=== PATIENT | female | born 1935 | race Caucasian/White ===

== ENCOUNTER 2018-01-04 11:38 | Inpatient (IN) ==
[2018-01-04] MEDS ORDERED: CEFEPIME 1 GM in NS 100 ML IV ONE (11:40)
--- NOTE | 2018-01-04 11:41 | Emergency Department Report ---
Asthma HPI - General Stated Complaint: c/o flu Time Seen by Provider: 01/04/18 11:39 - Related Data Home Medications Medication Instructions Recorded Confirmed Atorvastatin [Lipitor] 40 mg PO HS 01/04/18 01/04/18 Levothyroxine Sodium [Tirosint] 50 mcg PO DAILY 01/04/18 01/04/18 Losartan Potassium [Cozaar] 100 mg PO DAILY 01/04/18 01/04/18 Trazodone [Desyrel] 100 mg PO HS 01/04/18 01/04/18 Previous Rx's Medication Instructions Recorded Lopressor (metoprolol tartrate) 50 25 mg PO BID #90 tab 05/27/17 mg tablet metoclopramide 10 mg tablet 10 mg PO TID #90 tab 08/09/17 Xanax (alprazolam) 0.25 mg tablet 0.25 mg PO TID PRN #90 tab 08/15/17 Prilosec (Omeprazole) 20 mg 20 mg PO DAILY #90 cap 12/05/17 capsule,delayed release Levaquin (levofloxacin) 500 mg 500 mg PO DAILY #10 tab 01/03/18 tablet Allergies Allergy/AdvReac Type Severity Reaction Status Date / Time No Known Allergies Allergy Verified 01/04/18 12:20 [facility] Medical History Peripheral neuropathy (Chronic Medical) Hypothyroidism (acquired) (Chronic Medical) Hyperlipidemia (Chronic Medical) HTN (hypertension) (Chronic Medical) ASCVD (arteriosclerotic cardiovascular disease) (Chronic Medical) Surgical History: Tonsils. Appendectomy. Bowel Resection following a perforated diverticulum/abscess. Right Knee replacement. Right Hip Replacement. Complete Hysterectomy - Social History Smoking status: Former smoker Dyspnea - Lab Data Result diagrams: 01/04/18 12:08 01/04/18 12:08 Lab Results 01/04/18 01/04/18 Range/Units 12:08 12:08 WBC 7.5 (4.5-11.0) T/MM3 RBC 4.61 (4.00-5.20) M/MM3 Hgb 13.1 (12-16) GM/DL Hct 39.4 (36-46) % MCV 85.5 (80-100) UM3 MCH 28.4 (26-34) UUG MCHC 33.2 (31-37) GM/DL RDW Std Deviation 42.2 (36.9-50.2) FL Plt Count 22 L* (130-400) T/MM3 MPV Not performed Immature Gran % (Auto) Not performed Neut % (Auto) Not performed Lymph % (Auto) Not performed [place] % (Auto) Not performed Eos % (Auto) Not performed Baso % (Auto) Not performed Neut # (Auto) Not performed Lymph # (Auto) Not performed [place] # (Auto) Not performed Eos # (Auto) Not performed Baso # (Auto) Not performed Abs Immat Gran (auto) Not performed Turbidity < 20 (0-20) Sodium 148 H (134-144) MEQ/L Potassium 4.0 (3.6-5) MEQ/L Chloride 108 H (98-107) MEQ/L Carbon Dioxide 20 L (22-30) MEQ/L Anion Gap 20 H (5-15) MEQ/L BUN 20.0 H (7-17) MG/DL Creatinine 0.8 (0.7-1.2) MG/DL GFR Calculation 69 BUN/Creatinine Ratio 25 (6-26) RATIO Glucose 154 H (65-110) MG/DL Calculated Osmolality 290 H (261-280) MOSM/KG Calcium 8.2 L (8.4-10.2) MG/DL Total Bilirubin 1.30 (0.20-1.30) MG/DL Icterus Index < 2 (0-7) AST 51 H (14-36) U/L ALT 16 (9-52) U/L Alkaline Phosphatase 67 (38-126) U/L Total Protein 7.2 (6.3-8.2) G/DL Albumin 4.1 (3.5-5.0) G/DL Globulin 3.1 (2.4-3.6) G/DL Albumin/Globulin Ratio 1.3 (1.1-2.2) RATIO Lipase 92 (23-300) U/L Specimen Hemolysis 139 H (0-25) Disposition Prescriptions: No Action Trazodone [Desyrel] 100 mg PO HS Atorvastatin [Lipitor] 40 mg PO HS Losartan Potassium [Cozaar] 100 mg PO DAILY Levothyroxine Sodium [Tirosint] 50 mcg PO DAILY Xanax (alprazolam) 0.25 mg tablet 0.25 mg PO TID PRN #90 tab PRN Reason: anxiety Prilosec (Omeprazole) 20 mg capsule,delayed release 20 mg PO DAILY #90 cap Lopressor (metoprolol tartrate) 50 mg tablet 25 mg PO BID #90 tab metoclopramide 10 mg tablet 10 mg PO TID #90 tab Levaquin (levofloxacin) 500 mg tablet 500 mg PO DAILY #10 tab Referrals: Ovidio Ziegler MD [Primary Care Provider] -
[2018-01-04] MEDS ORDERED: ONDANSETRON 4 MG/2 ML INJECTION IVP ONE (11:51)
[2018-01-04] MEDS ORDERED: AMIODARONE 150mg/3ml INJECTION IV ONE (12:01)
[2018-01-04] MEDS: SALINE FLUSH 10ml SYRINGE IVF PRN (12:04)
[2018-01-04] MEDS ORDERED: AMIODARONE 150 MG in NS 100 ML IV ONE (12:15)
[2018-01-04] MEDS ORDERED: AMIODARONE 900 MG in NS 500ml 500 ML IV SCH (12:15)
[2018-01-04] MEDS ORDERED: AMIODARONE 450 MG in NS 250ml 250 ML IV SCH (12:15)
[2018-01-04] MEDS ORDERED: NS 1,000 ML IV ONE (12:15)
--- NOTE | 2018-01-04 12:53 | XRay Report ---
Indication: cough shortness of air tachycardia SVT PROCEDURE: XR chest 1V: Encounter: Initial Comparison: None Findings: Respiratory motion artifact. No gross consolidative pneumonia, pleural effusion or pneumothorax. Heart size and mediastinal contours are within normal limits. Prior CABG. Pulmonary vascularity is not well evaluated due to the motion. Overlying monitoring leads. Impression: No pneumonia. .
--- OUTSIDE RECORDS SUMMARY | 2018-01-04 13:12 | External Medical Summary ---
:1935 Author Organization [facility] Address [address] [place] [address] Care Team Providers Name Role Phone Robby Joseph Unavailable Unavailable PROBLEMS Type Condition ICD9-CM Code [id number] Onset Condition SNOMED Code Code Dates Status Problem Dyspnea 786.09 Active 445329497 Problem Hypothyroid E03.9 Active 02552085 Problem Diastolic I51.9 Active 8710072 dysfunction Problem Angina pectoris I20.9 Active 601811861 Problem CAD (coronary I25.10 Active 06807196 artery disease) Problem Hypertension I10 Active 59207956 Problem Dyslipidemia E78.5 Active 111033612 Problem 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
--- OUTSIDE RECORDS SUMMARY | 2018-01-04 13:13 | External Medical Summary | Continuity of Care Document ---
:1935 Author Organization [facility] Allergies Active Description Code Type Severity Reaction Onset Reported/ Identified Relationship Clinical to Patient Status Yes ALLYSON ALLYSON Drug Unknown UNKNOWN 08/01/2014 Inhibitors Inhib Aller itors gy Yes ciprofloxaci cipro Drug Unknown UNKNOWN 08/01/2014 n floxa Aller lluvia gy Yes Ertapenem Ertap Drug Unknown UNKNOWN 08/01/2014 enem Aller gy Yes metronidazol metro Drug Unknown UNKNOWN 08/01/2014 e nidaz Aller ole gy Yes ALLYSON ALLYSON Drug Severe MOUTH 01/14/2016 Inhibitors Inhib Aller SWELLS itors gy Yes Ertapenem ertap Drug Mild RASH 01/14/2016 enem Aller gy Yes metronidazol metro Drug Mild RASH 01/14/2016 e nidaz Aller ole gy Yes ciprofloxaci cipro Drug Unknown RASH 01/14/2016 n floxa Aller lluvia gy Medications There is no data. Problems Date Dx Attending Type Code Diagnosis Diagnosed By Coded 08/04/2014 Robby Joseph MD 244.9 HYPOTHYROIDISM NOS 08/04/2014 Robby Joseph MD 272.4 HYPERLIPIDEMIA NEC/NOS 08/04/2014 Robby Joseph MD 285.1 AC POSTHEMORRHAG ANEMIA 08/04/2014 Robby Joseph MD 401.9 HYPERTENSION NOS 08/04/2014 Robby Joseph MD 411.1 INTERMED CORONARY SYND 08/04/2014 Robby Joseph MD 414.01 CORONARY ATHEROSCLEROSIS OF [place] CORONARY VESSEL 08/04/2014 Robby Joseph MD 511.9 PLEURAL EFFUSION NOS 08/04/2014 Robby Joseph MD 997.39 OTHER RESPIRATORY COMPLICATIONS 08/04/2014 Robby Joseph MD E878.2 ABN REACT-ANASTOM/GRAFT 08/04/2014 Robby Joseph MD V15.82 HISTORY OF TOBACCO USE 08/04/2014 Robby Joseph MD V43.64 HIP JOINT REPLACEMENT STATUS 08/04/2014 Jake CHA, Robby Martinez F V45.82 PERCUTANEOUS TRANSLUM CORON ANGIOPLASTY STATUS Procedures Code Description Performed By Performed On LT HEART Robby Joseph MD 08/02/2014 88.53 ANGIOCARDIOGRAM CORONRobby Conner MD 08/02/2014 88.56 ARTERIOGR-2 CATH THORACENTESIS William CHA, Taylor 08/04/2014 34.91 (AORTO)CORONARY Jonathon CHA, Zachery 08/04/2014 36.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 Jake CHA, Robby Martinez 08/04/2014 36.15 ART BYPASS EXTRACORP Jake CHA, Robby Martinez 08/04/2014 39.61 CIRCULAT AUXIL TO OPEN HEART SURG PACKED CELL Jake CHA, Robby Martinez 08/04/2014 99.04 TRANSFUSION THERAPEUTIC Jake CHA, Robby Martinez 08/04/2014 99.71 PLASMAPHERESIS LEFT HEART Robby Joseph MD 04/15/2015 37.22 CARDIAC CATH LT HEART Robby Joseph MD 04/15/2015 88.53 ANGIOCARDIOGRAM CORONAR Robby Joseph MD 04/15/2015 88.56 ARTERIOGR-2 CATH <section xmlns="urn:hl7-org:v3" xmlns:xsi="http://www.w3.org/ 2001/XMLSchema-instance"> <templateId root=" [id number]" /> <templateId root=" [id number]" /> <code codeSystemName=" LOINC" codeSystem="[id number]" code="64294-0&quot ; displayName="Results" /> <title>Results</title> &lt ;text> <table> <thead> <tr> <th& gt;Test</th> <th>Result</th> <th>Range </th> </tr> </thead> <tbody> &lt ;tr> <th colspan="10">CBC - 08/02/14 07:30</th&gt ; </tr> <tr> <td>MEAN CELL HGB</td> <td>28.3 pg</td> <td>27.0-33.0</td> </tr> <tr> <td>MEAN CELL HGB CONCENTRATION</td> <td>32.2 g/dL</td> <td >32.0-37.0</td> </tr> <tr> <td&gt ;MEAN CELL VOLUME</td> <td>87.9 fl</td> < td>80.0-100.0</td> </tr> <tr> <td >RED BLOOD CELL</td> <td>4.73 m/cumm</td> <td>4.00-6.00</td> </tr> <tr> & lt;td>RED CELL DISTRIBUTION WIDTH</td> <td>14.5 &#37 ;</td> <td>11.0-15.6</td></tr> <tr&gt ; <td>WHITE BLOOD CELL</td> <td>5.7 k/cumm& lt;/td> <td>5.0-10.0</td> </tr> < tr> <td>HEMOGLOBIN</td> <td>13.4 gm/dL</td> <td>12.0-16.0</td> </tr> <tr> <td>HEMATOCRIT</td> <td>41.6 %</td > <td>37.0-47.0</td> </tr><tr> <td>PLATELET COUNT</td> <td>208 k/cumm</td&gt ; <td>150-400</td> </tr> <tr> <th colspan="10">METABOLIC PANEL, BASIC - 08/02/14 07:30</ th> </tr> <tr> <td>POTASSIUM</td&gt ; <td>4.3 mmol/L</td> <td>3.5-5.3</td&gt ; </tr> <tr> <td>EST GFR (MDRD)</td& gt; <td>57 mL/min</td> <td>> 59</td& gt; </tr> <tr> <td>ANION GAP</td> <td>6 mmol/L</td> <td>5-15</td> </tr > <tr> <td>GLUCOSE</td> <td> 87 mg/dL</td> <td>70-99</td> </tr> &lt ;tr> <td>CALCIUM</td> <td>8.7 mg/dL</ td><td>8.5-10.1</td> </tr> <tr> <td>BLOOD UREA NITROGEN</td> <td>19 mg/dL</td& gt; <td>7-20</td> </tr> <tr> <td>CREATININE</td> <td>1.0 mg/dL</td> <td>0.6-1.0</td> </tr> <tr> <td>SODIUM</td> <td>143 mmol/L</td> <td>135-148</td> </tr> <tr> <td& gt;CHLORIDE</td> <td>108 mmol/L</td> <td& gt;98-110</td> </tr> <tr> <td> CARBON DIOXIDE</td> <td>29 mmol/L</td> < td>21-32</td> </tr> <tr> <th colspan="10">LIPID PANEL - 08/02/14 07:30</th> </tr > <tr> <td>CHOLESTEROL/HDL RATIO</td> <td>3.1 </td> <td> < 5.0</td> </tr> <tr> <td>LDL CHOLESTEROL</td> <td>83 mg/dL</td> <td>< 100</td&gt ; </tr> <tr> <td>VLDL CHOLESTEROL</ td> <td>23 mg/dL</td> <td>< 30< /td> </tr> <tr> <td>TRIGLYCERIDES&lt ;/td> <td>117 mg/dL</td> <td>< 150</ td> </tr> <tr> <td>CHOLESTEROL</td&gt ; <td>157 mg/dL</td> <td>< 200</td> </tr> <tr> <td>HDL CHOLESTEROL</td& gt; <td>51 mg/dL</td> <td>> 39</td > </tr> <tr> <th colspan="10"& gt;CHEM/HEM PROFILE-BEDSIDE - 08/04/14 16:35</th> </tr> <tr> <td>POTASSIUM</td> <td>3.5 mmol/L</td> <td>3.5-5.3</td> </tr> <tr> <td>METHOD</td> <td>Bedside & lt;/td> <td /> </tr> <tr> < td>ANION GAP</td> <td>18 mmol/L</td> <td> 10-20</td> </tr> <tr> <td>METHOD& lt;/td> <td>Bedside </td> <td /> & lt;/tr> <tr> <td>GLUCOSE</td> < td>115 mg/dL</td> <td>70-99</td> </tr&gt ; <tr> <td>BLOOD UREA NITROGEN</td> & lt;td>26 mg/dL</td> <td>7-20</td> </tr& gt; <tr> <td>CREATININE</td> <td& gt;1.1 mg/dL</td> <td>0.6-1.0</td> </tr&gt ; <tr> <td>HEMOGLOBIN</td> <td> 14.3 gm/dL</td> <td>12.0-16.0</td> </tr&gt ; <tr> <td>HEMATOCRIT</td> <td> 42.0 %</td> <td>37.0-47.0</td> </tr > <tr> <td>SODIUM</td> <td> 144 mmol/L</td> <td>135-148</td> </tr> <tr> <td>CHLORIDE</td> <td>105 mmol/L</td> <td>98-110</td> </tr> <tr> <td>CARBON DIOXIDE</td> <td>26 mmol/L</td> <td>21-32</td> </tr> <tr> <td>CALCIUM IONIZED</td> <td>4.7 mg/dL</td> <td>4.5-5.3</td> </tr> <tr> <th colspan="10">TROPONIN I BEDSIDE - 16:42</th> </tr> <tr> <td> METHOD</td> <td>Bedside </td> <td /> </tr> <tr> <td>TROPONIN I</td> <td>< 0.04 ng/mL</td><td>< 0.11</td& gt; </tr> <tr> <th colspan="10"& gt;PROTHROMBIN TIME WITH INR - 08/04/14 16:51</th> </tr> <tr> <td>INTERNATIONAL NORMAL RATIO</td> <td>1.0 </td> <td>0.9-1.1</td> </tr> <tr> <td>PROTHROMBIN TIME</td> <td& gt;10.5 sec</td> <td>9.3-12.2</td> </tr&gt ; <tr> <th colspan="10">D-DIMER QUANT - 16:51</th> </tr> <tr> <td> D-DIMER QUANT</td> <td>203 ng/mL</td> <td>0-229 </td> </tr> <tr> <th colspan=" 10">B-TYPE NATRIURETIC PEPTIDE - 08/04/14 16:51</th> </tr > <tr> <td>B-TYPE NATRIURETIC PEPTIDE</td> <td>133 pg/mL</td> <td>< 100</td> </tr> <tr> <th colspan="10">PTT HEPARIN PROTOCOLS - 08/05/14 00:07</th> </tr> <tr& gt; <td>PARTIAL THROMBOPLASTIN TIME</td> <td>& amp;gt; 400 sec</td> <td>24-36</td> </tr&gt ; <tr> <th colspan="10">CBC - 08/05/14 08:15& lt;/th> </tr> <tr> <td>MEAN CELL HGB </td> <td>28.5 pg</td> <td>27.0-33.0& lt;/td> </tr> <tr> <td>MEAN CELL HGB CONCENTRATION</td> <td>32.6 g/dL</td> & lt;td>32.0-37.0</td> </tr> <tr> < td>MEAN CELL VOLUME</td> <td>87.6 fl</td> <td>80.0-100.0</td> </tr> <tr> & lt;td>RED BLOOD CELL</td> <td>4.45 m/cumm</td> <td>4.00-6.00</td> </tr> <tr> <td>RED CELL DISTRIBUTION WIDTH</td> <td>14.1 & amp;#37;</td> <td>11.0-15.6</td> </tr> <tr> <td>WHITE BLOOD CELL</td> <td >6.7 k/cumm</td> <td>5.0-10.0</td> </tr& gt; <tr> <td>HEMOGLOBIN</td> <td& gt;12.7 gm/dL</td> <td>12.0-16.0</td> </tr& gt; <tr> <td>HEMATOCRIT</td> <td& gt;39.0 %</td> <td>37.0-47.0</td> < /tr> <tr> <td>PLATELET COUNT</td> <td>175 k/cumm</td> <td>150-400</td> &lt ;/tr> <tr> <th colspan="10">RENAL FUNCTION PANEL - 08/05/14 08:15</th> </tr> <tr> <td>POTASSIUM</td> <td>3.7 mmol/L</td&gt ; <td>3.5-5.3</td> </tr> <tr> <td>EST GFR (MDRD)</td> <td>> 60 mL/min </td> <td>> 59</td> </tr> <tr> <td>ANION GAP</td><td>7 mmol/L</td> <td>5-15</td> </tr> <tr> <td>EST CrCl (CG)</td> <td>40 mL/min</td> <td>> 59</td> </tr> <tr> <td>GLUCOSE</td> <td>93 mg/dL</td> <td>70-99</td> </tr><tr> <td> CALCIUM</td> <td>8.1 mg/dL</td> <td> 8.5-10.1</td> </tr> <tr> <td> BLOOD UREA NITROGEN</td> <td>17 mg/dL</td> & lt;td>7-20</td> </tr> <tr> <td&gt ;CREATININE</td> <td>0.9 mg/dL</td> <td& gt;0.6-1.0</td> </tr> <tr> <td> SODIUM</td> <td>142 mmol/L</td> <td> 135-148</td> </tr> <tr> <td> CHLORIDE</td> <td>107 mmol/L</td> <td> 98-110</td> </tr> <tr> <td> CARBON DIOXIDE</td> <td>28 mmol/L</td> < td>21-32</td> </tr> <tr> <td> ALBUMIN</td> <td>3.9 gm/dL</td> <td> 3.4-5.0</td> </tr> <tr> <td> PHOSPHORUS</td> <td>2.9 mg/dL</td> <td&gt ;2.5-4.9</td> </tr> <tr> <th colspan ="10">MAGNESIUM - 08/05/14 08:15</th> </tr> <tr> <td>MAGNESIUM</td> <td>1.6 mg/ dL</td> <td>1.8-2.4</td> </tr> <tr& gt; <th colspan="10">TROPONIN I - 08/05/14 08:15</th ></tr> <tr> <td>TROPONIN I</td> <td>< 0.02 ng/mL</td> <td>< 0.07& lt;/td> </tr> <tr> <th colspan="10& quot;>PTT HEPARIN PROTOCOLS - 08/05/14 08:15</th> </tr> <tr> <td>PARTIAL THROMBOPLASTIN TIME</td> <td>211 sec</td> <td>24-36</td> &lt ;/tr> <tr> <th colspan="10">LIPID PANEL - 08:15</th> </tr> <tr> <td> CHOLESTEROL/HDL RATIO</td> <td>2.7 </td> < td> < 5.0</td> </tr> <tr> &lt ;td>LDL CHOLESTEROL</td> <td>73 mg/dL</td> <td>< 100</td> </tr> <tr> <td>VLDL CHOLESTEROL</td> <td>19 mg/dL</td&gt ; <td>< 30</td> </tr> <tr&gt ; <td>TRIGLYCERIDES</td> <td>95 mg/dL</td > <td>< 150</td> </tr> <tr > <td>CHOLESTEROL</td> <td>146 mg/dL</ td> <td>< 200</td> </tr> < tr> <td>HDL CHOLESTEROL</td> <td>54 mg/dL </td> <td>> 39</td> </tr> <tr> <th colspan="10">HEMOGLOBIN A1C - 08/05/14 08:15</th> </tr><tr> <td>HEMOGLOBIN A1C& lt;/td> <td>6.1 %</td> <td>&lt ; 5.7</td> </tr> <tr> <th colspan=& quot;10">MRSA SURVEILLANCE SCREEN - 08/05/14 16:09</th> &lt ;/tr> <tr> <td>Microbiology</td> & lt;td> </td> <td /> </tr> <tr&gt ; <th colspan="10">PROTHROMBIN TIMEWITH INR - 08/05/14 16:20</th> </tr> <tr> <td> INTERNATIONAL NORMAL RATIO</td> <td>1.0 </td> <td>0.9-1.1</td> </tr> <tr> & lt;td>PROTHROMBIN TIME</td> <td>10.6 sec</td> <td>9.3-12.2</td> </tr> <tr> <th colspan="10">FIBRINOGEN - 08/05/14 16:20</th> & lt;/tr> <tr> <td>FIBRINOGEN</td> < td>356 mg/dL</td> <td>200-400</td> </tr> <tr> <th colspan="10">PTT HEPARIN PROTOCOLS - 08/05/14 16:20</th> </tr> <tr> <td>PARTIAL THROMBOPLASTIN TIME</td> <td>48 sec< /td> <td>24-36</td> </tr> <tr> <th colspan="10">URINALYSIS, ROUTINE - 08/05/14 16:20</th& gt; </tr> <tr> <td>UA LEUKOCYTE ESTERASE DIPSTICK</td> <td>NEGATIVE </td> & lt;td>NEGATIVE</td> </tr> <tr> < td>UA NITRITE DIPSTICK</td> <td>NEGATIVE </td> <td>NEGATIVE</td></tr> <tr> < td>UA PROTEIN DIPSTICK</td> <td>NEGATIVE </td> <td>NEGATIVE</td> </tr> <tr> < td>UA GLUCOSE DIPSTICK</td> <td>NEGATIVE </td> <td>NEGATIVE</td> </tr> <tr> <td>UA KETONE DIPSTICK</td> <td>NEGATIVE </td& gt; <td>NEGATIVE</td> </tr> <tr> <td>UA UROBILINOGEN DIPSTICK</td> <td> NORMAL </td> <td>NORMAL</td> </tr> <tr> <td>UA BILIRUBIN DIPSTICK</td> < td>NEGATIVE </td> <td>NEGATIVE</td> </tr > <tr> <td>UA BLOOD DIPSTICK</td> <td>NEGATIVE </td> <td>NEGATIVE</td> &lt ;/tr> <tr> <td>UA SPECIFIC GRAVITY</td> <td>1.002 </td> <td>1.015-1.025</td> </tr> <tr> <td>UR PH</td> &lt ;td>5.0 </td> <td>5.0-7.0</td> </tr> <tr> <th colspan="10">ARTERIAL BLOOD GAS - 08/05/14 16:31</th> </tr> <tr> <td >ABG BASE EXCESS</td> <td>1.8 meq/L</td> <td >-3.0-3.0</td> </tr> <tr> <td> ABG BICARBONATE</td> <td>27.1 meq/L</td> <td& gt;23.0-28.0</td> </tr> <tr> <td> ABG PCO2</td> <td>45 mm Hg</td> <td>34 -45</td> </tr> <tr> <td>ABG PH&lt ;/td> <td>7.40 </td> <td>7.35-7.45</td> </tr> <tr> <td>ABG PO2</td> <td>74 mm Hg</td> <td>75-100</td> & lt;/tr> <tr> <td>ABG O2 SATURATION</td> <td>95 %</td> <td>93-100</td> </tr> <tr> <th colspan="10"> PTT HEPARIN PROTOCOLS - 08/06/14 00:14</th> </tr><tr> <td>PARTIAL THROMBOPLASTIN TIME</td> <td> 220 sec</td> <td>24-36</td> </tr> <tr> <th colspan="10">PTT HEPARIN PROTOCOLS - 08/06/14 08:13</th> </tr> <tr> <td& gt;PARTIAL THROMBOPLASTIN TIME</td> <td>100 sec</td> <td>24-36</td> </tr> <tr> <th colspan="10">METABOLIC PANEL, BASIC - 08/06/14 08:13< /th> </tr> <tr> <td>POTASSIUM</td > <td>3.7 mmol/L</td> <td>3.5-5.3</td& gt; </tr> <tr> <td>EST GFR (MDRD)</ td> <td>57 mL/min</td> <td>> 59&lt ;/td> </tr> <tr> <td>ANION GAP</ td> <td>7 mmol/L</td> <td>5-15</td> </tr> <tr> <td>EST CrCl (CG)</td> <td>37 mL/min</td> <td>> 59</td&gt ;</tr> <tr> <td>GLUCOSE</td> & lt;td>95 mg/dL</td> <td>70-99</td> </tr& gt; <tr> <td>CALCIUM</td> <td> 8.8 mg/dL</td> <td>8.5-10.1</td> </tr> & lt;tr> <td>BLOOD UREA NITROGEN</td> <td> 10 mg/dL</td> <td>7-20</td> </tr> <tr> <td>CREATININE</td> <td>1.0 mg/ dL</td> <td>0.6-1.0</td> </tr> & lt;tr> <td>SODIUM</td> <td>144 mmol/L< /td> <td>135-148</td> </tr> <tr& gt; <td>CHLORIDE</td> <td>109 mmol/L</td> <td>98-110</td> </tr> <tr> <td>CARBON DIOXIDE</td> <td>28 mmol/L</td> <td>21-32</td> </tr> <tr> < th colspan="10">SURGERY PROFILE BEDSIDE - 09/30/14 12:33</th&gt ; </tr> <tr> <td>POTASSIUM</td> <td>3.4 mmol/L</td> <td>3.5-5.3</td> </tr> <tr> <td>ABG BASE EXCESS</td> <td>4.0 meq/L</td> <td>-3.0-3.0</td> </tr> <tr> <td>ABG BICARBONATE</td& gt; <td>28.1 meq/L</td> <td>23.0-28.0</td> </tr> <tr> <td>METHOD</td> < td>Bedside </td> <td /> </tr> <tr > <td>ABG PCO2</td> <td>43 mm Hg</td& gt; <td>34-45</td> </tr> <tr> <td>ABG PH</td> <td>7.43 </td> <td& gt;7.35-7.45</td> </tr> <tr> <td> ABG PO2</td> <td>386 mm Hg</td> <td>75 -100</td> </tr> <tr> <td>ABG O2 SATURATION</td> <td>100 %</td> < td>93-100</td> </tr> <tr> <td> METHOD</td> <td>Bedside </td> <td /> </tr> <tr> <td>METHOD</td> <td> Bedside </td> <td /> </tr> <tr> <td>GLUCOSE</td> <td>97 mg/dL</td> <td>70-99</td> </tr> <tr> <td>HEMOGLOBIN</td> <td>11.2 gm/dL</td> <td>12.0-16.0</td> </tr> <tr> <td >HEMATOCRIT</td> <td>33.0 %</td> <td>37.0-47.0</td> </tr> <tr> <td> SODIUM</td> <td>142 mmol/L</td> <td> 135-148</td> </tr> <tr> <td> CARBON DIOXIDE</td> <td>29 mmol/L</td> < td>21-32</td> </tr> <tr> <td> CALCIUM IONIZED</td> <td>4.7 mg/dL</td> < td>4.5-5.3</td> </tr> <tr> <th colspan="10">SURGERY PROFILE BEDSIDE - 08/06/14 13:46</th> </tr> <tr> <td>POTASSIUM</td> <td>3.6 mmol/L</td> <td>3.5-5.3</td> </tr> <tr> <td>ABG BASE EXCESS</td> <td>2.0 meq/L</td> <td>-3.0-3.0</td> </tr> <tr> <td>ABG BICARBONATE</td& gt; <td>26.8 meq/L</td><td>23.0-28.0</td> </tr> <tr> <td>METHOD</td> & lt;td>Bedside </td> <td /> </tr> &lt ;tr> <td>ABG PCO2</td> <td>43 mm Hg</ td> <td>34-45</td> </tr> <tr> <td>ABG PH</td> <td>7.40 </td> <td>7.35-7.45</td> </tr> <tr> & lt;td>ABG PO2</td> <td>551 mm Hg</td> &lt ;td>75-100</td> </tr> <tr> <td&gt ;ABG O2 SATURATION</td> <td>100 %</td> & lt;td>93-100</td> </tr> <tr> <td> METHOD</td> <td>Bedside </td> <td /> </tr> <tr> <td>METHOD</td> <td>Bedside </td> <td /> </tr> <tr> <td>GLUCOSE</td> <td>107 mg/dL </td> <td>70-99</td> </tr> <tr> <td>HEMOGLOBIN</td> <td>10.5 gm/dL</td&gt ; <td>12.0-16.0</td> </tr> <tr> <td>HEMATOCRIT</td> <td>31.0 %</ td> <td>37.0-47.0</td> </tr> <tr& gt; <td>SODIUM</td> <td>141 mmol/L</td&gt ; <td>135-148</td> </tr> <tr> <td>CARBON DIOXIDE</td> <td>28 mmol/L</td& gt; <td>21-32</td> </tr> <tr> <td>CALCIUM IONIZED</td> <td>4.4 mg/dL</td& gt; <td>4.5-5.3</td> </tr> <tr> <th colspan="10">SURGERY PROFILE BEDSIDE - 08/06/14 14:11 </th> </tr> <tr> <td>POTASSIUM&lt ;/td> <td>4.0 mmol/L</td> <td>3.5-5.3< /td> </tr> <tr> <td>ABG BASE EXCESS& lt;/td> <td>2.0 meq/L</td> <td>-3.0-3.0& lt;/td> </tr> <tr> <td>ABG BICARBONATE</td> <td>24.8 meq/L</td> <td& gt;23.0-28.0</td> </tr> <tr> <td> METHOD</td> <td>Bedside </td> <td /> </tr> <tr> <td>ABG PCO2</td> & lt;td>31 mm Hg</td> <td>34-45</td> </tr& gt; <tr> <td>ABG PH</td> <td> 7.51 </td> <td>7.35-7.45</td> </tr> <tr> <td>ABG PO2</td> <td>555 mm Hg</td > <td>75-100</td> </tr> <tr> <td>ABG O2 SATURATION</td> <td>100 % </td> <td>93-100</td> </tr> <tr&gt ; <td>METHOD</td> <td>Bedside </td> <td /> </tr> <tr> <td> METHOD</td> <td>Bedside </td> <td /> </tr> <tr> <td>GLUCOSE</td> <td>131 mg/dL</td> <td>70-99</td> & lt;/tr> <tr> <td>HEMOGLOBIN</td> & lt;td>6.8 gm/dL</td> <td>12.0-16.0</td> &lt ;/tr> <tr> <td>HEMATOCRIT</td> &lt ;td>20.0 %</td> <td>37.0-47.0</td> </tr> <tr> <td>SODIUM</td> < td>142 mmol/L</td> <td>135-148</td> </tr > <tr> <td>CARBON DIOXIDE</td> &lt ;td>26 mmol/L</td> <td>21-32</td> </tr& gt; <tr> <td>CALCIUM IONIZED</td> <td&gt ;3.0 mg/dL</td> <td>4.5-5.3</td> </tr> <tr> <th colspan="10">SURGERY PROFILE BEDSIDE - 08/06/14 14:36</th> </tr> <tr> <td>POTASSIUM</td> <td>3.3 mmol/L</td> <td>3.5-5.3</td> </tr> <tr> <td>ABG BASE EXCESS</td> <td>3.0 meq/L</td> <td>-3.0-3.0</td> </tr> <tr> <td>ABG BICARBONATE</td> <td>25.9 meq/L</td> <td>23.0-28.0</td> </tr> <tr> <td>METHOD</td> <td>Bedside </td> <td /> </tr> <tr> <td>ABG PCO2< /td> <td>33 mm Hg</td> <td>34-45</td& gt; </tr> <tr> <td>ABG PH</td> <td>7.50 </td> <td>7.35-7.45</td> </tr><tr> <td>ABG PO2</td> <td> 387 mm Hg</td> <td>75-100</td> </tr> <tr> <td>ABG O2 SATURATION</td> <td& gt;100 %</td> <td>93-100</td> </tr& gt; <tr> <td>METHOD</td> <td> Bedside </td> <td /> </tr> <tr> <td>METHOD</td> <td>Bedside </td> <td /> </tr> <tr> <td>GLUCOSE</td> <td>122 mg/dL</td> <td>70-99</td> </tr> <tr> <td>HEMOGLOBIN</td> <td>6.8 gm/dL</td> <td>12.0-16.0</td> </tr> <tr> <td>HEMATOCRIT</td> <td>20.0 %</td> <td>37.0-47.0</td> </tr> <tr> <td>SODIUM</td> <td>143 mmol/L</td> <td>135-148</td> &lt ;/tr> <tr> <td>CARBON DIOXIDE</td> <td >27 mmol/L</td> <td>21-32</td> </tr> <tr> <td>CALCIUM IONIZED</td> <td> 3.5 mg/dL</td> <td>4.5-5.3</td> </tr> <tr> <th colspan="10">SURGERY PROFILE BEDSIDE - 08/06/14 15:10</th> </tr> <tr> <td>POTASSIUM</td> <td>3.5 mmol/L</td> <td>3.5-5.3</td> </tr> <tr> <td> ABG BASE EXCESS</td> <td>3.0 meq/L</td> <td& gt;-3.0-3.0</td> </tr> <tr> <td> ABG BICARBONATE</td> <td>26.4 meq/L</td> &lt ;td>23.0-28.0</td> </tr> <tr> <td&gt ;METHOD</td> <td>Bedside </td> <td /> </tr> <tr> <td>ABG PCO2</td> <td>37 mm Hg</td> <td>34-45</td> </tr> <tr> <td>ABG PH</td> < td>7.46 </td> <td>7.35-7.45</td> </tr&gt ; <tr> <td>ABG PO2</td> <td> 372 mm Hg</td> <td>75-100</td> </tr> <tr> <td>ABG O2 SATURATION</td> <td&gt ;100 %</td> <td>93-100</td> </tr&gt ; <tr> <td>METHOD</td> <td> Bedside </td> <td /> </tr> <tr> <td>METHOD</td> <td>Bedside </td> <td /> </tr> <tr> <td>GLUCOSE& lt;/td> <td>161 mg/dL</td> <td>70-99</ td> </tr> <tr> <td>HEMOGLOBIN</td&gt ; <td>6.8 gm/dL</td> <td>12.0-16.0</td&gt ; </tr> <tr> <td>HEMATOCRIT</td> <td>20.0 %</td> <td>37.0-47.0</td> </tr> <tr> <td>SODIUM</td> <td>142 mmol/L</td> <td>135-148</td> </tr& gt; <tr> <td>CARBON DIOXIDE</td> < td>28 mmol/L</td> <td>21-32</td> </tr&gt ; <tr> <td>CALCIUM IONIZED</td> < td>3.7 mg/dL</td> <td>4.5-5.3</td> </tr& gt; <tr> <th colspan="10">HGB HCT - 15:33</th> </tr> <tr> <td> MEAN CELL VOLUME</td> <td>91.0 fl</td> < td>80.0-100.0</td> </tr> <tr> <td >HEMOGLOBIN</td> <td>6.0 gm/dL</td> < td>12.0-16.0</td> </tr> <tr> <td&gt ;HEMATOCRIT</td> <td>19.2 %</td> &lt ;td>37.0-47.0</td> </tr> <tr> < th colspan="10">PLATELET COUNT - 08/06/14 15:33</th> & lt;/tr> <tr> <td>PLATELET COUNT</td> <td>65 k/cumm</td> <td>150-400</td> & lt;/tr> <tr> <th colspan="10"> PROTHROMBIN TIME WITH INR - 08/06/14 15:33</th> </tr> <tr> <td>INTERNATIONAL NORMAL RATIO</td> &lt ;td>2.1 </td> <td>0.9-1.1</td> </tr> <tr> <td>PROTHROMBIN TIME</td> < td>23.3 sec</td> <td>9.3-12.2</td> </tr& gt; <tr> <th colspan="10">FIBRINOGEN - 15:33</th> </tr> <tr> <td>FIBRINOGEN </td> <td>138 mg/dL</td> <td>200-400& lt;/td> </tr> <tr> <th colspan="10 ">SURGERY PROFILE BEDSIDE - 08/06/14 15:36</th> </tr&gt ; <tr> <td>POTASSIUM</td> <td>2.9 mmol/L</td> <td>3.5-5.3</td> </tr> &lt ;tr> <td>ABG BASE EXCESS</td> <td>0.0 meq /L</td> <td>-3.0-3.0</td> </tr> <tr& gt; <td>ABG BICARBONATE</td> <td>26.3meq/L& lt;/td> <td>23.0-28.0</td> </tr> &lt ;tr> <td>METHOD</td> <td>Bedside </td> <td /> </tr> <tr> <td>ABG PCO2</td> <td>49 mm Hg</td> <td>34-45& lt;/td> </tr> <tr> <td>ABG PH</td > <td>7.33 </td> <td>7.35-7.45</td&gt ; </tr> <tr> <td>ABG PO2</td> <td>359 mm Hg</td> <td>75-100</td> </tr> <tr> <td>ABG O2 SATURATION</td&gt ; <td>100 %</td> <td>93-100</td& gt; </tr> <tr> <td>METHOD</td> <td>Bedside </td> <td /> </tr> <tr> <td>METHOD</td> <td> Bedside </td> <td /> </tr> <tr> <td>GLUCOSE</td> <td>111 mg/dL</td> <td>70-99</td> </tr> <tr> <td>HEMOGLOBIN</td> <td>6.5 gm/dL</td> & lt;td>12.0-16.0</td> </tr> <tr> <td> HEMATOCRIT</td> <td>19.0 %</td> <td& gt;37.0-47.0</td> </tr> <tr> <td> SODIUM</td> <td>145 mmol/L</td> <td> 135-148</td> </tr> <tr> <td> CARBON DIOXIDE</td> <td>28 mmol/L</td> < td>21-32</td> </tr> <tr> <td> CALCIUM IONIZED</td> <td>2.1 mg/dL</td> < td>4.5-5.3</td> </tr> <tr> <th colspan="10">PLATELET COUNT -08/06/14 16:00</th> </ tr> <tr> <td>PLATELET COUNT</td> & lt;td>67 k/cumm</td> <td>150-400</td> </ tr> <tr> <th colspan="10">SURGERY PROFILE BEDSIDE - 08/06/14 16:09</th> </tr> <tr&gt ; <td>POTASSIUM</td> <td>3.5 mmol/L</td& gt; <td>3.5-5.3</td> </tr> <tr> <td>ABG BASE EXCESS</td> <td>3.0 meq/L</ td> <td>-3.0-3.0</td> </tr> <tr& gt; <td>ABG BICARBONATE</td> <td>26.6 meq/L& lt;/td> <td>23.0-28.0</td> </tr> &lt ;tr> <td>METHOD</td> <td>Bedside </td& gt; <td /> </tr> <tr> <td& gt;ABG PCO2</td> <td>38 mm Hg</td> <td> 34-45</td> </tr><tr> <td>ABG PH</td& gt; <td>7.46 </td> <td>7.35-7.45</td> </tr> <tr> <td>ABG PO2</td> <td>416 mm Hg</td> <td>75-100</td> &lt ;/tr> <tr> <td>ABG O2 SATURATION</td> <td>100 %</td> <td>93-100</td> </tr> <tr> <td>METHOD</td> <td>Bedside </td> <td /> </tr> <tr> <td>METHOD</td> <td>Bedside </ td> <td /> </tr> <tr> < td>GLUCOSE</td> <td>89 mg/dL</td> <td& gt;70-99</td> </tr> <tr> <td> HEMOGLOBIN</td> <td>7.8 gm/dL</td> <td&gt ;12.0-16.0</td> </tr> <tr> <td> HEMATOCRIT</td> <td>23.0 %</td> < td>37.0-47.0</td> </tr> <tr> <td& gt;SODIUM</td> <td>144 mmol/L</td> <td&gt ;135-148</td> </tr> <tr> <td> CARBON DIOXIDE</td> <td>28 mmol/L</td> < td>21-32</td> </tr> <tr> <td> CALCIUM IONIZED</td> <td>3.9 mg/dL</td> < td>4.5-5.3</td> </tr> <tr> <th colspan="10">GLUCOSE (POC) - 08/06/14 17:14</th> </ tr> <tr> <td>GLUCOSE (POC)</td> <td& gt;61 mg/dL</td> <td>70-99</td> </tr> <tr> <th colspan="10">ARTERIALBLOOD GAS - 08/06/14 17:15</th> </tr> <tr> <td& gt;ABG BASE EXCESS</td> <td>2.4 meq/L</td> & lt;td>-3.0-3.0</td> </tr> <tr> <td& gt;ABG FIO2</td> <td>80 %</td> < td /> </tr> <tr> <td>ABG BICARBONATE </td> <td>24.3 meq/L</td> <td>23.0- 28.0</td> </tr> <tr> <td>ABG PCO2& lt;/td> <td>27 mmHg</td> <td>34-45</td > </tr> <tr> <td>ABG PEEP</td&gt ; <td>5 CM</td> <td /> </tr> <tr> <td>ABG PH</td> <td>7.57 &lt ;/td> <td>7.35-7.45</td> </tr> < tr> <td>ABG PO2</td> <td>275 mm Hg</td > <td>75-100</td> </tr> <tr> <td>ABG PRESSURE SUPPORT</td> <td>10 CM</td > <td /> </tr> <tr> <td& gt;ABG VENT RATE</td> <td>12 </td> <td /& gt; </tr> <tr> <td>ABG O2 SATURATION</td > <td>99 %</td> <td>93-100</td > </tr> <tr> <td>ABG TEMPERATURE< /td> <td>35.6 C</td> <td /> </ tr> <tr> <td>ABG TIDAL VOLUME</td> <td>450 CC</td> <td/> </tr> &lt ;tr> <th colspan="10">CBC - 08/06/14 17:16</th&gt ; </tr> <tr> <td>MEAN CELL HGB</td& gt; <td>28.8 pg</td> <td>27.0-33.0</td> </tr> <tr> <td>MEAN CELL HGB CONCENTRATION</td> <td>32.6 g/dL</td> <td >32.0-37.0</td> </tr> <tr> <td&gt ;MEAN CELL VOLUME</td> <td>88.4 fl</td> < td>80.0-100.0</td> </tr> <tr> <td >RED BLOOD CELL</td> <td>3.37 m/cumm</td> <td>4.00-6.00</td> </tr> <tr> & lt;td>RED CELL DISTRIBUTION WIDTH</td> <td>14.0 &#37 ;</td> <td>11.0-15.6</td> </tr> & lt;tr> <td>WHITE BLOOD CELL</td> <td>6.1 k/cumm</td> <td>5.0-10.0</td> </tr> <tr> <td>HEMOGLOBIN</td> <td>9.7 gm/dL</td> <td>12.0-16.0</td> </tr> <tr> <td>HEMATOCRIT</td> <td>29.8 %</td> <td>37.0-47.0</td> </tr> <tr> <td>PLATELET COUNT</td> <td& gt;119 k/cumm</td> <td>150-400</td> </tr&gt ; <tr> <th colspan="10">CALCIUM IONIZED - 08/06/14 17:16</th> </tr> <tr> <td& gt;CALCIUM IONIZED</td> <td>3.6 mg/dL</td> <td> 4.5-5.3</td> </tr> <tr> <th colspan= "10">METABOLIC PANEL, BASIC - 08/06/14 17:16</th> </tr > <tr> <td>POTASSIUM</td> <td& gt;2.8 mmol/L</td> <td>3.5-5.3</td> </tr&gt ; <tr> <td>EST GFR (MDRD)</td> <td >> 60 mL/min</td> <td>> 59</td> </tr> <tr> <td>ANION GAP</td> <td>9 mmol/L</td> <td>5-15</td> </ tr> <tr> <td>EST CrCl (CG)</td> & lt;td>45 mL/min</td> <td>> 59</td> </tr& gt; <tr> <td>GLUCOSE</td> <td> 64 mg/dL</td> <td>70-99</td> </tr> <tr> <td>CALCIUM</td> <td>6.9 mg/dL </td> <td>8.5-10.1</td> </tr> <tr& gt; <td>BLOOD UREA NITROGEN</td> <td>9 mg/dL </td> <td>7-20</td> </tr> <tr> <td>CREATININE</td> <td>0.8 mg/dL</td> <td>0.6-1.0</td> </tr> <tr> <td>SODIUM</td> <td>146 mmol/L</td> <td>135-148</td> </tr> <tr> & lt;td>CHLORIDE</td> <td>111 mmol/L</td> & lt;td>98-110</td> </tr> <tr> <td& gt;CARBON DIOXIDE</td> <td>26 mmol/L</td> & lt;td>21-32</td> </tr> <tr> <th colspan="10">MAGNESIUM - 08/06/14 17:16</th> </tr& gt; <tr> <td>MAGNESIUM</td> <td&gt ;2.5 mg/dL</td> <td>1.8-2.4</td> </tr> <tr> <th colspan="10">GLUCOSE (POC) - 17:48</th> </tr> <tr> <td> GLUCOSE (POC)</td> <td>59mg/dL</td> <td& gt;70-99</td> </tr> <tr> <th colspan ="10">ARTERIAL BLOOD GAS - 08/06/14 18:42</th> </tr > <tr> <td>ABG BASE EXCESS</td> <td& gt;2.1 meq/L</td> <td>-3.0-3.0</td> </tr> <tr> <td>ABG BICARBONATE</td> <td >24.9 meq/L</td> <td>23.0-28.0</td> </tr& gt; <tr> <td>ABG PCO2</td> <td> 33 mmHg</td> <td>34-45</td> </tr> <tr> <td>ABG PH</td> <td>7.50 </ td> <td>7.35-7.45</td> </tr> <tr&gt ; <td>ABG PO2</td> <td>157 mm Hg</td> <td>75-100</td> </tr> <tr> <td>ABG O2 SATURATION</td> <td>98 %</ td> <td>93-100</td> </tr> <tr&gt ; <th colspan="10">GLUCOSE (POC) - 08/06/14 18:43</ th> </tr> <tr> <td>GLUCOSE (POC)< /td> <td>116 mg/dL</td> <td>70-99</td& gt; </tr> <tr> <th colspan="10"& gt;HGB HCT - 08/06/14 19:29</th> </tr> <tr> <td>MEAN CELL VOLUME</td> <td>87.6 fl</td& gt; <td>80.0-100.0</td> </tr> <tr&gt ; <td>HEMOGLOBIN</td> <td>10.0 gm/dL</td& gt; <td>12.0-16.0</td> </tr> <tr&gt ; <td>HEMATOCRIT</td> <td>30.3 %</ td> <td>37.0-47.0</td> </tr> <tr& gt; <th colspan="10">PLATELET COUNT - 08/06/14 19:29&lt ;/th> </tr> <tr> <td>PLATELET COUNT& lt;/td> <td>168 k/cumm</td> <td>150-400& lt;/td> </tr> <tr> <th colspan="10& quot;>PROTHROMBIN TIME WITH INR - 08/06/14 19:29</th> </tr> <tr> <td>INTERNATIONAL NORMAL RATIO</td> <td>1.3 </td> <td>0.9-1.1</td> </tr > <tr> <td>PROTHROMBIN TIME</td> < td>13.9 sec</td> <td>9.3-12.2</td> </tr& gt; <tr> <th colspan="10">FIBRINOGEN - 19:29</th> </tr> <tr> <td> FIBRINOGEN</td> <td>171 mg/dL</td> <td&gt ;200-400</td> </tr> <tr> <th colspan ="10">GLUCOSE (POC) - 08/06/14 19:32</th> </tr> <tr> <td>GLUCOSE (POC)</td> <td>108 mg/ dL</td> <td>70-99</td> </tr> < tr> <th colspan="10">GLUCOSE (POC) - 08/06/14 21:07& lt;/th> </tr> <tr> <td>GLUCOSE (POC) </td> <td>128 mg/dL</td> <td>70-99< /td> </tr> <tr> <th colspan="10& quot;>GLUCOSE (POC) - 08/06/14 22:27</th> </tr> &lt ;tr> <td>GLUCOSE (POC)</td> <td>134 mg/dL& lt;/td> <td>70-99</td> </tr> <tr& gt; <th colspan="10">GLUCOSE (POC) - 08/06/14 23:04< /th> </tr> <tr> <td>GLUCOSE (POC)&lt ;/td> <td>144 mg/dL</td> <td>70-99</td ></tr> <tr> <th colspan="10"> POTASSIUM - 08/06/14 23:17</th> </tr> <tr> <td>POTASSIUM</td> <td>3.7 mmol/L</td> <td>3.5-5.3</td> </tr> <tr> <th colspan="10">GLUCOSE (POC) - 08/07/14 00:03</th> </tr> <tr> <td>GLUCOSE (POC)</td> <td>146 mg/dL</td> <td>70-99</td> </tr> <tr> <th colspan="10"> ARTERIAL BLOOD GAS - 08/07/14 00:15</th> </tr> <tr& gt; <td>ABG BASE EXCESS</td> <td>-0.7 meq/L& lt;/td> <td>-3.0-3.0</td> </tr> < tr> <td>ABG FIO2</td> <td>30 %< /td> <td /> </tr> <tr> < td>ABG BICARBONATE</td> <td>25.1 meq/L</td> <td>23.0-28.0</td> </tr> <tr> <td>ABG PCO2</td> <td>51 mm Hg</td> <td>34-45</td> </tr> <tr> <td> ABG PEEP</td> <td>5 CM</td> <td /> </tr> <tr> <td>ABG PH</td> <td>7.32 </td> <td>7.35-7.45</td> < /tr> <tr> <td>ABG PO2</td> <td>87 mm Hg</td> <td>75-100</td> </tr> <tr> <td>ABG PRESSURE SUPPORT</td> <td>8 CM&lt ;/td> <td /> </tr> <tr> &lt ;td>ABG VENT RATE</td> <td>18 </td> < td /> </tr> <tr> <td>ABG O2 SATURATION</td> <td>93 %</td> <td >93-100</td> </tr> <tr> <td> ABG TEMPERATURE</td> <td>39.0 C</td> <td /> </tr> <tr> <th colspan="10&quot ;>GLUCOSE (POC) - 08/07/14 01:10</th> </tr> <tr& gt; <td>GLUCOSE (POC)</td> <td>130 mg/dL< /td> <td>70-99</td> </tr> <tr&gt ; <th colspan="10">GLUCOSE (POC) - 08/07/14 01:52</ th> </tr> <tr> <td>GLUCOSE (POC)< /td> <td>140 mg/dL</td> <td>70-99</td& gt; </tr> <tr> <th colspan="10"& gt;GLUCOSE (POC) - 08/07/14 03:02</th> </tr> <tr&gt ; <td>GLUCOSE (POC)</td> <td>136 mg/dL</td&gt ; <td>70-99</td> </tr> <tr> <th colspan="10">CBC - 08/07/14 03:05</th> &lt ;/tr> <tr> <td>MEAN CELL HGB</td> <td>28.7 pg</td> <td>27.0-33.0</td> < /tr> <tr> <td>MEAN CELL HGB CONCENTRATION</td& gt; <td>32.0g/dL</td> <td>32.0-37.0</td& gt; </tr> <tr> <td>MEAN CELL VOLUME</td> <td>89.5 fl</td> <td>80.0-100.0</td> </tr> <tr> <td>RED BLOOD CELL</td&gt ; <td>3.14 m/cumm</td> <td>4.00-6.00</td&gt ; </tr> <tr> <td>RED CELL DISTRIBUTION WIDTH</td> <td>14.3 %</td> <td&gt ;11.0-15.6</td> </tr> <tr> <td>WHITE BLOOD CELL</td> <td>9.2 k/cumm</td> <td& gt;5.0-10.0</td> </tr> <tr> <td> HEMOGLOBIN</td> <td>9.0 gm/dL</td> <td> 12.0-16.0</td> </tr> <tr> <td> HEMATOCRIT</td> <td>28.1 %</td> <td& gt;37.0-47.0</td> </tr> <tr> <td> PLATELET COUNT</td> <td>225 k/cumm</td> < td>150-400</td> </tr> <tr> <th colspan="10">CALCIUM IONIZED - 08/07/14 03:05</th> &lt ;/tr> <tr> <td>CALCIUM IONIZED</td> <td>4.9 mg/dL</td> <td>4.5-5.3</td> & lt;/tr> <tr> <th colspan="10">ARTERIAL BLOOD GAS - 08/07/14 03:05</th> </tr> <tr> <td>ABG BASE EXCESS</td> <td>-2.1 meq/L</td& gt; <td>-3.0-3.0</td> </tr> <tr> <td>ABG DEVICE</td> <td>NC </td> <td /> </tr> <tr> <td>ABG BICARBONATE</td> <td>24.3 meq/L</td> <td& gt;23.0-28.0</td> </tr> <tr> <td>ABG L /M</td> <td>1.0 </td> <td /> & lt;/tr> <tr> <td>ABG PCO2</td> &lt ;td>53 mm Hg</td> <td>34-45</td> </tr&gt ; <tr> <td>ABG PH</td> <td> 7.29 </td> <td>7.35-7.45</td> </tr> <tr> <td>ABG PO2</td> <td>99 mm Hg </td> <td>75-100</td> </tr> < tr> <td>ABG [id number]</td> <td>95 &amp ;#37;</td> <td>93-100</td> </tr> <tr> <td>ABG SITE</td> <td>LT RADIAL & lt;/td> <td /> </tr> <tr> & lt;td>ABG TEMPERATURE</td> <td>38.8 C</td> <td /> </tr> <tr> <th colspan=" 10">METABOLIC PANEL, BASIC - 08/07/14 03:05</th> </tr&gt ; <tr> <td>POTASSIUM</td> <td> 4.4 mmol/L</td> <td>3.5-5.3</td> </tr> <tr> <td>EST GFR (MDRD)</td> <td> 51 mL/min</td> <td>> 59</td> </tr&gt ; <tr> <td>ANION GAP</td> <td> 9 mmol/L</td> <td>5-15</td> </tr><tr& gt; <td>EST CrCl (CG)</td> <td>33 mL/min< /td> <td>> 59</td> </tr> <tr> <td>GLUCOSE</td> <td>140 mg/dL</td> <td>70-99</td> </tr> <tr> <td>CALCIUM</td> <td>8.6 mg/dL</td> & lt;td>8.5-10.1</td> </tr> <tr> < td>BLOOD UREA NITROGEN</td> <td>10 mg/dL</td> <td>7-20</td> </tr> <tr> <td >CREATININE</td> <td>1.1 mg/dL</td> < td>0.6-1.0</td> </tr> <tr> <td&gt ;SODIUM</td> <td>144 mmol/L</td> <td> 135-148</td> </tr> <tr> <td> CHLORIDE</td> <td>109 mmol/L</td> <td> 98-110</td> </tr> <tr> <td>CARBON DIOXIDE& lt;/td> <td>26 mmol/L</td> <td>21-32</ td> </tr> <tr> <th colspan="10& quot;>MAGNESIUM- 08/07/14 03:05</th> </tr> <tr& gt; <td>MAGNESIUM</td> <td>1.6 mg/dL</td& gt; <td>1.8-2.4</td> </tr> <tr> <th colspan="10">GLUCOSE (POC) - 08/07/14 04:03</th& gt; </tr> <tr> <td>GLUCOSE (POC)</td > <td>130 mg/dL</td> <td>70-99</td&gt ; </tr> <tr> <th colspan="10"> GLUCOSE (POC) - 08/07/14 05:10</th> </tr> <tr> <td>GLUCOSE (POC)</td> <td>153 mg/dL</td> <td>70-99</td> </tr> <tr> < th colspan="10">GLUCOSE (POC) - 08/07/14 06:05</th> & lt;/tr> <tr> <td>GLUCOSE (POC)</td> <td>153 mg/dL</td> <td>70-99</td> &lt ;/tr> <tr> <th colspan="10">GLUCOSE ( POC) - 08/07/14 06:59</th> </tr> <tr> & lt;td>GLUCOSE (POC)</td> <td>158 mg/dL</td> <td>70-99</td> </tr> <tr> &lt ;th colspan="10">GLUCOSE (POC) - 08/07/14 08:04</th> & lt;/tr> <tr> <td>GLUCOSE (POC)</td> <td>145 mg/dL</td> <td>70-99</td> &lt ;/tr> <tr> <th colspan="10">GLUCOSE (POC) - 09:04</th> </tr> <tr> <td> GLUCOSE (POC)</td> <td>135 mg/dL</td> <td> 70-99</td> </tr> <tr> <th colspan=& quot;10">GLUCOSE (POC) - 08/07/14 10:03</th> </tr> <tr> <td>GLUCOSE (POC)</td> <td> 114 mg/dL</td> <td>70-99</td> </tr> <tr> <th colspan="10">GLUCOSE (POC)- 11:05</th> </tr> <tr> <td> GLUCOSE (POC)</td> <td>108 mg/dL</td> <td >70-99</td> </tr> <tr> <th colspan="10">GLUCOSE (POC) - 08/07/14 12:16</th> </ tr> <tr> <td>GLUCOSE (POC)</td> & lt;td>115 mg/dL</td> <td>70-99</td> </tr > <tr> <th colspan="10">GLUCOSE (POC) - 08/07 13:11</th> </tr> <tr> <td> GLUCOSE (POC)</td> <td>119 mg/dL</td> <td&gt ;70-99</td> </tr> <tr> <th colspan=& quot;10">GLUCOSE (POC) - 08/07/14 14:19</th> </tr> <tr> <td>GLUCOSE (POC)</td> <td> 123 mg/dL</td> <td>70-99</td> </tr> <tr> <th colspan="10">GLUCOSE (POC) - 15:34</th> </tr> <tr> <td> GLUCOSE (POC)</td> <td>114 mg/dL</td> <td >70-99</td> </tr> <tr> <th colspan="10">GLUCOSE (POC) - 08/07/14 16:41</th> </ tr> <tr> <td>GLUCOSE (POC)</td> & lt;td>103 mg/dL</td> <td>70-99</td> </tr > <tr> <th colspan="10">GLUCOSE (POC) - 11/20 18:07</th> </tr> <tr> <td> GLUCOSE (POC)</td> <td>93 mg/dL</td> <td> 70-99</td> </tr> <tr> <th colspan=& quot;10">GLUCOSE (POC) - 08/07/14 22:32</th> </tr> <tr> <td>GLUCOSE (POC)</td> <td> 124 mg/dL</td> <td>70-99</td> </tr> <tr> <th colspan="10">GLUCOSE (POC) - 03:28</th> </tr> <tr> <td> GLUCOSE (POC)</td> <td>114 mg/dL</td> <td >70-99</td> </tr> <tr> <th colspan="10">CBC - 08/08/14 03:28</th> </tr> &lt ;tr> <td>MEAN CELL HGB</td> <td>28.8 pg& lt;/td> <td>27.0-33.0</td> </tr> &lt ;tr> <td>MEAN CELL HGB CONCENTRATION</td> < td>31.7 g/dL</td> <td>32.0-37.0</td> </ tr> <tr> <td>MEAN CELL VOLUME</td> <td>90.9 fl</td> <td>80.0-100.0</td> & lt;/tr> <tr> <td>RED BLOOD CELL</td> <td>2.64 m/cumm</td> <td>4.00-6.00</td> </tr> <tr> <td>RED CELL DISTRIBUTION WIDTH</td> <td>14.8 %</td> <td&gt ;11.0-15.6</td> </tr> <tr> <td> WHITE BLOOD CELL</td> <td>7.1 k/cumm</td> & lt;td>5.0-10.0</td> </tr> <tr> < td>HEMOGLOBIN</td> <td>7.6 gm/dL</td> &lt ;td>12.0-16.0</td> </tr> <tr> <td >HEMATOCRIT</td> <td>24.0 %</td> <td>37.0-47.0</td> </tr> <tr> &lt ;td>PLATELET COUNT</td> <td>139 k/cumm</td> <td>150-400</td> </tr> <tr> & lt;th colspan="10">METABOLIC PANEL, BASIC - 08/08/14 03:28</th& gt; </tr> <tr> <td>POTASSIUM</td> <td>4.0 mmol/L</td> <td>3.5-5.3</td> </tr> <tr> <td>EST GFR (MDRD)</td> <td>51 mL/min</td> <td>> 59</td&gt ; </tr> <tr> <td>ANION GAP</td> <td>12 mmol/L</td> <td>5-15</td> </tr> <tr> <td>EST CrCl (CG)</td> <td>33 mL/min</td> <td>> 59</td> </tr> <tr> <td>GLUCOSE</td> <td>119 mg/dL</td> <td>70-99</td> </ tr> <tr> <td>CALCIUM</td> <td& gt;7.9 mg/dL</td> <td>8.5-10.1</td> </tr&gt ; <tr> <td>BLOOD UREA NITROGEN</td> & lt;td>15 mg/dL</td> <td>7-20</td> </tr& gt; <tr> <td>CREATININE</td> <td& gt;1.1 mg/dL</td> <td>0.6-1.0</td> </tr&gt ; <tr> <td>SODIUM</td> <td>143 mmol/L</td> <td>135-148</td> </tr> <tr> <td>CHLORIDE</td> <td>107 mmol /L</td> <td>98-110</td> </tr> &lt ;tr> <td>CARBON DIOXIDE</td> <td>24 mmol/ L</td> <td>21-32</td> </tr> <tr > <th colspan="10">MAGNESIUM - 08/08/14 03:28</th > </tr> <tr> <td>MAGNESIUM</td&gt ; <td>1.9 mg/dL</td> <td>1.8-2.4</td> & lt;/tr> <tr> <th colspan="10">GLUCOSE ( POC) - 08/08/14 11:06</th> </tr> <tr> & lt;td>GLUCOSE (POC)</td> <td>151 mg/dL</td> <td>70-99</td> </tr> <tr> &lt ;th colspan="10">GLUCOSE (POC) - 08/08/14 15:09</th> & lt;/tr> <tr> <td>GLUCOSE (POC)</td> <td>164 mg/dL</td> <td>70-99</td> &lt ;/tr> <tr> <th colspan="10">GLUCOSE ( POC) - 08/08/14 22:04</th> </tr> <tr> & lt;td>GLUCOSE (POC)</td> <td>113 mg/dL</td> <td>70-99</td> </tr> <tr> <th colspan="10">CBC - 08/09/14 03:52</th> </tr> <tr> <td>MEAN CELL HGB</td> <td> 28.9 pg</td> <td>27.0-33.0</td> </tr> <tr> <td>MEAN CELL HGB CONCENTRATION</td> <td>33.0 g/dL</td> <td>32.0-37.0</td> < /tr> <tr> <td>MEAN CELL VOLUME</td> <td>87.7 fl</td> <td>80.0-100.0</td> < /tr> <tr> <td>RED BLOOD CELL</td> <td>3.49 m/cumm</td> <td>4.00-6.00</td> </tr> <tr> <td>RED CELL DISTRIBUTION WIDTH</td& gt; <td>15.0 %</td> <td>11.0-15.6</ td> </tr> <tr> <td>WHITE BLOOD CELL& lt;/td> <td>11.0 k/cumm</td> <td>5.0-10.0 </td> </tr> <tr> <td>HEMOGLOBIN& lt;/td> <td>10.1 gm/dL</td> <td>12.0-16.0 </td> </tr> <tr> <td>HEMATOCRIT</td& gt; <td>30.6 %</td> <td>37.0-47.0&lt ;/td> </tr> <tr> <td>PLATELET COUNT& lt;/td> <td>163 k/cumm</td> <td>150-400& lt;/td> </tr> <tr> <th colspan="10& quot;>METABOLIC PANEL, BASIC - 08/09/14 03:52</th> </tr> <tr> <td>POTASSIUM</td> <td> 3.7 mmol/L</td> <td>3.5-5.3</td> </tr> <tr> <td>EST GFR (MDRD)</td> <td> > 60 mL/min</td> <td>> 59</td> </tr&gt ; <tr> <td>ANION GAP</td> <td> 7 mmol/L</td> <td>5-15</td> </tr> <tr> <td>EST CrCl (CG)</td> <td>45 mL/min</td> <td>> 59</td> </tr> <tr> <td>GLUCOSE</td> <td>116 mg/dL</td> <td>70-99</td> </tr> <tr& gt; <td>CALCIUM</td> <td>8.0 mg/dL</td&gt ; <td>8.5-10.1</td> </tr> <tr> <td>BLOOD UREA NITROGEN</td> <td>14 mg/dL< /td> <td>7-20</td> </tr> <tr> <td>CREATININE</td> <td>0.8 mg/dL</td&gt ; <td>0.6-1.0</td> </tr> <tr> <td>SODIUM</td> <td>141 mmol/L</td> <td>135-148</td> </tr> <tr> &lt ;td>CHLORIDE</td> <td>107 mmol/L</td> &lt ;td>98-110</td> </tr> <tr> <td&gt ;CARBON DIOXIDE</td> <td>27 mmol/L</td> < td>21-32</td> </tr> <tr> <th colspan="10">MAGNESIUM - 10 03:52</th> </tr& gt; <tr> <td>MAGNESIUM</td> <td&gt ;1.9 mg/dL</td> <td>1.8-2.4</td> </tr> <tr> <th colspan="10">GLUCOSE (POC) - 01/18 12:24</th> </tr> <tr> <td> GLUCOSE (POC)</td> <td>109 mg/dL</td> <td >70-99</td> </tr> <tr> <th colspan="10">GLUCOSE (POC) - 08/09/14 20:35</th> </ tr> <tr> <td>GLUCOSE (POC)</td> & lt;td>103 mg/dL</td> <td>70-99</td> </tr > <tr> <th colspan="10">METABOLIC PANEL , BASIC - 08/10/14 05:08</th> </tr> <tr> <td>POTASSIUM</td> <td>4.1 mmol/L</td> <td>3.5-5.3</td> </tr> <tr> <td>EST GFR (MDRD)</td> <td>> 60 mL/min</td > <td>> 59</td> </tr> <tr> <td>ANION GAP</td> <td>12 mmol/L</td> <td>5-15</td> </tr> <tr> <td>EST CrCl (CG)</td> <td>40 mL/min</td> <td>> 59</td> </tr> <tr> <td>GLUCOSE</td> <td>125 mg/dL</td> <td>70-99</td> </tr> <tr> <td&gt ;CALCIUM</td> <td>8.3 mg/dL</td> <td> 8.5-10.1</td> </tr> <tr> <td> BLOOD UREA NITROGEN</td> <td>21 mg/dL</td> <td& gt;7-20</td> </tr> <tr> <td> CREATININE</td> <td>0.9 mg/dL</td> <td&gt ;0.6-1.0</td> </tr> <tr> <td> SODIUM</td> <td>140 mmol/L</td> <td>135-148 </td> </tr><tr> <td>CHLORIDE</td> <td>104 mmol/L</td> <td>98-110</td> </tr> <tr> <td>CARBON DIOXIDE</td&gt ; <td>24 mmol/L</td> <td>21-32</td> </tr> <tr> <th colspan="10"> CBC - 08/10/14 05:08</th></tr> <tr> <td> COMMENT</td> <td>REVIEWED </td> <td /&gt ; </tr> <tr> <td>MEAN CELL HGB</td& gt; <td>29.1 pg</td> <td>27.0-33.0</td&gt ; </tr> <tr> <td>MEAN CELL HGB CONCENTRATION</td> <td>34.4 g/dL</td> <td >32.0-37.0</td> </tr> <tr> <td> MEAN CELL VOLUME</td> <td>84.7 fl</td> < td>80.0-100.0</td> </tr> <tr> <td >RED BLOOD CELL</td> <td>3.78 m/cumm</td> <td>4.00-6.00</td> </tr> <tr> & lt;td>RED CELL DISTRIBUTION WIDTH</td> <td>15.1 &#37 ;</td> <td>11.0-15.6</td> </tr> & lt;tr> <td>WHITE BLOOD CELL</td> <td>10.6 k/ cumm</td> <td>5.0-10.0</td> </tr> <tr> <td>HEMOGLOBIN</td> <td>11.0 gm /dL</td> <td>12.0-16.0</td> </tr> <tr> <td>HEMATOCRIT</td> <td>32.0 & amp;#37;</td> <td>37.0-47.0</td> </tr> <tr> <td>PLATELET COUNT</td> <td& gt;207 k/cumm</td> <td>150-400</td> </tr&gt ; <tr> <th colspan="10">GLUCOSE (POC) - 05:51</th> </tr> <tr> <td> GLUCOSE (POC)</td> <td>105 mg/dL</td> <td >70-99</td> </tr> <tr> <th colspan=& quot;10">GLUCOSE (POC) - 08/10/14 10:22</th> </tr> <tr> <td>GLUCOSE (POC)</td> <td> 123 mg/dL</td> <td>70-99</td> </tr> <tr> <th colspan="10">GLUCOSE (POC) - 15:04</th> </tr> <tr> <td> GLUCOSE (POC)</td> <td>133 mg/dL</td> <td>70- 99</td> </tr> <tr> <th colspan=&quot ;10">GLUCOSE (POC) - 08/10/14 21:22</th> </tr> <tr> <td>GLUCOSE (POC)</td> <td>114 mg/dL</td> <td>70-99</td> </tr> & lt;tr> <th colspan="10">METABOLIC PANEL, BASIC - 03/20 05:49</th> </tr> <tr> <td> POTASSIUM</td> <td>3.6 mmol/L</td> <td&gt ;3.5-5.3</td> </tr> <tr> <td>EST GFR (MDRD)</td> <td>> 60 mL/min</td> <td>> 59</td> </tr> <tr> <td& gt;ANION GAP</td> <td>12 mmol/L</td> <td& gt;5-15</td> </tr> <tr> <td>EST CrCl (CG)</td> <td>40 mL/min</td> <td> > 59</td> </tr> <tr> <td> GLUCOSE</td> <td>95 mg/dL</td> <td>70- 99</td> </tr> <tr> <td>CALCIUM&lt ;/td> <td>8.2 mg/dL</td> <td>8.5-10.1</td> </tr> <tr> <td>BLOOD UREA NITROGEN< /td> <td>23 mg/dL</td> <td>7-20</td> </tr> <tr> <td>CREATININE</td> <td>0.9 mg/dL</td> <td>0.6-1.0</td> </tr> <tr> <td>SODIUM</td> & lt;td>141 mmol/L</td> <td>135-148</td> </ tr> <tr> <td>CHLORIDE</td> <td& gt;101 mmol/L</td> <td>98-110</td> </tr&gt ; <tr> <td>CARBON DIOXIDE</td> <td >28 mmol/L</td> <td>21-32</td> </tr> <tr> <th colspan="10">MAGNESIUM - 05:49</th> </tr> <tr> <td> MAGNESIUM</td> <td>1.9 mg/dL</td> <td> 1.8-2.4</td> </tr> <tr> <th colspan= "10">CBC - 10/05/14 05:49</th> </tr> < tr> <td>COMMENT</td> <td>REVIEWED </td& gt; <td /> </tr> <tr> <td> MEAN CELL HGB</td> <td>29.2 pg</td> <td& gt;27.0-33.0</td> </tr> <tr> <td> MEAN CELL HGB CONCENTRATION</td> <td>33.3 g/dL</td> <td>32.0-37.0</td> </tr> <tr> <td>MEAN CELL VOLUME</td> <td>87.7 fl</td& gt; <td>80.0-100.0</td> </tr> <tr&gt ; <td>RED BLOOD CELL</td> <td>3.83 m/cumm&lt ;/td> <td>4.00-6.00</td> </tr> < tr> <td>RED CELL DISTRIBUTION WIDTH</td> <td >15.3 %</td> <td>11.0-15.6</td></tr&gt ; <tr> <td>WHITE BLOOD CELL</td> < td>9.0 k/cumm</td> <td>5.0-10.0</td> </ tr> <tr> <td>HEMOGLOBIN</td> <td> 11.2 gm/dL</td> <td>12.0-16.0</td> </tr&gt ; <tr> <td>HEMATOCRIT</td> <td> 33.6 %</td> <td>37.0-47.0</td> </tr ><tr> <td>PLATELET COUNT</td> <td> 228 k/cumm</td> <td>150-400</td> </tr> <tr> <th colspan="10">GLUCOSE (POC) - 08/11/14 05:59</th> </tr> <tr> <td> GLUCOSE (POC)</td> <td>95 mg/dL</td> <td& gt;70-99</td> </tr> <tr> <th colspan ="10">CBC - 08/12/14 11:20</th> </tr> &lt ;tr> <td>MEAN CELL HGB</td> <td>28.6 pg</ td> <td>27.0-33.0</td> </tr> <tr> <td>MEAN CELL HGB CONCENTRATION</td> <td>32.4 g/dL</td> <td>32.0-37.0</td> </tr> <tr> <td>MEAN CELL VOLUME</td> <td> 88.1 fl</td> <td>80.0-100.0</td> </tr> <tr> <td>RED BLOOD CELL</td><td>4.13 m/ cumm</td> <td>4.00-6.00</td> </tr> <tr> <td>RED CELL DISTRIBUTION WIDTH</td> <td>15.2 %</td> <td>11.0-15.6</td> </tr> <tr> <td>WHITE BLOOD CELL</td& gt; <td>9.5 k/cumm</td> <td>5.0-10.0</td& gt; </tr> <tr> <td>HEMOGLOBIN</td&gt ; <td>11.8 gm/dL</td> <td>12.0-16.0</td& gt; </tr> <tr> <td>HEMATOCRIT</td&gt ; <td>36.4 %</td> <td>37.0-47.0</td> </tr> <tr> <td>PLATELET COUNT</td&gt ; <td>269 k/cumm</td> <td>150-400</td&gt ; </tr> <tr> <th colspan="10"&gt ;METABOLIC PANEL, BASIC - 08/12/14 11:20</th> </tr> & lt;tr> <td>POTASSIUM</td> <td>3.7 mmol/L</ td> <td>3.5-5.3</td> </tr><tr> <td>EST GFR (MDRD)</td> <td>57 mL/min</td> <td>> 59</td> </tr> <tr> <td>ANION GAP</td> <td>9 mmol/L</td> <td>5-15</td> </tr> <tr> < td>EST CrCl (CG)</td> <td>37 mL/min</td> <td>> 59</td> </tr> <tr> & lt;td>GLUCOSE</td> <td>109 mg/dL</td> &lt ;td>70-99</td> </tr> <tr> <td> CALCIUM</td> <td>9.0 mg/dL</td> <td> 8.5-10.1</td> </tr> <tr> <td> BLOOD UREA NITROGEN</td> <td>21 mg/dL</td> & lt;td>7-20</td> </tr> <tr> <td&gt ;CREATININE</td> <td>1.0 mg/dL</td> <td& gt;0.6-1.0</td> </tr> <tr> <td> SODIUM</td> <td>138 mmol/L</td> <td> 135-148</td> </tr> <tr> <td> CHLORIDE</td> <td>100 mmol/L</td> <td> 98-110</td> </tr> <tr> <td> CARBON DIOXIDE</td> <td>29 mmol/L</td> < td>21-32</td> </tr> <tr> <th colspan="10">CBC - 08/13/14 04:56</th> </tr> <tr> <td>MEAN CELL HGB</td> <td> 28.9 pg</td> <td>27.0-33.0</td> </tr> <tr> <td>MEAN CELL HGB CONCENTRATION</td> <td>32.5 g/dL</td> <td>32.0-37.0</td> </tr> <tr> <td>MEAN CELL VOLUME</td&gt ; <td>88.7 fl</td> <td>80.0-100.0</td&gt ; </tr> <tr> <td>RED BLOOD CELL</td& gt; <td>3.81 m/cumm</td> <td>4.00-6.00</ td> </tr> <tr> <td>RED CELL DISTRIBUTION WIDTH</td> <td>15.7 %</td> <td>11.0-15.6</td> </tr> <tr> <td>WHITE BLOOD CELL</td> <td>7.8 k/cumm</td&gt ; <td>5.0-10.0</td> </tr> <tr> <td>HEMOGLOBIN</td> <td>11.0 gm/dL</td&gt ; <td>12.0-16.0</td> </tr> <tr> <td>HEMATOCRIT</td> <td>33.8 %</ td> <td>37.0-47.0</td> </tr> <tr& gt; <td>PLATELET COUNT</td> <td>277 k/cumm& lt;/td> <td>150-400</td> </tr> < tr> <th colspan="10">METABOLIC PANEL, BASIC - 04:56</th> </tr> <tr> <td> POTASSIUM</td> <td>3.8 mmol/L</td> <td&gt ;3.5-5.3</td> </tr> <tr> <td>EST GFR (MDRD)</td> <td>57 mL/min</td> <td&gt ;> 59</td> </tr> <tr> <td> ANION GAP</td> <td>9 mmol/L</td> <td>5 -15</td> </tr> <tr> <td>EST CrCl (CG)</td> <td>37 mL/min</td> <td>& gt; 59</td> </tr> <tr> <td>GLUCOSE </td> <td>91 mg/dL</td> <td>70-99</ td> </tr> <tr> <td>CALCIUM</td&gt ; <td>8.8 mg/dL</td> <td>8.5-10.1</td&gt ; </tr> <tr> <td>BLOOD UREA NITROGEN&lt ;/td> <td>19 mg/dL</td> <td>7-20</td& gt; </tr> <tr> <td>CREATININE</td&gt ; <td>1.0 mg/dL</td> <td>0.6-1.0</td> </tr> <tr> <td>SODIUM</td> <td>139 mmol/L</td> <td>135-148</td> </tr> <tr> <td>CHLORIDE</td> <td>99 mmol/L</td> <td>98-110</td> </tr> <tr> <td>CARBON DIOXIDE</td> <td>31 mmol/L</td> <td>21-32</td> </tr> <tr> <th colspan="10">B-TYPE NATRIURETIC PEPTIDE - 04/07/15 15:25</th> </tr> <tr> <td >B-TYPE NATRIURETIC PEPTIDE</td> <td>56 pg/mL</td&gt ; <td>< 100</td> </tr> <tr&gt ; <th colspan="10">CBC W/DIFF - 04/07/15 15:25</th& gt; </tr> <tr> <td>BASOPHIL #</td> <td>0.1 k/cumm</td> <td>0.0-0.2</td> </tr> <tr> <td>BASOPHIL %</ td> <td>1 %</td> <td>0-1</td& gt; </tr> <tr> <td>EOSINOPHIL #</td> <td>0.5 k/cumm</td> <td>0.1-0.5</td> </tr> <tr> <td>EOSINOPHIL %</td& gt; <td>7 %</td> <td>2-4</td> </tr> <tr> <td>GRANULOCYTE #</td> <td>4.8k/cumm</td> <td>2.0-9.0</td> </tr> <tr> <td>GRANULOCYTE %</td> <td>65 %</td> <td>50-75</td> </tr> <tr> <td>LYMPHOCYTE #</td> <td>1.5 k/cumm</td> <td>1.0-4.0</td> </tr> <tr> <td>LYMPHOCYTE %</td > <td>21 %</td> <td>20-30</td& gt; </tr> <tr> <td>MEAN CELL HGB</td > <td>29.1 pg</td> <td>27.0-33.0</td& gt; </tr> <tr> <td>MEAN CELL HGB CONCENTRATION</td> <td>33.2 g/dL</td> <td> 32.0-37.0</td> </tr> <tr> <td>MEAN CELL VOLUME</td> <td>87.9 fl</td> <td>80.0-100.0 </td> </tr> <tr> <td>MONOCYTE #& lt;/td> <td>0.5 k/cumm</td> <td>0.1-1.0& lt;/td> </tr> <tr> <td>MONOCYTE &amp ;#37;</td> <td>7 %</td> <td>4- 6</td> </tr> <tr> <td>RED BLOOD CELL</td> <td>4.46 m/cumm</td> <td> 4.00-6.00</td> </tr> <tr> <td> RED CELL DISTRIBUTION WIDTH</td> <td>14.9 %</td& gt; <td>11.0-15.6</td></tr> <tr> <td>WHITE BLOOD CELL</td> <td>7.4 k/cumm</td&gt ; <td>5.0-10.0</td> </tr> <tr> & lt;td>HEMOGLOBIN</td> <td>13.0 gm/dL</td> <td>12.0-16.0</td> </tr> <tr> & lt;td>HEMATOCRIT</td> <td>39.2 %</td> <td>37.0-47.0</td> </tr><tr> < td>PLATELET COUNT</td> <td>178 k/cumm</td> &lt ;td>150-400</td> </tr> <tr> <th colspan="10">HEPATIC FUNCTION PANEL - 04/07/15 15:25</th> </tr> <tr> <td>BILI UNCONJUGATED</td&gt ; <td>0.7 mg/dL</td> <td>0.0-0.7</td> </tr> <tr> <td>AST/SGOT</td> <td>67 Units/L</td> <td>10-37</td> </tr> <tr> <td>ALT/SGPT</td> <td&gt ;85 Units/L</td><td>< 66</td> </tr> <tr> <td>TOTAL PROTEIN</td> <td>6.8 gm/dL</td> <td>6.4-8.2</td> </tr> <tr> <td>ALBUMIN</td> <td>3.9 gm/dL& lt;/td> <td>3.4-5.0</td> </tr> < tr> <td>BILI TOTAL</td> <td>0.8 mg/dL< /td> <td>0.0-1.0</td> </tr> <tr> <td>ALKALINE PHOSPHATASE TOTAL</td> <td>181 IU/L</td> <td>45-117</td> </tr> & lt;tr> <td>BILI CONJUGATED</td> <td>0.1 mg/dL</td> <td>0.0-0.3</td> </tr> <tr> <th colspan="10">CHEM/HEM PROFILE-BEDSIDE - 04/07/15 15:30</th> </tr> <tr><td> POTASSIUM</td> <td>4.1 mmol/L</td> <td&gt ;3.5-5.3</td> </tr> <tr> <td> METHOD</td> <td>Bedside </td> <td /> </tr> <tr> <td>ANION GAP</td> <td>10 mmol/L</td> <td>10-20</td> </ tr> <tr> <td>METHOD</td> <td&gt ;Bedside </td> <td /> </tr> <tr> <td>GLUCOSE</td> <td>104 mg/dL</td> <td>70-99</td> </tr> <tr> &lt ;td>BLOOD UREA NITROGEN</td> <td>25 mg/dL</td> <td>7-20</td> </tr> <tr> & lt;td>CREATININE</td> <td>1.0 mg/dL</td> <td>0.6-1.0</td> </tr> <tr> < td>HEMOGLOBIN</td> <td>12.6 gm/dL</td> & lt;td>12.0-16.0</td> </tr> <tr> < td>HEMATOCRIT</td> <td>37.0 %</td> <td>37.0-47.0</td> </tr> <tr> <td>SODIUM</td> <td>142 mmol/L</td> & lt;td>135-148</td> </tr> <tr> <td&gt ;CHLORIDE</td> <td>105 mmol/L</td> <td&gt ;98-110</td> </tr> <tr> <td> CARBON DIOXIDE</td> <td>32 mmol/L</td> <td> 21-32</td> </tr> <tr> <td> CALCIUM IONIZED</td> <td>4.6 mg/dL</td> <td>4.5 -5.3</td> </tr> <tr> <th colspan=& quot;10">TROPONIN I BEDSIDE - 04/07/15 15:32</th> </tr& gt; <tr><td>METHOD</td> <td>Bedside < /td> <td /> </tr> <tr> < td>TROPONIN I</td> <td>< 0.04 ng/mL</td> <td>< 0.11</td> </tr> <tr> <th colspan="10">CBC - 04/15/15 07:00</th> < /tr> <tr> <td>MEAN CELL HGB</td> & lt;td>28.7 pg</td> <td>27.0-33.0</td> </ tr> <tr> <td>MEAN CELL HGB CONCENTRATION</td& gt; <td>33.2 g/dL</td> <td>32.0-37.0</td& gt; </tr> <tr> <td>MEAN CELL VOLUME</ td> <td>86.7 fl</td> <td>80.0-100.0</ td> </tr> <tr> <td>RED BLOOD CELL</td > <td>4.42 m/cumm</td> <td>4.00-6.00</ td> </tr> <tr> <td>RED CELL DISTRIBUTIONWIDTH</td> <td>14.9 %</td> <td>11.0-15.6</td> </tr> <tr> <td>WHITE BLOOD CELL</td> <td>5.8 k/cumm</td&gt ; <td>5.0-10.0</td> </tr> <tr> <td>HEMOGLOBIN</td> <td>12.7 gm/dL</td> <td>12.0-16.0</td> </tr> <tr> <td>HEMATOCRIT</td> <td>38.3 %</td&gt ; <td>37.0-47.0</td> </tr> <tr> <td>PLATELET COUNT</td> <td>176 k/cumm</ td> <td>150-400</td> </tr> <tr&gt ; <th colspan="10">METABOLIC PANEL, [facility] - 07:00</th> </tr> <tr> <td> POTASSIUM</td> <td>4.0 mmol/L</td> <td&gt ;3.5-5.3</td> </tr> <tr> <td>EST GFR (MDRD)</td> <td>51 mL/min</td> <td&gt ;> 59</td> </tr> <tr> <td> ANION GAP</td> <td>10 mmol/L</td> <td> 5-15</td> </tr> <tr> <td>ESTCrCl (CG)</td> <td>33 mL/min</td> <td>& gt; 59</td> </tr> <tr> <td> GLUCOSE</td> <td>104 mg/dL</td> <td>70 -99</td> </tr> <tr> <td>CALCIUM& lt;/td> <td>8.8 mg/dL</td> <td>8.5-10.1& lt;/td> </tr> <tr> <td>BLOOD UREA NITROGEN</td> <td>23 mg/dL</td> <td>7- 20</td> </tr> <tr> <td>CREATININE& lt;/td> <td>1.1 mg/dL</td> <td>0.6-1.0&lt ;/td> </tr> <tr> <td>SODIUM</td& gt;<td>143 mmol/L</td> <td>135-148</td> </tr> <tr> <td>CHLORIDE</td> & lt;td>106 mmol/L</td> <td>98-110</td> </ tr> <tr> <td>AST/SGOT</td> <td> 61 Units/L</td> <td>10-37</td> </tr> <tr> <td>ALT/SGPT</td> <td>92 Units/L</td> <td>< 66</td> </tr> <tr> <td>CARBON DIOXIDE</td> <td& gt;27 mmol/L</td> <td>21-32</td> </tr> <tr> <td>TOTAL PROTEIN</td> <td&gt ;6.8 gm/dL</td> <td>6.4-8.2</td> </tr> <tr> <td>ALBUMIN</td> <td>3.8 gm/dL</td> <td>3.4-5.0</td> </tr> < tr> <td>BILI TOTAL</td> <td>1.1 mg/dL< /td> <td>0.0-1.0</td> </tr> <tr& gt; <td>ALKALINE PHOSPHATASE TOTAL</td> <td> 201 IU/L</td> <td>45-117</td> </tr> <tr> <th colspan="10">LIPID PANEL - 04/15/15 07:00</th> </tr> <tr> <td> CHOLESTEROL/HDL RATIO</td> <td>2.2 </td> &lt ;td> < 5.0</td> </tr> <tr> & lt;td>LDL CHOLESTEROL</td> <td>57 mg/dL</td> <td>< 100</td> </tr> <tr> <td>VLDL CHOLESTEROL</td> <td>17 mg/dL</td& gt; <td>< 30</td> </tr> <tr& gt; <td>TRIGLYCERIDES</td> <td>87 mg/dL</ td> <td>< 150</td> </tr> < tr> <td>CHOLESTEROL</td> <td>134 mg/dL&lt ;/td> <td>< 200</td> </tr> & lt;tr> <td>HDL CHOLESTEROL</td> <td>60 mg /dL</td> <td>>39</td> </tr> <tr> <th colspan="10">MAGNESIUM - 04/15/15 07: 00</th> </tr> <tr> <td>MAGNESIUM& lt;/td> <td>2.5 mg/dL</td> <td>1.8-2.4&lt ;/td> </tr> <tr> <th colspan="10& quot;>T4 (THYROXINE) - 04/15/15 07:00</th> </tr> & lt;tr> <td>T4 (THYROXINE)</td> <td>9.4 mcg/dL</td> <td>4.7-13.3</td> </tr> <tr> <th colspan="10">THYROID STIM HORMONE ( TSH) - 04/15/15 07:00</th> </tr> <tr> < td>THYROID STIM HORMONE (TSH)</td> <td>2.57 uIU/mL</ td> <td>0.34-4.82</td> </tr> <tr& gt; <th colspan="10">B-TYPE NATRIURETIC PEPTIDE - 04/15 07:00</th> </tr> <tr> <td>B- TYPE NATRIURETIC PEPTIDE</td> <td>103 pg/mL</td> <td>< 100</td> </tr> <tr> & lt;th colspan="10">SED RATE - 04/15/15 07:00</th> </tr&gt ; <tr> <td>SED RATE</td> <td> 12 mm/hr</td> <td>0-15</td> </tr> <tr> <th colspan="10">CHEM/HEM PROFILE-BEDSIDE - 01/14/16 12:08</th> </tr> <tr> <td >POTASSIUM</td> <td>4.0 mmol/L</td> < td>3.5-5.3</td> </tr> <tr> <td&gt ;METHOD</td> <td>Bedside </td> <td /> </tr> <tr> <td>ANION GAP</td> <td>18 mmol/L</td> <td>10-20</td> & lt;/tr> <tr> <td>METHOD</td> < td>Bedside </td> <td /> </tr> <tr > <td>GLUCOSE</td> <td>117 mg/dL</td& gt; <td>70-99</td> </tr> <tr> <td>BLOOD UREA NITROGEN</td> <td>20 mg/dL</td&gt ; <td>7-20</td> </tr> <tr> <td >CREATININE</td> <td>0.9 mg/dL</td> < td>0.6-1.0</td> </tr> <tr> <td&gt ;HEMOGLOBIN</td> <td>12.9 gm/dL</td> <td& gt;12.0-16.0</td> </tr> <tr> <td> HEMATOCRIT</td> <td>38.0 %</td> < td>37.0-47.0</td> </tr> <tr> <td& gt;SODIUM</td> <td>138 mmol/L</td> <td&gt ;135-148</td> </tr> <tr> <td> CHLORIDE</td> <td>103 mmol/L</td> <td>98- 110</td> </tr> <tr> <td>CARBON DIOXIDE</td> <td>22 mmol/L</td> <td>21 -32</td> </tr> <tr> <td>CALCIUM IONIZED</td> <td>4.5 mg/dL</td> <td> 4.5-5.3</td> </tr> <tr> <th colspan= "10">CBC W/DIFF - 01/14/16 12:10</th> </tr> <tr> <td>BASOPHIL #</td> <td>0.1 k /cumm</td> <td>0.0-0.2</td> </tr> <tr> <td>BASOPHIL %</td> <td&gt ;2 %</td> <td>0-1</td> </tr> <tr> <td>EOSINOPHIL #</td> <td> 0.2 k/cumm</td> <td>0.1-0.5</td> </tr> <tr> <td>EOSINOPHIL %</td> & lt;td>4 %</td> <td>2-4</td> </tr > <tr> <td>GRANULOCYTE #</td> < td>3.8 k/cumm</td> <td>2.0-9.0</td> </tr > <tr> <td>GRANULOCYTE %</td> & lt;td>66 %</td> <td>50-75</td> < /tr> <tr> <td>LYMPHOCYTE #</td> & lt;td>1.1 k/cumm</td> <td>1.0-4.0</td> < /tr> <tr> <td>LYMPHOCYTE %</td> <td>18 %</td> <td>20-30</td> </tr> <tr> <td>MEAN CELL HGB</td> <td>29.4 pg</td> <td>27.0-33.0</td> </tr> <tr> <td>MEAN CELL HGB CONCENTRATION</td> <td>33.1 g/dL</td> <td& gt;32.0-37.0</td> </tr> <tr> <td> MEAN CELL VOLUME</td> <td>88.8 fl</td> <td >80.0-100.0</td> </tr> <tr> <td& gt;MONOCYTE #</td> <td>0.6 k/cumm</td> < td>0.1-1.0</td> </tr> <tr> <td> MONOCYTE %</td> <td>10 %</td> <td>4-6</td> </tr> <tr> <td> RED BLOOD CELL</td> <td>4.29 m/cumm</td> &lt ;td>4.00-6.00</td> </tr> <tr> <td >RED CELL DISTRIBUTION WIDTH</td> <td>13.2 %< /td> <td>11.0-15.6</td> </tr> <tr&gt ; <td>WHITE BLOOD CELL</td> <td>5.8 k/cumm& lt;/td> <td>5.0-10.0</td> </tr> < tr> <td>HEMOGLOBIN</td> <td>12.6 gm/dL</td > <td>12.0-16.0</td> </tr> <tr&gt ; <td>HEMATOCRIT</td> <td>38.1 %</td&gt ; <td>37.0-47.0</td> </tr> <tr> <td>PLATELET COUNT</td> <td>179 k/cumm</td& gt; <td>150-400</td> </tr> <tr> <th colspan="10">TROPONIN I BEDSIDE - 01/14/16 12:10&lt ;/th> </tr> <tr> <td>METHOD</td&gt ; <td>Bedside </td> <td /> </tr> <tr> <td>TROPONIN I</td> <td>& amp;lt; 0.04 ng/mL</td> <td>< 0.11</td> </tr> </tbody> </table> </text> <entry&gt ; <organizer moodCode="EVN" classCode="BATTERY"> <templateId root="[id number].1" /> & lt;id nullFlavor="NA" /> <code codeSystem="local&quot ; code="CBC" displayName="CBC" /> <statusCode code="completed" /><component> <observation moodCode="EVN" classCode="OBS"> <templateId root=& quot;2.16.840.1.550760.10.20.22.4.2" /> <id nullFlavor=&quot ;NA" /> <code codeSystem="local" code="MCH& quot; displayName="MEAN CELL HGB" /> <statusCode code=& quot;completed" /> <effectiveTime value="896752999736& quot; /> <value unit="pg" xsi:type="PQ" value ="28.3" /> <referenceRange> < observationRange> <text>27.0-33.0</text> </observationRange> </referenceRange> </observation> </component> <component> <observation moodCode=& quot;EVN" classCode="OBS"> <templateId root=" [id number].2" /> <id nullFlavor="NA& quot; /> <code codeSystem="local" code="[facility]&quot ; displayName="MEAN CELL HGB CONCENTRATION" /> < statusCode code="completed" /> <effectiveTime value=& quot;558337662698" /> <value unit="g/dL" xsi:type= "PQ" value="32.2" /> <referenceRange> <observationRange> <text>32.0-37.0</text&gt ; </observationRange> </referenceRange> </ observation> </component> <component> < observation moodCode="EVN" classCode="OBS"> < templateIdroot="[id number].2" /> <id nullFlavor="NA" /> <code codeSystem="local" code="MCV" displayName="MEAN CELL VOLUME" /> &lt ;statusCode code="completed" /> <effectiveTime value=& quot;791644171136" /> <value unit="fl" xsi:type=& quot;PQ" value="87.9" /> <referenceRange> <observationRange> <text>80.0-100.0</text> </observationRange> </referenceRange> </ observation> </component> <component> < observation moodCode="EVN" classCode="OBS"> < templateId root="2.16.840.1.147895.10.20.22.4.2" /> < id nullFlavor="NA" /> <code codeSystem="local&quot ; code="RBC" displayName="RED BLOOD CELL" /> < statusCode code="completed" /> <effectiveTime value=& quot;112029327974" /> <value unit="m/cumm" xsi: type="PQ" value="4.73" /> <referenceRange&gt ; <observationRange> <text>4.00-6.00</ text> </observationRange> </referenceRange> </observation> </component> <component> & lt;observation moodCode="EVN" classCode="OBS"> & lt;templateId root="2.16.840.1.098239.10.20.22.4.2" /> &lt ;id nullFlavor="NA" /> <code codeSystem="local& quot; code="RDW" displayName="RED CELL DISTRIBUTION WIDTH" / > <statusCode code="completed" /> < effectiveTime value="304928519683" /> <value unit=&quot ;%" xsi:type="PQ" value="14.5" /> & lt;referenceRange> <observationRange> <text& gt;11.0-15.6</text> </observationRange> </ referenceRange> </observation> </component> < component> <observation moodCode="EVN" classCode=" OBS"> <templateId root="2.16.840.1.755152.10.20.22.4.2& quot; /> <id nullFlavor="NA" /> <code codeSystem="local" code="WBC" displayName="WHITE BLOOD CELL" /><statusCode code="completed" /> < effectiveTime value="824148757954" /> <value unit=&quot ;k/cumm" xsi:type="PQ" value="5.7" /> < referenceRange> <observationRange> <text> 5.0-10.0</text> </observationRange> </ referenceRange> </observation> </component> < component> <observation moodCode="EVN" classCode=" OBS"> <templateId root="2.16.840.1.469392.10.20.22.4.2& quot; /> <id nullFlavor="NA" /> <code codeSystem="local" code="HGBT" displayName="HEMOGLOBIN& quot; /> <statusCode code="completed" /> & lt;effectiveTime value="282955511041" /> <value unit="gm/ dL" xsi:type="PQ" value="13.4" /> < referenceRange> <observationRange> <text> 12.0-16.0</text> </observationRange> </ referenceRange> </observation> </component> < component> <observation moodCode="EVN" classCode=" OBS"> <templateId root="2.16.840.1.523942.10.20.22.4.2& quot; /> <id nullFlavor="NA" /> <code codeSystem="local" code="HCTT" displayName="HEMATOCRIT& quot; /> <statusCode code="completed" /> & lt;effectiveTime value="098031551966" /> <value unit=& quot;%" xsi:type="PQ" value="41.6" /> <referenceRange> <observationRange> < text>37.0-47.0</text></observationRange> </ referenceRange> </observation> </component> < component> <observation moodCode="EVN" classCode=" OBS"> <templateId root="2.16.840.1.494313.10..22.4.2& quot; /> <id nullFlavor="NA" /> <code codeSystem="local" code="PLT" displayName="PLATELET COUNT" /> <statusCode code="completed" /> <effectiveTime value="652721393524" /> <value unit="k/cumm" xsi:type="PQ" value="208" /> <referenceRange> <observationRange> <text&gt ;150-400</text> </observationRange> </ referenceRange> </observation> </component> </ organizer> </entry> <entry> <organizer moodCode="EVN " classCode="BATTERY"> <templateId root=" 2.16.840.1.629970.10.20.22.4.1" /><id nullFlavor="NA" /&gt ; <code codeSystem="local" code="METAB" displayName= "METABOLIC PANEL, BASIC" /> <statusCode code=" completed" /> <component> <observation moodCode=& quot;EVN" classCode="OBS"> <templateId root=" 2.16.840.1.822379.10..22.4.2" /> <id nullFlavor="NA& quot; /> <code codeSystem="local" code="K" displayName="POTASSIUM" /> <statusCode code=" completed" /> <effectiveTime value="259608843039" /> <value unit="mmol/L" xsi:type="PQ" value=" 4.3" /> <referenceRange> <observationRange& gt; <text>3.5-5.3</text> </ observationRange> </referenceRange> </observation&gt ; </component> <component> <observation moodCode ="EVN" classCode="OBS"> <templateId root=& quot;2.16.840.1.452316.10.20.22.4.2" /> <id nullFlavor=&quot ;NA" /> <code codeSystem="local" code="eGFR& quot; displayName="EST GFR (MDRD)" /> <statusCode code= "completed" /> <effectiveTime value="610935431856& quot; /> <value unit="mL/min" xsi:type="PQ" value="57" /> <interpretationCode codeSystem=" local" code="*" /> <referenceRange> <observationRange> <text>> 59</text> </ observationRange> </referenceRange> </observation&gt ; </component> <component> <observation moodCode ="EVN" classCode="OBS"> <templateId root=& quot;2.16.840.1.394051.10.20.22.4.2" /> <id nullFlavor=&quot ;NA" /> <code codeSystem="local" code="GAP& quot; displayName="ANION GAP" /><statusCode code="completed " /> <effectiveTime value="925523676968" /> <value unit="mmol/L" xsi:type="PQ" value="6& quot; /> <referenceRange> <observationRange> <text>5-15</text> </observationRange&gt ; </referenceRange> </observation> </ component> <component> <observation moodCode="EVN& quot; classCode="OBS"> <templateId root=" 2.16.840.1.370324.10..22.4.2" /> <id nullFlavor="NA& quot; /> <code codeSystem="local" code="GLU" displayName="GLUCOSE" /> <statusCode code=" completed" /> <effectiveTime value="450890340027" /> <value unit="mg/dL" xsi:type="PQ" value=& quot;87" /> <referenceRange> < observationRange> <text>70-99</text> < /observationRange> </referenceRange> </observation& gt; </component> <component> <observation moodCode="EVN" classCode="OBS"> <templateId root="2.16.840.1.696124.10..22.4.2" /> <idnullFlavor= "NA" /> <code codeSystem="local" code=" CA" displayName="CALCIUM" /> <statusCode code=& quot;completed" /> <effectiveTime value="457970116252" /&gt ; <value unit="mg/dL" xsi:type="PQ" value=" 8.7" /> <referenceRange> <observationRange& gt; <text>8.5-10.1</text> </ observationRange> </referenceRange> </observation> </component> <component> <observation moodCode= "EVN" classCode="OBS"> <templateId root=&quot ;2.16.840.1.236952.10.20.22.4.2" /> <id nullFlavor="NA& quot; /> <code codeSystem="local" code="BUN" displayName="BLOOD UREA NITROGEN" /> <statusCode code=& quot;completed" /> <effectiveTime value="982361539207& quot; /> <value unit="mg/dL" xsi:type="PQ" value="19" /> <referenceRange> < observationRange> <text>7-20</text> </ observationRange> </referenceRange> </observation&gt ; </component> <component> <observation moodCode ="EVN" classCode="OBS"> <templateId root=& quot;2.16.840.1.017397.10.20.22.4.2" /> <id nullFlavor=&quot ;NA" /> <code codeSystem="local" code="CREAT" displayName="CREATININE" /> <statusCode code=" completed" /> <effectiveTime value="570789762430" /> <value unit="mg/dL" xsi:type="PQ" value=& quot;1.0" /> <referenceRange> < observationRange> <text>0.6-1.0</text> & lt;/observationRange> </referenceRange> </observation&gt ; </component> <component> <observation moodCode ="EVN" classCode="OBS"> <templateId root=& quot;2.16.840.1.796005.10.20.22.4.2" /> <id nullFlavor=&quot ;NA" /> <code codeSystem="local" code="NA& quot; displayName="SODIUM" /> <statusCodecode=" completed" /> <effectiveTime value="509949591210" /> <value unit="mmol/L" xsi:type="PQ" value=" 143" /> <referenceRange> <observationRange& gt; <text>135-148</text> </ observationRange> </referenceRange> </observation&gt ; </component> <component> <observation moodCode= "EVN" classCode="OBS"> <templateId root=&quot ;2.16.840.1.464438.10.20.22.4.2" /> <id nullFlavor="NA& quot; /> <code codeSystem="local" code="CL" displayName="CHLORIDE" /> <statusCode code=" completed" /> <effectiveTime value="177763062424" /> <value unit="mmol/L" xsi:type="PQ" value=& quot;108" /> <referenceRange> < observationRange> <text>98-110</text> &lt ;/observationRange> </referenceRange> </observation& gt; </component> <component> <observation moodCode="EVN" classCode="OBS"> <templateId root="2.16.840.1.681942.10.20.22.4.2" /> <id nullFlavor ="NA" /> <code codeSystem="local" code=" CO2" displayName="CARBON DIOXIDE" /> <statusCode code="completed" /> <effectiveTime value="494118735723& quot; /> <value unit="mmol/L" xsi:type="PQ" value="29" /> <referenceRange> < observationRange> <text>21-32</text> < /observationRange> </referenceRange> </observation> </component> </organizer> </entry> <entry> <organizer moodCode="EVN" classCode="BATTERY"> & lt;templateId root="2.16.840.1.746212.10.20.22.4.1" /> <id nullFlavor="NA" /> <code codeSystem="local" code= "HDLPRO" displayName="LIPID PANEL" /> < statusCode code="completed" /> <component> < observation moodCode="EVN" classCode="OBS"> < templateId root="2.16.840.1.604504.10.20.22.4.2" /> < id nullFlavor="NA" /> <code codeSystem="local&quot ; code="CHOL/HDL" displayName="CHOLESTEROL/HDL RATIO" /> <statusCode code="completed" /><effectiveTime value ="708134236615" /> <value unit="" xsi:type=& quot;PQ" value="3.1" /> <referenceRange> <observationRange> <text> < 5.0</text& gt; </observationRange> </referenceRange> & lt;/observation> </component> <component> < observation moodCode="EVN" classCode="OBS"> < templateId root="2.16.840.1.986433.10.20.22.4.2" /> < id nullFlavor="NA" /> <code codeSystem="local&quot ; code="LDLX" displayName="LDL CHOLESTEROL" /> & lt;statusCode code="completed" /> <effectiveTime value= "502324610144" /> <value unit="mg/dL" xsi: type="PQ" value="83" /> <referenceRange> <observationRange> <text>< 100</ text> </observationRange> </referenceRange> </observation> </component> <component> < observation moodCode="EVN" classCode="OBS"> < templateId root="2.16.840.1.884403.10..22.4.2" /> < id nullFlavor="NA" /> <code codeSystem="local" code="VLDL" displayName="VLDL CHOLESTEROL" /> & lt;statusCode code="completed" /> <effectiveTime value= "335477098004" /> <value unit="mg/dL" xsi: type="PQ" value="23" /> <referenceRange> <observationRange> <text>< 30</text> </observationRange> </referenceRange> </ observation> </component> <component> < observation moodCode="EVN" classCode="OBS"> < templateId root="2.16.840.1.073531.10.20.22.4.2" /> < id nullFlavor="NA" /> <code codeSystem="local&quot ; code="TRIG" displayName="TRIGLYCERIDES" /> < statusCode code="completed" /> <effectiveTime value=& quot;762866496892" /> <value unit="mg/dL" xsi:type ="PQ" value="117" /> <referenceRange> <observationRange> <text>< 150</text& gt; </observationRange> </referenceRange> &lt ;/observation> </component> <component> < observation moodCode="EVN" classCode="OBS"> < templateId root="2.16.840.1.009918.10.20.22.4.2" /> < id nullFlavor="NA" /> <code codeSystem="local&quot ; code="CHOL" displayName="CHOLESTEROL" /> < statusCode code="completed" /> <effectiveTime value=& quot;713411760433" /> <value unit="mg/dL" xsi:type ="PQ" value="157" /> <referenceRange> <observationRange> <text>< 200</text> </observationRange> </referenceRange> &lt ;/observation> </component> <component> < observation moodCode="EVN" classCode="OBS"> < templateId root="2.16.840.1.728187.10.20.22.4.2" /> < id nullFlavor="NA" /> <code codeSystem="local&quot ; code="HDL" displayName="HDL CHOLESTEROL" /> & lt;statusCode code="completed" /> <effectiveTime value= "989978784681" /> <value unit="mg/dL" xsi:type=" PQ" value="51" /> <referenceRange> & lt;observationRange> <text>> 39</text> </observationRange> </referenceRange> </ observation> </component> </organizer> </entry> < entry> <organizer moodCode="EVN" classCode="BATTERY&quot ;> <templateId root="2.16.840.1.503325.10.20.22.4.1" /> <id nullFlavor="NA" /> <code codeSystem=" local" code="iCHEM8" displayName="CHEM/HEM PROFILE-BEDSIDE& quot; /> <statusCode code="completed" /> < component> <observation moodCode="EVN" classCode=" OBS"> <templateId root="2.16.840.1.432817.10.20.22.4.2& quot; /> <id nullFlavor="NA" /> <code codeSystem="local" code="K" displayName="POTASSIUM&quot ; /> <statusCode code="completed" /> < effectiveTime value="081482527171" /> <value unit=&quot ;mmol/L" xsi:type="PQ" value="3.5" /> < referenceRange> <observationRange> <text> 3.5-5.3</text> </observationRange> </ referenceRange> </observation> </component> < component> <observation moodCode="EVN" classCode=" OBS"> <templateId root="2.16.840.1.389005.10.20.22.4.2& quot; /> <id nullFlavor="NA" /> <code codeSystem="local" code="CMETHOD" displayName="METHOD& quot; /> <statusCode code="completed"/> &lt ;effectiveTime value="354571727462" /> <value unit=& quot;" xsi:type="PQ" value="Bedside" /> &lt ;referenceRange> <observationRange> <text /> </observationRange> </referenceRange> </ observation> </component> <component> < observation moodCode="EVN" classCode="OBS"> < templateId root="2.16.840.1.329759.10..22.4.2" /> < id nullFlavor="NA" /> <code codeSystem="local&quot ; code="GAP" displayName="ANION GAP" /> < statusCode code="completed" /> <effectiveTime value=& quot;616743873645" /> <value unit="mmol/L" xsi: type="PQ" value="18" /> <referenceRange> <observationRange> <text>10-20</text> & lt;/observationRange> </referenceRange> </ observation> </component> <component> < observation moodCode="EVN" classCode="OBS"> < templateId root="2.16.840.1.582787.10.20.22.4.2" /> < id nullFlavor="NA" /> <code codeSystem="local&quot ; code="HMETHOD" displayName="METHOD" /> < statusCode code="completed" /> <effectiveTime value=& quot;[id number]"/> <value unit="" xsi:type=&quot ;PQ" value="Bedside" /> <referenceRange> <observationRange> <text /> </observationRange > </referenceRange> </observation> </ component> <component> <observation moodCode="EVN& quot; classCode="OBS"> <templateId root=" [id number]" /><id nullFlavor="NA" /&gt ; <code codeSystem="local" code="GLU" displayName="GLUCOSE" /> <statusCode code=" completed" /> <effectiveTime value="[id number]" / > <value unit="mg/dL" xsi:type="PQ" value=& quot;115" /> <interpretationCode codeSystem="local&quot ; code="*" /> <referenceRange> < observationRange> <text>70-99</text> < /observationRange> </referenceRange> </observation& gt; </component> <component> <observation moodCode=& quot;EVN" classCode="OBS"> <templateId root=" [id number].2" /> <id nullFlavor="NA& quot; /> <code codeSystem="local" code="BUN" displayName="BLOOD UREA NITROGEN" /> <statusCode code=& quot;completed" /> <effectiveTime value="[id number]& quot; /> <value unit="mg/dL" xsi:type="PQ" value="26" /> <interpretationCode codeSystem=" local" code="*" /> <referenceRange> <observationRange> <text>7-20</text> & lt;/observationRange> </referenceRange> </ observation> </component> <component> < observation moodCode="EVN" classCode="OBS"> < templateId root="[id number].2" /> < id nullFlavor="NA" /> <code codeSystem="local&quot ; code="CREAT" displayName="CREATININE" /> < statusCode code="completed" /> <effectiveTime value=& quot;[id number]" /> <value unit="mg/dL" xsi:type=& quot;PQ" value="1.1" /> <interpretationCode codeSystem="local" code="*" /> < referenceRange> <observationRange> <text> 0.6-1.0</text> </observationRange> </ referenceRange> </observation> </component> < component> <observation moodCode="EVN" classCode=" OBS"> <templateId root="[id number].2& quot; /> <id nullFlavor="NA" /> <code codeSystem="local" code="HGBT" displayName="HEMOGLOBIN& quot; /> <statusCode code="completed" /> < effectiveTime value="[id number]" /> <value unit=&quot ;gm/dL" xsi:type="PQ" value="14.3" /> < referenceRange> <observationRange> <text> 12.0-16.0</text> </observationRange> </ referenceRange> </observation> </component> < component> <observation moodCode="EVN" classCode=" OBS"> <templateId root="2.16.840.1.558156.10..22.4.2" /& gt; <id nullFlavor="NA" /> <code codeSystem ="local" code="HCTT" displayName="HEMATOCRIT" /&gt ; <statusCode code="completed" /> < effectiveTime value="[id number]" /> <value unit=&quot ;%" xsi:type="PQ" value="42.0" /> & lt;referenceRange> <observationRange> <text& gt;37.0-47.0</text> </observationRange> </ referenceRange> </observation> </component> < component> <observation moodCode="EVN" classCode=" OBS"> <templateId root="2.16.840.1.342580.10..22.4.2& quot; /> <id nullFlavor="NA" /> <code codeSystem="local" code="NA" displayName="SODIUM" /> <statusCode code="completed" /> < effectiveTime value="807948150668" /> <value unit=&quot ;mmol/L" xsi:type="PQ" value="144" /> < referenceRange> <observationRange> <text>135-148</ text> </observationRange> </referenceRange> </observation> </component> <component> <observationmoodCode="EVN" classCode="OBS"> <templateId root="2.16.840.1.568626.10.20.22.4.2" /> <id nullFlavor="NA" /> <code codeSystem=" local" code="CL" displayName="CHLORIDE" /> <statusCode code="completed" /> <effectiveTime value ="591175335936" /> <value unit="mmol/L" xsi: type="PQ" value="105" /> <referenceRange> <observationRange> <text>98-110</text> </observationRange> </referenceRange> &lt ;/observation> </component> <component> < observation moodCode="EVN" classCode="OBS"> < templateId root="2.16.840.1.779589.10.20.22.4.2" /> < id nullFlavor="NA" /> <code codeSystem="local&quot ; code="CO2" displayName="CARBON DIOXIDE" /> &lt ;statusCode code="completed" /> <effectiveTime value=& quot;720366467948" /> <value unit="mmol/L" xsi: type="PQ" value="26" /> <referenceRange> <observationRange> <text>21-32</text> </observationRange> </referenceRange> </ observation> </component> <component> < observation moodCode="EVN" classCode="OBS"> < templateId root="2.16.840.1.951539.10.20.22.4.2" /> < id nullFlavor="NA" /> <code codeSystem="local&quot ; code="CAION" displayName="CALCIUM IONIZED" /> <statusCode code="completed" /> <effectiveTime value ="970553473466" /> <value unit="mg/dL" xsi: type="PQ" value="4.7" /> <referenceRange> <observationRange> <text>4.5-5.3</text> </observationRange> </referenceRange> < /observation> </component> </organizer> </entry> &lt ;entry> <organizer moodCode="EVN" classCode="BATTERY& quot;> <templateId root="2.16.840.1.678490.10.20.22.4.1" /& gt; <id nullFlavor="NA" /> <code codeSystem=" local" code="iTROPI" displayName="TROPONIN I BEDSIDE" / > <statusCode code="completed" /> <component&gt ; <observation moodCode="EVN" classCode="OBS"> <templateId root="2.16.840.1.702941.10.20.22.4.2" /> <id nullFlavor="NA" /> <code codeSystem=& quot;local" code="CMETHOD" displayName="METHOD" /> <statusCode code="completed" /> < effectiveTime value="361028097971" /> <value unit=&quot ;" xsi:type="PQ" value="Bedside" /> < referenceRange> <observationRange> <text /& gt; </observationRange> </referenceRange> </observation> </component> <component>< observation moodCode="EVN" classCode="OBS"> < templateId root="2.16.840.1.347946.10.20.22.4.2" /> < id nullFlavor="NA" /> <code codeSystem="local" code ="TROPI" displayName="TROPONIN I" /> < statusCode code="completed" /> <effectiveTime value=& quot;914270056567" /> <value unit="ng/mL" xsi:type ="PQ" value="< 0.04" /> < referenceRange> <observationRange> <text>& lt; 0.11</text> </observationRange> </ referenceRange> </observation> </component> </ organizer> </entry> <entry> <organizer moodCode="EVN " classCode="BATTERY"><templateId root=" 2.16.840.1.549231.10.20.22.4.1" /> <id nullFlavor="NA&quot ; /> <code codeSystem="local" code="PT" displayName="PROTHROMBIN TIME WITH INR" /> <statusCode code ="completed" /> <component> <observation moodCode="EVN" classCode="OBS"> <templateId root="2.16.840.1.379760.10..22.4.2" /> <id nullFlavor ="NA" /> <code codeSystem="local" code=" INRX" displayName="INTERNATIONAL NORMAL RATIO" /> &lt ;statusCode code="completed" /> <effectiveTime value=& quot;079589308594" /> <value unit="" xsi:type=& quot;PQ" value="1.0" /> <referenceRange> <observationRange> <text>0.9-1.1</text> </observationRange> </referenceRange> </ observation> </component> <component> < observation moodCode="EVN" classCode="OBS"> < templateId root="2.16.840.1.105115.10..22.4.2" /> < id nullFlavor="NA" /> <code codeSystem="local" code="PTPAT" displayName="PROTHROMBIN TIME" /> & lt;statusCode code="completed" /> <effectiveTime value= "076650672132" /> <value unit="sec" xsi:type= "PQ" value="10.5" /> <referenceRange> <observationRange> <text>9.3-12.2</text> </observationRange> </referenceRange> </ observation> </component> </organizer> </entry> & lt;entry> <organizer moodCode="EVN" classCode="BATTERY& quot;> <templateId root="2.16.840.1.283751.10.20.22.4.1" /& gt; <id nullFlavor="NA" /> <code codeSystem=" local" code="DIMER" displayName="D-DIMER QUANT" /> <statusCode code="completed" /> <component> <observation moodCode="EVN" classCode="OBS"> <templateId root="2.16.840.1.719760.10.20.22.4.2" /> <id nullFlavor="NA" /><code codeSystem="local" code="DIMER" displayName="D-DIMER QUANT" /> < statusCode code="completed" /> <effectiveTime value=& quot;688845431066" /> <value unit="ng/mL" xsi:type ="PQ" value="203" /> <referenceRange> <observationRange> <text>0-229</text> </observationRange> </referenceRange> </ observation> </component> </organizer> </entry> & lt;entry> <organizer moodCode="EVN" classCode="BATTERY& quot;> <templateId root="2.16.840.1.336329.10.20.22.4.1" /& gt; <id nullFlavor="NA" /> <code codeSystem=" local" code="BNP" displayName="B-TYPE NATRIURETIC PEPTIDE& quot; /> <statusCode code="completed" /> < component> <observation moodCode="EVN" classCode=" OBS"> <templateId root="2.16.840.1.253304.10.20.22.4.2& quot; /> <id nullFlavor="NA" /> <code codeSystem="local" code="BNP" displayName="B-TYPE NATRIURETIC PEPTIDE" /> <statusCode code="completed& quot; /> <effectiveTime value="014990202305" /> <value unit="pg/mL" xsi:type="PQ" value="133& quot; /> <interpretationCode codeSystem="local" code=& quot;*" /> <referenceRange> < observationRange> <text>< 100</text> </observationRange> </referenceRange> </ observation> </component> </organizer> </entry> & lt;entry> <organizer moodCode="EVN" classCode="BATTERY& quot;> <templateId root="2.16.840.1.175015.10.20.22.4.1" /& gt; <id nullFlavor="NA" /><code codeSystem="local& quot; code="PTTH" displayName="PTT HEPARIN PROTOCOLS" /> <statusCode code="completed" /> <component> <observation moodCode="EVN" classCode="OBS"> <templateId root="2.16.840.1.416092.10.20.22.4.2" /> <id nullFlavor="NA" /> <code codeSystem=" local" code="PTT" displayName="PARTIAL THROMBOPLASTIN TIME& quot; /> <statusCode code="completed" /> & lt;effectiveTime value="172005295109" /> <value unit=& quot;sec" xsi:type="PQ" value="> 400" /> <interpretationCode codeSystem="local" code="" /& gt; <referenceRange> <observationRange> <text>24-36</text> </observationRange> </referenceRange> </observation> </component> </organizer> </entry> <entry> <organizer moodCode=& quot;EVN" classCode="BATTERY"> <templateId root=" 2.16.840.1.496607.10.20.22.4.1" /> <id nullFlavor="NA&quot ; /><code codeSystem="local" code="CBC" displayName=& quot;CBC" /> <statusCode code="completed" /> & lt;component> <observation moodCode="EVN" classCode=&quot ;OBS"> <templateId root="2.16.840.1.033474.10.20.22.4.2 " /> <id nullFlavor="NA" /> <code codeSystem="local" code="MCH" displayName="MEAN CELL HGB" /> <statusCode code="completed" /> <effectiveTime value="022241908953" /> <value unit ="pg" xsi:type="PQ" value="28.5" />< referenceRange> <observationRange> <text> 27.0-33.0</text> </observationRange> </ referenceRange> </observation> </component> < component> <observation moodCode="EVN" classCode=" OBS"> <templateId root="2.16.840.1.082421.10.20.22.4.2& quot; /> <id nullFlavor="NA" /> <code codeSystem="local" code="MCHC" displayName="MEAN CELL HGB CONCENTRATION" /> <statusCode code="completed&quot ; /> <effectiveTime value="836514301336" /> &lt ;value unit="g/dL" xsi:type="PQ" value="32.6" /&gt ; <referenceRange> <observationRange> <text>32.0-37.0</text> </observationRange> </referenceRange> </observation> </component&gt ; <component> <observation moodCode="EVN" classCode="OBS"> <templateId root=" 2.16.840.1.408148.10.20.22.4.2" /> <id nullFlavor="NA& quot; /> <code codeSystem="local" code="MCV" displayName="MEAN CELL VOLUME" /> <statusCode code=& quot;completed" /> <effectiveTime value="514314227598& quot; /> <value unit="fl" xsi:type="PQ" value ="87.6" /> <referenceRange> < observationRange> <text>80.0-100.0</text> </ observationRange> </referenceRange> </observation&gt ; </component> <component> <observation moodCode ="EVN" classCode="OBS"> <templateId root=& quot;2.16.840.1.263979.10.20.22.4.2" /> <id nullFlavor=&quot ;NA" /> <code codeSystem="local" code="RBC& quot; displayName="RED BLOOD CELL" /> <statusCode code= "completed" /> <effectiveTime value="859119725787& quot; /> <value unit="m/cumm" xsi:type="PQ" value="4.45" /> <referenceRange> < observationRange> <text>4.00-6.00</text> </observationRange> </referenceRange> </ observation> </component> <component> < observation moodCode="EVN" classCode="OBS"> < templateId root="2.16.840.1.505914.10.20.22.4.2" /> < id nullFlavor="NA" /> <code codeSystem="local&quot ; code="RDW" displayName="RED CELL DISTRIBUTION WIDTH" /&gt ; <statusCode code="completed" /> < effectiveTime value="362690743875" /> <value unit=&quot ;%" xsi:type="PQ" value="14.1" /> & lt;referenceRange> <observationRange> <text> 11.0-15.6</text> </observationRange> </ referenceRange> </observation> </component> < component> <observation moodCode="EVN" classCode=" OBS"> <templateId root="2.16.840.1.629770.10..22.4.2& quot; /> <id nullFlavor="NA" /> <code codeSystem="local" code="WBC" displayName="WHITE BLOOD CELL" /> <statusCode code="completed" /> & lt;effectiveTime value="089293328658" /> <value unit=& quot;k/cumm" xsi:type="PQ" value="6.7" /> & lt;referenceRange> <observationRange> <text& gt;5.0-10.0</text> </observationRange> </ referenceRange> </observation> </component> < component> <observation moodCode="EVN" classCode=" OBS"> <templateId root="2.16.840.1.673960.10.20.22.4.2& quot; /> <id nullFlavor="NA" /> <code codeSystem="local" code="HGBT" displayName="HEMOGLOBIN& quot; /> <statusCode code="completed" /> & lt;effectiveTime value="831727397232" /> <value unit=& quot;gm/dL" xsi:type="PQ" value="12.7" /> & lt;referenceRange> <observationRange> <text& gt;12.0-16.0</text> </observationRange> </ referenceRange> </observation> </component> < component> <observation moodCode="EVN" classCode="OBS&quot ;> <templateId root="2.16.840.1.293441.10.20.22.4.2" /& gt; <id nullFlavor="NA" /> <code codeSystem=& quot;local" code="HCTT" displayName="HEMATOCRIT"/> <statusCode code="completed" /> < effectiveTime value="270183737431" /> <value unit=&quot ;%" xsi:type="PQ" value="39.0" /> & lt;referenceRange> <observationRange> <text>37.0- 47.0</text> </observationRange> </ referenceRange> </observation> </component> < component> <observation moodCode="EVN" classCode=" OBS"> <templateId root="2.16.840.1.718801.10.20.22.4.2& quot; /> <id nullFlavor="NA" /> <code codeSystem="local" code="PLT" displayName="PLATELET COUNT" /> <statusCode code="completed" /> & lt;effectiveTime value="019837447393" /> <value unit=& quot;k/cumm" xsi:type="PQ" value="175" /> & lt;referenceRange> <observationRange> <text& gt;150-400</text> </observationRange> </ referenceRange> </observation> </component> </ organizer> </entry> <entry> <organizer moodCode="EVN " classCode="BATTERY"> <templateId root=" 2.16.840.1.027292.10.20.22.4.1" /> <id nullFlavor="NA&quot ; /> <code codeSystem="local" code="RENAL" displayName="RENAL FUNCTION PANEL" /> <statusCode code=& quot;completed" /> <component> <observation moodCode="EVN" classCode="OBS"> <templateId root="2.16.840.1.024063.10.20.22.4.2" /> <id nullFlavor ="NA" /> <code codeSystem="local" code=" K" displayName="POTASSIUM" /> <statusCode code=& quot;completed" /> <effectiveTime value="370877272114& quot;/> <value unit="mmol/L" xsi:type="PQ" value="3.7" /> <referenceRange> < observationRange> <text>3.5-5.3</text> & lt;/observationRange> </referenceRange> </ observation> </component> <component> < observation moodCode="EVN" classCode="OBS"> < templateId root="2.16.840.1.865905.10.20.22.4.2" /> < id nullFlavor="NA" /> <code codeSystem="local&quot ; code="eGFR" displayName="EST GFR (MDRD)" /> & lt;statusCode code="completed" /> <effectiveTime value= "718683392282" /><value unit="mL/min" xsi:type=" PQ" value="> 60" /> <referenceRange> <observationRange> <text>> 59</text> </observationRange> </referenceRange> </ observation> </component> <component> < observation moodCode="EVN" classCode="OBS"> < templateId root="2.16.840.1.861811.10.20.22.4.2" /> < id nullFlavor="NA" /> <code codeSystem="local&quot ; code="GAP" displayName="ANION GAP" /> < statusCode code="completed" /> <effectiveTime value=& quot;886820405666" /> <value unit="mmol/L" xsi: type="PQ" value="7" /> <referenceRange> <observationRange> <text>5-15</text> </observationRange> </referenceRange> < /observation> </component> <component> < observation moodCode="EVN" classCode="OBS"> < templateId root="2.16.840.1.590090.10.20.22.4.2" /> < id nullFlavor="NA" /> <code codeSystem="local&quot ; code="eCrCl" displayName="EST CrCl (CG)" /> & lt;statusCode code="completed" /> <effectiveTime value=& quot;312333066690" /> <value unit="mL/min" xsi: type="PQ" value="40" /> <interpretationCode codeSystem="local" code="*" /> < referenceRange> <observationRange> <text> > 59</text> </observationRange> </ referenceRange> </observation> </component> < component> <observation moodCode="EVN" classCode=" OBS"> <templateId root="2.16.840.1.259399.10.20.22.4.2& quot; /> <id nullFlavor="NA" /> <code codeSystem="local" code="GLU" displayName="GLUCOSE&quot ; /> <statusCode code="completed" /> < effectiveTime value="778308410455" /> <value unit=&quot ;mg/dL" xsi:type="PQ" value="93" /> < referenceRange> <observationRange><text>70-99</text > </observationRange> </referenceRange> </observation> </component> <component> &lt ;observation moodCode="EVN" classCode="OBS"> &lt ;templateId root="2.16.840.1.454877.10.20.22.4.2" /> < id nullFlavor="NA" /> <code codeSystem="local&quot ; code="CA" displayName="CALCIUM" /> < statusCode code="completed" /> <effectiveTime value=& quot;225539123955" /> <value unit="mg/dL" xsi:type= "PQ" value="8.1" /> <interpretationCode codeSystem=& quot;local" code="*" /> <referenceRange> <observationRange> <text>8.5-10.1</text> </observationRange> </referenceRange> </ observation> </component> <component> < observation moodCode="EVN" classCode="OBS"> < templateId root="2.16.840.1.579113.10..22.4.2" /> < id nullFlavor="NA" /> <code codeSystem="local&quot ; code="BUN" displayName="BLOOD UREA NITROGEN" /> <statusCode code="completed" /> <effectiveTime value="507531340466" /> <value unit="mg/dL" xsi:type="PQ" value="17" /> <referenceRange& gt; <observationRange> <text>7-20</text> </observationRange> </referenceRange> & lt;/observation> </component> <component> < observation moodCode="EVN" classCode="OBS"> < templateId root="2.16.840.1.825391.10..22.4.2" /> < id nullFlavor="NA" /> <code codeSystem="local&quot ; code="CREAT" displayName="CREATININE" /> < statusCode code="completed" /> <effectiveTime value=& quot;602260955012" /> <value unit="mg/dL" xsi:type ="PQ" value="0.9" /> <referenceRange> <observationRange> <text>0.6-1.0</text> </observationRange> </referenceRange> </ observation> </component> <component> < observation moodCode="EVN" classCode="OBS"> < templateId root="2.16.840.1.650490.10.20.22.4.2" /> < id nullFlavor="NA" /> <code codeSystem="local&quot ; code="NA" displayName="SODIUM"/> < statusCode code="completed" /> <effectiveTime value=& quot;333942039072" /> <value unit="mmol/L" xsi: type="PQ" value="142" /> <referenceRange> <observationRange><text>135-148</text> </observationRange> </referenceRange> </ observation> </component> <component> < observation moodCode="EVN" classCode="OBS"> < templateId root="2.16.840.1.319991.10.20.22.4.2" /> < id nullFlavor="NA" /> <code codeSystem="local&quot ; code="CL" displayName="CHLORIDE" /> < statusCode code="completed" /> <effectiveTime value=& quot;463182591977" /> <value unit="mmol/L" xsi: type="PQ" value="107" /> <referenceRange> <observationRange> <text>98-110</text> </observationRange> </referenceRange> < /observation> </component> <component> < observation moodCode="EVN"classCode="OBS"> < templateId root="2.16.840.1.995469.10.20.22.4.2" /> < id nullFlavor="NA" /> <code codeSystem="local&quot ; code="CO2" displayName="CARBON DIOXIDE" /> &lt ;statusCode code="completed" /> <effectiveTime value=& quot;531864992594" /> <value unit="mmol/L" xsi: type="PQ" value="28" /> <referenceRange> <observationRange> <text>21-32</text> </observationRange> </referenceRange> </ observation> </component> <component> < observation moodCode="EVN" classCode="OBS"> < templateId root="2.16.840.1.816371.10.20.22.4.2" /> < id nullFlavor="NA" /> <code codeSystem="local&quot ; code="ALB" displayName="ALBUMIN" /> < statusCode code="completed" /> <effectiveTime value=" 198693169439" /> <value unit="gm/dL" xsi:type=& quot;PQ" value="3.9" /> <referenceRange> <observationRange> <text>3.4-5.0</text> </observationRange> </referenceRange> </ observation> </component> <component> < observation moodCode="EVN" classCode="OBS"> < templateId root="2.16.840.1.700321.10.20.22.4.2" /> < id nullFlavor="NA" /> <code codeSystem="local&quot ; code="PHOS" displayName="PHOSPHORUS" /> < statusCode code="completed" /> <effectiveTime value=& quot;587264426863" /> <value unit="mg/dL" xsi:type ="PQ" value="2.9" /> <referenceRange> <observationRange> <text>2.5-4.9</text> </observationRange> </referenceRange> &lt ;/observation> </component> </organizer> </entry> <entry> <organizer moodCode="EVN" classCode=" BATTERY"><templateId root="2.16.840.1.239221.10.20.22.4.1" /> <id nullFlavor="NA" /> <code codeSystem=&quot ;local" code="MAG" displayName="MAGNESIUM" /> & lt;statusCode code="completed" /> <component> &lt ;observation moodCode="EVN" classCode="OBS"> &lt ;templateId root="2.16.840.1.704772.10.20.22.4.2" /> < id nullFlavor="NA" /> <code codeSystem="local" code=& quot;MAG" displayName="MAGNESIUM" /> <statusCode code="completed" /> <effectiveTime value=" 353108074202" /> <value unit="mg/dL" xsi:type=& quot;PQ" value="1.6" /> <interpretationCode codeSystem="local" code="*" /> <referenceRange&gt ; <observationRange> <text>1.8-2.4</text& gt; </observationRange> </referenceRange> </observation> </component> </organizer> </entry > <entry> <organizermoodCode="EVN" classCode=" BATTERY"> <templateId root="2.16.840.1.548256.10.20.22.4.1& quot; /> <id nullFlavor="NA" /> <code codeSystem ="local" code="TROPI" displayName="TROPONIN I" /& gt; <statusCode code="completed" /> <component> <observation moodCode="EVN" classCode="OBS"> <templateId root="2.16.840.1.625099.10.20.22.4.2" /> <id nullFlavor="NA" /> <code codeSystem=& quot;local" code="TROPI" displayName="TROPONIN I" /&gt ; <statusCode code="completed" /> < effectiveTime value="419423098157" /> <value unit=&quot ;ng/mL" xsi:type="PQ" value="< 0.02" />< referenceRange> <observationRange> <text> < 0.07</text> </observationRange> </ referenceRange> </observation> </component> </ organizer> </entry> <entry> <organizermoodCode="EVN& quot; classCode="BATTERY"> <templateId root=" 2.16.840.1.950528.10.20.22.4.1" /> <id nullFlavor="NA&quot ; /> <code codeSystem="local" code="PTTH" displayName="PTT HEPARIN PROTOCOLS" /> <statusCode code=& quot;completed" /> <component> <observation moodCode="EVN" classCode="OBS"> <templateId root="2.16.840.1.021257.10.20.22.4.2" /> <id nullFlavor ="NA" /> <code codeSystem="local" code=" PTT" displayName="PARTIAL THROMBOPLASTIN TIME" /> < statusCode code="completed" /> <effectiveTime value=& quot;548469787086" /> <value unit="sec" xsi:type=& quot;PQ" value="211" /> <interpretationCode codeSystem="local" code="" /> < referenceRange> <observationRange> <text> 24-36</text> </observationRange> </ referenceRange> </observation> </component> </ organizer> </entry> <entry> <organizer moodCode="EVN " classCode="BATTERY"> <templateId root=" 2.16.840.1.728418.10.20.22.4.1" /> <id nullFlavor="NA&quot ; /> <code codeSystem="local" code="HDLPRO" displayName="LIPID PANEL" /> <statusCode code=" completed" /> <component> <observation moodCode=& quot;EVN" classCode="OBS"> <templateId root=" 2.16.840.1.023469.10.20.22.4.2" /> <id nullFlavor="NA& quot; /> <code codeSystem="local" code="CHOL/HDL& quot; displayName="CHOLESTEROL/HDL RATIO" /> < statusCode code="completed" /> <effectiveTime value=& quot;740383841605" /> <value unit="" xsi:type="PQ& quot; value="2.7" /> <referenceRange> &lt ;observationRange> <text> < 5.0</text> </observationRange> </referenceRange> </ observation> </component> <component> < observation moodCode="EVN" classCode="OBS"> < templateId root="2.16.840.1.776236.10.20.22.4.2" /> <id nullFlavor="NA" /> <code codeSystem="local" code="LDLX" displayName="LDL CHOLESTEROL" /> &lt ;statusCode code="completed" /> <effectiveTime value=& quot;249307636210" /> <valueunit="mg/dL" xsi:type= "PQ" value="73" /> <referenceRange> <observationRange> <text>< 100</text&gt ; </observationRange> </referenceRange> </ observation> </component> <component> < observation moodCode="EVN" classCode="OBS"> < templateId root="2.16.840.1.571052.10.20.22.4.2" /> < id nullFlavor="NA" /> <code codeSystem="local&quot ; code="VLDL" displayName="VLDL CHOLESTEROL" /> <statusCode code="completed" /> <effectiveTime value ="547197897529" /> <value unit="mg/dL" xsi: type="PQ" value="19" /> <referenceRange> <observationRange> <text>< 30</text> </observationRange> </referenceRange> & lt;/observation> </component> <component> < observation moodCode="EVN" classCode="OBS"> < templateId root="2.16.840.1.975138.10.20.22.4.2" /> < id nullFlavor="NA" /> <code codeSystem="local&quot ; code="TRIG" displayName="TRIGLYCERIDES" /> &lt ;statusCode code="completed" /> <effectiveTime value=" 458646607528" /> <value unit="mg/dL" xsi:type=& quot;PQ" value="95" /> <referenceRange> <observationRange> <text>< 150</text&gt ; </observationRange> </referenceRange> & lt;/observation> </component> <component> < observation moodCode="EVN" classCode="OBS"> < templateId root="2.16.840.1.276343.10.20.22.4.2" /> < id nullFlavor="NA" /> <code codeSystem="local&quot ; code="CHOL" displayName="CHOLESTEROL" /> < statusCode code="completed" /> <effectiveTime value=& quot;632470470075" /> <value unit="mg/dL" xsi:type ="PQ" value="146" /> <referenceRange> <observationRange> <text>< 200</text& gt; </observationRange> </referenceRange> </observation> </component> <component> < observation moodCode="EVN" classCode="OBS"> < templateId root="2.16.840.1.954973.10.20.22.4.2" /> < id nullFlavor="NA" /> <code codeSystem="local" code="HDL" displayName="HDL CHOLESTEROL" /> < statusCode code="completed" /> <effectiveTime value=& quot;524992678290" /> <value unit="mg/dL" xsi:type ="PQ" value="54" /> <referenceRange> <observationRange> <text>> 39</text> </observationRange> </referenceRange> </ observation> </component> </organizer> </entry>&lt ;entry> <organizer moodCode="EVN" classCode="BATTERY& quot;> <templateId root="2.16.840.1.032632.10.20.22.4.1" /& gt; <id nullFlavor="NA"/> <code codeSystem=" local" code="HBA1C" displayName="[id number]" /> <statusCode code="completed" /> <component> <observation moodCode="EVN" classCode="OBS"> <templateId root="2.16.840.1.803463.10.20.22.4.2" /> <id nullFlavor="NA" /> <code codeSystem="local&quot ; code="HBA1C" displayName="HEMOGLOBIN A1C" /> & lt;statusCode code="completed" /> <effectiveTime value= "906320611014" /> <value unit="%" xsi :type="PQ" value="6.1" /> < interpretationCode codeSystem="local" code="*" /> <referenceRange> <observationRange> < text>< 5.7</text> </observationRange> </referenceRange> </observation> </component> </ organizer> </entry> <entry> <organizer moodCode="EVN& quot; classCode="BATTERY"> <templateId root=" 2.16.840.1.286888.10.20.22.4.1" /> <id nullFlavor="NA&quot ; /> <code codeSystem="local" code="MRSAS" displayName="MRSA SURVEILLANCE SCREEN" /> <statusCode code= "completed" /> <component> <observation moodCode="EVN" classCode="OBS"> <templateId root="2.16.840.1.950616.10.20.22.4.2" /> <id nullFlavor ="NA" /> <code codeSystem="local" code=" MB" displayName="Microbiology" /> <statusCode code=& quot;completed" /> <effectiveTime value="549011392668& quot; /> <value xsi:type="ST" value="<pre>& lt;b>MRSA SURVEILLANCE SCREEN</b> See BelowMRSA SURVEILLANCE SCREEN(F) Alejandra Date/Time: 08/05/2014 16:09 Carmen Date/Time: 08/07/2014 07:14SOURCE: ANTERIOR NARESSPEC DESC: NNOMETHICILLIN [facility]IST[facility] [place] [id number] [place] [address] </pre>" /> <referenceRange> < observationRange> <text /> </observationRange> </referenceRange> </observation> </component& gt; </organizer> </entry> <entry> <organizer moodCode="EVN" classCode="BATTERY"> <templateId root="[id number]" /> <id nullFlavor=& quot;NA" /> <codecodeSystem="local" code="PT&quot ; displayName="PROTHROMBIN TIME WITH INR" /> <statusCode code="completed" /> <component> <observation moodCode="EVN" classCode="OBS"> <templateId root="[id number]" /> <id nullFlavor ="NA" /> <code codeSystem="local" code=" INRX" displayName="INTERNATIONAL NORMAL RATIO"/> < statusCode code="completed" /> <effectiveTime value=& quot;[id number]" /> <value unit="" xsi:type=& quot;PQ" value="1.0" /> <referenceRange> <observationRange> <text>0.9-1.1</text> </observationRange> </referenceRange> </ observation> </component> <component> < observation moodCode="EVN" classCode="OBS"> < templateId root="2.16.840.1.407655.10.20.22.4.2" /> < id nullFlavor="NA" /> <code codeSystem="local&quot ; code="PTPAT" displayName="PROTHROMBIN TIME" /> <statusCode code="completed" /> <effectiveTime value="847261967603" /> <value unit="sec" xsi :type="PQ" value="10.6" /> <referenceRange&gt ; <observationRange> <text>9.3-12.2</text > </observationRange> </referenceRange> </observation> </component> </organizer> </ entry> <entry> <organizer moodCode="EVN" classCode=& quot;BATTERY"> <templateId root=" 2.16.840.1.537736.10.20.22.4.1" /> <id nullFlavor="NA&quot ; /> <code codeSystem="local" code="FIB" displayName="FIBRINOGEN" /> <statusCode code=" completed" /> <component> <observation moodCode=& quot;EVN" classCode="OBS"> <templateId root=" 2.16.840.1.345568.10.20.22.4.2" /> <id nullFlavor="NA& quot; /> <code codeSystem="local" code="FIB" displayName="FIBRINOGEN" /> <statusCode code=" completed" /> <effectiveTime value="502830835323" /> <value unit="mg/dL" xsi:type="PQ" value=& quot;356" /> <referenceRange> < observationRange> <text>200-400</text> </ observationRange> </referenceRange> </observation&gt ; </component> </organizer> </entry> <entry> <organizer moodCode="EVN" classCode="BATTERY"> <templateId root="2.16.840.1.772562.10.20.22.4.1" /> < id nullFlavor="NA" /> <code codeSystem="local" code="PTTH" displayName="PTT HEPARIN PROTOCOLS" /> & lt;statusCode code="completed" /> <component> &lt ;observation moodCode="EVN" classCode="OBS"> &lt ;templateId root="2.16.840.1.293053.10.20.22.4.2" /> < id nullFlavor="NA" /> <code codeSystem="local&quot ; code="PTT" displayName="PARTIAL THROMBOPLASTIN TIME" /&gt ; <statusCode code="completed" /> < effectiveTime value="229173723436" /> <value unit="sec " xsi:type="PQ" value="48" /> < interpretationCode codeSystem="local" code="*" /> <referenceRange> <observationRange> < text>24-36</text> </observationRange> </ referenceRange> </observation> </component> </ organizer> </entry> <entry> <organizer moodCode="EVN " classCode="BATTERY"> <templateId root=" 2.16.840.1.934117.10.20.22.4.1" /> <id nullFlavor="NA&quot ; /> <code codeSystem="local" code="UA" displayName="URINALYSIS, ROUTINE" /> <statusCode code=&quot ;completed" /> <component> <observation moodCode=& quot;EVN" classCode="OBS"> <templateId root=" 2.16.840.1.791503.10..22.4.2" /> <id nullFlavor="NA& quot; /> <code codeSystem="local" code="LEUESU& quot; displayName="UA LEUKOCYTE ESTERASE DIPSTICK" /> < statusCode code="completed" /> <effectiveTime value=& quot;477795264153" /> <value unit="" xsi:type=& quot;PQ" value="NEGATIVE" /> <referenceRange> <observationRange> <text>NEGATIVE</text& gt; </observationRange> </referenceRange> </ observation> </component> <component> < observation moodCode="EVN" classCode="OBS"> < templateId root="2.16.840.1.311040.10.20.22.4.2" /> <id nullFlavor="NA" /> <code codeSystem="local" code="NITRIU" displayName="UA NITRITE DIPSTICK" /> <statusCode code="completed" /> <effectiveTime value="719259819670" /> <value unit="" xsi: type="PQ" value="NEGATIVE" /> <referenceRange > <observationRange> <text>NEGATIVE</ text> </observationRange> </referenceRange> </observation> </component> <component> <observation moodCode="EVN" classCode="OBS"> <templateId root="2.16.840.1.587330.10.20.22.4.2" /> <id nullFlavor="NA" /> <code codeSystem=" local" code="PROTEIU" displayName="UA PROTEIN DIPSTICK&quot ; /> <statusCode code="completed" /> < effectiveTime value="468299360168" /> <value unit=&quot ;" xsi:type="PQ" value="NEGATIVE" /> < referenceRange> <observationRange> <text> NEGATIVE</text> </observationRange> </ referenceRange> </observation> </component> < component> <observation moodCode="EVN" classCode=" OBS"> <templateId root="2.16.840.1.717891.10.20.22.4.2& quot; /> <id nullFlavor="NA" /> <code codeSystem="local" code="DGLUU" displayName="UA GLUCOSE DIPSTICK" /> <statusCode code="completed" /> <effectiveTime value="519139694079" /> & lt;value unit="" xsi:type="PQ" value="NEGATIVE" /& gt; <referenceRange><observationRange> < text>NEGATIVE</text> </observationRange> < /referenceRange> </observation> </component> &lt ;component> <observation moodCode="EVN" classCode=" OBS"> <templateId root="2.16.840.1.091720.10.20.22.4.2" /& gt; <id nullFlavor="NA" /> <code codeSystem ="local" code="KETONU" displayName="UA KETONE DIPSTICK& quot; /> <statusCode code="completed" /> < effectiveTime value="545689876600" /> <value unit=&quot ;" xsi:type="PQ" value="NEGATIVE" /> < referenceRange> <observationRange> <text> NEGATIVE</text> </observationRange> </ referenceRange> </observation> </component> < component> <observation moodCode="EVN" classCode=" OBS"> <templateId root="2.16.840.1.843726.10..22.4.2& quot; /> <id nullFlavor="NA" /> <code codeSystem="local" code="UROBILU" displayName=" UAUROBILINOGEN DIPSTICK" /> <statusCode code="completed " /> <effectiveTime value="011263460546" /> <value unit="" xsi:type="PQ" value="NORMAL& quot; /> <referenceRange> <observationRange> <text>NORMAL</text> </observationRange& gt; </referenceRange> </observation> </component&gt ; <component> <observation moodCode="EVN" classCode="OBS"> <templateId root=" 2.16.840.1.909787.10.20.22.4.2" /> <id nullFlavor="NA& quot; /> <code codeSystem="local" code="BILU&quot ; displayName="UA BILIRUBIN DIPSTICK" /> <statusCode code="completed" /> <effectiveTime value=" 659772271086" /> <value unit="" xsi:type="PQ& quot; value="NEGATIVE" /> <referenceRange> <observationRange> <text>NEGATIVE</text> </observationRange> </referenceRange> </ observation> </component> <component> < observation moodCode="EVN" classCode="OBS"> < templateId root="2.16.840.1.472379.10.20.22.4.2" /> < id nullFlavor="NA" /> <code codeSystem="local" code= "ALPA" displayName="UA BLOOD DIPSTICK" /> < statusCode code="completed" /> <effectiveTime value=& quot;285551431687" /> <value unit="" xsi:type=& quot;PQ" value="NEGATIVE" /> <referenceRange> <observationRange> <text>NEGATIVE</text> </observationRange> </referenceRange> </ observation> </component> <component> < observation moodCode="EVN" classCode="OBS"> < templateId root="2.16.840.1.539017.10.20.22.4.2" /> < id nullFlavor="NA" /> <code codeSystem="local&quot ; code="SPGRU" displayName="UA SPECIFIC GRAVITY" /> <statusCode code="completed" /> <effectiveTime value="710478308913" /> <value unit="" xsi: type="PQ" value="1.002" /> < interpretationCode codeSystem="local" code="*" /> < referenceRange> <observationRange> <text> 1.015-1.025</text> </observationRange> </ referenceRange> </observation> </component> < component> <observation moodCode="EVN" classCode=" OBS"> <templateId root="2.16.840.1.807420.10.20.22.4.2& quot; /> <id nullFlavor="NA" /> <code codeSystem="local" code="REGULO" displayName="UR PH" /> <statusCode code="completed" /> < effectiveTime value="175620572314" /> <value unit=&quot ;" xsi:type="PQ" value="5.0" /> < referenceRange> <observationRange> <text> 5.0-7.0</text> </observationRange> </ referenceRange> </observation> </component> </ organizer> </entry> <entry> <organizer moodCode="EVN " classCode="BATTERY"> <templateId root=" 2.16.840.1.060130.10.20.22.4.1" /> <id nullFlavor="NA&quot ; /> <code codeSystem="local" code="ABG" displayName="ARTERIAL BLOOD GAS" /> <statusCode code=" completed" /> <component> <observation moodCode=& quot;EVN" classCode="OBS"> <templateId root=" 2.16.840.1.707273.10.20.22.4.2" /> <id nullFlavor="NA& quot; /> <code codeSystem="local" code="IRASEMA" displayName="ABG BASE EXCESS" /> <statusCode code=&quot ;completed" /> <effectiveTime value="667592170992&quot ; /> <value unit="meq/L" xsi:type="PQ" value= "1.8" /> <referenceRange> <observationRange&gt ; <text>-3.0-3.0</text> </ observationRange> </referenceRange> </observation&gt ; </component> <component> <observation moodCode=& quot;EVN" classCode="OBS"> <templateId root=" 2.16.840.1.293229.10.20.22.4.2" /> <id nullFlavor="NA& quot; /> <code codeSystem="local" code="HCO3A&quot ; displayName="ABG BICARBONATE" /> <statusCode code=& quot;completed" /> <effectiveTime value="459205129345" /&gt ; <value unit="meq/L" xsi:type="PQ" value=" 27.1" /> <referenceRange> <observationRange > <text>23.0-28.0</text> </ observationRange> </referenceRange> </observation&gt ; </component> <component> <observation moodCode ="EVN" classCode="OBS"> <templateId root=& quot;2.16.840.1.384837.10.20.22.4.2" /> <id nullFlavor=&quot ;NA" /> <code codeSystem="local" code="PCO2A& quot; displayName="ABG PCO2" /> <statusCode code=" completed" /> <effectiveTime value="459358033349" /> <value unit="mmHg" xsi:type="PQ" value=& quot;45" /> <referenceRange> < observationRange> <text>34-45</text> </ observationRange> </referenceRange> </observation&gt ; </component> <component> <observation moodCode ="EVN" classCode="OBS"> <templateId root=& quot;2.16.840.1.412059.10.20.22.4.2" /> <id nullFlavor=&quot ;NA" /> <code codeSystem="local" code="PHAX& quot; displayName="ABG PH" /> <statusCode code=" completed" /> <effectiveTime value="750637114752" /> <value unit="" xsi:type="PQ" value=" 7.40" /> <referenceRange> <observationRange& gt; <text>7.35-7.45</text> </ observationRange> </referenceRange> </observation&gt ; </component> <component> <observation moodCode ="EVN" classCode="OBS"> <templateId root=& quot;2.16.840.1.653443.10.20.22.4.2" /> <id nullFlavor=&quot ;NA" /> <code codeSystem="local" code="PO2A& quot; displayName="ABG PO2" /> <statusCode code=" completed" /> <effectiveTime value="485907544289" /> <value unit="mmHg" xsi:type="PQ" value=& quot;74" /> <interpretationCode codeSystem="local&quot ; code="*" /> <referenceRange> < observationRange> <text>75-100</text> &lt ;/observationRange> </referenceRange> </observation& gt; </component> <component> <observation moodCode="EVN" classCode="OBS"> <templateId root=& quot;2.16.840.1.575490.10..22.4.2" /> <id nullFlavor=&quot ;NA" /> <code codeSystem="local" code="SATA& quot; displayName="ABG O2 SATURATION" /> <statusCode code="completed" /><effectiveTime value="155616052304&quot ; /> <value unit="%"xsi:type="PQ" value="95" /> <referenceRange> < observationRange> <text>93-100</text> &lt ;/observationRange> </referenceRange> </observation&gt ; </component> </organizer> </entry> <entry> <organizer moodCode="EVN" classCode="BATTERY"> <templateId root="2.16.840.1.853920.10..22.4.1" /> < id nullFlavor="NA" /> <code codeSystem="local" code="PTTH" displayName="PTT HEPARIN PROTOCOLS" /> & lt;statusCode code="completed" /> <component> < observation moodCode="EVN" classCode="OBS"> < templateId root="2.16.840.1.589378.10..22.4.2" /> < id nullFlavor="NA" /> <code codeSystem="local&quot ; code="PTT" displayName="PARTIAL THROMBOPLASTIN TIME" /&gt ; <statusCode code="completed" /> < effectiveTime value="775494557341" /> <value unit=&quot ;sec" xsi:type="PQ" value="220" /> < interpretationCode codeSystem="local" code="" /> <referenceRange> <observationRange> < text>24-36</text> </observationRange> </ referenceRange> </observation> </component> </ organizer> </entry> <entry> <organizer moodCode="EVN " classCode="BATTERY"> <templateId root=" 2.16.840.1.238166.10.20.22.4.1" /> <id nullFlavor="NA&quot ; /> <code codeSystem="local" code="PTTH" displayName="PTT HEPARIN PROTOCOLS" /> <statusCode code=& quot;completed" /> <component> <observation moodCode="EVN" classCode="OBS"> <templateId root="2.16.840.1.158393.10.20.22.4.2" /> <id nullFlavor ="NA" /> <code codeSystem="local" code=" PTT" displayName="PARTIAL THROMBOPLASTIN TIME" /> &lt ;statusCode code="completed" /> <effectiveTime value=" 880796942609" /> <value unit="sec" xsi:type=" PQ" value="100" /> <interpretationCode codeSystem= "local" code="*" /> <referenceRange> <observationRange> <text>24-36</text> </observationRange> </referenceRange> </ observation> </component> </organizer> </entry> & lt;entry> <organizer moodCode="EVN" classCode="BATTERY& quot;> <templateId root="2.16.840.1.672862.10.20.22.4.1" /& gt; <id nullFlavor="NA" /> <code codeSystem=" local" code="METAB" displayName="METABOLIC PANEL, BASIC&quot ; /> <statusCode code="completed" /> <component& gt; <observation moodCode="EVN" classCode="OBS"&gt ; <templateId root="2.16.840.1.000322.10..22.4.2" /> <id nullFlavor="NA" /> <code codeSystem=& quot;local" code="K" displayName="POTASSIUM" /> <statusCode code="completed" /> < effectiveTime value="782989374607" /> <value unit=&quot ;mmol/L" xsi:type="PQ" value="3.7" /> < referenceRange> <observationRange> <text>3.5-5.3< /text> </observationRange> </referenceRange> </observation> </component> <component> <observation moodCode="EVN" classCode="OBS"> <templateId root="2.16.840.1.732068.10..22.4.2" /> <id nullFlavor="NA" /> <code codeSystem=" local" code="eGFR" displayName="EST GFR (MDRD)" /> <statusCode code="completed" /> <effectiveTime value="393502041552" /> <value unit="mL/min" xsi:type="PQ" value="57" /> < interpretationCode codeSystem="local" code="*" /> < referenceRange> <observationRange> <text> > 59</text> </observationRange> </ referenceRange> </observation> </component> < component> <observation moodCode="EVN"classCode="OBS "> <templateId root="2.16.840.1.726168.10.20.22.4.2& quot; /> <id nullFlavor="NA" /> <code codeSystem="local" code="GAP" displayName="ANION GAP& quot; /> <statusCode code="completed" /> & lt;effectiveTime value="372692715626" /> <valueunit=& quot;mmol/L" xsi:type="PQ" value="7" /> &lt ;referenceRange> <observationRange> <text&gt ;5-15</text> </observationRange> </ referenceRange> </observation> </component> < component> <observation moodCode="EVN" classCode=" OBS"> <templateId root="2.16.840.1.902752.10.20.22.4.2& quot; /> <id nullFlavor="NA" /> <code codeSystem="local" code="eCrCl" displayName="EST CrCl ( CG)" /> <statusCode code="completed" /> & lt;effectiveTime value="159464387053" /> <value unit=& quot;mL/min" xsi:type="PQ" value="37" /> & lt;interpretationCode codeSystem="local" code="*" /> <referenceRange> <observationRange> & lt;text>> 59</text> </observationRange> </ referenceRange> </observation> </component> < component> <observation moodCode="EVN" classCode="OBS "> <templateId root="2.16.840.1.835233.10.20.22.4.2& quot; /> <id nullFlavor="NA" /> <code codeSystem="local" code="GLU" displayName="GLUCOSE&quot ; /> <statusCode code="completed" /> < effectiveTime value="517773538819" /> <value unit=&quot ;mg/dL" xsi:type="PQ" value="95" /> < referenceRange> <observationRange> <text> 70-99</text> </observationRange> </ referenceRange> </observation> </component> < component> <observation moodCode="EVN" classCode=" OBS"> <templateId root="2.16.840.1.910340.10.20.22.4.2& quot; /> <id nullFlavor="NA" /> <code codeSystem="local" code="CA" displayName="CALCIUM&quot ; /> <statusCode code="completed" /> < effectiveTime value="197206237862" /> <value unit=" mg/dL" xsi:type="PQ" value="8.8" /> < referenceRange> <observationRange> <text> 8.5-10.1</text> </observationRange> </ referenceRange> </observation> </component> < component> <observation moodCode="EVN" classCode=" OBS"> <templateId root="2.16.840.1.535104.10.20.22.4.2& quot; /> <id nullFlavor="NA" /> <code codeSystem="local" code="BUN" displayName="BLOOD UREA NITROGEN" /> <statusCode code="completed" /> <effectiveTime value="757768304808" /> < value unit="mg/dL" xsi:type="PQ" value="10" /> <referenceRange> <observationRange> <text>7-20</text> </observationRange> </ referenceRange> </observation> </component> < component> <observation moodCode="EVN" classCode=" OBS"> <templateId root="2.16.840.1.012765.10.20.22.4.2& quot; /> <id nullFlavor="NA" /> <code codeSystem="local" code="CREAT" displayName="CREATININE " /> <statusCode code="completed" /> & lt;effectiveTime value="326105067024" /> <value unit=& quot;mg/dL" xsi:type="PQ" value="1.0" /> & lt;referenceRange> <observationRange> <text>0.6-1.0& lt;/text> </observationRange> </referenceRange& gt; </observation> </component> <component> <observation moodCode="EVN" classCode="OBS"> & lt;templateId root="2.16.840.1.475982.10.20.22.4.2" /> &lt ;id nullFlavor="NA" /> <code codeSystem="local& quot; code="NA" displayName="SODIUM" /> < statusCode code="completed" /> <effectiveTime value=& quot;159819674184" /> <value unit="mmol/L" xsi: type="PQ" value="144" /> <referenceRange> <observationRange> <text>135-148</text& gt; </observationRange> </referenceRange> </observation> </component> <component> &lt ;observation moodCode="EVN" classCode="OBS"> &lt ;templateId root="2.16.840.1.180008.10.20.22.4.2" /> < id nullFlavor="NA" /> <code codeSystem="local" code=& quot;CL" displayName="CHLORIDE" /> <statusCode code=& quot;completed" /> <effectiveTime value="003632943264& quot; /> <value unit="mmol/L" xsi:type="PQ" value="109" /> <referenceRange> < observationRange> <text>98-110</text> &lt ;/observationRange> </referenceRange> </observation& gt; </component> <component> <observation moodCode="EVN" classCode="OBS"> <templateId root="2.16.840.1.779651.10.20.22.4.2" /> <id nullFlavor ="NA" /> <code codeSystem="local" code=" CO2" displayName="CARBON DIOXIDE" /> <statusCode code="completed" /> <effectiveTime value=" 899926811926" /> <value unit="mmol/L" xsi:type=& quot;PQ" value="28" /> <referenceRange> < observationRange> <text>21-32</text> < /observationRange> </referenceRange> </observation& gt; </component> </organizer> </entry> <entry&gt ; <organizer moodCode="EVN" classCode="BATTERY"> <templateId root="2.16.840.1.810299.10.20.22.4.1" /> & lt;id nullFlavor="NA" /> <code codeSystem="local&quot ; code="iCG8" displayName="SURGERY PROFILE BEDSIDE" /> <statusCode code="completed" /> <component> <observation moodCode="EVN" classCode="OBS"> <templateId root="2.16.840.1.154749.10.20.22.4.2" /> <id nullFlavor="NA" /> <code codeSystem=" local" code="K" displayName="POTASSIUM" /> <statusCode code="completed" /> <effectiveTime value ="882172045729" /> <value unit="mmol/L" xsi: type="PQ" value="3.4" /> <interpretationCode codeSystem="local" code="*" /> < referenceRange> <observationRange> <text> 3.5-5.3</text> </observationRange> </ referenceRange> </observation> </component> < component> <observation moodCode="EVN" classCode=" OBS"> <templateId root="2.16.840.1.651637.10.20.22.4.2& quot; /> <id nullFlavor="NA" /> <code codeSystem="local" code="IRASEMA" displayName="ABG BASE EXCESS" /> <statusCode code="completed" /> <effectiveTime value="045245144145" /> <value unit=& quot;meq/L" xsi:type="PQ" value="4.0" /> & lt;interpretationCode codeSystem="local" code="*" /> <referenceRange> <observationRange> & lt;text>-3.0-3.0</text> </observationRange> & lt;/referenceRange> </observation> </component> <component> <observation moodCode="EVN" classCode="OBS& quot;> <templateId root="2.16.840.1.087568.10.20.22.4.2&quot ; /> <id nullFlavor="NA" /> <code codeSystem ="local" code="HCO3A" displayName="ABG BICARBONATE&quot ; /> <statusCode code="completed" /> < effectiveTime value="293663336971" /> <value unit=&quot ;meq/L" xsi:type="PQ" value="28.1" /> < interpretationCode codeSystem="local" code="*" /> <referenceRange> <observationRange> < text>23.0-28.0</text> </observationRange> &lt ;/referenceRange> </observation> </component> < component> <observation moodCode="EVN" classCode=" OBS"> <templateId root="2.16.840.1.883218.10.20.22.4.2& quot; /> <id nullFlavor="NA" /> <code codeSystem="local" code="METHOD" displayName="METHOD& quot; /> <statusCode code="completed" /> & lt;effectiveTime value="796197262565" /> <value unit=&quot ;" xsi:type="PQ" value="Bedside" /> < referenceRange> <observationRange> <text /& gt; </observationRange> </referenceRange> </observation> </component> <component> &lt ;observation moodCode="EVN" classCode="OBS"> &lt ;templateId root="2.16.840.1.590246.10..22.4.2" /> < id nullFlavor="NA" /> <code codeSystem="local&quot ; code="PCO2A"displayName="ABG PCO2" /> < statusCode code="completed" /> <effectiveTime value=" 332735004482" /> <value unit="mmHg" xsi:type=&quot ;PQ" value="43" /> <referenceRange> <observationRange> <text>34-45</text> </observationRange> </referenceRange> </observation& gt; </component> <component> <observation moodCode="EVN" classCode="OBS"> <templateId root="2.16.840.1.815100.10.20.22.4.2" /> <id nullFlavor ="NA"/> <code codeSystem="local" code=" PHAX" displayName="ABG PH" /> <statusCode code=& quot;completed" /> <effectiveTime value="267001571179& quot; /> <value unit="" xsi:type="PQ" value=& quot;7.43" /> <referenceRange> < observationRange><text>7.35-7.45</text> </ observationRange> </referenceRange> </observation&gt ; </component> <component> <observation moodCode ="EVN" classCode="OBS"> <templateId root=& quot;2.16.840.1.056594.10.20.22.4.2" /> <id nullFlavor=&quot ;NA" /> <code codeSystem="local" code="PO2A& quot; displayName="ABG PO2" /> <statusCode code=" completed" /> <effectiveTime value="754715552292"/ > <value unit="mmHg" xsi:type="PQ" value=& quot;386" /> <interpretationCode codeSystem="local" code="*" /> <referenceRange> < observationRange> <text>75-100</text> </ observationRange> </referenceRange> </observation&gt ; </component> <component> <observation moodCode ="EVN" classCode="OBS"> <templateId root=& quot;2.16.840.1.672018.10.20.22.4.2" /> <id nullFlavor="NA&quot ; /> <code codeSystem="local" code="SATA" displayName="ABG O2 SATURATION" /> <statusCode code=& quot;completed" /> <effectiveTime value="266572959426& quot; /> <value unit="%" xsi:type="PQ&quot ; value="100" /> <referenceRange> < observationRange> <text>93-100</text> &lt ;/observationRange> </referenceRange> </observation& gt; </component> <component> <observation moodCode="EVN" classCode="OBS"> <templateId root="2.16.840.1.319312.10.20.22.4.2" /> <id nullFlavor ="NA" /> <code codeSystem="local" code=" CMETHOD" displayName="METHOD" /> <statusCode code= "completed" /> <effectiveTime value="402669017901" /> <value unit="" xsi:type="PQ" value=" Bedside" /> <referenceRange> < observationRange> <text /> </ observationRange> </referenceRange> </observation&gt ; </component> <component> <observation moodCode ="EVN" classCode="OBS"> <templateId root=& quot;2.16.840.1.444827.10.20.22.4.2" /> <id nullFlavor=&quot ;NA" /><code codeSystem="local" code="HMETHOD" displayName="METHOD" /> <statusCode code="completed& quot; /> <effectiveTime value="467486531694" /> <value unit="" xsi:type="PQ" value="Bedside& quot; /> <referenceRange> <observationRange> <text/> </observationRange> </ referenceRange> </observation> </component> < component> <observation moodCode="EVN" classCode=" OBS"> <templateId root="2.16.840.1.313722.10.20.22.4.2& quot; /> <id nullFlavor="NA" /> <code codeSystem="local" code="GLU" displayName="GLUCOSE&quot ; /> <statusCode code="completed" /> < effectiveTime value="303596629006" /> <value unit=&quot ;mg/dL" xsi:type="PQ" value="97" /> < referenceRange> <observationRange> <text> 70-99</text> </observationRange> </ referenceRange> </observation> </component> < component> <observation moodCode="EVN" classCode=" OBS"> <templateId root="2.16.840.1.896727.10.20.22.4.2& quot; /> <id nullFlavor="NA" /> <code codeSystem="local" code="HGBT" displayName="HEMOGLOBIN& quot; /> <statusCode code="completed" /> & lt;effectiveTime value="385681684659" /> <value unit=& quot;gm/dL" xsi:type="PQ" value="11.2" /> & lt;interpretationCode codeSystem="local" code="*" /> <referenceRange> <observationRange> &lt ;text>12.0-16.0</text> </observationRange> & lt;/referenceRange> </observation> </component> <component> <observation moodCode="EVN" classCode=& quot;OBS"> <templateId root=" 2.16.840.1.343199.10.20.22.4.2" /> <id nullFlavor="NA& quot; /> <code codeSystem="local" code="HCTT" displayName="HEMATOCRIT" /> <statusCode code=" completed" /> <effectiveTime value="[id number]" /> <value unit="%" xsi:type="PQ" value="33.0" /> <interpretationCode codeSystem=" local" code="*" /> <referenceRange> <observationRange> <text>37.0-47.0</text> </observationRange> </referenceRange> </ observation> </component> <component> < observation moodCode="EVN" classCode="OBS"> < templateId root="[id number]" /> < id nullFlavor="NA" /> <code codeSystem="local&quot ; code="NA" displayName="SODIUM" /> < statusCode code="completed" /> <effectiveTime value=& quot;923007061332" /> <value unit="mmol/L" xsi: type="PQ" value="142" /> <referenceRange> <observationRange> <text>135-148</text& gt; </observationRange> </referenceRange> </ observation> </component> <component> < observation moodCode="EVN" classCode="OBS"> < templateId root="2.16.840.1.387579.10.20.22.4.2" /> <id nullFlavor="NA" /> <code codeSystem="local" code="CO2" displayName="CARBON DIOXIDE" /> < statusCode code="completed" /> <effectiveTime value=& quot;064570951515" /> <value unit="mmol/L" xsi: type="PQ" value="29" /> <referenceRange> <observationRange> <text>21-32</text> </observationRange> </referenceRange> </ observation> </component> <component> < observation moodCode="EVN" classCode="OBS"> < templateId root="2.16.840.1.332574.10.20.22.4.2" /> < id nullFlavor="NA" /> <code codeSystem="local&quot ; code="CAION" displayName="CALCIUM IONIZED" /> <statusCode code="completed" /> <effectiveTime value=" 931272808074" /> <value unit="mg/dL" xsi:type=& quot;PQ" value="4.7" /> <referenceRange> <observationRange> <text>4.5-5.3</text> </observationRange> </referenceRange> </ observation> </component> </organizer> </entry> & lt;entry> <organizer moodCode="EVN" classCode="BATTERY& quot;> <templateId root="2.16.840.1.901114.10.20.22.4.1" /& gt; <id nullFlavor="NA" /> <code codeSystem=" local" code="iCG8" displayName="SURGERY PROFILE BEDSIDE&quot ; /> <statusCode code="completed" /> <component&gt ; <observation moodCode="EVN" classCode="OBS"> <templateId root="2.16.840.1.570541.10..22.4.2" /> <id nullFlavor="NA" /> <code codeSystem=" local" code="K" displayName="POTASSIUM" /> <statusCode code="completed" /> <effectiveTime value ="841673274154" /> <value unit="mmol/L" xsi: type="PQ" value="3.6" /> <referenceRange> <observationRange> <text>3.5-5.3</text& gt; </observationRange></referenceRange> </ observation> </component> <component> < observation moodCode="EVN" classCode="OBS"> < templateId root="2.16.840.1.752743.10.20.22.4.2" /> < id nullFlavor="NA" /> <code codeSystem="local&quot ; code="IRASEMA" displayName="ABG BASE EXCESS" /> & lt;statusCode code="completed" /> <effectiveTime value= "913714188861" /> <value unit="meq/L" xsi: type="PQ" value="2.0" /> <referenceRange> <observationRange> <text>-3.0-3.0</text> </observationRange> </referenceRange> </ observation> </component> <component> < observation moodCode="EVN" classCode="OBS"> < templateId root="2.16.840.1.698804.10.20.22.4.2" /> < id nullFlavor="NA" /> <code codeSystem="local&quot ; code="HCO3A" displayName="ABG BICARBONATE" /> & lt;statusCode code="completed" /> <effectiveTime value= "508135631182" /> <value unit="meq/L" xsi: type="PQ" value="26.8" /> <referenceRange&gt ; <observationRange> <text>23.0-28.0</ text> </observationRange> </referenceRange> </observation> </component> <component> & lt;observation moodCode="EVN" classCode="OBS"> & lt;templateId root="2.16.840.1.396637.10.20.22.4.2" /> &lt ;id nullFlavor="NA" /> <code codeSystem="local& quot; code="METHOD" displayName="METHOD" /> < statusCode code="completed" /> <effectiveTime value=& quot;749740103107" /> <value unit="" xsi:type=& quot;PQ" value="Bedside" /> <referenceRange> <observationRange> <text /> </ observationRange> </referenceRange> </observation&gt ; </component> <component> <observation moodCode ="EVN" classCode="OBS"> <templateId root=& quot;2.16.840.1.080800.10.20.22.4.2" /> <id nullFlavor=&quot ;NA" /> <code codeSystem="local" code="PCO2A& quot; displayName="ABG PCO2" /> <statusCode code=" completed" /> <effectiveTime value="857376156888" /& gt; <value unit="mmHg" xsi:type="PQ" value=&quot ;43" /> <referenceRange> <observationRange& gt; <text>34-45</text> </observationRange > </referenceRange> </observation> </ component> <component> <observation moodCode="EVN& quot; classCode="OBS"> <templateId root=" 2.16.840.1.608761.10.20.22.4.2" /> <id nullFlavor="NA& quot; /> <code codeSystem="local" code="PHAX&quot ; displayName="ABG PH" /> <statusCode code=" completed" /> <effectiveTime value="199663331452" /> <value unit="" xsi:type="PQ" value=" 7.40" /> <referenceRange> <observationRange > <text>7.35-7.45</text> </observationRange> </referenceRange> </observation> </component > <component> <observation moodCode="EVN" classCode="OBS"> <templateId root=" 2.16.840.1.387214.10.20.22.4.2" /> <id nullFlavor="NA& quot; /> <code codeSystem="local" code="PO2A&quot ; displayName="ABG PO2" /> <statusCode code=" completed" /> <effectiveTime value="498557768179" /> <value unit="mmHg" xsi:type="PQ" value=& quot;551" /> <interpretationCode codeSystem="local&quot ; code="*" /> <referenceRange> < observationRange> <text>75-100</text> </ observationRange> </referenceRange> </observation&gt ;</component> <component> <observation moodCode=&quot ;EVN" classCode="OBS"> <templateId root=" 2.16.840.1.677434.10.20.22.4.2" /> <id nullFlavor="NA" /> <code codeSystem="local" code="SATA" displayName="ABG O2 SATURATION" /> <statusCode code=& quot;completed" /> <effectiveTime value="406720615617& quot; /> <value unit="%" xsi:type="PQ&quot ; value="100" /> <referenceRange> < observationRange> <text>93-100</text> &lt ;/observationRange> </referenceRange> </observation& gt; </component> <component> <observation moodCode="EVN" classCode="OBS"> <templateId root="2.16.840.1.509411.10.20.22.4.2" /> <id nullFlavor ="NA" /> <code codeSystem="local" code=" CMETHOD" displayName="METHOD" /> <statusCode code= "completed" /> <effectiveTime value="654276960324& quot; /> <value unit="" xsi:type="PQ" value=& quot;Bedside" /> <referenceRange> < observationRange> <text /> </ observationRange> </referenceRange> </observation&gt ; </component> <component> <observation moodCode ="EVN" classCode="OBS"> <templateId root=& quot;2.16.840.1.717517.10.20.22.4.2" /> <id nullFlavor=&quot ;NA" /> <code codeSystem="local" code="HMETHOD&quot ; displayName="METHOD" /> <statusCode code=" completed" /> <effectiveTime value="860101214055" /> <value unit="" xsi:type="PQ" value=" Bedside" /> <referenceRange> < observationRange> <text /> </ observationRange> </referenceRange> </observation&gt ; </component> <component> <observation moodCode ="EVN"classCode="OBS"> <templateId root=&quot ;2.16.840.1.894529.10.20.22.4.2" /> <id nullFlavor="NA& quot; /> <code codeSystem="local" code="GLU" displayName="GLUCOSE" /> <statusCode code=" completed" /> <effectiveTime value="116492343931" /> <value unit="mg/dL" xsi:type="PQ" value=& quot;107" /> <interpretationCode codeSystem="local&quot ; code="*" /> <referenceRange><observationRange& gt; <text>70-99</text> </observationRange > </referenceRange> </observation> </ component> <component> <observation moodCode="EVN& quot; classCode="OBS"> <templateId root=" 2.16.840.1.483493.10..22.4.2" /> <id nullFlavor="NA& quot; /> <code codeSystem="local" code="HGBT&quot ; displayName="HEMOGLOBIN" /> <statusCode code=" completed" /> <effectiveTime value="746124208546" /> <value unit="gm/dL" xsi:type="PQ" value=& quot;10.5" /> <interpretationCode codeSystem="local& quot; code="*" /> <referenceRange> < observationRange> <text>12.0-16.0</text> </ observationRange> </referenceRange> </observation&gt ; </component> <component> <observation moodCode ="EVN" classCode="OBS"> <templateId root=& quot;2.16.840.1.193443.10.20.22.4.2" /> <id nullFlavor=&quot ;NA" /> <codecodeSystem="local" code="HCTT& quot; displayName="HEMATOCRIT" /><statusCode code=" completed" /> <effectiveTime value="802981911869" /> <value unit="%" xsi:type="PQ" value="31.0" /> <interpretationCode codeSystem=" local" code="*" /> <referenceRange> < observationRange> <text>37.0-47.0</text> </observationRange> </referenceRange> </ observation> </component> <component> < observation moodCode="EVN"classCode="OBS"> < templateId root="2.16.840.1.168257.10.20.22.4.2" /> < id nullFlavor="NA" /> <code codeSystem="local&quot ; code="NA" displayName="SODIUM" /> < statusCode code="completed" /> <effectiveTime value=& quot;448088565480" /> <value unit="mmol/L" xsi: type="PQ" value="141" /> <referenceRange> <observationRange> <text>135-148</text& gt; </observationRange> </referenceRange> </observation> </component> <component> &lt ;observation moodCode="EVN" classCode="OBS"> &lt ;templateId root="2.16.840.1.462910.10.20.22.4.2" /> < id nullFlavor="NA" /> <code codeSystem="local&quot ; code="CO2" displayName="CARBON DIOXIDE" /> &lt ;statusCode code="completed" /> <effectiveTime value=&quot ;695283874974" /> <value unit="mmol/L" xsi:type=& quot;PQ" value="28" /> <referenceRange> <observationRange> <text>21-32</text> </observationRange> </referenceRange> </ observation> </component> <component> < observation moodCode="EVN" classCode="OBS"> < templateId root="2.16.840.1.414873.10.20.22.4.2" /> < id nullFlavor="NA" /> <code codeSystem="local&quot ; code="CAION" displayName="CALCIUM IONIZED" /> <statusCode code="completed" /> <effectiveTime value ="382407926981" /> <value unit="mg/dL" xsi: type="PQ" value="4.4" /> <interpretationCode codeSystem="local" code="*" /> < referenceRange> <observationRange> <text>4.5-5.3&lt ;/text> </observationRange> </referenceRange&gt ; </observation> </component> </organizer> &lt ;/entry> <entry> <organizer moodCode="EVN" classCode=& quot;BATTERY"> <templateId root=" 2.16.840.1.106246.10.20.22.4.1" /> <id nullFlavor="NA&quot ; /> <code codeSystem="local" code="iCG8" displayName="SURGERY PROFILEBEDSIDE" /> <statusCode code=& quot;completed" /> <component> <observation moodCode=& quot;EVN" classCode="OBS"> <templateId root=" 2.16.840.1.022914.10.20.22.4.2" /> <id nullFlavor="NA& quot; /> <code codeSystem="local" code="K" displayName="POTASSIUM" /> <statusCode code=" completed" /> <effectiveTime value="630357826454" /> <value unit="mmol/L" xsi:type="PQ" value=& quot;4.0" /> <referenceRange> < observationRange> <text>3.5-5.3</text> & lt;/observationRange> </referenceRange> </observation& gt; </component> <component> <observation moodCode="EVN" classCode="OBS"> <templateId root="2.16.840.1.867205.10.20.22.4.2" /> <id nullFlavor ="NA" /> <code codeSystem="local" code=" IRASEMA" displayName="ABG BASE EXCESS" /> <statusCode code="completed" /> <effectiveTime value=" 715818542587" /> <value unit="meq/L" xsi:type=& quot;PQ" value="2.0" /> <referenceRange> <observationRange> <text>-3.0-3.0</text> </observationRange> </referenceRange> </ observation> </component> <component> < observation moodCode="EVN" classCode="OBS"> < templateId root="2.16.840.1.974714.10.20.22.4.2" /> < id nullFlavor="NA" /> <code codeSystem="local&quot ; code="HCO3A" displayName="ABG BICARBONATE" /> <statusCode code="completed" /> <effectiveTime value ="856235536525" /> <value unit="meq/L" xsi:type=& quot;PQ" value="24.8" /> <referenceRange> <observationRange> <text>23.0-28.0</text> </observationRange> </referenceRange> & lt;/observation> </component> <component> < observation moodCode="EVN" classCode="OBS"> < templateId root="2.16.840.1.501950.10.20.22.4.2" /> < id nullFlavor="NA" /> <code codeSystem="local&quot ; code="METHOD" displayName="METHOD" /> < statusCode code="completed" /> <effectiveTime value=& quot;142446782874" /> <value unit="" xsi:type=& quot;PQ" value="Bedside" /> <referenceRange> <observationRange> <text /> </ observationRange> </referenceRange> </observation> </component> <component> <observation moodCode= "EVN" classCode="OBS"> <templateId root=&quot ;2.16.840.1.310684.10.20.22.4.2" /> <id nullFlavor="NA& quot; /> <code codeSystem="local" code="PCO2A&quot ; displayName="ABG PCO2" /> <statusCode code=" completed" /> <effectiveTime value="627077728517" /> <value unit="mmHg" xsi:type="PQ"value=& quot;31" /> <interpretationCode codeSystem="local&quot ; code="*" /> <referenceRange> < observationRange> <text>34-45</text> < /observationRange> </referenceRange> </observation& gt; </component> <component> <observation moodCode="EVN" classCode="OBS"> <templateId root="2.16.840.1.177905.10.20.22.4.2" /> <id nullFlavor ="NA" /> <code codeSystem="local" code=" PHAX" displayName="ABG PH" /> <statusCode code=& quot;completed" /> <effectiveTime value="267542418533& quot; /> <value unit="" xsi:type="PQ" value=" 7.51" /> <interpretationCode codeSystem="local" code="*" /> <referenceRange> < observationRange> <text>7.35-7.45</text> </observationRange> </referenceRange> </ observation> </component> <component> < observation moodCode="EVN" classCode="OBS"> < templateId root="2.16.840.1.533045.10.20.22.4.2" /> < id nullFlavor="NA" /> <code codeSystem="local&quot ; code="PO2A" displayName="ABG PO2" /> < statusCode code="completed" /> <effectiveTime value=& quot;697600433662" /> <value unit="mmHg" xsi:type= "PQ" value="555" /> <interpretationCode codeSystem="local" code="*" /> < referenceRange> <observationRange> <text>75- 100</text> </observationRange> </ referenceRange> </observation> </component> < component> <observation moodCode="EVN" classCode=" OBS"> <templateId root="2.16.840.1.962475.10.20.22.4.2& quot; /> <id nullFlavor="NA" /> <code codeSystem="local" code="SATA" displayName="ABG O2 SATURATION" /> <statusCode code="completed" /> <effectiveTime value="740319146332" /> < value unit="%" xsi:type="PQ" value="100" / > <referenceRange> <observationRange> < text>93-100</text> </observationRange> </ referenceRange> </observation> </component> < component> <observation moodCode="EVN" classCode=" OBS"> <templateId root="2.16.840.1.738090.10..22.4.2& quot; /> <id nullFlavor="NA" /> <code codeSystem="local" code="CMETHOD" displayName="METHOD& quot; /> <statusCode code="completed" /> & lt;effectiveTime value="709725674729"/> <value unit=& quot;" xsi:type="PQ" value="Bedside" /> < referenceRange> <observationRange> <text /& gt; </observationRange> </referenceRange> </ observation> </component> <component> < observation moodCode="EVN" classCode="OBS"> < templateId root="2.16.840.1.397273.10..22.4.2" /><id nullFlavor="NA" /> <code codeSystem="local" code="HMETHOD" displayName="METHOD" /> < statusCode code="completed" /> <effectiveTime value=& quot;441578031375" /> <value unit="" xsi:type=& quot;PQ" value="Bedside" /> <referenceRange> & lt;observationRange> <text /> </ observationRange> </referenceRange> </observation&gt ; </component> <component> <observation moodCode=& quot;EVN" classCode="OBS"> <templateId root=" 2.16.840.1.645887.10.20.22.4.2" /> <id nullFlavor="NA& quot; /> <code codeSystem="local" code="GLU" displayName="GLUCOSE" /> <statusCode code=" completed" /> <effectiveTime value="678422482566" /> <value unit="mg/dL" xsi:type="PQ" value=& quot;131" /> <interpretationCode codeSystem="local&quot ; code="*" /> <referenceRange> < observationRange> <text>70-99</text> < /observationRange> </referenceRange> </observation& gt; </component> <component> <observation moodCode="EVN" classCode="OBS"> <templateId root="2.16.840.1.970726.10.20.22.4.2" /> <id nullFlavor ="NA" /> <code codeSystem="local" code=" HGBT" displayName="HEMOGLOBIN" /> <statusCode code ="completed" /> <effectiveTime value="283932084419 " /> <value unit="gm/dL" xsi:type="PQ" value="6.8" /> <interpretationCode codeSystem=" local" code="*" /> <referenceRange> < observationRange> <text>12.0-16.0</text> </observationRange> </referenceRange> </ observation> </component> <component> < observation moodCode="EVN" classCode="OBS"> < templateId root="2.16.840.1.543264.10.20.22.4.2" /> < id nullFlavor="NA" /> <code codeSystem="local&quot ; code="HCTT" displayName="HEMATOCRIT" /> < statusCode code="completed" /><effectiveTime value=" 634766655971" /> <value unit="%"xsi:type=& quot;PQ" value="20.0" /> <interpretationCode codeSystem="local" code="*" /> < referenceRange> <observationRange> <text> 37.0-47.0</text> </observationRange> </ referenceRange> </observation> </component> < component> <observation moodCode="EVN" classCode="OBS& quot;> <templateId root="2.16.840.1.155955.10.20.22.4.2&quot ; /> <id nullFlavor="NA" /> <code codeSystem="local" code="NA" displayName="SODIUM" /> <statusCode code="completed" /> < effectiveTime value="573659461874" /> <value unit=&quot ;mmol/L" xsi:type="PQ" value="142" /> < referenceRange> <observationRange> <text> 135-148</text> </observationRange> </ referenceRange> </observation> </component> < component> <observation moodCode="EVN" classCode=" OBS"> <templateId root="2.16.840.1.679340.10.20.22.4.2& quot; /> <id nullFlavor="NA" /> <code codeSystem="local" code="CO2" displayName="CARBON DIOXIDE" /> <statusCode code="completed" /> <effectiveTime value="441572367285" /> < value unit="mmol/L" xsi:type="PQ" value="26" /&gt ; <referenceRange> <observationRange> <text>21-32</text> </observationRange> &lt ;/referenceRange> </observation> </component> & lt;component> <observation moodCode="EVN"classCode=" OBS"> <templateId root="2.16.840.1.193594.10.20.22.4.2& quot; /> <id nullFlavor="NA" /> <code codeSystem="local" code="CAION" displayName="CALCIUM IONIZED" /> <statusCode code="completed" /> <effectiveTime value="949903206920" /> < value unit="mg/dL" xsi:type="PQ" value="3.0" /&gt ; <interpretationCode codeSystem="local" code="& quot; /> <referenceRange> <observationRange> <text>4.5-5.3</text> </observationRange& gt; </referenceRange> </observation> </ component> </organizer> </entry> <entry> < organizer moodCode="EVN" classCode="BATTERY"> < templateId root="2.16.840.1.764916.10.20.22.4.1" /> <id nullFlavor="NA" /> <code codeSystem="local" code= "iCG8" displayName="SURGERY PROFILE BEDSIDE" /> < statusCode code="completed" /> <component> < observation moodCode="EVN" classCode="OBS"> < templateId root="2.16.840.1.236468.10.20.22.4.2" /> <id nullFlavor="NA" /> <code codeSystem="local" code="K" displayName="POTASSIUM" /> < statusCode code="completed" /> <effectiveTime value=& quot;103349381789" /> <value unit="mmol/L" xsi: type="PQ" value="3.3" /> <interpretationCode codeSystem="local" code="*" /> < referenceRange> <observationRange> <text> 3.5-5.3</text> </observationRange> </referenceRange > </observation> </component> <component> <observation moodCode="EVN" classCode="OBS"> <templateId root="2.16.840.1.272924.10.20.22.4.2" /> <id nullFlavor="NA" /> <code codeSystem=& quot;local" code="IRASEMA" displayName="ABG BASE EXCESS" /& gt; <statusCode code="completed" /> < effectiveTimevalue="343175648710" /> <value unit=" meq/L" xsi:type="PQ" value="3.0" /> < referenceRange> <observationRange> <text>-3.0 -3.0</text> </observationRange> </ referenceRange> </observation> </component> < component> <observation moodCode="EVN" classCode=" OBS"> <templateId root="2.16.840.1.742618.10.20.22.4.2& quot; /> <id nullFlavor="NA" /> <code codeSystem="local" code="HCO3A" displayName="ABG BICARBONATE" /> <statusCode code="completed" /&gt ; <effectiveTime value="044878497263" /> < value unit="meq/L" xsi:type="PQ" value="25.9" /&gt ; <referenceRange> <observationRange> <text>23.0-28.0</text> </observationRange> </referenceRange> </observation> </component&gt ; <component> <observation moodCode="EVN" classCode="OBS"> <templateId root=" 2.16.840.1.371247.10.20.22.4.2" /> <id nullFlavor="NA& quot; /> <code codeSystem="local" code="METHOD& quot; displayName="METHOD" /> <statusCode code=" completed" /> <effectiveTime value="804891482390" /> <value unit="" xsi:type="PQ" value=" Bedside" /> <referenceRange> <observationRange& gt; <text /> </observationRange> </ referenceRange> </observation> </component> < component> <observation moodCode="EVN" classCode=" OBS"> <templateId root="2.16.840.1.676302.10.20.22.4.2& quot; /> <id nullFlavor="NA" /> <code codeSystem="local" code="PCO2A" displayName="ABG PCO2& quot; /> <statusCode code="completed" /> & lt;effectiveTime value="946743579652" /> <value unit=& quot;mmHg" xsi:type="PQ" value="33" /> < interpretationCode codeSystem="local" code="*" /> <referenceRange> <observationRange> < text>34-45</text> </observationRange> </ referenceRange> </observation> </component> < component> <observation moodCode="EVN" classCode="OBS& quot;> <templateId root="2.16.840.1.108804.10.20.22.4.2&quot ; /> <id nullFlavor="NA" /> <code codeSystem="local" code="PHAX" displayName="ABG PH&quot ; /> <statusCode code="completed" /> < effectiveTime value="468351756390" /> <value unit=&quot ;" xsi:type="PQ" value="7.50" /> < interpretationCode codeSystem="local" code="*" /> & lt;referenceRange> <observationRange> <text& gt;7.35-7.45</text> </observationRange> </ referenceRange> </observation> </component> < component> <observation moodCode="EVN" classCode=" OBS"> <templateId root="2.16.840.1.355296.10.20.22.4.2& quot; /> <id nullFlavor="NA" /> <code codeSystem="local" code="PO2A" displayName="ABG PO2& quot; /> <statusCode code="completed" /> & lt;effectiveTime value="617927617181" /> <value unit=& quot;mmHg" xsi:type="PQ" value="387" /> &lt ;interpretationCode codeSystem="local" code="*" /> <referenceRange> <observationRange> <text> 75-100</text> </observationRange> </ referenceRange> </observation> </component> < component> <observation moodCode="EVN" classCode=" OBS"> <templateId root="2.16.840.1.545346.10.20.22.4.2" /& gt; <id nullFlavor="NA" /> <code codeSystem ="local" code="SATA" displayName="ABG O2 SATURATION& quot; /> <statusCode code="completed" /> & lt;effectiveTime value="748102642857" /> <value unit=& quot;%" xsi:type="PQ" value="100" /> <referenceRange> <observationRange> < text>93-100</text> </observationRange> </ referenceRange> </observation> </component> < component> <observation moodCode="EVN" classCode=" OBS"> <templateId root="2.16.840.1.380446.10.20.22.4.2& quot; /> <id nullFlavor="NA" /> <code codeSystem="local" code="CMETHOD" displayName="METHOD& quot; /> <statusCode code="completed" /> & lt;effectiveTime value="505216013239" /> <value unit=& quot;" xsi:type="PQ" value="Bedside" /> &lt ;referenceRange> <observationRange> <text /> </observationRange> </referenceRange> < /observation> </component> <component> < observation moodCode="EVN" classCode="OBS"> < templateId root="2.16.840.1.265997.10.20.22.4.2" /> < id nullFlavor="NA" /> <code codeSystem="local&quot ; code="HMETHOD" displayName="METHOD" /> < statusCodecode="completed" /> <effectiveTime value=& quot;981282400749" /> <value unit="" xsi:type="PQ& quot; value="Bedside" /> <referenceRange> <observationRange> <text /> </ observationRange> </referenceRange> </observation&gt ; </component> <component> <observation moodCode ="EVN" classCode="OBS"> <templateId root=& quot;2.16.840.1.872378.10.20.22.4.2" /> <id nullFlavor=&quot ;NA" /> <code codeSystem="local" code="GLU& quot; displayName="GLUCOSE" /> <statusCode code=" completed" /> <effectiveTime value="450194147394" /> <value unit="mg/dL" xsi:type="PQ" value=& quot;122" /> <interpretationCode codeSystem="local&quot ; code="*" /> <referenceRange> < observationRange> <text>70-99</text> </ observationRange> </referenceRange> </observation&gt ; </component> <component> <observation moodCode ="EVN" classCode="OBS"> <templateId root=& quot;2.16.840.1.595862.10.20.22.4.2" /> <id nullFlavor=&quot ;NA" /> <code codeSystem="local" code="HGBT& quot; displayName="HEMOGLOBIN" /> <statusCode code=" completed" /> <effectiveTime value="873349147113" /> <value unit="gm/dL" xsi:type="PQ" value=& quot;6.8" /> <interpretationCode codeSystem="local&quot ; code="*" /> <referenceRange> < observationRange> <text>12.0-16.0</text> </observationRange> </referenceRange> </ observation> </component> <component> < observation moodCode="EVN" classCode="OBS"> < templateId root="2.16.840.1.810299.10.20.22.4.2" /> < id nullFlavor="NA" /> <code codeSystem="local&quot ; code="HCTT" displayName="HEMATOCRIT" /> < statusCode code="completed" /> <effectiveTime value=& quot;997575144647" /> <value unit="%" xsi: type="PQ" value="20.0" /> < interpretationCode codeSystem="local" code="*" /> <referenceRange> <observationRange> < text>37.0-47.0</text> </observationRange> &lt ;/referenceRange> </observation> </component> & lt;component> <observation moodCode="EVN" classCode=&quot ;OBS"> <templateId root="2.16.840.1.867272.10.20.22.4.2 " /> <id nullFlavor="NA" /> <code codeSystem="local" code="NA" displayName="SODIUM" /> <statusCode code="completed" /> < effectiveTime value="114590515275" /> <value unit=&quot ;mmol/L" xsi:type="PQ" value="143" /> < referenceRange> <observationRange> <text> 135-148</text> </observationRange> </referenceRange& gt; </observation> </component> <component> <observation moodCode="EVN" classCode="OBS"> <templateId root="2.16.840.1.333461.10.20.22.4.2" /> <id nullFlavor="NA" /> <code codeSystem=&quot ;local" code="CO2" displayName="CARBON DIOXIDE" /> <statusCode code="completed" /> < effectiveTime value="746378816900" /> <value unit=&quot ;mmol/L" xsi:type="PQ" value="27" /> < referenceRange> <observationRange> <text>21-32& lt;/text> </observationRange> </referenceRange& gt; </observation> </component> <component> <observation moodCode="EVN" classCode="OBS"> <templateId root="2.16.840.1.217047.10.20.22.4.2" /> <id nullFlavor="NA" /> <code codeSystem=&quot ;local" code="CAION" displayName="CALCIUM IONIZED" /&gt ; <statusCode code="completed" /> < effectiveTime value="415062367519" /> <value unit=&quot ;mg/dL" xsi:type="PQ" value="3.5" /> < interpretationCode codeSystem="local" code="*" /> & lt;referenceRange> <observationRange> <text& gt;4.5-5.3</text> </observationRange> </ referenceRange> </observation> </component> </ organizer> </entry> <entry> <organizermoodCode="EVN& quot; classCode="BATTERY"> <templateId root=" 2.16.840.1.529544.10.20.22.4.1" /> <id nullFlavor="NA&quot ; /> <code codeSystem="local" code="iCG8" displayName="SURGERY PROFILE BEDSIDE" /> <statusCode code=& quot;completed" /> <component> <observation moodCode="EVN" classCode="OBS"> <templateId root="2.16.840.1.352186.10.20.22.4.2" /> <id nullFlavor ="NA" /> <code codeSystem="local" code=" K" displayName="POTASSIUM" /> <statusCode code=& quot;completed" /> <effectiveTime value="648372170256& quot; /> <value unit="mmol/L" xsi:type="PQ" value=& quot;3.5" /> <referenceRange> < observationRange> <text>3.5-5.3</text> & lt;/observationRange> </referenceRange> </ observation> </component> <component> < observation moodCode="EVN" classCode="OBS"> < templateId root="2.16.840.1.972259.10..22.4.2" /> <id nullFlavor="NA" /> <code codeSystem="local" code="IRASEMA" displayName="ABG BASE EXCESS" /> < statusCode code="completed" /> <effectiveTime value=& quot;475864683761" /> <value unit="meq/L" xsi:type ="PQ" value="3.0" /> <referenceRange> <observationRange> <text>-3.0-3.0</text> </observationRange> </referenceRange> & lt;/observation> </component> <component> < observation moodCode="EVN" classCode="OBS"> < templateId root="2.16.840.1.939295.10.20.22.4.2" /> < id nullFlavor="NA" /> <code codeSystem="local&quot ; code="HCO3A" displayName="ABG BICARBONATE" /> <statusCode code="completed" /> <effectiveTime value ="935274495421" /> <value unit="meq/L" xsi: type="PQ" value="26.4" /> <referenceRange&gt ; <observationRange> <text>23.0-28.0</text> </observationRange> </referenceRange> < /observation> </component> <component> < observation moodCode="EVN" classCode="OBS"> < templateId root="2.16.840.1.271009.10.20.22.4.2" /> < id nullFlavor="NA" /> <code codeSystem="local&quot ; code="METHOD" displayName="METHOD" /> < statusCode code="completed" /> <effectiveTime value=& quot;589952910655" /> <value unit="" xsi:type=& quot;PQ" value="Bedside" /> <referenceRange> <observationRange> <text /> </ observationRange> </referenceRange> </observation&gt ; </component> <component> <observation moodCode ="EVN" classCode="OBS"> <templateId root=& quot;2.16.840.1.777140.10..22.4.2" /> <id nullFlavor=&quot ;NA" /> <code codeSystem="local" code="PCO2A& quot; displayName="ABG PCO2" /> <statusCode code=" completed" /> <effectiveTime value="636122824438" /> <value unit="mmHg" xsi:type="PQ" value=& quot;37" /> <referenceRange> < observationRange> <text>34-45</text> < /observationRange> </referenceRange> </observation& gt; </component> <component> <observation moodCode="EVN" classCode="OBS"> <templateId root="2.16.840.1.094103.10..22.4.2" /> <id nullFlavor ="NA" /> <code codeSystem="local" code=" PHAX" displayName="ABG PH" /> <statusCode code=& quot;completed" /> <effectiveTime value="448853358627& quot; /> <valueunit="" xsi:type="PQ" value=& quot;7.46" /> <interpretationCode codeSystem="local& quot; code="*" /> <referenceRange> < observationRange> <text>7.35-7.45</text> </observationRange> </referenceRange> </ observation> </component> <component> < observation moodCode="EVN" classCode="OBS">< templateId root="2.16.840.1.794216.10.20.22.4.2" /> < id nullFlavor="NA" /> <code codeSystem="local&quot ; code="PO2A" displayName="ABG PO2" /> < statusCode code="completed" /> <effectiveTime value=& quot;748981815747" /> <value unit="mmHg" xsi:type= "PQ" value="372" /> <interpretationCode codeSystem="local" code="*" /> < referenceRange> <observationRange> <text> 75-100</text> </observationRange> </ referenceRange> </observation> </component> < component> <observation moodCode="EVN" classCode=" OBS"> <templateId root="2.16.840.1.697242.10..22.4.2& quot; /> <id nullFlavor="NA" /> <code codeSystem="local" code="SATA" displayName="ABG O2 SATURATION" /> <statusCode code="completed" /> <effectiveTime value="176627590645" /> <value unit=& quot;%" xsi:type="PQ" value="100" /> <referenceRange> <observationRange> < text>93-100</text> </observationRange> </ referenceRange> </observation> </component> < component> <observation moodCode="EVN" classCode=" OBS"> <templateId root="2.16.840.1.910216.10.20.22.4.2& quot; /> <id nullFlavor="NA" /> <code codeSystem="local" code="CMETHOD" displayName="METHOD& quot; /> <statusCode code="completed" /> & lt;effectiveTime value="173469459147" /> <value unit="& quot; xsi:type="PQ" value="Bedside" /> < referenceRange> <observationRange> <text /& gt; </observationRange> </referenceRange> </observation> </component> <component> &lt ;observation moodCode="EVN" classCode="OBS"> &lt ;templateId root="2.16.840.1.457550.10.20.22.4.2" /> < id nullFlavor="NA" /> <code codeSystem="local&quot ; code="HMETHOD" displayName="METHOD" /> < statusCode code="completed" /><effectiveTime value=" 250486479219" /> <value unit="" xsi:type="PQ& quot; value="Bedside" /> <referenceRange> <observationRange> <text /> </ observationRange> </referenceRange> </observation&gt ; </component> <component> <observation moodCode ="EVN" classCode="OBS"> <templateId root=& quot;2.16.840.1.321976.10.20.22.4.2" /> <id nullFlavor=&quot ;NA" /> <code codeSystem="local" code="GLU& quot; displayName="GLUCOSE" /> <statusCode code="completed& quot; /> <effectiveTime value="702609023724" /> <value unit="mg/dL" xsi:type="PQ" value="161& quot; /> <interpretationCode codeSystem="local" code=& quot;*" /> <referenceRange> < observationRange> <text>70-99</text> < /observationRange> </referenceRange> </observation& gt; </component> <component> <observation moodCode= "EVN" classCode="OBS"> <templateId root=&quot ;2.16.840.1.190365.10.20.22.4.2" /> <id nullFlavor="NA& quot; /> <code codeSystem="local" code="HGBT&quot ; displayName="HEMOGLOBIN" /> <statusCode code=" completed" /> <effectiveTime value="079329816587" /> <value unit="gm/dL" xsi:type="PQ" value=& quot;6.8" /> <interpretationCodecodeSystem="local&quot ; code="*" /> <referenceRange> < observationRange> <text>12.0-16.0</text> </observationRange> </referenceRange> </ observation> </component> <component> < observation moodCode="EVN" classCode="OBS"> < templateId root="2.16.840.1.155115.10.20.22.4.2" /> < id nullFlavor="NA" /> <code codeSystem="local&quot ; code="HCTT" displayName="HEMATOCRIT" /> < statusCode code="completed" /> <effectiveTime value=& quot;316622688672" /> <value unit="%" xsi: type="PQ" value="20.0" /> < interpretationCode codeSystem="local" code="*" /> <referenceRange> <observationRange> <text> 37.0-47.0</text> </observationRange> </ referenceRange> </observation> </component> < component> <observation moodCode="EVN" classCode=" OBS"> <templateId root="2.16.840.1.504182.10.20.22.4.2& quot; /> <id nullFlavor="NA" /> <code codeSystem="local" code="NA" displayName="SODIUM" /> <statusCode code="completed" /> < effectiveTime value="178280320866" /> <value unit=&quot ;mmol/L" xsi:type="PQ" value="142" /> < referenceRange> <observationRange> <text> 135-148</text> </observationRange> </ referenceRange> </observation> </component> < component> <observation moodCode="EVN" classCode=" OBS"> <templateId root="2.16.840.1.327343.10.20.22.4.2& quot; /> <id nullFlavor="NA" /> <code codeSystem="local" code="CO2" displayName="CARBON DIOXIDE" /> <statusCode code="completed" /> <effectiveTime value="601592381329" /> <value unit=& quot;mmol/L" xsi:type="PQ" value="28" /> & lt;referenceRange> <observationRange> <text& gt;21-32</text> </observationRange> </ referenceRange> </observation> </component> < component> <observation moodCode="EVN" classCode=" OBS"> <templateId root="2.16.840.1.958326.10.20.22.4.2& quot; /> <id nullFlavor="NA" /> <code codeSystem="local" code="CAION" displayName="CALCIUM IONIZED" /> <statusCode code="completed" /> <effectiveTime value="220615223615" /> < value unit="mg/dL" xsi:type="PQ" value="3.7" /&gt ; <interpretationCode codeSystem="local" code="*&quot ; /> <referenceRange> <observationRange> <text>4.5-5.3</text> </observationRange> </referenceRange> </observation> </ component> </organizer> </entry> <entry> < organizer moodCode="EVN" classCode="BATTERY"> < templateId root="2.16.840.1.246642.10.20.22.4.1" /> <id nullFlavor="NA" /> <code codeSystem="local" code= "HH" displayName="HGB HCT" /> <statusCode code= "completed" /> <component> <observation moodCode="EVN" classCode="OBS"> <templateId root="2.16.840.1.931642.10.20.22.4.2" /> <id nullFlavor ="NA" /> <code codeSystem="local" code=" MCV" displayName="MEAN CELL VOLUME" /> < statusCode code="completed" /> <effectiveTime value=& quot;476545753317" /> <value unit="fl" xsi:type=& quot;PQ" value="91.0" /> <referenceRange> <observationRange> <text>80.0-100.0</text&gt ; </observationRange> </referenceRange> & lt;/observation> </component> <component> < observation moodCode="EVN" classCode="OBS"> < templateId root="2.16.840.1.078632.10.20.22.4.2" /> < id nullFlavor="NA" /> <code codeSystem="local" code="HGBT" displayName="HEMOGLOBIN" /> < statusCode code="completed" /> <effectiveTime value=& quot;053210763147" /> <value unit="gm/dL" xsi:type ="PQ" value="6.0" /> <interpretationCode codeSystem="local" code="*"/> <referenceRange > <observationRange> <text>12.0-16.0</ text> </observationRange> </referenceRange> </observation> </component> <component> <observation moodCode="EVN" classCode="OBS"> <templateId root="2.16.840.1.222497.10.20.22.4.2" /> <id nullFlavor="NA" /> <code codeSystem=" local" code="HCTT" displayName="HEMATOCRIT" /> <statusCode code="completed" /> <effectiveTime value="912571606066" /> <value unit="%" xsi :type="PQ" value="19.2" /> <interpretationCode codeSystem="local" code="*" /> < referenceRange> <observationRange> <text> 37.0-47.0</text> </observationRange> </referenceRange > </observation> </component> </organizer> </entry> <entry> <organizer moodCode="EVN" classCode="BATTERY"> <templateId root=" 2.16.840.1.363850.10.20.22.4.1" /> <id nullFlavor="NA&quot ; /> <code codeSystem="local" code="PLT" displayName="PLATELET COUNT" /> <statusCode code=" completed" /> <component> <observation moodCode=& quot;EVN" classCode="OBS"> <templateId root=" 2.16.840.1.049657.10.20.22.4.2" /> <id nullFlavor="NA" /> <code codeSystem="local" code="PLT" displayName="PLATELET COUNT" /> <statusCode code=" completed" /> <effectiveTime value="356607773656" /> <value unit="k/cumm" xsi:type="PQ" value=& quot;65" /> <interpretationCodecodeSystem="local" code="*" /> <referenceRange> < observationRange> <text>150-400</text> & lt;/observationRange> </referenceRange> </ observation> </component> </organizer> </entry> & lt;entry> <organizer moodCode="EVN" classCode="BATTERY& quot;> <templateId root="2.16.840.1.084037.10.20.22.4.1" /& gt; <idnullFlavor="NA" /> <code codeSystem=" local" code="PT" displayName="PROTHROMBIN TIME WITH INR&quot ; /> <statusCode code="completed" /> <component& gt; <observation moodCode="EVN" classCode="OBS"&gt ; <templateId root="2.16.840.1.084932.10.20.22.4.2" /> <id nullFlavor="NA" /> <code codeSystem=& quot;local" code="INRX" displayName="INTERNATIONAL NORMAL RATIO" /> <statusCode code="completed" /> <effectiveTime value="034705185588" /> <value unit="" xsi:type="PQ" value="2.1" /> & lt;interpretationCode codeSystem="local" code="*" /> <referenceRange> <observationRange> & lt;text>0.9-1.1</text> </observationRange> </ referenceRange> </observation> </component> < component> <observation moodCode="EVN" classCode=" OBS"> <templateId root="2.16.840.1.243111.10.20.22.4.2& quot; /> <id nullFlavor="NA" /> <code codeSystem="local" code="PTPAT" displayName=" PROTHROMBIN TIME" /> <statusCode code="completed" /> <effectiveTime value="572340271188" /> & lt;value unit="sec" xsi:type="PQ" value="23.3" /& gt; <interpretationCode codeSystem="local" code="*& quot; /> <referenceRange> <observationRange> <text>9.3-12.2</text> </observationRange > </referenceRange> </observation> </ component> </organizer> </entry> <entry> < organizer moodCode="EVN" classCode="BATTERY"> < templateId root="2.16.840.1.249165.10.20.22.4.1" /> <id nullFlavor="NA" /><code codeSystem="local" code=" FIB" displayName="FIBRINOGEN" /> <statusCode code=" completed" /> <component> <observation moodCode=& quot;EVN" classCode="OBS"> <templateId root=" 2.16.840.1.339676.10.20.22.4.2" /> <id nullFlavor="NA& quot; /> <code codeSystem="local" code="FIB" displayName="FIBRINOGEN" /> <statusCode code=" completed" /> <effectiveTime value="085957847715" /> <value unit="mg/dL" xsi:type="PQ" value=& quot;138" /> <interpretationCode codeSystem="local" code="*" /> <referenceRange> < observationRange> <text>200-400</text> </ observationRange> </referenceRange> </observation&gt ; </component> </organizer> </entry> <entry> <organizer moodCode="EVN" classCode="BATTERY"> <templateId root="2.16.840.1.729145.10.20.22.4.1" /> < id nullFlavor="NA" /> <code codeSystem="local" code="iCG8" displayName="SURGERY PROFILE BEDSIDE" /> <statusCode code="completed" /> <component> <observation moodCode="EVN" classCode="OBS"> <templateId root="2.16.840.1.745038.10.20.22.4.2" /> & lt;id nullFlavor="NA" /> <code codeSystem="local& quot; code="K" displayName="POTASSIUM" /> < statusCode code="completed" /> <effectiveTime value=& quot;320282289475" /> <value unit="mmol/L" xsi: type="PQ" value="2.9" /> <interpretationCode codeSystem="local" code="*" /> < referenceRange> <observationRange> <text>3.5-5.3&lt ;/text> </observationRange> </referenceRange&gt ; </observation> </component> <component> <observation moodCode="EVN" classCode="OBS"> &lt ;templateId root="2.16.840.1.428211.10.20.22.4.2" /> < id nullFlavor="NA" /> <code codeSystem="local&quot ; code="IRASEMA" displayName="ABG BASE EXCESS" /> & lt;statusCode code="completed" /> <effectiveTime value= "015202722434" /> <value unit="meq/L" xsi: type="PQ" value="0.0" /> <referenceRange> <observationRange> <text>-3.0-3.0</text& gt; </observationRange> </referenceRange> </ observation> </component> <component> < observation moodCode="EVN" classCode="OBS"> < templateId root="2.16.840.1.514704.10.20.22.4.2" /> < id nullFlavor="NA" /> <code codeSystem="local&quot ; code="HCO3A" displayName="ABG BICARBONATE" /> <statusCode code="completed" /> <effectiveTime value ="985547844302" /> <value unit="meq/L" xsi: type="PQ" value="26.3" /> <referenceRange&gt ; <observationRange> <text>23.0-28.0</text& gt; </observationRange> </referenceRange> </observation> </component> <component> &lt ;observation moodCode="EVN" classCode="OBS"> &lt ;templateId root="2.16.840.1.263505.10.20.22.4.2" /> < id nullFlavor="NA" /> <code codeSystem="local" code=& quot;METHOD" displayName="METHOD" /> <statusCode code="completed" /> <effectiveTime value=" 644627663845" /> <value unit="" xsi:type="PQ& quot; value="Bedside" /> <referenceRange> <observationRange> <text/> </ observationRange> </referenceRange> </observation&gt ; </component> <component> <observation moodCode ="EVN" classCode="OBS"> <templateId root=& quot;2.16.840.1.551444.10..22.4.2" /> <id nullFlavor=&quot ;NA" /> <code codeSystem="local" code="PCO2A& quot; displayName="ABG PCO2" /> <statusCode code=" completed" /> <effectiveTime value="736263693862" /> <value unit="mmHg" xsi:type="PQ" value=& quot;49" /> <interpretationCode codeSystem="local&quot ; code="*" /> <referenceRange> < observationRange> <text>34-45</text> < /observationRange> </referenceRange> </observation& gt; </component> <component> <observation moodCode="EVN" classCode="OBS"> <templateId root="2.16.840.1.626162.10.20.22.4.2" /> <id nullFlavor ="NA" /> <code codeSystem="local" code=" PHAX" displayName="ABG PH" /> <statusCode code=& quot;completed" /> <effectiveTimevalue="619955435276& quot; /> <value unit="" xsi:type="PQ" value=& quot;7.33" /> <interpretationCode codeSystem="local& quot; code="*" /> <referenceRange> < observationRange> <text>7.35-7.45</text> </observationRange> </referenceRange> </observation&gt ; </component> <component> <observation moodCode ="EVN" classCode="OBS"> <templateId root=& quot;2.16.840.1.863669.10.20.22.4.2" /> <id nullFlavor=&quot ;NA" /> <code codeSystem="local" code="PO2A& quot; displayName="ABG PO2" /> <statusCode code=" completed" /> <effectiveTime value="916662700559" /> <value unit="mmHg" xsi:type="PQ" value=" 359" /> <interpretationCode codeSystem="local" code="*" /> <referenceRange> < observationRange> <text>75-100</text> &lt ;/observationRange> </referenceRange> </observation& gt; </component> <component> <observation moodCode="EVN" classCode="OBS"> <templateId root="2.16.840.1.290090.10..22.4.2" /> <idnullFlavor= "NA" /> <code codeSystem="local" code=" SATA"displayName="ABG O2 SATURATION" /> < statusCode code="completed" /> <effectiveTime value=& quot;901939822347" /> <value unit="%" xsi: type="PQ" value="100" /> <referenceRange> <observationRange> <text>93-100</text> </observationRange> </referenceRange> </ observation> </component> <component> < observation moodCode="EVN" classCode="OBS"> < templateId root="2.16.840.1.223979.10.20.22.4.2" /> < id nullFlavor="NA" /> <code codeSystem="local&quot ; code="CMETHOD" displayName="METHOD" /> < statusCode code="completed" /> <effectiveTime value=& quot;421683109978" /> <value unit="" xsi:type=& quot;PQ" value="Bedside" /> <referenceRange> <observationRange> <text /> </ observationRange> </referenceRange> </observation&gt ; </component> <component> <observation moodCode ="EVN" classCode="OBS"> <templateId root=& quot;2.16.840.1.299452.10.20.22.4.2" /> <id nullFlavor=&quot ;NA" /> <codecodeSystem="local" code="HMETHOD " displayName="METHOD" /> <statusCode code=" completed" /> <effectiveTime value="710873673575" /> <value unit="" xsi:type="PQ" value=" Bedside" /> <referenceRange> < observationRange> <text /> </observationRange&gt ; </referenceRange> </observation> </ component> <component> <observation moodCode="EVN& quot; classCode="OBS"> <templateId root=" 2.16.840.1.314895.10.20.22.4.2" /> <id nullFlavor="NA" / > <code codeSystem="local" code="GLU" displayName="GLUCOSE" /> <statusCode code=" completed" /> <effectiveTime value="798113823322" /> <value unit="mg/dL" xsi:type="PQ" value=& quot;111" /> <interpretationCode codeSystem="local&quot ; code="*" /> <referenceRange> < observationRange> <text>70-99</text> < /observationRange> </referenceRange> </observation> </component> <component> <observation moodCode=" EVN" classCode="OBS"> <templateId root=" 2.16.840.1.037595.10.20.22.4.2" /> <id nullFlavor="NA& quot; /> <code codeSystem="local" code="HGBT&quot ; displayName="HEMOGLOBIN" /> <statusCode code=" completed" /> <effectiveTime value="141403621305" /> <value unit="gm/dL" xsi:type="PQ" value=& quot;6.5" /> <interpretationCode codeSystem="local&quot ; code="*" /> <referenceRange> < observationRange> <text>12.0-16.0</text> </observationRange> </referenceRange></observation> </component> <component> <observation moodCode=& quot;EVN" classCode="OBS"> <templateId root=" 2.16.840.1.941093.10.20.22.4.2" /> <id nullFlavor="NA& quot; /> <code codeSystem="local" code="HCTT&quot ; displayName="HEMATOCRIT" /> <statusCode code=" completed" /> <effectiveTime value="803852576183" /> <value unit="%" xsi:type="PQ" value=& quot;19.0" /> <interpretationCode codeSystem="local" code="*" /> <referenceRange> < observationRange> <text>37.0-47.0</text> </ observationRange> </referenceRange> </observation&gt ; </component> <component> <observation moodCode ="EVN" classCode="OBS"> <templateId root=& quot;2.16.840.1.072977.10.20.22.4.2" /> <id nullFlavor="NA& quot; /> <code codeSystem="local" code="NA" displayName="SODIUM" /> <statusCode code=" completed" /> <effectiveTime value="544586239935" /> <value unit="mmol/L" xsi:type="PQ" value=& quot;145" /> <referenceRange> <observationRange> <text>135-148</text> </observationRange&gt ; </referenceRange> </observation> </ component> <component> <observation moodCode="EVN& quot; classCode="OBS"> <templateId root=" 2.16.840.1.846612.10.20.22.4.2" /> <id nullFlavor="NA& quot; /> <code codeSystem="local" code="CO2" displayName="CARBON DIOXIDE" /> <statusCode code=" completed" /> <effectiveTime value="479275306830" /> <value unit="mmol/L" xsi:type="PQ" value=& quot;28" /> <referenceRange> < observationRange> <text>21-32</text> < /observationRange> </referenceRange> </observation& gt; </component> <component> <observation moodCode=& quot;EVN" classCode="OBS"> <templateId root=" 2.16.840.1.096937.10.20.22.4.2" /> <id nullFlavor="NA& quot; /> <code codeSystem="local" code="CAION" displayName="CALCIUM IONIZED" /> <statusCode code=&quot ;completed" /> <effectiveTime value="797874242433&quot ; /> <value unit="mg/dL" xsi:type="PQ" value= "2.1" /> <interpretationCode codeSystem="local& quot; code="" /> <referenceRange> < observationRange> <text>4.5-5.3</text> & lt;/observationRange> </referenceRange> </observation> </component> </organizer> </entry> <entry> &lt ;organizer moodCode="EVN" classCode="BATTERY"> < templateId root="2.16.840.1.110249.10.20.22.4.1" /> <id nullFlavor="NA" /> <code codeSystem="local" code= "PLT" displayName="PLATELET COUNT" /> <statusCode code="completed" /> <component> <observation moodCode="EVN" classCode="OBS"> <templateId root="2.16.840.1.740653.10.20.22.4.2" /> <id nullFlavor ="NA" /> <code codeSystem="local" code=" PLT" displayName="PLATELET COUNT" /> <statusCode code="completed" /> <effectiveTime value=" 309968726071" /> <value unit="k/cumm" xsi:type=& quot;PQ" value="67" /> <interpretationCode codeSystem="local" code="*" /> < referenceRange> <observationRange> <text> 150-400</text> </observationRange> </ referenceRange> </observation></component> </ organizer> </entry> <entry> <organizer moodCode="EVN " classCode="BATTERY"> <templateId root=" 2.16.840.1.215797.10.20.22.4.1" /> <id nullFlavor="NA&quot ; /> <code codeSystem="local" code="iCG8" displayName="SURGERY PROFILE BEDSIDE" /> <statusCode code=& quot;completed" /> <component> <observation moodCode="EVN" classCode="OBS"> <templateId root="2.16.840.1.642305.10.20.22.4.2" /> <id nullFlavor ="NA" /> <code codeSystem="local" code=" K" displayName="POTASSIUM" /> <statusCode code=& quot;completed" /> <effectiveTime value="634578564267& quot; /> <value unit="mmol/L" xsi:type="PQ" value="3.5" /> <referenceRange> < observationRange> <text>3.5-5.3</text> </ observationRange> </referenceRange> </observation&gt ; </component> <component> <observation moodCode ="EVN" classCode="OBS"> <templateId root=& quot;2.16.840.1.522852.10.20.22.4.2" /> <id nullFlavor=&quot ;NA" /> <code codeSystem="local" code="IRASEMA& quot; displayName="ABG BASE EXCESS" /> <statusCode code ="completed" /> <effectiveTime value="581852742909 " /> <value unit="meq/L" xsi:type="PQ" value="3.0" /> <referenceRange> < observationRange> <text>-3.0-3.0</text> & lt;/observationRange> </referenceRange> </ observation> </component> <component> < observation moodCode="EVN" classCode="OBS"> < templateId root="2.16.840.1.253902.10.20.22.4.2" /> < id nullFlavor="NA" /> <code codeSystem="local&quot ; code="HCO3A" displayName="ABG BICARBONATE" /> <statusCode code="completed" /> <effectiveTime value=" 273447445093" /> <value unit="meq/L" xsi:type=& quot;PQ" value="26.6" /> <referenceRange> <observationRange> <text>23.0-28.0</text> </observationRange> </referenceRange> & lt;/observation> </component> <component> < observation moodCode="EVN" classCode="OBS"> < templateId root="2.16.840.1.939370.10.20.22.4.2" /> < id nullFlavor="NA" /> <code codeSystem="local&quot ; code="METHOD" displayName="METHOD" /> < statusCode code="completed" /> <effectiveTimevalue=& quot;885902993309" /> <value unit="" xsi:type=& quot;PQ" value="Bedside" /> <referenceRange> <observationRange> <text /> </ observationRange> </referenceRange></observation> & lt;/component> <component> <observation moodCode=" EVN" classCode="OBS"> <templateId root=" 2.16.840.1.233044.10.20.22.4.2" /> <id nullFlavor="NA& quot; /> <code codeSystem="local" code="PCO2A&quot ; displayName="ABG PCO2" /> <statusCode code=" completed" /> <effectiveTime value="923038183543" /> <value unit="mmHg" xsi:type="PQ" value=" 38" /> <referenceRange> <observationRange& gt; <text>34-45</text> </observationRange& gt; </referenceRange> </observation> </component& gt; <component> <observation moodCode="EVN" classCode="OBS"> <templateId root=" 2.16.840.1.254636.10.20.22.4.2" /> <id nullFlavor="NA&quot ; /> <code codeSystem="local" code="PHAX" displayName="ABG PH" /> <statusCode code=" completed"/> <effectiveTime value="300093646233" / > <value unit="" xsi:type="PQ" value=" 7.46" /> <interpretationCode codeSystem="local" code="*" /> <referenceRange> < observationRange> <text>7.35-7.45</text> </observationRange> </referenceRange> </observation&gt ; </component> <component> <observation moodCode ="EVN" classCode="OBS"> <templateId root=& quot;2.16.840.1.085549.10.20.22.4.2" /> <id nullFlavor=&quot ;NA" /> <code codeSystem="local" code="PO2A& quot; displayName="ABG PO2" /> <statusCode code=" completed" /> <effectiveTime value="888932501140" /> <value unit="mmHg" xsi:type="PQ" value=& quot;416" /> <interpretationCode codeSystem="local&quot ; code="*" /> <referenceRange> < observationRange> <text>75-100</text> &lt ;/observationRange> </referenceRange> </observation& gt; </component> <component> <observation moodCode="EVN" classCode="OBS"> <templateId root="2.16.840.1.649753.10.20.22.4.2" /> <id nullFlavor ="NA" /> <code codeSystem="local" code=" SATA" displayName="ABG O2 SATURATION" /> < statusCode code="completed" /> <effectiveTime value=& quot;866723996813" /> <value unit="%" xsi: type="PQ" value="100" /> <referenceRange> <observationRange> <text>93-100</text> </observationRange> </referenceRange> < /observation> </component> <component> < observation moodCode="EVN"classCode="OBS"> < templateId root="2.16.840.1.145323.10.20.22.4.2" /> < id nullFlavor="NA" /> <code codeSystem="local&quot ; code="CMETHOD" displayName="METHOD" /> < statusCode code="completed" /> <effectiveTime value=& quot;363652977853" /> <value unit="" xsi:type=& quot;PQ" value="Bedside" /> <referenceRange> <observationRange> <text /> </ observationRange> </referenceRange> </observation&gt ; </component> <component> <observation moodCode ="EVN" classCode="OBS"> <templateId root=& quot;2.16.840.1.965310.10.20.22.4.2" /> <id nullFlavor=&quot ;NA" /> <code codeSystem="local" code=" HMETHOD" displayName="METHOD" /> <statusCode code= "completed" /> <effectiveTime value="002844916682& quot; /> <value unit="" xsi:type="PQ" value=& quot;Bedside" /> <referenceRange> < observationRange> <text /> </ observationRange> </referenceRange> </observation> </component> <component> <observation moodCode= "EVN" classCode="OBS"> <templateId root=&quot ;2.16.840.1.009941.10.20.22.4.2" /> <id nullFlavor="NA& quot; /> <code codeSystem="local" code="GLU" displayName="GLUCOSE" /> <statusCode code=" completed" /> <effectiveTime value="797240531838" /> <value unit="mg/dL" xsi:type="PQ" value=& quot;89" /> <referenceRange> <observationRange> <text>70-99</text> </observationRange&gt ; </referenceRange> </observation> </ component> <component> <observation moodCode="EVN& quot; classCode="OBS"> <templateId root=" 2.16.840.1.685574.10.20.22.4.2" /> <id nullFlavor="NA& quot; /> <code codeSystem="local" code="HGBT&quot ; displayName="HEMOGLOBIN" /> <statusCode code=" completed" /> <effectiveTime value="180215942483" /> <value unit="gm/dL" xsi:type="PQ" value=& quot;7.8" /> <interpretationCode codeSystem="local&quot ; code="*" /> <referenceRange> < observationRange> <text>12.0-16.0</text> </observationRange> </referenceRange> </ observation> </component> <component> < observation moodCode="EVN" classCode="OBS">< templateId root="2.16.840.1.737033.10.20.22.4.2" /> < id nullFlavor="NA" /> <code codeSystem="local&quot ; code="HCTT" displayName="HEMATOCRIT" /> < statusCode code="completed" /> <effectiveTime value=& quot;585673432457" /> <value unit="%" xsi: type="PQ" value="23.0" /> < interpretationCode codeSystem="local" code="*" /> <referenceRange> <observationRange> <text&gt ;37.0-47.0</text> </observationRange> </ referenceRange> </observation> </component> < component> <observation moodCode="EVN" classCode=" OBS"> <templateId root="2.16.840.1.740929.10.20.22.4.2& quot; /> <id nullFlavor="NA" /> <code codeSystem="local" code="NA" displayName="SODIUM" /><statusCode code="completed" /> <effectiveTime value="357562373159" /> <value unit="mmol/L" xsi:type="PQ" value="144" /> <referenceRange& gt; <observationRange> <text>135-148</ text> </observationRange> </referenceRange> </observation> </component> <component> <observation moodCode="EVN" classCode="OBS"> <templateId root="2.16.840.1.915213.10.20.22.4.2" /> <id nullFlavor="NA" /> <code codeSystem=" local" code="CO2" displayName="CARBON DIOXIDE" /> <statusCode code="completed" /> < effectiveTime value="658078782469" /> <value unit="mmol/ L" xsi:type="PQ" value="28" /> < referenceRange> <observationRange> <text> 21-32</text> </observationRange> </ referenceRange> </observation> </component> < component> <observation moodCode="EVN" classCode=" OBS"> <templateId root="2.16.840.1.604544.10.20.22.4.2& quot; /> <id nullFlavor="NA" /> <code codeSystem="local" code="CAION" displayName="CALCIUM IONIZED" /> <statusCode code="completed" /> <effectiveTime value="641292132235" /> < value unit="mg/dL" xsi:type="PQ" value="3.9" /&gt ; <interpretationCode codeSystem="local" code="*&quot ; /> <referenceRange><observationRange> &lt ;text>4.5-5.3</text> </observationRange> < /referenceRange> </observation> </component> </ organizer> </entry> <entry> <organizer moodCode="EVN " classCode="BATTERY"> <templateId root=" 2.16.840.1.508335.10.20.22.4.1" /> <id nullFlavor="NA&quot ; /> <code codeSystem="local" code="GLUMON" displayName="GLUCOSE (POC)" /> <statusCode code=" completed" /> <component> <observation moodCode=" EVN" classCode="OBS"> <templateId root=" 2.16.840.1.561732.10.20.22.4.2" /> <id nullFlavor="NA& quot; /> <code codeSystem="local" code="GLUMON& quot; displayName="GLUCOSE (POC)" /> <statusCode code=& quot;completed" /> <effectiveTime value="549720383323" /& gt; <value unit="mg/dL" xsi:type="PQ" value=& quot;61" /> <interpretationCode codeSystem="local&quot ; code="*" /> <referenceRange> < observationRange> <text>70-99</text> < /observationRange> </referenceRange> </observation& gt; </component> </organizer> </entry> <entry&gt ; <organizer moodCode="EVN" classCode="BATTERY"> <templateId root="2.16.840.1.150521.10.20.22.4.1" /> & lt;id nullFlavor="NA" /> <code codeSystem="local&quot ; code="ABG" displayName="ARTERIALBLOOD GAS" /> < statusCode code="completed" /> <component> < observation moodCode="EVN" classCode="OBS"> < templateId root="2.16.840.1.895504.10.20.22.4.2" /> < id nullFlavor="NA" /> <code codeSystem="local" code="IRASEMA" displayName="ABG BASE EXCESS" /> < statusCode code="completed" /> <effectiveTime value=& quot;100921774505" /> <value unit="meq/L" xsi:type ="PQ" value="2.4" /> <referenceRange> <observationRange> <text>-3.0-3.0</text> </observationRange> </referenceRange> </ observation> </component> <component> < observation moodCode="EVN" classCode="OBS"> < templateId root="2.16.840.1.626639.10.20.22.4.2" /> < id nullFlavor="NA" /> <code codeSystem="local&quot ; code="FIO2A" displayName="ABG FIO2" /> <statusCode code="completed" /> <effectiveTime value=" 555019122563" /> <value unit="%" xsi:type= "PQ" value="80" /> <referenceRange> <observationRange> <text /> </ observationRange> </referenceRange> </observation&gt ; </component> <component> <observation moodCode= "EVN" classCode="OBS"> <templateId root=&quot ;2.16.840.1.474753.10.20.22.4.2" /> <id nullFlavor="NA& quot; /> <code codeSystem="local" code="HCO3A&quot ; displayName="ABG BICARBONATE" /> <statusCode code=& quot;completed" /> <effectiveTime value="198016082846& quot; /> <value unit="meq/L" xsi:type="PQ" value="24.3" /> <referenceRange> < observationRange> <text>23.0-28.0</text> </ observationRange> </referenceRange> </observation&gt ; </component> <component> <observation moodCode ="EVN" classCode="OBS"> <templateId root=& quot;2.16.840.1.888646.10.20.22.4.2" /> <id nullFlavor=&quot ;NA" /> <code codeSystem="local" code="PCO2A& quot; displayName="ABG PCO2" /> <statusCode code=" completed" /> <effectiveTime value="513845341808" /> <value unit="mmHg" xsi:type="PQ" value=& quot;27" /> <interpretationCode codeSystem="local&quot ; code="*" /> <referenceRange> < observationRange> <text>34-45</text> < /observationRange> </referenceRange> </observation& gt; </component> <component> <observation moodCode=& quot;EVN" classCode="OBS"> <templateId root=" 2.16.840.1.025538.10.20.22.4.2" /> <id nullFlavor="NA& quot; /> <code codeSystem="local" code="PEEPA" displayName="ABG PEEP"/> <statusCode code=" completed" /> <effectiveTime value="728577279549" /> <value unit="CM" xsi:type="PQ" value=&quot ;5" /> <referenceRange> <observationRange& gt; <text /> </observationRange> & lt;/referenceRange> </observation> </component> <component> <observation moodCode="EVN"classCode=&quot ;OBS"> <templateId root="2.16.840.1.212836.10.20.22.4.2 " /> <id nullFlavor="NA" /> <code codeSystem="local" code="PHAX" displayName="ABG PH&quot ; /> <statusCode code="completed" /> < effectiveTime value="882539852898" /> <value unit=&quot ;" xsi:type="PQ" value="7.57" /> < interpretationCodecodeSystem="local" code="" /> <referenceRange> <observationRange> < text>7.35-7.45</text> </observationRange> &lt ;/referenceRange> </observation> </component> & lt;component> <observation moodCode="EVN" classCode=&quot ;OBS"> <templateId root="2.16.840.1.285936.10.20.22.4.2 " /> <id nullFlavor="NA" /> <code codeSystem="local" code="PO2A" displayName="ABG PO2& quot; /> <statusCode code="completed" /> & lt;effectiveTime value="190867531734" /> <value unit=& quot;mmHg" xsi:type="PQ" value="275" /> &lt ;interpretationCode codeSystem="local" code="*" /> <referenceRange> <observationRange> < text>75-100</text> </observationRange> </ referenceRange> </observation> </component> < component> <observation moodCode="EVN" classCode=" OBS"> <templateId root="2.16.840.1.275496.10.20.22.4.2& quot; /> <id nullFlavor="NA" /> <code codeSystem="local" code="PSABG" displayName="ABG PRESSURE SUPPORT" /> <statusCode code="completed" /> <effectiveTime value="646933495677" /> < value unit="CM" xsi:type="PQ" value="10" /> <referenceRange> <observationRange> & lt;text /> </observationRange> </referenceRange&gt ; </observation> </component> <component> & lt;observation moodCode="EVN" classCode="OBS"> & lt;templateId root="2.16.840.1.109689.10.20.22.4.2" /> <id nullFlavor="NA" /> <code codeSystem="local" code="RRA" displayName="ABG VENT RATE" /> < statusCode code="completed" /> <effectiveTime value=& quot;445730469753" /> <value unit="" xsi:type=& quot;PQ" value="12" /> <referenceRange> &lt ;observationRange> <text /> </ observationRange> </referenceRange> </observation> </component> <component> <observation moodCode=" EVN" classCode="OBS"> <templateId root=" 2.16.840.1.056326.10.20.22.4.2" /> <id nullFlavor="NA& quot; /> <code codeSystem="local" code="SATA&quot ; displayName="ABG O2 SATURATION" /> <statusCode code=& quot;completed" /> <effectiveTime value="821151373453& quot; /> <value unit="%" xsi:type="PQ&quot ; value="99" /> <referenceRange> < observationRange> <text>93-100</text> &lt ;/observationRange> </referenceRange> </observation& gt; </component> <component> <observation moodCode="EVN" classCode="OBS"> <templateId root="2.16.840.1.751824.10.20.22.4.2" /> <id nullFlavor ="NA" /> <code codeSystem="local" code="TEMPA& quot; displayName="ABG TEMPERATURE" /> <statusCode code ="completed" /> <effectiveTime value="713616244685 " /> <value unit="C" xsi:type="PQ" value ="35.6" /> <referenceRange> < observationRange> <text /> </ observationRange> </referenceRange> </observation&gt ; </component> <component> <observation moodCode ="EVN" classCode="OBS"> <templateId root=& quot;2.16.840.1.143294.10.20.22.4.2" /> <id nullFlavor=&quot ;NA" /> <code codeSystem="local" code="TVA& quot; displayName="ABG TIDAL VOLUME" /> <statusCode code="completed" /> <effectiveTime value=" 548766356364" /><value unit="CC" xsi:type="PQ" value="450" /> <referenceRange> < observationRange> <text /> </ observationRange> </referenceRange> </observation&gt ; </component></organizer> </entry> <entry> & lt;organizer moodCode="EVN" classCode="BATTERY"> &lt ;templateId root="2.16.840.1.634623.10.20.22.4.1" /> <id nullFlavor="NA" /> <code codeSystem="local" code= "CBC" displayName="CBC" /> <statusCode code=&quot ;completed" /> <component> <observation moodCode=& quot;EVN" classCode="OBS"><templateId root=" 2.16.840.1.287369.10..22.4.2" /> <id nullFlavor="NA& quot; /> <code codeSystem="local" code="MCH" displayName="MEAN CELL HGB" /> <statusCode code=" completed" /> <effectiveTime value="470157751384" /> <value unit="pg" xsi:type="PQ" value=&quot ;28.8" /> <referenceRange> < observationRange> <text>27.0-33.0</text> </observationRange> </referenceRange> </ observation> </component> <component> < observation moodCode="EVN" classCode="OBS"> < templateId root="2.16.840.1.910916.10.20.22.4.2" /> < id nullFlavor="NA" /> <code codeSystem="local" code="MCHC" displayName="MEAN CELL HGB CONCENTRATION" /> <statusCode code="completed" /> < effectiveTime value="386911520147" /> <value unit=&quot ;g/dL" xsi:type="PQ" value="32.6" /> < referenceRange> <observationRange> <text> 32.0-37.0</text> </observationRange> </ referenceRange> </observation> </component> < component> <observation moodCode="EVN" classCode="OBS&quot ;> <templateId root="2.16.840.1.547832.10.20.22.4.2" /& gt; <id nullFlavor="NA" /> <code codeSystem=& quot;local" code="MCV" displayName="MEAN CELL VOLUME" / > <statusCode code="completed" /> < effectiveTime value="401930002465" /> <value unit=&quot ;fl" xsi:type="PQ" value="88.4" /> < referenceRange> <observationRange> <text>80.0-100.0& lt;/text> </observationRange> </referenceRange& gt; </observation> </component> <component> <observation moodCode="EVN" classCode="OBS"> <templateId root="2.16.840.1.866701.10.20.22.4.2" /> <id nullFlavor="NA" /> <code codeSystem=&quot ;local" code="RBC" displayName="RED BLOOD CELL" /> <statusCode code="completed" /> <effectiveTime value="402367454115" /> <value unit="m/cumm" xsi:type="PQ" value="3.37" /> < interpretationCode codeSystem="local" code="*" /> < referenceRange> <observationRange> <text> 4.00-6.00</text> </observationRange> </ referenceRange> </observation> </component> < component> <observation moodCode="EVN" classCode=" OBS"> <templateId root="2.16.840.1.643447.10.20.22.4.2& quot; /> <id nullFlavor="NA" /> <code codeSystem="local" code="RDW" displayName="RED CELL DISTRIBUTION WIDTH" /> <statusCode code="completed&quot ; /> <effectiveTime value="279491880728" /> <value unit="%" xsi:type="PQ" value="14.0& quot; /> <referenceRange> <observationRange> <text>11.0-15.6</text> </observationRange& gt; </referenceRange> </observation> </ component> <component> <observation moodCode="EVN& quot; classCode="OBS"> <templateId root=" 2.16.840.1.424142.10.20.22.4.2" /> <id nullFlavor="NA& quot; /> <code codeSystem="local" code="WBC" displayName="WHITE BLOOD CELL" /> <statusCode code=& quot;completed" /> <effectiveTime value="079147967901& quot; /> <value unit="k/cumm" xsi:type="PQ" value=& quot;6.1" /> <referenceRange> < observationRange> <text>5.0-10.0</text> & lt;/observationRange> </referenceRange> </ observation> </component> <component> < observation moodCode="EVN" classCode="OBS"> < templateId root="2.16.840.1.093237.10.20.22.4.2" /> <id nullFlavor="NA" /> <code codeSystem="local" code="HGBT" displayName="HEMOGLOBIN" /> < statusCode code="completed" /> <effectiveTime value=& quot;516311263908" /> <value unit="gm/dL" xsi:type ="PQ" value="9.7" /> <interpretationCode codeSystem="local" code="*" /> < referenceRange> <observationRange> <text> 12.0-16.0</text> </observationRange> </ referenceRange> </observation> </component> < component> <observation moodCode="EVN" classCode=" OBS"> <templateId root="2.16.840.1.519409.10.20.22.4.2& quot; /> <id nullFlavor="NA" /> <code codeSystem="local" code="HCTT" displayName="HEMATOCRIT& quot; /> <statusCode code="completed" /> & lt;effectiveTime value="217474271601" /> <value unit=& quot;%" xsi:type="PQ" value="29.8" /> <interpretationCode codeSystem="local"code="*" /> <referenceRange> <observationRange> < text>37.0-47.0</text> </observationRange> &lt ;/referenceRange> </observation> </component> & lt;component> <observation moodCode="EVN" classCode=&quot ;OBS"> <templateId root="2.16.840.1.133438.10.20.22.4.2 " /> <id nullFlavor="NA" /> <code codeSystem="local" code="PLT" displayName="PLATELET COUNT" /> <statusCode code="completed" /> <effectiveTime value="088846998151" /> <value unit=& quot;k/cumm" xsi:type="PQ" value="119" /> & lt;interpretationCode codeSystem="local" code="*" /> <referenceRange> <observationRange> <text >150-400</text> </observationRange> </ referenceRange> </observation> </component> </ organizer> </entry> <entry> <organizer moodCode="EVN " classCode="BATTERY"> <templateId root=" 2.16.840.1.286087.10.20.22.4.1" /> <id nullFlavor="NA&quot ; /> <code codeSystem="local" code="CAION" displayName="CALCIUM IONIZED" /> <statusCode code=" completed" /> <component> <observation moodCode=& quot;EVN" classCode="OBS"> <templateId root=" 2.16.840.1.423196.10.20.22.4.2" /> <id nullFlavor="NA& quot; /> <code codeSystem="local" code="CAION&quot ; displayName="CALCIUM IONIZED" /> <statusCode code=& quot;completed" /> <effectiveTime value="162343332012& quot; /> <value unit="mg/dL" xsi:type="PQ" value= "3.6" /> <interpretationCode codeSystem="local& quot; code="*" /> <referenceRange> < observationRange> <text>4.5-5.3</text> & lt;/observationRange> </referenceRange> </ observation> </component> </organizer> </entry> & lt;entry> <organizer moodCode="EVN" classCode="BATTERY& quot;> <templateId root="2.16.840.1.254117.10.20.22.4.1" /& gt; <id nullFlavor="NA" /> <code codeSystem=" local" code="METAB" displayName="METABOLIC PANEL, BASIC&quot ; /> <statusCode code="completed" /> <component& gt; <observation moodCode="EVN" classCode="OBS"&gt ; <templateId root="2.16.840.1.937082.10.20.22.4.2" /> <id nullFlavor="NA" /> <code codeSystem=& quot;local" code="K" displayName="POTASSIUM" /> <statusCode code="completed" /> < effectiveTime value="295747850356" /> <value unit=&quot ;mmol/L" xsi:type="PQ" value="2.8" /> < interpretationCode codeSystem="local" code="*" /> <referenceRange> <observationRange> < text>3.5-5.3</text> </observationRange> </ referenceRange> </observation> </component> < component> <observation moodCode="EVN" classCode=" OBS"> <templateId root="2.16.840.1.282595.10.20.22.4.2& quot; /> <id nullFlavor="NA" /> <code codeSystem="local" code="eGFR" displayName="EST GFR ( MDRD)" /> <statusCode code="completed" /> <effectiveTime value="152673517768" /> <value unit="mL/min" xsi:type="PQ" value="> 60" /& gt; <referenceRange> <observationRange> <text>> 59</text> </observationRange> </referenceRange> </observation> </component& gt; <component> <observation moodCode="EVN" classCode="OBS"> <templateId root=" 2.16.840.1.055862.10.20.22.4.2" /> <id nullFlavor="NA& quot; /> <code codeSystem="local" code="GAP" displayName="ANION GAP" /> <statusCode code=" completed" /> <effectiveTime value="710697932891" /> <value unit="mmol/L" xsi:type="PQ" value=& quot;9" /> <referenceRange> < observationRange> <text>5-15</text> </ observationRange> </referenceRange> </observation&gt ; </component> <component> <observation moodCode ="EVN" classCode="OBS"> <templateId root=& quot;2.16.840.1.638530.10.20.22.4.2" /> <id nullFlavor=&quot ;NA" /> <codecodeSystem="local" code="eCrCl& quot; displayName="EST CrCl (CG)" /> <statusCode code=" completed" /> <effectiveTime value="134671595185" /> <value unit="mL/min" xsi:type="PQ" value=& quot;45" /> <interpretationCode codeSystem="local&quot ; code="*" /> <referenceRange> < observationRange> <text>> 59</text> </observationRange> </referenceRange> </ observation> </component> <component> < observation moodCode="EVN" classCode="OBS"> < templateId root="2.16.840.1.969808.10.20.22.4.2" /> < id nullFlavor="NA" /> <code codeSystem="local&quot ; code="GLU" displayName="GLUCOSE" /> < statusCode code="completed" /> <effectiveTime value=& quot;145149631867" /> <value unit="mg/dL" xsi:type ="PQ" value="64" /> <interpretationCode codeSystem="local" code="*" /> < referenceRange><observationRange> <text>70-99</ text> </observationRange> </referenceRange> </observation> </component> <component> <observation moodCode="EVN" classCode="OBS"> <templateId root="2.16.840.1.505282.10.20.22.4.2" /> <id nullFlavor="NA" /> <code codeSystem=" local" code="CA" displayName="CALCIUM" /> & lt;statusCode code="completed" /> <effectiveTime value= "999760275886" /> <value unit="mg/dL" xsi: type="PQ" value="6.9" /> <interpretationCode codeSystem="local" code="*" /> < referenceRange> <observationRange> <text> 8.5-10.1</text> </observationRange> </ referenceRange> </observation> </component> < component> <observation moodCode="EVN" classCode=" OBS"> <templateId root="2.16.840.1.813295.10.20.22.4.2& quot; /> <id nullFlavor="NA" /> <code codeSystem="local" code="BUN" displayName="BLOOD UREA NITROGEN" /> <statusCode code="completed" /> & lt;effectiveTime value="155587554338" /> <value unit=& quot;mg/dL" xsi:type="PQ" value="9" /> < referenceRange> <observationRange> <text> 7-20</text> </observationRange> </ referenceRange> </observation> </component> < component> <observation moodCode="EVN" classCode=" OBS"> <templateId root="2.16.840.1.357142.10.20.22.4.2& quot; /> <id nullFlavor="NA" /> <code codeSystem="local" code="CREAT" displayName="CREATININE " /> <statusCode code="completed" /> & lt;effectiveTime value="786287776202" /> <value unit=& quot;mg/dL" xsi:type="PQ" value="0.8" /> & lt;referenceRange> <observationRange> <text& gt;0.6-1.0</text> </observationRange> </ referenceRange> </observation> </component> < component> <observation moodCode="EVN" classCode=" OBS"> <templateId root="2.16.840.1.600750.10.20.22.4.2& quot; /> <id nullFlavor="NA" /> <code codeSystem= "local" code="NA" displayName="SODIUM" /> <statusCode code="completed" /> <effectiveTime value="466449475269" /> <value unit="mmol/L" xsi:type="PQ" value="146" /> <referenceRange& gt; <observationRange> <text>135-148</ text> </observationRange> </referenceRange> </observation> </component> <component> <observation moodCode="EVN" classCode="OBS"> <templateId root="[id number]" /> <id nullFlavor="NA" /> <code codeSystem=" local" code="CL" displayName="CHLORIDE" /> <statusCode code="completed" /> <effectiveTime value ="[id number]" /> <value unit="mmol/L" xsi: type="PQ" value="111" /> <interpretationCode codeSystem="local" code="*" /> < referenceRange> <observationRange> <text> 98-110</text> </observationRange> </ referenceRange> </observation> </component> < component> <observation moodCode="EVN" classCode=" OBS"> <templateId root="2.16.840.1.847783.10.20.22.4.2& quot; /> <id nullFlavor="NA" /> <code codeSystem="local" code="CO2" displayName="CARBON DIOXIDE" /> <statusCode code="completed" /> <effectiveTime value="231485989625" /> < value unit="mmol/L" xsi:type="PQ" value="26" /&gt ; <referenceRange> <observationRange> <text>21-32</text> </observationRange> </referenceRange> </observation> </component> </organizer> </entry> <entry> <organizer moodCode=& quot;EVN" classCode="BATTERY"> <templateId root=" 2.16.840.1.171004.10.20.22.4.1" /> <id nullFlavor="NA&quot ; /> <code codeSystem="local" code="MAG" displayName="MAGNESIUM" /> <statusCodecode="completed& quot; /> <component> <observation moodCode="EVN& quot; classCode="OBS"> <templateId root=" 2.16.840.1.496969.10.20.22.4.2" /> <id nullFlavor="NA& quot; /> <code codeSystem="local" code="MAG" displayName="MAGNESIUM" /> <statusCode code=" completed" /> <effectiveTime value="940972021961" /> <value unit="mg/dL" xsi:type="PQ" value=& quot;2.5" /> <interpretationCode codeSystem="local&quot ; code="*" /> <referenceRange> < observationRange> <text>1.8-2.4</text> & lt;/observationRange> </referenceRange> </ observation> </component> </organizer> </entry> & lt;entry> <organizer moodCode="EVN" classCode="BATTERY& quot;> <templateId root="2.16.840.1.991714.10.20.22.4.1" /& gt; <id nullFlavor="NA" /> <code codeSystem="local " code="GLUMON" displayName="GLUCOSE (POC)" /> <statusCode code="completed" /> <component> & lt;observation moodCode="EVN" classCode="OBS"> & lt;templateId root="2.16.840.1.003284.10.20.22.4.2" /> &lt ;id nullFlavor="NA" /> <code codeSystem="local& quot; code="GLUMON" displayName="GLUCOSE (POC)" /> <statusCode code="completed" /> <effectiveTime value="845274666686" /> <value unit="mg/dL" xsi:type="PQ" value="59" /> < interpretationCode codeSystem="local" code="*" /> <referenceRange> <observationRange> < text>70-99</text> </observationRange> </ referenceRange> </observation> </component> </ organizer> </entry> <entry> <organizer moodCode="EVN " classCode="BATTERY"> <templateId root=" 2.16.840.1.015361.10.20.22.4.1" /> <id nullFlavor="NA&quot ; /> <code codeSystem="local" code="ABG" displayName="ARTERIAL BLOOD GAS" /> <statusCode code=" completed" /> <component> <observation moodCode=& quot;EVN" classCode="OBS"> <templateId root=" 2.16.840.1.374937.10.20.22.4.2" /> <id nullFlavor="NA& quot; /> <code codeSystem="local" code="IRASEMA" displayName="ABG BASE EXCESS" /> <statusCode code=&quot ;completed" /> <effectiveTimevalue="674067563466" /> <value unit="meq/L" xsi:type="PQ" value=& quot;2.1" /> <referenceRange> < observationRange> <text>-3.0-3.0</text> </ observationRange> </referenceRange> </observation&gt ; </component> <component> <observation moodCode ="EVN" classCode="OBS"> <templateId root=& quot;2.16.840.1.393461.10..22.4.2" /> <id nullFlavor=&quot ;NA" /> <code codeSystem="local" code="HCO3A& quot; displayName="ABG BICARBONATE" /> <statusCode code ="completed" /> <effectiveTime value="300459331892 " /> <value unit="meq/L" xsi:type="PQ" value="24.9" /> <referenceRange> < observationRange> <text>23.0-28.0</text> </observationRange> </referenceRange> </ observation> </component> <component> < observation moodCode="EVN" classCode="OBS"> < templateId root="2.16.840.1.625972.10.20.22.4.2" /> < id nullFlavor="NA" /> <code codeSystem="local&quot ; code="PCO2A" displayName="ABG PCO2" /> < statusCode code="completed" /> <effectiveTime value=& quot;640622577270"/> <value unit="mmHg" xsi:type=& quot;PQ" value="33" /> <interpretationCode codeSystem= "local" code="*" /> <referenceRange> <observationRange> <text>34-45</text> & lt;/observationRange> </referenceRange> </ observation> </component> <component> < observation moodCode="EVN" classCode="OBS"> < templateId root="2.16.840.1.658094.10.20.22.4.2" /><id nullFlavor="NA" /> <code codeSystem="local" code="PHAX" displayName="ABG PH" /> < statusCode code="completed" /> <effectiveTime value=& quot;140848233155" /> <value unit=""xsi:type=&quot ;PQ" value="7.50" /> <interpretationCode codeSystem="local" code="*" /> < referenceRange> <observationRange> <text> 7.35-7.45</text> </observationRange> </ referenceRange> </observation> </component> < component> <observation moodCode="EVN" classCode="OBS& quot;> <templateId root="2.16.840.1.808153.10..22.4.2&quot ; /> <id nullFlavor="NA" /> <code codeSystem="local" code="PO2A" displayName="ABG PO2& quot; /> <statusCode code="completed" /> & lt;effectiveTime value="489762331253" /> <value unit=& quot;mmHg" xsi:type="PQ" value="157" /> &lt ;interpretationCode codeSystem="local" code="*" /> <referenceRange> <observationRange> < text>75-100</text> </observationRange> </ referenceRange> </observation> </component> < component> <observation moodCode="EVN" classCode=" OBS"> <templateId root="2.16.840.1.368879.10..22.4.2& quot; /> <id nullFlavor="NA" /> <code codeSystem="local" code="SATA" displayName="ABG O2 SATURATION" /> <statusCode code="completed" /> <effectiveTime value="456581520914" /> <value unit="%" xsi:type="PQ" value="98" /> <referenceRange> <observationRange> <text>93-100</text> </observationRange> & lt;/referenceRange> </observation> </component> < /organizer> </entry> <entry> <organizer moodCode=" EVN" classCode="BATTERY"> <templateId root=" 2.16.840.1.229657.10.20.22.4.1" /> <id nullFlavor="NA&quot ; /> <code codeSystem="local" code="GLUMON" displayName="GLUCOSE (POC)" /> <statusCode code=" completed" /> <component> <observation moodCode=& quot;EVN"classCode="OBS"> <templateId root=" 2.16.840.1.618333.10.20.22.4.2" /> <id nullFlavor="NA& quot; /> <code codeSystem="local" code="GLUMON& quot; displayName="GLUCOSE (POC)" /> <statusCode code=& quot;completed" /> <effectiveTime value="316209780854& quot; /> <value unit="mg/dL" xsi:type="PQ" value="116" /> <interpretationCode codeSystem=" local" code="*" /> <referenceRange> &lt ;observationRange> <text>70-99</text> &lt ;/observationRange> </referenceRange> </observation& gt; </component> </organizer> </entry> <entry> <organizer moodCode="EVN" classCode="BATTERY"> <templateId root="2.16.840.1.741896.10.20.22.4.1" /> <id nullFlavor="NA" /> <code codeSystem="local" code= "HH" displayName="HGB HCT" /> <statusCode code= "completed" /> <component> <observation moodCode=& quot;EVN" classCode="OBS"> <templateId root=" 2.16.840.1.874868.10.20.22.4.2" /> <id nullFlavor="NA& quot; /> <code codeSystem="local" code="MCV" displayName="MEAN CELL VOLUME" /> <statusCode code=& quot;completed" /> <effectiveTime value="871198307538" /&gt ; <value unit="fl" xsi:type="PQ" value=" 87.6" /> <referenceRange> <observationRange > <text>80.0-100.0</text> </ observationRange> </referenceRange> </observation> </component> <component> <observation moodCode= "EVN" classCode="OBS"> <templateId root=&quot ;2.16.840.1.584612.10.20.22.4.2" /> <id nullFlavor="NA& quot; /> <code codeSystem="local" code="HGBT&quot ; displayName="HEMOGLOBIN" /> <statusCode code=" completed" /> <effectiveTimevalue="001300493621" / > <value unit="gm/dL" xsi:type="PQ" value=& quot;10.0" /> <interpretationCode codeSystem="local& quot; code="*" /> <referenceRange> < observationRange> <text>12.0-16.0</text> </observationRange> </referenceRange> </ observation> </component> <component> < observation moodCode="EVN" classCode="OBS"> < templateId root="2.16.840.1.633229.10..22.4.2" /> < id nullFlavor="NA" /> <code codeSystem="local&quot ; code="HCTT" displayName="HEMATOCRIT" /> < statusCode code="completed" /> <effectiveTime value=& quot;541675933678" /> <value unit="%" xsi: type="PQ" value="30.3" /> < interpretationCode codeSystem="local" code="*" /> <referenceRange> <observationRange> < text>37.0-47.0</text> </observationRange> &lt ;/referenceRange> </observation> </component> </ organizer> </entry> <entry> <organizer moodCode="EVN " classCode="BATTERY"> <templateId root=" 2.16.840.1.316363...22.4.1" /> <id nullFlavor="NA&quot ; /> <code codeSystem="local" code="PLT" displayName="PLATELET COUNT" /> <statusCode code=" completed" /> <component> <observation moodCode=& quot;EVN" classCode="OBS"> <templateId root=" 2.16.840.1.148897....4.2"/> <id nullFlavor="NA& quot; /> <code codeSystem="local"code="PLT" displayName="PLATELET COUNT" /> <statusCode code=" completed" /> <effectiveTime value="731484386518" /> <value unit="k/cumm" xsi:type="PQ" value=& quot;168" /> <referenceRange> < observationRange> <text>150-400</text> </ observationRange> </referenceRange> </observation&gt ; </component> </organizer> </entry> <entry> <organizer moodCode="EVN" classCode="BATTERY"> <templateId root="2.16.840.1.961733.10..22.4.1" /> < id nullFlavor="NA" /> <code codeSystem="local" code="PT" displayName="PROTHROMBIN TIME WITH INR" /> <statusCode code="completed" /> <component> <observation moodCode="EVN" classCode="OBS"> <templateId root="216.840.1.490869.10.20.22.4.2" /> & lt;id nullFlavor="NA" /> <code codeSystem="local& quot; code="INRX" displayName="INTERNATIONAL NORMAL RATIO" / > <statusCode code="completed" /> < effectiveTime value="998374832832" /> <value unit="& quot; xsi:type="PQ" value="1.3" /> < interpretationCode codeSystem="local" code="*" /> <referenceRange> <observationRange> < text>0.9-1.1</text> </observationRange> </ referenceRange> </observation> </component> < component> <observation moodCode="EVN" classCode=" OBS"> <templateId root="2840.1.321115.10.20.22.4.2& quot; /> <id nullFlavor="NA" /> <code codeSystem="local" code="PTPAT" displayName=" PROTHROMBIN TIME" /> <statusCode code="completed" /> <effectiveTime value="758693037916" /> & lt;value unit="sec" xsi:type="PQ" value="13.9" /& gt; <interpretationCode codeSystem="local" code="*& quot; /> <referenceRange> <observationRange> <text>9.3-12.2</text> </observationRange > </referenceRange> </observation> </component&gt ; </organizer> </entry> <entry> <organizer moodCode ="EVN" classCode="BATTERY"> <templateId root=& quot;2.16.840.1.893280.10.20.22.4.1" /> <id nullFlavor="NA& quot; /> <code codeSystem="local" code="FIB" displayName="FIBRINOGEN" /> <statusCode code=" completed" /> <component> <observation moodCode=& quot;EVN" classCode="OBS"> <templateId root=" 2.16.840.1.476199.10.20.22.4.2" /> <id nullFlavor="NA& quot; /> <code codeSystem="local" code="FIB" displayName="FIBRINOGEN" /> <statusCode code=" completed" /> <effectiveTime value="459658495065" /> <value unit="mg/dL" xsi:type="PQ" value=& quot;171" /> <interpretationCode codeSystem="local&quot ; code="*" /> <referenceRange> < observationRange> <text>200-400</text> & lt;/observationRange> </referenceRange> </ observation> </component> </organizer> </entry> & lt;entry> <organizer moodCode="EVN" classCode="BATTERY& quot;> <templateId root="2.16.840.1.712411.10.20.22.4.1" /& gt; <id nullFlavor="NA" /> <codecodeSystem=" local" code="GLUMON" displayName="GLUCOSE (POC)" /> <statusCode code="completed" /> <component> & lt;observation moodCode="EVN" classCode="OBS"> & lt;templateId root="2.16.840.1.951438.10.20.22.4.2" /> &lt ;id nullFlavor="NA" /> <code codeSystem="local& quot; code="GLUMON" displayName="GLUCOSE (POC)" /> <statusCode code="completed" /> <effectiveTime value="965716171537" /> <value unit="mg/dL" xsi:type="PQ" value="108" /> < interpretationCode codeSystem="local" code="*" /> <referenceRange> <observationRange> < text>70-99</text> </observationRange> </ referenceRange> </observation> </component> </ organizer> </entry> <entry> <organizer moodCode="EVN " classCode="BATTERY"> <templateId root=" 2.16.840.1.688083.10.20.22.4.1" /> <id nullFlavor="NA&quot ; /> <code codeSystem="local" code="GLUMON" displayName="GLUCOSE (POC)" /> <statusCode code=" completed" /> <component> <observation moodCode=& quot;EVN" classCode="OBS"> <templateId root=" 2.16.840.1.865070.10.20.22.4.2" /> <id nullFlavor="NA& quot; /> <code codeSystem="local" code="GLUMON& quot; displayName="GLUCOSE (POC)" /> <statusCode code=& quot;completed" /> <effectiveTime value="341286113200& quot; /> <value unit="mg/dL" xsi:type="PQ" value="128" /> <interpretationCode codeSystem=" local" code="*" /> <referenceRange> < observationRange> <text>70-99</text> < /observationRange> </referenceRange> </observation& gt; </component> </organizer> </entry> <entry&gt ; <organizer moodCode="EVN" classCode="BATTERY"> <templateId root="2.16.840.1.159742.10.20.22.4.1" /> & lt;id nullFlavor="NA" /> <code codeSystem="local&quot ; code="GLUMON" displayName="GLUCOSE (POC)" /> < statusCode code="completed" /> <component> < observation moodCode="EVN" classCode="OBS"> < templateId root="2.16.840.1.895750.10.20.22.4.2" /> < id nullFlavor="NA" /> <code codeSystem="local&quot ; code="GLUMON" displayName="GLUCOSE (POC)" /> & lt;statusCode code="completed" /> <effectiveTime value=" 862839623645" /> <value unit="mg/dL" xsi:type=& quot;PQ" value="134" /> <interpretationCode codeSystem="local" code="*" /> < referenceRange> <observationRange> <text> 70-99</text> </observationRange> </ referenceRange> </observation> </component> </ organizer> </entry> <entry> <organizer moodCode="EVN " classCode="BATTERY"><templateId root=" 2.16.840.1.970546.10.20.22.4.1" /> <id nullFlavor="NA&quot ; /> <code codeSystem="local" code="GLUMON" displayName="GLUCOSE (POC)" /> <statusCode code=" completed" /> <component> <observation moodCode=" EVN" classCode="OBS"> <templateId root=" 2.16.840.1.443139.10.20.22.4.2" /> <id nullFlavor="NA& quot; /> <code codeSystem="local" code="GLUMON&quot ; displayName="GLUCOSE (POC)" /> <statusCode code=&quot ;completed" /> <effectiveTime value="417278750449&quot ; /> <value unit="mg/dL" xsi:type="PQ" value= "144" /> <interpretationCode codeSystem="local& quot; code="*" /> <referenceRange> < observationRange> <text>70-99</text> < /observationRange> </referenceRange> </observation& gt; </component> </organizer> </entry> <entry&gt ; <organizer moodCode="EVN" classCode="BATTERY"> <templateId root="2.16.840.1.484143.10.20.22.4.1" /> & lt;id nullFlavor="NA" /> <code codeSystem="local&quot ; code="K" displayName="POTASSIUM" /> < statusCode code="completed" /> <component> < observation moodCode="EVN" classCode="OBS"> < templateId root="2.16.840.1.927664.10.20.22.4.2" /> < id nullFlavor="NA" /> <code codeSystem="local&quot ; code="K" displayName="POTASSIUM" /> < statusCode code="completed" /> <effectiveTime value=& quot;974429811232" /> <value unit="mmol/L" xsi: type="PQ" value="3.7" /> <referenceRange> <observationRange> <text>3.5-5.3</text& gt; </observationRange> </referenceRange> &lt ;/observation> </component> </organizer> </entry> <entry> <organizer moodCode="EVN" classCode=" BATTERY"> <templateId root="2.16.840.1.200161.10.20.22.4.1& quot; /> <id nullFlavor="NA" /> <code codeSystem ="local" code="GLUMON" displayName="GLUCOSE (POC)&quot ; /> <statusCode code="completed" /> <component& gt; <observation moodCode="EVN" classCode="OBS"&gt ; <templateId root="2.16.840.1.056880.10.20.22.4.2" /> <id nullFlavor="NA" /> <code codeSystem=& quot;local" code="GLUMON" displayName="GLUCOSE (POC)" / > <statusCode code="completed" /> < effectiveTime value="818260240030" /> <value unit=&quot ;mg/dL" xsi:type="PQ" value="146" /> < interpretationCode codeSystem="local" code="*" /> <referenceRange> <observationRange> <text> 70-99</text> </observationRange> </ referenceRange> </observation> </component> </ organizer> </entry> <entry> <organizer moodCode="EVN " classCode="BATTERY"> <templateId root=" 2.16.840.1.144191.10.20.22.4.1" /> <id nullFlavor="NA&quot ; /> <code codeSystem="local" code="ABG" displayName="ARTERIAL BLOOD GAS" /> <statusCode code=" completed" /> <component> <observation moodCode=& quot;EVN" classCode="OBS"> <templateId root=" 2.16.840.1.191229.10.20.22.4.2" /> <id nullFlavor="NA& quot; /> <code codeSystem="local" code="IRASEMA" displayName="ABG BASE EXCESS" /> <statusCode code=&quot ;completed" /> <effectiveTime value="655226371663" /&gt ; <value unit="meq/L" xsi:type="PQ" value=" -0.7" /> <referenceRange> <observationRange > <text>-3.0-3.0</text> </ observationRange> </referenceRange> </observation&gt ; </component> <component> <observation moodCode ="EVN" classCode="OBS"> <templateId root=& quot;2.16.840.1.343165.10.20.22.4.2" /> <id nullFlavor=&quot ;NA" /> <code codeSystem="local" code="FIO2A& quot; displayName="ABG FIO2" /> <statusCode code=" completed" /> <effectiveTime value="732721720402" /> <value unit="%" xsi:type="PQ" value="30" /> <referenceRange> < observationRange> <text /> </ observationRange> </referenceRange> </observation&gt ; </component> <component> <observation moodCode ="EVN" classCode="OBS"> <templateId root=& quot;2.16.840.1.150791.10.20.22.4.2" /> <id nullFlavor=&quot ;NA" /> <code codeSystem="local" code="HCO3A& quot; displayName="ABG BICARBONATE" /> <statusCode code=" completed" /> <effectiveTime value="699887635110" /> <value unit="meq/L" xsi:type="PQ" value=& quot;25.1"/> <referenceRange> < observationRange> <text>23.0-28.0</text> </observationRange> </referenceRange> </ observation> </component> <component> < observation moodCode="EVN" classCode="OBS"> < templateId root="2.16.840.1.659149.10.20.22.4.2" /> < id nullFlavor="NA" /> <code codeSystem="local&quot ; code="PCO2A" displayName="ABG PCO2" /> < statusCode code="completed" /> <effectiveTime value=& quot;366731969327" /> <value unit="mmHg" xsi:type=" PQ" value="51" /> <interpretationCode codeSystem=& quot;local" code="*" /> <referenceRange> <observationRange> <text>34-45</text> </observationRange> </referenceRange> </ observation> </component> <component> < observation moodCode="EVN" classCode="OBS"> < templateId root="2.16.840.1.996464.10..22.4.2" /> < id nullFlavor="NA" /> <code codeSystem="local&quot ; code="PEEPA" displayName="ABG PEEP" /> < statusCode code="completed" /><effectiveTime value=" 136268973544" /> <value unit="CM" xsi:type=" PQ" value="5" /> <referenceRange> & lt;observationRange> <text /> </ observationRange> </referenceRange> </observation&gt ; </component> <component> <observation moodCode ="EVN" classCode="OBS"> <templateId root=& quot;2.16.840.1.448852.10.20.22.4.2" /> <id nullFlavor=&quot ;NA" /> <code codeSystem="local" code="PHAX& quot; displayName="ABG PH" /> <statusCode code=" completed" /> <effectiveTime value="126209930232" /> <value unit="" xsi:type="PQ" value=" 7.32" /> <interpretationCode codeSystem="local" code=& quot;*" /> <referenceRange> < observationRange> <text>7.35-7.45</text> < /observationRange> </referenceRange> </observation& gt; </component> <component> <observation moodCode="EVN" classCode="OBS"> <templateId root="2.16.840.1.746624.10.20.22.4.2" /> <id nullFlavor=&quot ;NA" /> <code codeSystem="local" code="PO2A& quot; displayName="ABG PO2" /> <statusCode code=" completed" /> <effectiveTime value="396296687062" /> <value unit="mmHg" xsi:type="PQ" value=& quot;87" /> <referenceRange> <observationRange> <text>75-100</text> </observationRange&gt ; </referenceRange> </observation> </ component> <component> <observation moodCode="EVN& quot; classCode="OBS"> <templateId root=" 2.16.840.1.306615.10.20.22.4.2" /> <id nullFlavor="NA& quot; /> <code codeSystem="local" code="PSABG&quot ; displayName="ABG PRESSURE SUPPORT" /> <statusCode code="completed" /> <effectiveTime value="078513795587& quot; /> <value unit="CM" xsi:type="PQ" value ="8" /> <referenceRange> < observationRange> <text /> </ observationRange> </referenceRange> </observation&gt ; </component> <component> <observation moodCode ="EVN" classCode="OBS"> <templateId root=& quot;2.16.840.1.970051.10.20.22.4.2" /> <id nullFlavor=&quot ;NA" /> <code codeSystem="local" code="RRA& quot; displayName="ABG VENT RATE" /> <statusCode code=" completed" /> <effectiveTime value="308814605214" /> <value unit="" xsi:type="PQ" value=" 18" /> <referenceRange> <observationRange& gt; <text /> </observationRange> </ referenceRange> </observation></component> < component> <observation moodCode="EVN" classCode=" OBS"> <templateId root="2.16.840.1.338469.10..22.4.2& quot; /> <id nullFlavor="NA" /> <code codeSystem="local" code="SATA" displayName="ABG O2 SATURATION" /> <statusCode code="completed" /> <effectiveTime value="973077080557" /> < value unit="%" xsi:type="PQ" value="93" /& gt; <referenceRange> <observationRange> <text>93-100</text> </observationRange> </referenceRange> </observation> </component&gt ; <component> <observation moodCode="EVN" classCode="OBS"> <templateId root=" 2.16.840.1.979908.10.20.22.4.2" /> <id nullFlavor="NA& quot; /> <code codeSystem="local" code="TEMPA&quot ; displayName="ABG TEMPERATURE" /> <statusCode code=& quot;completed" /> <effectiveTime value="105629076695& quot; /> <value unit="C" xsi:type="PQ" value= "39.0" /> <referenceRange><observationRange> <text /> </observationRange> </ referenceRange> </observation> </component> </ organizer> </entry> <entry> <organizer moodCode="EVN " classCode="BATTERY"> <templateId root=" 2.16.840.1.884955.10.20.22.4.1" /> <id nullFlavor="NA&quot ; /> <code codeSystem="local" code="GLUMON" displayName="GLUCOSE (POC)" /> <statusCode code=" completed" /> <component> <observation moodCode=& quot;EVN" classCode="OBS"> <templateId root=" 2.16.840.1.394055.10.20.22.4.2" /> <id nullFlavor="NA& quot; /> <code codeSystem="local" code="GLUMON& quot; displayName="GLUCOSE (POC)" /> <statusCode code=& quot;completed" /> <effectiveTime value="210178349171& quot; /> <value unit="mg/dL" xsi:type="PQ" value="130" /> <interpretationCode codeSystem=" local" code="*" /> <referenceRange> <observationRange> <text>70-99</text> </observationRange> </referenceRange> </observation& gt; </component> </organizer> </entry> <entry&gt ; <organizer moodCode="EVN" classCode="BATTERY"> <templateId root="2.16.840.1.063566.10.20.22.4.1" /> & lt;id nullFlavor="NA" /> <code codeSystem="local&quot ; code="GLUMON" displayName="GLUCOSE (POC)" /> < statusCode code="completed" /> <component> < observation moodCode="EVN" classCode="OBS"> < templateId root="2.16.840.1.256922.10.20.22.4.2" /> < id nullFlavor="NA" /> <code codeSystem="local&quot ; code="GLUMON" displayName="GLUCOSE (POC)" /> < statusCode code="completed" /> <effectiveTime value=& quot;982676650896" /> <value unit="mg/dL" xsi:type ="PQ" value="140" /> <interpretationCode codeSystem="local" code="*" /> <referenceRange> <observationRange> <text>70-99</text> </observationRange> </referenceRange> < /observation> </component> </organizer> </entry> & lt;entry> <organizer moodCode="EVN" classCode="BATTERY& quot;> <templateId root="2.16.840.1.198609.10.20.22.4.1" /& gt; <id nullFlavor="NA" /> <code codeSystem=" local" code="GLUMON" displayName="GLUCOSE (POC)" /> <statusCode code="completed" /> <component> <observation moodCode="EVN" classCode="OBS"> <templateId root="2.16.840.1.799993.10.20.22.4.2" /> <id nullFlavor="NA" /> <code codeSystem=" local" code="GLUMON" displayName="GLUCOSE (POC)" /> <statusCode code="completed" /> < effectiveTime value="873402026141" /> <value unit=&quot ;mg/dL" xsi:type="PQ" value="136" /> < interpretationCode codeSystem="local" code="*" /> <referenceRange> <observationRange> < text>70-99</text> </observationRange> </ referenceRange> </observation> </component> </ organizer> </entry> <entry> <organizer moodCode="EVN " classCode="BATTERY"> <templateId root=" 2.16.840.1.054519.10.20.22.4.1" /> <id nullFlavor="NA" /> <code codeSystem="local" code="CBC" displayName="CBC" /> <statusCode code="completed&quot ; /> <component> <observation moodCode="EVN" classCode="OBS"> <templateId root=" [id number]" /> <id nullFlavor="NA& quot; /> <code codeSystem="local" code="MCH" displayName="MEAN CELL HGB" /> <statusCode code=" completed" /> <effectiveTime value="[id number]" /> <value unit="pg" xsi:type="PQ" value=&quot ;28.7" /> <referenceRange> < observationRange> <text>27.0-33.0</text> </observationRange></referenceRange> </observation> </component> <component> <observation moodCode=" EVN" classCode="OBS"> <templateId root=" [id number]" /> <id nullFlavor="NA& quot; /> <code codeSystem="local" code="[facility]" displayName="MEAN CELL HGBCONCENTRATION" /> < statusCode code="completed" /> <effectiveTime value=& quot;541734537643" /> <value unit="g/dL" xsi:type= "PQ" value="32.0" /> <referenceRange> <observationRange> <text>32.0-37.0</text&gt ; </observationRange> </referenceRange> & lt;/observation> </component> <component> < observation moodCode="EVN" classCode="OBS"> < templateId root="2.16.840.1.810939.10.20.22.4.2" /> < id nullFlavor="NA" /> <code codeSystem="local" code="MCV" displayName="MEAN CELL VOLUME" /> &lt ;statusCode code="completed" /> <effectiveTime value=& quot;591923832918" /> <value unit="fl" xsi:type=& quot;PQ" value="89.5" /> <referenceRange> <observationRange> <text>80.0-100.0</text> </observationRange> </referenceRange> </ observation> </component> <component> < observation moodCode="EVN" classCode="OBS"> < templateId root="2.16.840.1.055735.10.20.22.4.2" /> < id nullFlavor="NA" /> <code codeSystem="local&quot ; code="RBC" displayName="RED BLOOD CELL" /> < statusCode code="completed" /> <effectiveTime value=& quot;170675846034" /> <value unit="m/cumm" xsi: type="PQ" value="3.14" /> < interpretationCode codeSystem="local" code="*" /> & lt;referenceRange> <observationRange> <text& gt;4.00-6.00</text> </observationRange> </ referenceRange> </observation> </component> < component> <observation moodCode="EVN" classCode=" OBS"> <templateId root="2.16.840.1.771407.10.20.22.4.2& quot; /> <id nullFlavor="NA" /> <code codeSystem="local" code="RDW" displayName="RED CELL DISTRIBUTION WIDTH" /> <statusCode code="completed&quot ; /> <effectiveTime value="654894072530" /> <value unit="%" xsi:type="PQ" value="14.3& quot; /> <referenceRange> <observationRange> <text>11.0-15.6</text> </observationRange > </referenceRange> </observation> </ component> <component> <observation moodCode="EVN& quot; classCode="OBS"> <templateId root=" 2.16.840.1.083966.10.20.22.4.2" /> <id nullFlavor="NA& quot; /> <code codeSystem="local" code="WBC" displayName="WHITE BLOOD CELL" /> <statusCode code=& quot;completed" /> <effectiveTime value="557627688628& quot; /> <value unit="k/cumm" xsi:type="PQ" value=& quot;9.2" /> <referenceRange> < observationRange> <text>5.0-10.0</text> & lt;/observationRange> </referenceRange> </ observation> </component> <component> < observation moodCode="EVN" classCode="OBS"> < templateId root="2.16.840.1.525983.10.20.22.4.2" /> <id nullFlavor="NA" /> <code codeSystem="local" code="HGBT" displayName="HEMOGLOBIN" /> < statusCode code="completed" /> <effectiveTime value=& quot;576951854722" /> <value unit="gm/dL" xsi:type ="PQ" value="9.0" /> <interpretationCode codeSystem="local" code="*" /> < referenceRange> <observationRange> <text> 12.0-16.0</text> </observationRange> </ referenceRange> </observation> </component> < component> <observation moodCode="EVN" classCode=" OBS"> <templateId root="2.16.840.1.614990.10.20.22.4.2& quot; /> <id nullFlavor="NA" /> <code codeSystem="local" code="HCTT" displayName="HEMATOCRIT& quot; /> <statusCode code="completed" /> & lt;effectiveTime value="502830937889" /> <value unit=& quot;%" xsi:type="PQ" value="28.1" /> <interpretationCode codeSystem="local" code="*" /&gt ; <referenceRange> <observationRange> < text>37.0-47.0</text> </observationRange> &lt ;/referenceRange> </observation> </component> & lt;component> <observation moodCode="EVN" classCode=&quot ;OBS"> <templateId root="2.16.840.1.332754.10.20.22.4.2 " /> <id nullFlavor="NA" /> <code codeSystem="local" code="PLT" displayName="PLATELET COUNT" /> <statusCode code="completed" /> <effectiveTime value="062208507478" /> <value unit="k/cumm" xsi:type="PQ" value="225" /> <referenceRange> <observationRange> & lt;text>150-400</text> </observationRange> & lt;/referenceRange> </observation> </component> </ organizer> </entry> <entry> <organizer moodCode="EVN& quot; classCode="BATTERY"> <templateId root=" 2.16.840.1.809212.10.20.22.4.1" /> <id nullFlavor="NA&quot ; /> <code codeSystem="local" code="CAION" displayName="CALCIUM IONIZED" /> <statusCode code=" completed" /> <component> <observationmoodCode=& quot;EVN" classCode="OBS"> <templateId root=" 2.16.840.1.059118.10.20.22.4.2" /> <id nullFlavor="NA& quot; /> <code codeSystem="local" code="CAION&quot ; displayName="CALCIUM IONIZED" /> <statusCode code=" completed" /> <effectiveTime value="556665070742" /> <value unit="mg/dL" xsi:type="PQ" value=& quot;4.9" /> <referenceRange> < observationRange> <text>4.5-5.3</text> & lt;/observationRange> </referenceRange> </ observation> </component> </organizer> </entry> & lt;entry> <organizer moodCode="EVN" classCode="BATTERY& quot;> <templateId root="2.16.840.1.246881.10.20.22.4.1" /& gt; <id nullFlavor="NA" /> <code codeSystem=" local" code="ABG" displayName="ARTERIAL BLOOD GAS" /&gt ; <statusCode code="completed" /> <component> <observation moodCode="EVN" classCode="OBS"> <templateId root="2.16.840.1.222794.10.20.22.4.2" /> <id nullFlavor="NA" /> <code codeSystem=" local" code="IRASEMA" displayName="ABG BASE EXCESS" /> <statusCode code="completed" /> < effectiveTime value="566824883279" /> <value unit=&quot ;meq/L" xsi:type="PQ" value="-2.1" /> < referenceRange> <observationRange> <text> -3.0-3.0</text> </observationRange> </ referenceRange> </observation> </component> < component> <observation moodCode="EVN" classCode=" OBS"> <templateId root="2.16.840.1.812751.10.20.22.4.2& quot; /> <id nullFlavor="NA" /> <code codeSystem="local" code="CARLOS" displayName="ABG DEVICE& quot; /> <statusCode code="completed" /> & lt;effectiveTime value="414082378680" /> <value unit=& quot;" xsi:type="PQ" value="NC" /> < referenceRange> <observationRange> <text /& gt; </observationRange> </referenceRange> </observation> </component> <component> &lt ;observation moodCode="EVN" classCode="OBS"> < templateId root="2.16.840.1.642435.10.20.22.4.2" /> < id nullFlavor="NA" /> <code codeSystem="local&quot ; code="HCO3A" displayName="ABG BICARBONATE" /> <statusCode code="completed" /> <effectiveTime value ="337298584392" /> <value unit="meq/L" xsi: type="PQ" value="24.3" /> <referenceRange&gt ; <observationRange> <text>23.0-28.0</ text> </observationRange> </referenceRange> </observation> </component> <component> & lt;observation moodCode="EVN" classCode="OBS"> & lt;templateId root="2.16.840.1.649959.10..22.4.2" /> &lt ;id nullFlavor="NA"/> <code codeSystem="local&quot ; code="L/MA" displayName="ABG L/M" /> < statusCode code="completed" /> <effectiveTime value=& quot;249951246607" /> <value unit="" xsi:type=& quot;PQ" value="1.0" /> <referenceRange> <observationRange><text /> </observationRange&gt ; </referenceRange> </observation> </ component> <component> <observation moodCode="EVN& quot; classCode="OBS"> <templateId root=" 2.16.840.1.845328.10.20.22.4.2" /> <id nullFlavor="NA& quot; /> <code codeSystem="local" code="PCO2A&quot ; displayName="ABG PCO2" /> <statusCode code=" completed" /> <effectiveTime value="985695705853" /> <value unit="mmHg" xsi:type="PQ" value=& quot;53" /> <interpretationCode codeSystem="local&quot ; code="*" /> <referenceRange> < observationRange> <text>34-45</text> < /observationRange> </referenceRange> </observation& gt; </component> <component> <observation moodCode=& quot;EVN" classCode="OBS"> <templateId root=" 2.16.840.1.371729.10.20.22.4.2" /> <id nullFlavor="NA& quot; /> <code codeSystem="local" code="PHAX&quot ; displayName="ABG PH" /> <statusCode code=" completed" /> <effectiveTime value="507106377119" /> <value unit="" xsi:type="PQ" value=" 7.29" /> <interpretationCode codeSystem="local" code="*" /> <referenceRange> < observationRange><text>7.35-7.45</text> </ observationRange> </referenceRange> </observation&gt ; </component> <component> <observation moodCode ="EVN" classCode="OBS"> <templateId root=& quot;2.16.840.1.390964.10.20.22.4.2" /> <id nullFlavor=&quot ;NA" /> <code codeSystem="local" code="PO2A& quot; displayName="ABG PO2" /> <statusCode code=" completed" /> <effectiveTime value="150414584444"/ > <value unit="mmHg" xsi:type="PQ" value=& quot;99" /> <referenceRange> <observationRange& gt; <text>75-100</text> </ observationRange> </referenceRange> </observation&gt ; </component> <component> <observation moodCode ="EVN"classCode="OBS"> <templateId root=&quot ;2.16.840.1.416067.10.20.22.4.2" /> <id nullFlavor="NA& quot; /> <code codeSystem="local" code="SATA&quot ; displayName="ABG O2 SATURATION" /> <statusCode code=& quot;completed" /> <effectiveTime value="109210745400& quot; /> <value unit="%" xsi:type="PQ&quot ; value="95" /> <referenceRange> < observationRange> <text>93-100</text> </ observationRange> </referenceRange> </observation&gt ;</component> <component> <observation moodCode=&quot ;EVN" classCode="OBS"> <templateId root=" 2.16.840.1.517878.10.20.22.4.2" /> <id nullFlavor="NA" /> <code codeSystem="local" code="SITEA" displayName="ABG SITE" /> <statusCode code=" completed" /> <effectiveTime value="667312194868" /> <value unit="" xsi:type="PQ" value=" LT RADIAL" /> <referenceRange> < observationRange> <text /> </ observationRange> </referenceRange> </observation> </component> <component> <observation moodCode=& quot;EVN" classCode="OBS"> <templateId root=" 2.16.840.1.989586.10.20.22.4.2" /> <id nullFlavor="NA& quot;/> <code codeSystem="local" code="TEMPA&quot ; displayName="ABG TEMPERATURE" /> <statusCode code=& quot;completed" /> <effectiveTime value="856825147722& quot; /> <value unit="C" xsi:type="PQ" value= "38.8" /> <referenceRange> < observationRange> <text /> </observationRange& gt; </referenceRange> </observation> </component& gt; </organizer> </entry> <entry> <organizer moodCode ="EVN" classCode="BATTERY"> <templateId root=& quot;2.16.840.1.666032.10.20.22.4.1" /> <id nullFlavor="NA& quot; /> <code codeSystem="local" code="METAB" displayName="METABOLIC PANEL, BASIC" /> <statusCode code=& quot;completed" /> <component> <observation moodCode="EVN" classCode="OBS"> <templateId root="2.16.840.1.547871.10.20.22.4.2" /> <id nullFlavor ="NA" /> <code codeSystem="local" code=" K" displayName="POTASSIUM" /><statusCode code=" completed" /> <effectiveTime value="029997818355" /> <value unit="mmol/L" xsi:type="PQ" value=& quot;4.4" /> <referenceRange> < observationRange> <text>3.5-5.3</text> & lt;/observationRange> </referenceRange> </ observation> </component> <component> < observation moodCode="EVN" classCode="OBS"> < templateId root="2.16.840.1.967627.10.20.22.4.2" /> < id nullFlavor="NA" /> <code codeSystem="local&quot ; code="eGFR" displayName="EST GFR (MDRD)" /> & lt;statusCodecode="completed" /> <effectiveTime value=& quot;614981793372" /> <value unit="mL/min" xsi:type=& quot;PQ" value="51" /> <interpretationCode codeSystem="local" code="*" /> < referenceRange> <observationRange> <text> > 59</text> </observationRange> </referenceRange > </observation> </component> <component> <observation moodCode="EVN" classCode="OBS"> <templateId root="2.16.840.1.372048.10.20.22.4.2" /> <id nullFlavor="NA" /> <code codeSystem=& quot;local" code="GAP" displayName="ANION GAP" /> <statusCode code="completed" /> < effectiveTime value="295654772304" /> <value unit=&quot ;mmol/L" xsi:type="PQ" value="9" /> < referenceRange> <observationRange> <text> 5-15</text> </observationRange> </ referenceRange> </observation> </component> < component> <observation moodCode="EVN" classCode=" OBS"> <templateId root="2.16.840.1.274820.10.20.22.4.2& quot; /> <id nullFlavor="NA" /> <code codeSystem="local" code="eCrCl" displayName="EST CrCl ( CG)" /> <statusCode code="completed" /> <effectiveTime value="715338977916" /> <value unit="mL/min" xsi:type="PQ" value="33" /> <interpretationCode codeSystem="local" code="*" /&gt ; <referenceRange> <observationRange> <text& gt;> 59</text> </observationRange> </ referenceRange> </observation> </component> < component> <observation moodCode="EVN" classCode=" OBS"> <templateId root="2.16.840.1.641474.10.20.22.4.2& quot; /> <id nullFlavor="NA" /> <code codeSystem="local" code="GLU" displayName="GLUCOSE&quot ; /> <statusCode code="completed" /> < effectiveTime value="345008969061" /> <value unit=&quot ;mg/dL" xsi:type="PQ" value="140" /> < interpretationCode codeSystem="local" code="*" /> <referenceRange> <observationRange> < text>70-99</text> </observationRange> </ referenceRange> </observation></component> < component> <observation moodCode="EVN" classCode=" OBS"> <templateId root="2.16.840.1.354294.10.20.22.4.2& quot; /> <id nullFlavor="NA" /> <code codeSystem="local" code="CA" displayName="CALCIUM&quot ; /> <statusCode code="completed" /> < effectiveTime value="006995829565" /> <value unit=&quot ;mg/dL" xsi:type="PQ" value="8.6" /> < referenceRange> <observationRange> <text>8.5-10.1& lt;/text> </observationRange> </referenceRange& gt; </observation> </component><component> <observation moodCode="EVN" classCode="OBS"> < templateId root="2.16.840.1.093579.10.20.22.4.2" /> < id nullFlavor="NA" /> <code codeSystem="local&quot ; code="BUN" displayName="BLOOD UREA NITROGEN" /> <statusCode code="completed" /> <effectiveTime value=& quot;139204598519" /> <value unit="mg/dL" xsi:type ="PQ" value="10" /> <referenceRange> <observationRange> <text>7-20</text> </observationRange> </referenceRange> </ observation> </component> <component> < observation moodCode="EVN" classCode="OBS"> < templateId root="2.16.840.1.951731.10.20.22.4.2" /> < id nullFlavor="NA" /> <code codeSystem="local&quot ; code="CREAT" displayName="CREATININE" /> < statusCode code="completed" /> <effectiveTime value=& quot;836143422237" /> <value unit="mg/dL" xsi:type ="PQ" value="1.1" /> <interpretationCode codeSystem="local" code="*" /> < referenceRange> <observationRange> <text> 0.6-1.0</text> </observationRange> </ referenceRange> </observation> </component> < component> <observation moodCode="EVN" classCode=" OBS"> <templateId root="2.16.840.1.407337.10.20.22.4.2& quot; /> <id nullFlavor="NA" /> <code codeSystem="local" code="NA" displayName="SODIUM" /> <statusCode code="completed" /> < effectiveTime value="181156105061" /> <value unit="mmol/L& quot; xsi:type="PQ" value="144" /> < referenceRange> <observationRange> <text> 135-148</text> </observationRange> </ referenceRange> </observation> </component> < component> <observation moodCode="EVN" classCode=" OBS"> <templateId root="2.16.840.1.959653.10.20.22.4.2& quot; /> <id nullFlavor="NA" /> <code codeSystem="local" code="CL" displayName="CHLORIDE&quot ; /> <statusCode code="completed" /> < effectiveTime value="529523582149" /> <value unit=&quot ;mmol/L" xsi:type="PQ" value="109" /> < referenceRange> <observationRange> <text>98- 110</text> </observationRange> </ referenceRange> </observation> </component> < component> <observation moodCode="EVN" classCode=" OBS"> <templateId root="2.16.840.1.554250.10.20.22.4.2&quot ; /> <id nullFlavor="NA" /> <code codeSystem="local" code="CO2" displayName="CARBON DIOXIDE" /> <statusCode code="completed" /> <effectiveTime value="836971473227" /> < value unit="mmol/L" xsi:type="PQ" value="26" /&gt ; <referenceRange> <observationRange> <text>21-32</text> </observationRange> </ referenceRange> </observation> </component> </ organizer> </entry> <entry> <organizer moodCode="EVN& quot; classCode="BATTERY"> <templateId root=" 2.16.840.1.584112.10.20.22.4.1" /> <id nullFlavor="NA&quot ; /> <code codeSystem="local" code="MAG" displayName="MAGNESIUM" /> <statusCode code="completed " /> <component> <observation moodCode="EVN& quot; classCode="OBS"> <templateId root=" 2.16.840.1.103427.10.20.22.4.2" /> <id nullFlavor="NA& quot; /> <code codeSystem="local" code="MAG" displayName="MAGNESIUM" /> <statusCode code=" completed" /> <effectiveTime value="361457596473" /> <value unit="mg/dL" xsi:type="PQ" value=& quot;1.6" /> <interpretationCode codeSystem="local&quot ; code="*" /> <referenceRange> < observationRange> <text>1.8-2.4</text> & lt;/observationRange> </referenceRange> </ observation> </component> </organizer> </entry> & lt;entry> <organizer moodCode="EVN" classCode="BATTERY& quot;> <templateId root="2.16.840.1.655241.10.20.22.4.1" /& gt; <id nullFlavor="NA" /> <codecodeSystem=" local" code="GLUMON" displayName="GLUCOSE (POC)" /> <statusCode code="completed" /> <component> & lt;observation moodCode="EVN" classCode="OBS"> & lt;templateId root="2.16.840.1.272247.10.20.22.4.2" /> &lt ;id nullFlavor="NA" /> <code codeSystem="local& quot; code="GLUMON" displayName="GLUCOSE (POC)" /> <statusCode code="completed" /> <effectiveTime value="735278451998" /> <value unit="mg/dL" xsi:type="PQ" value="130" /> < interpretationCode codeSystem="local" code="*" /> <referenceRange> <observationRange> < text>70-99</text> </observationRange> </ referenceRange> </observation> </component> </ organizer> </entry> <entry> <organizer moodCode="EVN " classCode="BATTERY"> <templateId root=" 2.16.840.1.003605.10.20.22.4.1" /> <id nullFlavor="NA&quot ; /> <code codeSystem="local" code="GLUMON" displayName="GLUCOSE (POC)" /> <statusCode code=" completed" /> <component> <observation moodCode=& quot;EVN" classCode="OBS"> <templateId root=" 2.16.840.1.892208.10.20.22.4.2" /> <id nullFlavor="NA& quot; /> <code codeSystem="local" code="GLUMON& quot; displayName="GLUCOSE (POC)" /> <statusCode code=& quot;completed" /> <effectiveTime value="208252084966& quot; /> <value unit="mg/dL" xsi:type="PQ" value="153" /> <interpretationCode codeSystem=" local" code="*" /> <referenceRange> < observationRange> <text>70-99</text> < /observationRange> </referenceRange> </observation& gt; </component> </organizer> </entry> <entry&gt ; <organizer moodCode="EVN" classCode="BATTERY"> <templateId root="2.16.840.1.859844.10.20.22.4.1" /> & lt;id nullFlavor="NA" /> <code codeSystem="local&quot ; code="GLUMON" displayName="GLUCOSE (POC)" /> < statusCode code="completed" /> <component> < observation moodCode="EVN" classCode="OBS"> < templateId root="2.16.840.1.425191.10.20.22.4.2" /> < id nullFlavor="NA" /> <code codeSystem="local&quot ; code="GLUMON" displayName="GLUCOSE (POC)" /> & lt;statusCode code="completed" /> <effectiveTime value=" 501076926321" /> <value unit="mg/dL" xsi:type=& quot;PQ" value="153" /> <interpretationCode codeSystem="local" code="*" /> < referenceRange> <observationRange> <text> 70-99</text> </observationRange> </ referenceRange> </observation> </component> </ organizer> </entry> <entry> <organizer moodCode="EVN " classCode="BATTERY"><templateId root=" 2.16.840.1.401646.10.20.22.4.1" /> <id nullFlavor="NA&quot ; /> <code codeSystem="local" code="GLUMON" displayName="GLUCOSE (POC)" /> <statusCode code=" completed" /> <component> <observation moodCode=" EVN" classCode="OBS"> <templateId root=" 2.16.840.1.115715.10.20.22.4.2" /> <id nullFlavor="NA& quot; /> <code codeSystem="local" code="GLUMON&quot ; displayName="GLUCOSE (POC)" /> <statusCode code=&quot ;completed" /> <effectiveTime value="667342193275&quot ; /> <value unit="mg/dL" xsi:type="PQ" value= "158" /> <interpretationCode codeSystem="local& quot; code="*" /> <referenceRange> < observationRange> <text>70-99</text> < /observationRange> </referenceRange> </observation& gt; </component> </organizer> </entry> <entry&gt ; <organizer moodCode="EVN" classCode="BATTERY"> <templateId root="2.16.840.1.539606.10.20.22.4.1" /> & lt;id nullFlavor="NA" /> <code codeSystem="local&quot ; code="GLUMON" displayName="GLUCOSE (POC)" /> < statusCode code="completed" /> <component> < observation moodCode="EVN" classCode="OBS"> < templateId root="2.16.840.1.570444.10.20.22.4.2" /> < id nullFlavor="NA" /> <code codeSystem="local&quot ; code="GLUMON" displayName="GLUCOSE (POC)" /> & lt;statusCode code="completed" /> <effectiveTime value= "238445602815" /> <value unit="mg/dL" xsi: type="PQ" value="145" /> <interpretationCode codeSystem="local" code="*" /> < referenceRange> <observationRange> <text> 70-99</text> </observationRange> </referenceRange > </observation> </component> </organizer> </entry> <entry> <organizer moodCode="EVN" classCode="BATTERY"> <templateId root=" 2.16.840.1.885568.10.20.22.4.1" /> <id nullFlavor="NA&quot ; /> <code codeSystem="local" code="GLUMON" displayName="GLUCOSE (POC)" /> <statusCode code=" completed" /> <component> <observation moodCode=& quot;EVN" classCode="OBS"> <templateId root=" 2.16.840.1.612079.10.20.22.4.2" /> <id nullFlavor="NA& quot; /> <code codeSystem="local" code="GLUMON& quot; displayName="GLUCOSE (POC)" /> <statusCode code=& quot;completed" /> <effectiveTime value="515778203909& quot; /> <value unit="mg/dL" xsi:type="PQ" value="135" /> <interpretationCode codeSystem=" local" code="*" /> <referenceRange> < observationRange> <text>70-99</text> < /observationRange> </referenceRange> </observation& gt; </component> </organizer> </entry> <entry&gt ; <organizer moodCode="EVN" classCode="BATTERY"> <templateId root="2.16.840.1.738932.10.20.22.4.1" /> & lt;id nullFlavor="NA" /> <code codeSystem="local&quot ; code="GLUMON" displayName="GLUCOSE (POC)" /> < statusCode code="completed" /> <component> < observation moodCode="EVN" classCode="OBS"> < templateId root="2.16.840.1.801337.10.20.22.4.2" /> < id nullFlavor="NA" /> <code codeSystem="local&quot ; code="GLUMON" displayName="GLUCOSE (POC)" /> & lt;statusCode code="completed" /> <effectiveTime value=" 628801598090" /> <value unit="mg/dL"xsi:type=&quot ;PQ" value="114" /> <interpretationCode codeSystem ="local" code="*" /> <referenceRange> <observationRange> <text>70-99</text> </observationRange> </referenceRange> </ observation> </component> </organizer> </entry> & lt;entry> <organizer moodCode="EVN" classCode="BATTERY& quot;> <templateId root="2.16.840.1.555590.10.20.22.4.1" /> <id nullFlavor="NA" /> <code codeSystem="local " code="GLUMON" displayName="GLUCOSE (POC)" /> <statusCode code="completed" /> <component> < observation moodCode="EVN" classCode="OBS"> < templateId root="2.16.840.1.211372.10..22.4.2" /> < id nullFlavor="NA" /> <code codeSystem="local&quot ; code="GLUMON" displayName="GLUCOSE (POC)" /> & lt;statusCode code="completed" /> <effectiveTime value= "098666493929" /> <value unit="mg/dL" xsi: type="PQ" value="108" /> <interpretationCode codeSystem="local" code="*" /> < referenceRange> <observationRange> <text> 70-99</text> </observationRange> </ referenceRange> </observation> </component> </ organizer> </entry> <entry> <organizer moodCode="EVN " classCode="BATTERY"> <templateId root=" 2.16.840.1.104694.10.20.22.4.1" /> <id nullFlavor="NA&quot ; /> <code codeSystem="local" code="GLUMON" displayName="GLUCOSE (POC)" /> <statusCode code=" completed" /> <component> <observation moodCode=& quot;EVN" classCode="OBS"> <templateId root=" 216.840.1.854530.10.20.22.4.2" /> <id nullFlavor="NA& quot; /> <code codeSystem="local" code="GLUMON& quot; displayName="GLUCOSE (POC)" /> <statusCode code=& quot;completed" /> <effectiveTime value="230466360171& quot; /> <value unit="mg/dL" xsi:type="PQ" value="115" /> <interpretationCode codeSystem=" local" code="*" /> <referenceRange> <observationRange> <text>70-99</text> &lt ;/observationRange> </referenceRange> </observation& gt;</component> </organizer> </entry> <entry> & lt;organizer moodCode="EVN" classCode="BATTERY"> &lt ;templateId root="2.16.840.1.791217.10.20.22.4.1" /> <id nullFlavor="NA" /> <code codeSystem="local" code= "GLUMON" displayName="GLUCOSE (POC)" /> < statusCode code="completed" /> <component> < observation moodCode="EVN" classCode="OBS"> < templateId root="[id number]" /> < id nullFlavor="NA" /> <code codeSystem="local&quot ; code="GLUMON" displayName="GLUCOSE (POC)" /> & lt;statusCode code="completed" /> <effectiveTime value= "[id number]" /> <value unit="mg/dL" xsi: type="PQ" value="119" /> <interpretationCode codeSystem="local" code="*" /> < referenceRange> <observationRange> <text>70-99& lt;/text> </observationRange> </referenceRange& gt; </observation> </component> </organizer> & lt;/entry> <entry> <organizer moodCode="EVN" classCode ="BATTERY"> <templateId root=" [id number]" /><id nullFlavor="NA" /&gt ; <code codeSystem="local" code="GLUMON" displayName ="GLUCOSE (POC)" /> <statusCode code="completed" /> <component> <observation moodCode="EVN" classCode="OBS"> <templateId root=" 2.16.840.1.576489.10.20.22.4.2" /> <id nullFlavor="NA& quot; /> <code codeSystem="local" code="GLUMON& quot; displayName="GLUCOSE (POC)" /> <statusCode code=& quot;completed" /> <effectiveTime value="988125596505" /> <value unit="mg/dL" xsi:type="PQ" value=& quot;123" /> <interpretationCode codeSystem="local&quot ; code="*" /> <referenceRange> < observationRange> <text>70-99</text> < /observationRange> </referenceRange> </observation& gt; </component> </organizer> </entry> <entry&gt ; <organizer moodCode="EVN" classCode="BATTERY"> & lt;templateId root="2.16.840.1.105515.10.20.22.4.1" /> <id nullFlavor="NA" /> <code codeSystem="local" code= "GLUMON" displayName="GLUCOSE (POC)" /> < statusCode code="completed" /> <component> < observation moodCode="EVN" classCode="OBS"> < templateIdroot="2.16.840.1.961831.10.20.22.4.2" /> <id nullFlavor="NA" /> <code codeSystem="local" code="GLUMON" displayName="GLUCOSE (POC)" /> &lt ;statusCode code="completed" /> <effectiveTime value=& quot;115513248689" /> <value unit="mg/dL" xsi:type ="PQ"value="114" /> <interpretationCode codeSystem="local" code="*" /> < referenceRange> <observationRange> <text> 70-99</text> </observationRange> </ referenceRange></observation> </component> </organizer > </entry> <entry><organizer moodCode="EVN" classCode="BATTERY"> <templateId root=" 2.16.840.1.160150.10.20.22.4.1" /> <id nullFlavor="NA&quot ; /> <code codeSystem="local" code="GLUMON" displayName="GLUCOSE (POC)" /> <statusCode code=" completed" /> <component> <observation moodCode=& quot;EVN" classCode="OBS"> <templateId root=" 2.16.840.1.672907.10.20.22.4.2" /> <id nullFlavor="NA& quot; /> <code codeSystem="local" code="GLUMON& quot; displayName="GLUCOSE (POC)" /> <statusCode code=& quot;completed" /> <effectiveTime value="480131622306& quot; /> <value unit="mg/dL" xsi:type="PQ" value="103" /> <interpretationCode codeSystem=" local" code="*" /> <referenceRange> <observationRange> <text>70-99</text> & lt;/observationRange> </referenceRange> </ observation> </component> </organizer> </entry> < entry> <organizer moodCode="EVN" classCode="BATTERY&quot ;> <templateId root="2.16.840.1.312481.10.20.22.4.1" /> <id nullFlavor="NA" /> <code codeSystem=" local" code="GLUMON" displayName="GLUCOSE (POC)" /> <statusCode code="completed" /> <component> <observation moodCode="EVN" classCode="OBS"> <templateId root="2.16.840.1.933902.10.20.22.4.2" /> <id nullFlavor="NA" /> <code codeSystem=" local" code="GLUMON" displayName="GLUCOSE (POC)" /> <statusCode code="completed" /> < effectiveTime value="242956657085" /> <value unit=&quot ;mg/dL" xsi:type="PQ" value="93" /> < referenceRange> <observationRange> <text> 70-99</text> </observationRange> </ referenceRange> </observation> </component> </ organizer> </entry> <entry> <organizer moodCode="EVN " classCode="BATTERY"> <templateId root=" 2.16.840.1.372244.10.20.22.4.1" /> <id nullFlavor="NA&quot ; /> <code codeSystem="local" code="GLUMON" displayName="GLUCOSE (POC)" /> <statusCode code=" completed" /> <component> <observation moodCode=& quot;EVN" classCode="OBS"> <templateId root=" 2.16.840.1.228619.10.20.22.4.2" /> <id nullFlavor="NA" /& gt; <code codeSystem="local" code="GLUMON" displayName="GLUCOSE (POC)" /> <statusCode code=" completed" /> <effectiveTime value="025547719249" /> <value unit="mg/dL" xsi:type="PQ" value=& quot;124" /> <interpretationCode codeSystem="local&quot ; code="*" /> <referenceRange> < observationRange> <text>70-99</text> < /observationRange> </referenceRange> </observation&gt ; </component> </organizer> </entry> <entry> <organizer moodCode="EVN" classCode="BATTERY"> <templateId root="2.16.840.1.280773.10.20.22.4.1" /> < id nullFlavor="NA" /> <code codeSystem="local" code="GLUMON" displayName="GLUCOSE (POC)" /> < statusCode code="completed" /> <component> < observation moodCode="EVN" classCode="OBS">< templateId root="2.16.840.1.386544.10.20.22.4.2" /> < id nullFlavor="NA" /> <code codeSystem="local&quot ; code="GLUMON" displayName="GLUCOSE (POC)" /> & lt;statusCode code="completed" /> <effectiveTime value= "376871738387" /> <value unit="mg/dL" xsi: type="PQ" value="114" /> <interpretationCode codeSystem="local" code="*" /> < referenceRange> <observationRange> <text>70-99& lt;/text> </observationRange> </referenceRange& gt; </observation> </component> </organizer> & lt;/entry> <entry> <organizer moodCode="EVN" classCode ="BATTERY"> <templateId root=" 2.16.840.1.763363.10.20.22.4.1" /> <id nullFlavor="NA&quot ; /> <code codeSystem="local" code="CBC" displayName="CBC" /> <statusCode code="completed&quot ; /> <component> <observation moodCode="EVN" classCode="OBS"> <templateId root=" 2.16.840.1.052219.10.20.22.4.2" /> <id nullFlavor="NA& quot; /> <code codeSystem="local" code="MCH" displayName="MEAN CELL HGB" /> <statusCode code=" completed" /> <effectiveTime value="334272851262" /> <value unit="pg" xsi:type="PQ" value=&quot ;28.8" /> <referenceRange> <observationRange > <text>27.0-33.0</text> </ observationRange> </referenceRange> </observation&gt ; </component> <component> <observation moodCode ="EVN" classCode="OBS"> <templateId root=& quot;2.16.840.1.637674.10.20.22.4.2" /> <id nullFlavor=&quot ;NA" /> <code codeSystem="local" code="MCHC& quot; displayName="MEAN CELL HGB CONCENTRATION" /> < statusCode code="completed" /> <effectiveTime value=& quot;368738287358"/> <value unit="g/dL" xsi:type=& quot;PQ" value="31.7" /> <interpretationCode codeSystem="local" code="*" /> < referenceRange> <observationRange> <text> 32.0-37.0</text> </observationRange> </ referenceRange> </observation> </component> < component> <observation moodCode="EVN" classCode=" OBS"> <templateId root="2.16.840.1.831069.10.20.22.4.2& quot; /> <id nullFlavor="NA" /> <code codeSystem="local" code="MCV" displayName="MEAN CELL VOLUME" /> <statusCode code="completed" /> <effectiveTime value="788663339523" /> <value unit="fl" xsi:type="PQ" value="90.9" /> <referenceRange> <observationRange> < text>80.0-100.0</text> </observationRange> & lt;/referenceRange> </observation> </component> <component> <observation moodCode="EVN" classCode=& quot;OBS"> <templateId root=" 2.16.840.1.234545.10.20.22.4.2" /> <id nullFlavor="NA& quot; /> <code codeSystem="local" code="RBC" displayName="RED BLOOD CELL" /> <statusCode code=" completed" /> <effectiveTime value="" /& gt; <value unit="m/cumm" xsi:type="PQ" value=& quot;2.64" /> <interpretationCode codeSystem="local& quot; code="*" /> <referenceRange> < observationRange> <text>4.00-6.00</text> </observationRange> </referenceRange> </observation> </component> <component> <observation moodCode= "EVN" classCode="OBS"> <templateId root=&quot ;2.16.840.1.913642.10.20.22.4.2" /> <id nullFlavor="NA& quot; /> <code codeSystem="local" code="RDW" displayName="RED CELL DISTRIBUTION WIDTH" /> < statusCode code="completed" /> <effectiveTime value=& quot;598734210560" /> <value unit="%" xsi: type="PQ" value="14.8" /> <referenceRange&gt ; <observationRange> <text>11.0-15.6</ text> </observationRange> </referenceRange> </observation> </component> <component> & lt;observation moodCode="EVN" classCode="OBS"> & lt;templateId root="216.840.1.662761.10.20.22.4.2" /> &lt ;id nullFlavor="NA"/> <code codeSystem="local&quot ; code="WBC" displayName="WHITE BLOOD CELL" /> & lt;statusCode code="completed" /> <effectiveTime value= "" /> <value unit="k/cumm" xsi: type="PQ" value="7.1" /> <referenceRange> <observationRange> <text>5.0-10.0</text& gt; </observationRange> </referenceRange> </observation> </component> <component> &lt ;observation moodCode="EVN" classCode="OBS"> &lt ;templateId root="2.16.840.1.810988.10.20.22.4.2" /> < id nullFlavor="NA" /> <code codeSystem="local" code=& quot;HGBT" displayName="HEMOGLOBIN" /> < statusCode code="completed" /> <effectiveTime value=& quot;" /> <value unit="gm/dL" xsi:type ="PQ" value="7.6" /> <interpretationCode codeSystem="local" code="*" /> <referenceRange > <observationRange> <text>12.0-16.0</ text> </observationRange> </referenceRange> </observation> </component> <component> <observation moodCode="EVN" classCode="OBS"> <templateId root="2.16.840.1.612104.10.20.22.4.2" /> <id nullFlavor="NA" /> <code codeSystem=" local" code="HCTT" displayName="HEMATOCRIT" /> <statusCode code="completed" /> <effectiveTime value="194693826912" /> <value unit="%& quot; xsi:type="PQ" value="24.0" /> < interpretationCode codeSystem="local" code="*" /> <referenceRange> <observationRange> < text>37.0-47.0</text> </observationRange> &lt ;/referenceRange> </observation> </component> & lt;component> <observation moodCode="EVN" classCode=&quot ;OBS"> <templateId root="2.16.840.1.023965.10.20.22.4.2 " /> <id nullFlavor="NA" /> <code codeSystem="local" code="PLT"displayName="PLATELET COUNT" /> <statusCode code="completed" /> <effectiveTime value="385052638854" /> <value unit="k/cumm" xsi:type="PQ" value="139" /> <interpretationCode codeSystem="local" code="*" /& gt; <referenceRange> <observationRange> <text>150-400</text> </observationRange> &lt ;/referenceRange> </observation> </component> < /organizer></entry> <entry> <organizer moodCode="EVN& quot; classCode="BATTERY"> <templateId root=" 2.16.840.1.246615.10.20.22.4.1" /> <id nullFlavor="NA&quot ; /> <code codeSystem="local" code="METAB" displayName="METABOLIC PANEL, BASIC" /> <statusCode code=& quot;completed" /> <component> <observation moodCode="EVN" classCode="OBS"> <templateId root=&quot ;2.16.840.1.444880.10..22.4.2" /> <id nullFlavor="NA& quot; /> <code codeSystem="local" code="K" displayName="POTASSIUM" /> <statusCode code=" completed" /> <effectiveTime value="745988884992" /> <value unit="mmol/L" xsi:type="PQ" value=& quot;4.0" /> <referenceRange> < observationRange> <text>3.5-5.3</text> & lt;/observationRange> </referenceRange> </ observation> </component> <component> < observation moodCode="EVN" classCode="OBS"> < templateId root="2.16.840.1.611882.10..22.4.2" /> < id nullFlavor="NA" /> <code codeSystem="local" code= "eGFR" displayName="EST GFR (MDRD)" /> < statusCode code="completed" /> <effectiveTime value=& quot;499373433545" /> <value unit="mL/min" xsi: type="PQ" value="51" /> <interpretationCode codeSystem="local" code="*" /> < referenceRange> <observationRange> <text> > 59</text> </observationRange> </ referenceRange> </observation> </component> < component> <observation moodCode="EVN" classCode=" OBS"> <templateId root="2.16.840.1.066580.10.20.22.4.2& quot; /> <id nullFlavor="NA" /> <code codeSystem="local" code="GAP" displayName="ANION GAP& quot; /> <statusCode code="completed" /> & lt;effectiveTime value="189506272512" /> <value unit=" mmol/L" xsi:type="PQ" value="12" /> < referenceRange> <observationRange> <text> 5-15</text> </observationRange> </referenceRange& gt; </observation> </component> <component> <observation moodCode="EVN" classCode="OBS"> <templateId root="2.16.840.1.447212.10.20.22.4.2" /> <id nullFlavor="NA" /> <code codeSystem="local& quot; code="eCrCl" displayName="EST CrCl (CG)" /> <statusCode code="completed" /> <effectiveTime value="323434351079" /> <value unit="mL/min" xsi:type="PQ" value="33" /> < interpretationCodecodeSystem="local" code="*" /> <referenceRange> <observationRange> < text>> 59</text> </observationRange> & lt;/referenceRange> </observation> </component> <component> <observation moodCode="EVN" classCode=& quot;OBS"><templateId root="2.16.840.1.187921.10.20.22.4.2&quot ; /> <id nullFlavor="NA" /> <code codeSystem="local" code="GLU" displayName="GLUCOSE&quot ; /> <statusCode code="completed" /> < effectiveTime value="650242865881" /> <value unit=&quot ;mg/dL" xsi:type="PQ" value="119" /> < interpretationCode codeSystem="local" code="*" /> <referenceRange> <observationRange> < text>70-99</text> </observationRange> </ referenceRange> </observation> </component> < component> <observation moodCode="EVN" classCode=" OBS"> <templateId root="2.16.840.1.640094.10.20.22.4.2& quot; /> <id nullFlavor="NA" /> <code codeSystem="local" code="CA" displayName="CALCIUM&quot ; /> <statusCode code="completed" /> < effectiveTime value="968131237958" /> <value unit=" mg/dL" xsi:type="PQ" value="7.9" /> < interpretationCode codeSystem="local" code="*" /> <referenceRange> <observationRange> < text>8.5-10.1</text> </observationRange> </ referenceRange> </observation> </component> < component> <observation moodCode="EVN" classCode=" OBS"> <templateId root="2.16.840.1.912402.10.20.22.4.2& quot; /> <id nullFlavor="NA" /> <code codeSystem="local" code="BUN" displayName="BLOOD UREA NITROGEN" /> <statusCode code="completed" /> <effectiveTime value="449457474346" /> < value unit="mg/dL" xsi:type="PQ" value="15" /> <referenceRange> <observationRange> & lt;text>7-20</text> </observationRange> </ referenceRange> </observation> </component> < component> <observation moodCode="EVN" classCode=" OBS"> <templateId root="2.16.840.1.461197.10.20.22.4.2&quot ; /> <id nullFlavor="NA" /> <code codeSystem="local" code="CREAT" displayName="CREATININE " /> <statusCode code="completed" /> & lt;effectiveTime value="936786297075" /> <value unit=& quot;mg/dL" xsi:type="PQ" value="1.1" /> & lt;interpretationCode codeSystem="local" code="*" /> <referenceRange> <observationRange> < text>0.6-1.0</text> </observationRange> </ referenceRange> </observation> </component> < component> <observation moodCode="EVN" classCode=" OBS"> <templateId root="2.16.840.1.141707.10.20.22.4.2& quot; /> <id nullFlavor="NA" /> <code codeSystem="local" code="NA" displayName="SODIUM" /> <statusCode code="completed" /> < effectiveTime value="717441939187" /> <value unit=&quot ;mmol/L" xsi:type="PQ" value="143" /> < referenceRange> <observationRange> <text> 135-148</text> </observationRange> </ referenceRange> </observation> </component> < component> <observation moodCode="EVN" classCode=" OBS"> <templateId root="2.16.840.1.166329.10..22.4.2& quot; /> <id nullFlavor="NA" /> <code codeSystem="local" code="CL" displayName="CHLORIDE&quot ; /> <statusCode code="completed" /> < effectiveTime value="254103326930" /> <value unit=&quot ;mmol/L" xsi:type="PQ" value="107" /> < referenceRange> <observationRange> <text> 98-110</text> </observationRange> </referenceRange&gt ; </observation> </component> <component> <observation moodCode="EVN" classCode="OBS"> <templateId root="2.16.840.1.555891.10..22.4.2" />< id nullFlavor="NA" /> <code codeSystem="local&quot ; code="CO2" displayName="CARBON DIOXIDE" /> &lt ;statusCode code="completed" /> <effectiveTime value=& quot;316884141575" /> <value unit="mmol/L" xsi: type="PQ" value="24" /> <referenceRange> <observationRange> <text>21-32</text> </observationRange> </referenceRange> </ observation> </component> </organizer> </entry> & lt;entry> <organizer moodCode="EVN" classCode="BATTERY& quot;> <templateId root="2.16.840.1.591734.10.20.22.4.1" /& gt; <id nullFlavor="NA" /> <code codeSystem="local& quot; code="MAG" displayName="MAGNESIUM" /> < statusCode code="completed" /><component> < observation moodCode="EVN" classCode="OBS"> < templateId root="2.16.840.1.722751.10.20.22.4.2" /> < id nullFlavor="NA" /> <code codeSystem="local&quot ; code="MAG" displayName="MAGNESIUM" /> < statusCode code="completed" /> <effectiveTime value=& quot;291721544812" /> <value unit="mg/dL" xsi:type ="PQ" value="1.9" /> <referenceRange> <observationRange> <text>1.8-2.4</text> </observationRange> </referenceRange> &lt ;/observation> </component> </organizer> </entry> <entry> <organizer moodCode="EVN" classCode=" BATTERY"> <templateId root="2.16.840.1.941064.10.20.22.4.1& quot; /> <id nullFlavor="NA" /> <code codeSystem ="local" code="GLUMON" displayName="GLUCOSE (POC)&quot ; /> <statusCode code="completed" /> <component& gt; <observation moodCode="EVN" classCode="OBS"&gt ; <templateId root="2.16.840.1.187407.10.20.22.4.2" /> <id nullFlavor="NA" /> <code codeSystem=& quot;local" code="GLUMON" displayName="GLUCOSE (POC)" / > <statusCode code="completed" /> < effectiveTime value="454631212085" /> <value unit=&quot ;mg/dL" xsi:type="PQ" value="151" /> < interpretationCode codeSystem="local" code="*" /> <referenceRange> <observationRange> < text>70-99</text> </observationRange> </ referenceRange> </observation> </component> </ organizer> </entry> <entry> <organizer moodCode="EVN " classCode="BATTERY"> <templateId root=" 2.16.840.1.202761.10.20.22.4.1" /> <id nullFlavor="NA&quot ; /> <code codeSystem="local" code="GLUMON" displayName="GLUCOSE (POC)" /> <statusCode code=" completed" /> <component> <observation moodCode=& quot;EVN" classCode="OBS"> <templateId root=" 2.16.840.1.583583.10.20.22.4.2" /> <id nullFlavor="NA& quot; /> <code codeSystem="local" code="GLUMON& quot; displayName="GLUCOSE (POC)" /> <statusCode code=" completed" /> <effectiveTime value="324800266807" /> <value unit="mg/dL" xsi:type="PQ" value=& quot;164" /> <interpretationCode codeSystem="local&quot ; code="*" /> <referenceRange> < observationRange> <text>70-99</text> < /observationRange> </referenceRange> </observation& gt; </component> </organizer> </entry> <entry> <organizer moodCode="EVN" classCode="BATTERY"> <templateId root="2.16.840.1.038192.10.20.22.4.1" /> &lt ;id nullFlavor="NA" /> <code codeSystem="local" code="GLUMON" displayName="GLUCOSE (POC)" /> < statusCode code="completed" /> <component> < observation moodCode="EVN" classCode="OBS"> < templateId root="2.16.840.1.243300.10.20.22.4.2" /> < id nullFlavor="NA" /> <code codeSystem="local&quot ; code="GLUMON" displayName="GLUCOSE (POC)" /> & lt;statusCode code="completed" /> <effectiveTime value= "165120103116" /> <value unit="mg/dL" xsi: type="PQ" value="113" /> <interpretationCode codeSystem="local" code="*" /> < referenceRange> <observationRange> <text>70 -99</text> </observationRange> </ referenceRange> </observation> </component> </ organizer> </entry> <entry> <organizer moodCode="EVN " classCode="BATTERY"> <templateId root=" 2.16.840.1.434509.10.20.22.4.1" /> <id nullFlavor="NA" /> <code codeSystem="local" code="CBC" displayName="CBC" /> <statusCode code="completed&quot ; /> <component> <observation moodCode="EVN" classCode="OBS"> <templateId root=" 2.16.840.1.656968.10.20.22.4.2" /> <id nullFlavor="NA& quot; /> <code codeSystem="local" code="MCH" displayName="MEAN CELL HGB" /> <statusCode code=" completed" /> <effectiveTime value="568078422065" /> <value unit="pg" xsi:type="PQ" value=&quot ;28.9" /> <referenceRange> < observationRange> <text>27.0-33.0</text> </observationRange></referenceRange> </observation> </component> <component> <observation moodCode=" EVN" classCode="OBS"> <templateId root=" 2.16.840.1.598462.10.20.22.4.2" /> <id nullFlavor="NA& quot; /> <code codeSystem="local" code="MCHC" displayName="MEAN CELL HGBCONCENTRATION" /> < statusCode code="completed" /> <effectiveTime value=& quot;258648737377" /> <value unit="g/dL" xsi:type= "PQ" value="33.0" /> <referenceRange> <observationRange> <text>32.0-37.0</text&gt ; </observationRange> </referenceRange> & lt;/observation> </component> <component> < observation moodCode="EVN" classCode="OBS"> < templateId root="2.16.840.1.684450.10..22.4.2" /> < id nullFlavor="NA" /> <code codeSystem="local" code="MCV" displayName="MEAN CELL VOLUME" /> &lt ;statusCode code="completed" /> <effectiveTime value=& quot;034109436766" /> <value unit="fl" xsi:type=& quot;PQ" value="87.7" /> <referenceRange> <observationRange> <text>80.0-100.0</text> </observationRange> </referenceRange> </ observation> </component> <component> < observation moodCode="EVN" classCode="OBS"> < templateId root="2.16.840.1.256261.10.20.22.4.2" /> < id nullFlavor="NA" /> <code codeSystem="local&quot ; code="RBC" displayName="RED BLOOD CELL" /> < statusCode code="completed" /> <effectiveTime value=& quot;248324506024" /> <value unit="m/cumm" xsi: type="PQ" value="3.49" /> < interpretationCode codeSystem="local" code="*" /> & lt;referenceRange> <observationRange> <text& gt;4.00-6.00</text> </observationRange> </ referenceRange> </observation> </component> < component> <observation moodCode="EVN" classCode=" OBS"> <templateId root="2.16.840.1.153007.10.20.22.4.2& quot; /> <id nullFlavor="NA" /> <code codeSystem="local" code="RDW" displayName="RED CELL DISTRIBUTION WIDTH" /> <statusCode code="completed&quot ; /> <effectiveTime value="360370065061" /> <value unit="%" xsi:type="PQ" value="15.0& quot; /> <referenceRange> <observationRange> <text>11.0-15.6</text> </observationRange > </referenceRange> </observation> </ component> <component> <observation moodCode="EVN& quot; classCode="OBS"> <templateId root=" 2.16.840.1.975730.10.20.22.4.2" /> <id nullFlavor="NA& quot; /> <code codeSystem="local" code="WBC" displayName="WHITE BLOOD CELL" /> <statusCode code=& quot;completed" /> <effectiveTime value="460368477941& quot; /> <value unit="k/cumm" xsi:type="PQ" value=& quot;11.0" /> <interpretationCode codeSystem="local& quot; code="*" /> <referenceRange> < observationRange> <text>5.0-10.0</text> & lt;/observationRange> </referenceRange> </ observation> </component> <component> < observation moodCode="EVN" classCode="OBS"> < templateId root="2.16.840.1.030212.10.20.22.4.2" /> < id nullFlavor="NA" /> <code codeSystem="local&quot ; code="HGBT" displayName="HEMOGLOBIN" /> < statusCode code="completed" /> <effectiveTime value=&quot ;555474118818" /> <value unit="gm/dL" xsi:type=& quot;PQ" value="10.1" /> <interpretationCode codeSystem="local" code="*" /> < referenceRange> <observationRange> <text> 12.0-16.0</text> </observationRange> </referenceRange > </observation> </component> <component> <observation moodCode="EVN" classCode="OBS"> <templateId root="2.16.840.1.335087.10.20.22.4.2" /> <id nullFlavor="NA" /> <code codeSystem=&quot ;local" code="HCTT" displayName="HEMATOCRIT" /> <statusCode code="completed" /> < effectiveTime value="247404077613" /> <value unit=&quot ;%" xsi:type="PQ"value="30.6" /> & lt;interpretationCode codeSystem="local" code="*" /> <referenceRange> <observationRange> & lt;text>37.0-47.0</text> </observationRange> </referenceRange> </observation> </component> & lt;component> <observation moodCode="EVN" classCode=&quot ;OBS"> <templateId root="2.16.840.1.488937.10.20.22.4.2 " /> <id nullFlavor="NA" /> <code codeSystem="local" code="PLT" displayName="PLATELET COUNT" /> <statusCode code="completed" /> <effectiveTime value="593490669298"/> <value unit="k/cumm" xsi:type="PQ" value="163" /> <referenceRange> <observationRange> &lt ;text>150-400</text> </observationRange> < /referenceRange> </observation> </component> </ organizer> </entry> <entry> <organizer moodCode="EVN " classCode="BATTERY"> <templateId root=" 2.16.840.1.098113.10.20.22.4.1" /> <id nullFlavor="NA&quot ; /> <code codeSystem="local" code="METAB" displayName="METABOLIC PANEL, BASIC" /> <statusCode code=" completed" /> <component> <observation moodCode=& quot;EVN" classCode="OBS"> <templateId root=" 2.16.840.1.394840.10.20.22.4.2" /> <id nullFlavor="NA& quot; /> <code codeSystem="local" code="K" displayName="POTASSIUM" /> <statusCode code=" completed" /> <effectiveTime value="122428138061" /> <value unit="mmol/L" xsi:type="PQ" value=& quot;3.7" /> <referenceRange> <observationRange> <text>3.5-5.3</text> </observationRange& gt; </referenceRange> </observation> </ component> <component> <observation moodCode="EVN& quot; classCode="OBS"> <templateId root=" [id number]" /> <id nullFlavor="NA& quot; /> <code codeSystem="local" code="eGFR&quot ; displayName="EST GFR (MDRD)" /> <statusCode code=& quot;completed" /> <effectiveTime value="[id number]& quot; /> <value unit="mL/min" xsi:type="PQ" value="> 60" /> <referenceRange> & lt;observationRange> <text>> 59</text> </observationRange> </referenceRange> </ observation> </component> <component> < observation moodCode="EVN" classCode="OBS"> < templateId root="[id number]" /> <id nullFlavor="NA" /> <code codeSystem="local" code="GAP" displayName="ANION GAP" /> < statusCode code="completed" /> <effectiveTime value=& quot;[id number]" /> <value unit="mmol/L" xsi: type="PQ" value="7" /> <referenceRange> <observationRange> <text>5-15</text> </observationRange> </referenceRange> </ observation> </component> <component> < observation moodCode="EVN" classCode="OBS"> < templateId root="2.16.840.1.400752.10..22.4.2" /> < id nullFlavor="NA" /> <code codeSystem="local&quot ; code="eCrCl" displayName="EST CrCl (CG)" /> & lt;statusCode code="completed" /><effectiveTime value=" 555966424725" /> <value unit="mL/min" xsi:type=& quot;PQ" value="45" /> <interpretationCode codeSystem="local" code="*" /> < referenceRange> <observationRange> <text>& amp;gt; 59</text> </observationRange> </ referenceRange> </observation> </component> < component><observation moodCode="EVN" classCode="OBS"& gt; <templateId root="2.16.840.1.565399.10.20.22.4.2" /&gt ; <id nullFlavor="NA" /> <code codeSystem=" local" code="GLU" displayName="GLUCOSE" /> & lt;statusCode code="completed" /> <effectiveTime value= "232583610757" /> <value unit="mg/dL" xsi: type="PQ" value="116" /> <interpretationCode codeSystem="local" code="*" /> <referenceRange& gt; <observationRange> <text>70-99</text& gt; </observationRange> </referenceRange> </observation> </component> <component> &lt ;observation moodCode="EVN"classCode="OBS"> < templateId root="2.16.840.1.149936.10.20.22.4.2" /> < id nullFlavor="NA" /> <code codeSystem="local&quot ; code="CA" displayName="CALCIUM" /> < statusCode code="completed" /> <effectiveTime value=& quot;634762255528" /> <value unit="mg/dL" xsi:type ="PQ" value="8.0" /> <interpretationCode codeSystem="local" code="*" /> < referenceRange> <observationRange> <text> 8.5-10.1</text> </observationRange> </ referenceRange> </observation> </component> < component> <observation moodCode="EVN" classCode=" OBS"><templateId root="2.16.840.1.413093.10.20.22.4.2" /&gt ; <id nullFlavor="NA" /> <code codeSystem=& quot;local" code="BUN" displayName="BLOOD UREA NITROGEN&quot ; /> <statusCode code="completed" /> < effectiveTime value="965072599906" /> <value unit=&quot ;mg/dL" xsi:type="PQ" value="14" /> < referenceRange> <observationRange> <text> 7-20</text> </observationRange></referenceRange> </observation> </component> <component> & lt;observation moodCode="EVN" classCode="OBS"> & lt;templateId root="2.16.840.1.932966.10.20.22.4.2" /> &lt ;id nullFlavor="NA" /> <code codeSystem="local&quot ; code="CREAT" displayName="CREATININE" /> < statusCode code="completed" /> <effectiveTime value=& quot;982385768298" /> <value unit="mg/dL" xsi:type ="PQ" value="0.8" /> <referenceRange> <observationRange> <text>0.6-1.0</text> & lt;/observationRange> </referenceRange> </ observation> </component> <component> < observation moodCode="EVN" classCode="OBS"> < templateId root="2.16.840.1.325518.10.20.22.4.2" /> < id nullFlavor="NA" /> <code codeSystem="local&quot ; code="NA" displayName="SODIUM" /> < statusCode code="completed" /> <effectiveTime value=& quot;582465765650" /> <value unit="mmol/L" xsi: type="PQ" value="141" /> <referenceRange> <observationRange> <text>135-148</text> </observationRange> </referenceRange> & lt;/observation> </component> <component> < observation moodCode="EVN" classCode="OBS"> < templateId root="2.16.840.1.075452.10..22.4.2" /> < id nullFlavor="NA" /> <code codeSystem="local&quot ; code="CL" displayName="CHLORIDE" /> < statusCode code="completed" /> <effectiveTime value=& quot;613335259250" /> <valueunit="mmol/L" xsi:type ="PQ" value="107" /> <referenceRange> <observationRange> <text>98-110</text> </observationRange> </referenceRange> < /observation> </component> <component> < observation moodCode="EVN" classCode="OBS"> < templateId root="2.16.840.1.519719.10..22.4.2" /> < id nullFlavor="NA" /> <code codeSystem="local&quot ; code="CO2"displayName="CARBON DIOXIDE" /> < statusCode code="completed" /> <effectiveTime value=& quot;216421366352" /> <value unit="mmol/L" xsi: type="PQ" value="27" /> <referenceRange>& lt;observationRange> <text>21-32</text> & lt;/observationRange> </referenceRange> </ observation> </component> </organizer> </entry> & lt;entry> <organizer moodCode="EVN" classCode="BATTERY& quot;> <templateId root="2.16.840.1.475255.10.20.22.4.1" /& gt; <id nullFlavor="NA" /> <code codeSystem=" local" code="MAG" displayName="MAGNESIUM" /> & lt;statusCode code="completed" /> <component> &lt ;observation moodCode="EVN" classCode="OBS"> &lt ;templateId root="2.16.840.1.133187.10.20.22.4.2" /> < id nullFlavor="NA" /> <code codeSystem="local&quot ; code="MAG" displayName="MAGNESIUM" /> < statusCode code="completed" /> <effectiveTime value=& quot;959092186104" /> <value unit="mg/dL" xsi:type ="PQ" value="1.9" /> <referenceRange> <observationRange> <text>1.8-2.4</text> </observationRange> </referenceRange> &lt ;/observation> </component> </organizer> </entry> <entry> <organizer moodCode="EVN" classCode=" BATTERY"><templateId root="2.16.840.1.997108.10.20.22.4.1" /> <id nullFlavor="NA" /> <code codeSystem=&quot ;local" code="GLUMON" displayName="GLUCOSE (POC)" /&gt ; <statusCode code="completed" /> <component> <observation moodCode="EVN" classCode="OBS"> <templateId root="2.16.840.1.858001.10.20.22.4.2" /> <id nullFlavor="NA" /> <code codeSystem="local& quot; code="GLUMON" displayName="GLUCOSE (POC)" /> <statusCode code="completed" /> <effectiveTime value="188625195228" /> <value unit="mg/dL" xsi:type="PQ" value="109" /> < interpretationCode codeSystem="local" code="*" /> <referenceRange> <observationRange> < text>70-99</text> </observationRange> </ referenceRange> </observation> </component> </ organizer> </entry> <entry> <organizer moodCode="EVN " classCode="BATTERY"> <templateId root=" 2.16.840.1.423870.10.20.22.4.1" /> <id nullFlavor="NA&quot ; /> <code codeSystem="local" code="GLUMON" displayName="GLUCOSE (POC)" /> <statusCode code="completed " /> <component> <observation moodCode="EVN& quot; classCode="OBS"> <templateId root=" 2.16.840.1.903414.10.20.22.4.2" /> <id nullFlavor="NA& quot; /> <code codeSystem="local" code="GLUMON& quot; displayName="GLUCOSE (POC)" /> <statusCode code=& quot;completed" /> <effectiveTime value="461895356911& quot; /> <value unit="mg/dL" xsi:type="PQ" value="103" /> <interpretationCode codeSystem=" local" code="*" /> <referenceRange> <observationRange> <text>70-99</text> < /observationRange> </referenceRange> </observation& gt; </component> </organizer> </entry> <entry&gt ; <organizer moodCode="EVN" classCode="BATTERY"> <templateId root="2.16.840.1.283618.10.20.22.4.1" /> & lt;id nullFlavor="NA" /> <code codeSystem="local&quot ; code="METAB" displayName="METABOLIC PANEL, BASIC" /> <statusCodecode="completed" /> <component> <observation moodCode="EVN" classCode="OBS"> <templateId root="2.16.840.1.709407.10.20.22.4.2" /> <id nullFlavor="NA" /> <code codeSystem=" local" code="K" displayName="POTASSIUM" /> <statusCode code="completed" /> <effectiveTime value ="989550923041" /> <value unit="mmol/L" xsi: type="PQ" value="4.1" /> <referenceRange> <observationRange> <text>3.5-5.3</text& gt;</observationRange> </referenceRange> </ observation> </component> <component> < observation moodCode="EVN" classCode="OBS"> < templateId root="2.16.840.1.885077.10.20.22.4.2" /> < id nullFlavor="NA" /> <code codeSystem="local&quot ; code="eGFR" displayName="EST GFR (MDRD)" /> & lt;statusCode code="completed" /> <effectiveTime value= "055414569003" /> <value unit="mL/min" xsi: type="PQ" value="> 60" /> < referenceRange> <observationRange> <text> > 59</text> </observationRange> </ referenceRange> </observation> </component> < component> <observation moodCode="EVN" classCode=" OBS"> <templateId root="2.16.840.1.321713.10.20.22.4.2& quot; /> <idnullFlavor="NA" /> <code codeSystem="local" code="GAP" displayName="ANION GAP& quot; /> <statusCode code="completed" /> < effectiveTime value="910148731409" /> <value unit=&quot ;mmol/L" xsi:type="PQ" value="12" /> < referenceRange> <observationRange> <text> 5-15</text> </observationRange> </referenceRange > </observation> </component> <component> <observation moodCode="EVN" classCode="OBS"> <templateId root="2.16.840.1.986235.10.20.22.4.2" /> <id nullFlavor="NA" /> <code codeSystem=& quot;local" code="eCrCl" displayName="EST CrCl (CG)" /& gt; <statusCode code="completed" /> < effectiveTime value="922550605183" /> <value unit=&quot ;mL/min" xsi:type="PQ" value="40" /> < interpretationCode codeSystem="local" code="*" /> <referenceRange> <observationRange> < text>> 59</text> </observationRange> & lt;/referenceRange> </observation> </component> <component> <observation moodCode="EVN" classCode=& quot;OBS"> <templateId root=" 2.16.840.1.576488.10.20.22.4.2" /> <id nullFlavor="NA& quot; /> <code codeSystem="local" code="GLU" displayName="GLUCOSE" /> <statusCode code=" completed" /> <effectiveTime value="546169212645" /> <value unit="mg/dL" xsi:type="PQ" value=& quot;125" /> <interpretationCode codeSystem="local" code="*" /> <referenceRange> < observationRange> <text>70-99</text> </ observationRange> </referenceRange> </observation&gt ; </component> <component> <observation moodCode ="EVN" classCode="OBS"> <templateId root=& quot;2.16.840.1.055557.10.20.22.4.2" /> <id nullFlavor="NA&quot ; /> <code codeSystem="local" code="CA" displayName="CALCIUM" /> <statusCode code=" completed" /> <effectiveTime value="920618238317" / > <value unit="mg/dL" xsi:type="PQ" value=& quot;8.3" /> <interpretationCode codeSystem="local&quot ; code="*" /> <referenceRange> < observationRange> <text>8.5-10.1</text> & lt;/observationRange> </referenceRange> </observation> </component> <component> <observation moodCode=&quot ;EVN" classCode="OBS"> <templateIdroot=" 2.16.840.1.951987.10.20.22.4.2" /> <id nullFlavor="NA& quot; /> <code codeSystem="local" code="BUN" displayName="BLOOD UREA NITROGEN" /> <statusCode code=& quot;completed" /> <effectiveTime value="879881425348& quot; /> <value unit="mg/dL" xsi:type="PQ" value="21" /> <interpretationCode codeSystem=" local" code="*" /> <referenceRange> <observationRange> <text>7-20</text> & lt;/observationRange> </referenceRange> </observation> </component> <component> <observation moodCode=& quot;EVN" classCode="OBS"> <templateId root=" 2.16.840.1.333938.10.20.22.4.2" /> <id nullFlavor="NA& quot; /> <code codeSystem="local" code="CREAT&quot ; displayName="CREATININE" /> <statusCode code=" completed" /> <effectiveTime value="241049102628" /> <value unit="mg/dL" xsi:type="PQ" value=& quot;0.9" /> <referenceRange> <observationRange&gt ; <text>0.6-1.0</text> </observationRange > </referenceRange> </observation> </ component> <component> <observation moodCode="EVN& quot; classCode="OBS"> <templateId root=" 2.16.840.1.432355.10.20.22.4.2" /> <id nullFlavor="NA& quot; /> <code codeSystem="local" code="NA" displayName="SODIUM" /> <statusCode code=" completed" /> <effectiveTime value="890207838433" /> <value unit="mmol/L" xsi:type="PQ" value=& quot;140" /> <referenceRange> < observationRange> <text>135-148</text> & lt;/observationRange> </referenceRange> </ observation> </component> <component> < observation moodCode="EVN" classCode="OBS"> < templateId root="2.16.840.1.624957.10.20.22.4.2" /> < id nullFlavor="NA" /> <code codeSystem="local&quot ; code="CL" displayName="CHLORIDE" /> < statusCode code="completed" /> <effectiveTime value=& quot;286861709270" /> <value unit="mmol/L" xsi: type="PQ" value="104" /> <referenceRange> <observationRange> <text>98-110</text&gt ; </observationRange> </referenceRange> </ observation> </component> <component> < observation moodCode="EVN" classCode="OBS"> < templateId root="2.16.840.1.274691.10.20.22.4.2" /> < id nullFlavor="NA" /> <code codeSystem="local&quot ; code="CO2" displayName="CARBON DIOXIDE" /> &lt ;statusCode code="completed" /> <effectiveTime value=& quot;034331085258" /> <value unit="mmol/L" xsi: type="PQ" value="24" /> <referenceRange> <observationRange> <text>21-32</text> </observationRange> </referenceRange> </ observation> </component> </organizer> </entry> & lt;entry> <organizer moodCode="EVN" classCode="BATTERY& quot;> <templateId root="2.16.840.1.129478.10.20.22.4.1" /& gt; <id nullFlavor="NA" /> <code codeSystem=" local" code="CBC" displayName="CBC" /> < statusCode code="completed" /> <component> < observation moodCode="EVN" classCode="OBS"> < templateId root="2.16.840.1.727931.10.20.22.4.2" /> < id nullFlavor="NA" /> <code codeSystem="local&quot ; code="CBCCOM" displayName="COMMENT" /> < statusCode code="completed" /> <effectiveTime value=& quot;353090156110"/> <value unit="" xsi:type=&quot ;PQ" value="REVIEWED" /> <referenceRange> <observationRange> <text /> </ observationRange> </referenceRange> </observation&gt ; </component> <component> <observation moodCode ="EVN" classCode="OBS"> <templateId root=& quot;2.16.840.1.710525.10.20.22.4.2" /> <id nullFlavor="NA&quot ; /> <code codeSystem="local" code="MCH" displayName="MEAN CELL HGB" /> <statusCode code=" completed" /> <effectiveTime value="339239352724" /> <value unit="pg" xsi:type="PQ" value=&quot ;29.1" /> <referenceRange> <observationRange> <text>27.0-33.0</text> </observationRange& gt; </referenceRange> </observation> </ component> <component> <observation moodCode="EVN&quot ; classCode="OBS"> <templateId root=" 2.16.840.1.929724.10.20.22.4.2" /> <id nullFlavor="NA& quot; /> <code codeSystem="local" code="MCHC&quot ; displayName="MEAN CELL HGB CONCENTRATION" /> < statusCode code="completed" /> <effectiveTime value=& quot;476372427392" /> <value unit="g/dL" xsi:type= "PQ" value="34.4" /> <referenceRange> & lt;observationRange> <text>32.0-37.0</text> </observationRange> </referenceRange> </ observation> </component> <component> < observation moodCode="EVN" classCode="OBS"> < templateId root="2.16.840.1.444426.10.20.22.4.2" /> < id nullFlavor="NA" /> <code codeSystem="local&quot ; code="MCV" displayName="MEAN CELL VOLUME" /> & lt;statusCode code="completed" /><effectiveTime value=" 104999382315" /> <value unit="fl" xsi:type=" PQ" value="84.7" /> <referenceRange> <observationRange> <text>80.0-100.0</text> </observationRange> </referenceRange> </ observation> </component> <component> < observation moodCode="EVN" classCode="OBS"> < templateId root="2.16.840.1.830409.10.20.22.4.2" /> < id nullFlavor="NA" /> <code codeSystem="local&quot ; code="RBC" displayName="RED BLOOD CELL" /> &lt ;statusCode code="completed" /> <effectiveTime value=& quot;079345558410" /> <value unit="m/cumm" xsi: type="PQ" value="3.78" /> < interpretationCode codeSystem="local" code="*" /> <referenceRange> <observationRange> < text>4.00-6.00</text> </observationRange> &lt ;/referenceRange> </observation> </component> & lt;component> <observationmoodCode="EVN" classCode=" OBS"> <templateId root="2.16.840.1.503389.10.20.22.4.2& quot; /> <id nullFlavor="NA" /> <code codeSystem="local" code="RDW" displayName="RED CELL DISTRIBUTION WIDTH" /> <statusCode code="completed&quot ; /> <effectiveTime value="644937603281" /> <value unit="%" xsi:type="PQ" value="15.1& quot; /> <referenceRange> <observationRange> <text>11.0-15.6</text> </observationRange> </referenceRange> </observation> </component> <component> <observation moodCode="EVN" classCode="OBS"> <templateId root=" 2.16.840.1.298107.10.20.22.4.2" /> <id nullFlavor="NA& quot; /> <codecodeSystem="local" code="WBC" displayName="WHITE BLOOD CELL" /> <statusCode code=" completed" /> <effectiveTime value="000704905942" /> <value unit="k/cumm" xsi:type="PQ" value=& quot;10.6" /> <interpretationCode codeSystem="local& quot; code="*" /> <referenceRange> < observationRange> <text>5.0-10.0</text> & lt;/observationRange> </referenceRange> </ observation> </component> <component> < observation moodCode="EVN" classCode="OBS"> < templateId root="2.16.840.1.409727.10.20.22.4.2" /> < id nullFlavor="NA" /> <code codeSystem="local&quot ; code="HGBT" displayName="HEMOGLOBIN" /> < statusCode code="completed" /> <effectiveTime value=& quot;464692223951" /> <value unit="gm/dL" xsi:type ="PQ" value="11.0" /> <interpretationCode codeSystem="local" code="*" /> < referenceRange> <observationRange> <text>12.0- 16.0</text> </observationRange> </ referenceRange> </observation> </component> < component> <observation moodCode="EVN" classCode=" OBS"> <templateId root="2.16.840.1.257078.10.20.22.4.2& quot; /> <id nullFlavor="NA" /> <code codeSystem="local" code="HCTT" displayName="HEMATOCRIT& quot; /> <statusCode code="completed" /> & lt;effectiveTime value="557083344836" /> <value unit=& quot;%" xsi:type="PQ" value="32.0" /> <interpretationCode codeSystem="local" code="*" /&gt ; <referenceRange> <observationRange> <text>37.0-47.0</text> </observationRange> </referenceRange> </observation> </component&gt ; <component> <observation moodCode="EVN" classCode=& quot;OBS"> <templateId root=" 2.16.840.1.118375.10.20.22.4.2" /> <id nullFlavor="NA& quot; /> <code codeSystem="local" code="PLT" displayName="PLATELET COUNT" /> <statusCode code=" completed" /> <effectiveTime value="856262513005" /> <value unit="k/cumm" xsi:type="PQ" value=& quot;207" /> <referenceRange> < observationRange> <text>150-400</text> </ observationRange> </referenceRange> </observation&gt ; </component> </organizer> </entry> <entry> <organizer moodCode="EVN" classCode="BATTERY"> <templateId root="2.16.840.1.643911.10.20.22.4.1" /> < id nullFlavor="NA" /> <code codeSystem="local" code="GLUMON" displayName="GLUCOSE (POC)" /> < statusCode code="completed" /> <component> < observation moodCode="EVN" classCode="OBS"> < templateId root="2.16.840.1.402970.10.20.22.4.2" /> < id nullFlavor="NA" /> <code codeSystem="local&quot ; code="GLUMON" displayName="GLUCOSE (POC)" /> & lt;statusCode code="completed" /> <effectiveTime value= "698397504615" /> <value unit="mg/dL" xsi: type="PQ" value="105" /> <interpretationCode codeSystem="local" code="*" /> <referenceRange& gt; <observationRange> <text>70-99</text& gt; </observationRange> </referenceRange> </observation> </component> </organizer> </entry > <entry> <organizermoodCode="EVN" classCode=" BATTERY"> <templateId root="2.16.840.1.312337.10.20.22.4.1& quot; /> <id nullFlavor="NA" /> <code codeSystem ="local" code="GLUMON" displayName="GLUCOSE (POC)&quot ; /> <statusCode code="completed" /> <component& gt; <observation moodCode="EVN" classCode="OBS"&gt ; <templateId root="2.16.840.1.286337.10.20.22.4.2" /> <id nullFlavor="NA" /> <code codeSystem=& quot;local" code="GLUMON" displayName="GLUCOSE (POC)" / > <statusCodecode="completed" /> < effectiveTime value="105060023149" /> <value unit="mg/ dL" xsi:type="PQ" value="123" /> < interpretationCode codeSystem="local" code="*" /> <referenceRange> <observationRange> < text>70-99</text> </observationRange> </ referenceRange> </observation> </component> </ organizer> </entry> <entry> <organizer moodCode="EVN "classCode="BATTERY"> <templateId root=" 2.16.840.1.555352.10.20.22.4.1" /> <id nullFlavor="NA&quot ; /> <code codeSystem="local" code="GLUMON" displayName="GLUCOSE (POC)" /> <statusCode code=" completed" /> <component> <observation moodCode=& quot;EVN" classCode="OBS"> <templateId root=" 2.16.840.1.409929.10.20.22.4.2" /> <id nullFlavor="NA& quot; /> <code codeSystem="local" code="GLUMON& quot; displayName="GLUCOSE (POC)" /> <statusCode code=& quot;completed" /> <effectiveTime value="503760419730& quot; /> <value unit="mg/dL" xsi:type="PQ" value="133" /> <interpretationCode codeSystem=" local" code="*" /> <referenceRange> <observationRange> <text>70-99</text> </observationRange> </referenceRange> </observation& gt; </component> </organizer> </entry> <entry&gt ; <organizer moodCode="EVN" classCode="BATTERY"> <templateId root="2.16.840.1.033231.10.20.22.4.1" /> & lt;id nullFlavor="NA" /> <code codeSystem="local&quot ; code="GLUMON" displayName="GLUCOSE (POC)" /> < statusCode code="completed" /> <component> < observation moodCode="EVN" classCode="OBS"> < templateId root="2.16.840.1.826271.10.20.22.4.2" /> < id nullFlavor="NA" /> <code codeSystem="local&quot ; code="GLUMON" displayName="GLUCOSE (POC)" /> & lt;statusCode code="completed" /> <effectiveTime value= "231224316294" /> <value unit="mg/dL" xsi: type="PQ" value="114" /> <interpretationCode codeSystem="local"code="*" /> <referenceRange > <observationRange> <text>70-99</text> </observationRange> </referenceRange> </ observation> </component> </organizer> </entry> & lt;entry> <organizer moodCode="EVN" classCode="BATTERY& quot;> <templateId root="2.16.840.1.763249.10.20.22.4.1" /& gt; <id nullFlavor="NA" /> <code codeSystem=" local" code="METAB" displayName="METABOLIC PANEL, BASIC&quot ; /> <statusCode code="completed" /> <component& gt; <observation moodCode="EVN" classCode="OBS"> <templateId root="2.16.840.1.819475.10.20.22.4.2" /> <id nullFlavor="NA" /> <code codeSystem="local& quot; code="K" displayName="POTASSIUM" /> < statusCode code="completed" /> <effectiveTime value=& quot;397521274445" /> <value unit="mmol/L" xsi: type="PQ" value="3.6" /> <referenceRange> <observationRange> <text>3.5-5.3</text& gt; </observationRange> </referenceRange> &lt ;/observation> </component> <component> < observation moodCode="EVN" classCode="OBS"> < templateId root="2.16.840.1.685588.10.20.22.4.2" /> < id nullFlavor="NA" /> <code codeSystem="local&quot ; code="eGFR" displayName="EST GFR (MDRD)" /> & lt;statusCode code="completed" /> <effectiveTime value= "096654710646"/> <value unit="mL/min" xsi: type="PQ" value="> 60" /> < referenceRange> <observationRange> <text> > 59</text> </observationRange> </ referenceRange> </observation> </component> < component> <observation moodCode="EVN" classCode=" OBS"> <templateId root="2.16.840.1.092859.10.20.22.4.2& quot; /> <id nullFlavor="NA" /> <code codeSystem="local" code="GAP" displayName="ANION GAP& quot; /> <statusCode code="completed" /> & lt;effectiveTime value="565603659021" /> <value unit=" mmol/L" xsi:type="PQ" value="12" /> < referenceRange> <observationRange> <text> 5-15</text> </observationRange> </ referenceRange> </observation> </component> < component> <observation moodCode="EVN" classCode=" OBS"> <templateId root="2.16.840.1.994503.10.20.22.4.2& quot; /> <id nullFlavor="NA" /> <code codeSystem="local" code="eCrCl" displayName="EST CrCl ( CG)" /> <statusCode code="completed" /> <effectiveTime value="253393537408" /> <value unit="mL/min" xsi:type="PQ" value="40" /> <interpretationCode codeSystem="local" code="*" /&gt ; <referenceRange> <observationRange> <text>> 59</text> </observationRange> </referenceRange> </observation> </component& gt; <component> <observation moodCode="EVN" classCode="OBS"> <templateId root=" 2.16.840.1.686473.10..22.4.2" /> <id nullFlavor="NA& quot; /> <code codeSystem="local" code="GLU" displayName="GLUCOSE" /> <statusCode code=" completed" /> <effectiveTime value="917755217491" /> <value unit="mg/dL" xsi:type="PQ" value=& quot;95" /> <referenceRange> < observationRange> <text>70-99</text> < /observationRange> </referenceRange> </observation& gt; </component> <component> <observation moodCode="EVN" classCode="OBS"> <templateId root="2.16.840.1.692934.10.20.22.4.2" /> <id nullFlavor ="NA" /> <code codeSystem="local" code="CA" displayName="CALCIUM" /> <statusCode code="completed& quot; /> <effectiveTime value="167057925193" /> <value unit="mg/dL" xsi:type="PQ" value="8.2& quot; /> <interpretationCode codeSystem="local" code=& quot;*" /> <referenceRange> <observationRange> <text>8.5-10.1</text> </observationRange > </referenceRange> </observation> </ component> <component> <observation moodCode="EVN& quot; classCode="OBS"> <templateId root=" [id number]"/> <id nullFlavor="NA& quot; /> <code codeSystem="local"code="BUN" displayName="BLOOD UREA NITROGEN" /> <statusCode code=& quot;completed" /> <effectiveTime value="[id number]& quot; /> <value unit="mg/dL" xsi:type="PQ" value="23" /> <interpretationCode codeSystem=" local" code="*" /> <referenceRange> & lt;observationRange> <text>7-20</text> & lt;/observationRange> </referenceRange> </ observation> </component> <component> < observation moodCode="EVN" classCode="OBS"> < templateId root="[id number]" /> < id nullFlavor="NA" /> <code codeSystem="local&quot ; code="CREAT" displayName="CREATININE" /> < statusCode code="completed" /> <effectiveTime value=& quot;808431923546" /> <value unit="mg/dL" xsi:type ="PQ" value="0.9" /> <referenceRange> <observationRange> <text>0.6-1.0</text> </observationRange> </referenceRange> </ observation> </component> <component> < observation moodCode="EVN" classCode="OBS"> < templateId root="2.16.840.1.545995.10.20.22.4.2" /> < id nullFlavor="NA" /> <code codeSystem="local&quot ; code="NA" displayName="SODIUM" /> < statusCode code="completed" /> <effectiveTime value=& quot;953445302147" /> <value unit="mmol/L" xsi: type="PQ" value="141" /> <referenceRange> <observationRange> <text>135-148</text> </observationRange> </referenceRange> </ observation> </component> <component> < observationmoodCode="EVN" classCode="OBS"> < templateId root="2.16.840.1.828988.10.20.22.4.2" /> < id nullFlavor="NA" /> <code codeSystem="local&quot ; code="CL" displayName="CHLORIDE" /> < statusCode code="completed" /> <effectiveTime value=& quot;640613846520" /> <value unit="mmol/L" xsi: type="PQ" value="101" /> <referenceRange> <observationRange> <text>98-110</text> </observationRange> </referenceRange> &lt ;/observation> </component> <component> < observation moodCode="EVN" classCode="OBS"> < templateId root="2.16.840.1.642112.10.20.22.4.2" /> < id nullFlavor="NA" /> <code codeSystem="local&quot ; code="CO2" displayName="CARBON DIOXIDE" /> &lt ;statusCode code="completed" /> <effectiveTime value=& quot;095472672412" /> <value unit="mmol/L" xsi: type="PQ" value="28" /> <referenceRange> <observationRange> <text>21-32</text> </observationRange> </referenceRange> </ observation> </component> </organizer> </entry> & lt;entry> <organizer moodCode="EVN" classCode="BATTERY& quot;> <templateId root="2.16.840.1.933861.10.20.22.4.1" /& gt; <id nullFlavor="NA" /> <code codeSystem=" local" code="MAG" displayName="MAGNESIUM" /> & lt;statusCode code="completed" /> <component> &lt ;observation moodCode="EVN" classCode="OBS"> &lt ;templateId root="2.16.840.1.890289.10.20.22.4.2" /> < id nullFlavor="NA" /> <code codeSystem="local&quot ; code="MAG" displayName="MAGNESIUM" /> < statusCode code="completed" /> <effectiveTime value=& quot;373800289258" /> <value unit="mg/dL" xsi:type ="PQ" value="1.9" /> <referenceRange> <observationRange> <text>1.8-2.4</text> </observationRange> </referenceRange> &lt ;/observation> </component> </organizer> </entry> <entry> <organizer moodCode="EVN" classCode=" BATTERY"> <templateId root="2.16.840.1.273350.10.20.22.4.1& quot; /> <id nullFlavor="NA" /> <code codeSystem ="local" code="CBC" displayName="CBC" /> & lt;statusCode code="completed" /> <component> &lt ;observation moodCode="EVN" classCode="OBS"> &lt ;templateId root="2.16.840.1.259708.10..22.4.2" /> < id nullFlavor="NA" /> <code codeSystem="local&quot ; code="CBCCOM" displayName="COMMENT" /> < statusCode code="completed" /> <effectiveTimevalue=& quot;104662012945" /> <value unit="" xsi:type=& quot;PQ" value="REVIEWED" /> <referenceRange> <observationRange> <text /> </ observationRange> </referenceRange> </observation> </component> <component> <observation moodCode=" EVN" classCode="OBS"> <templateId root=" 2.16.840.1.538324...22.4.2" /> <id nullFlavor="NA& quot; /> <code codeSystem="local" code="MCH" displayName="MEAN CELL HGB" /> <statusCode code=" completed" /> <effectiveTime value="637289658952" /> <value unit="pg" xsi:type="PQ" value=&quot ;29.2" /> <referenceRange> <observationRange> <text>27.0-33.0</text> </observationRange& gt; </referenceRange> </observation> </ component> <component> <observation moodCode="EVN& quot; classCode="OBS"> <templateId root=" 2.16.840.1.076077.10.20.22.4.2" /> <id nullFlavor="NA& quot; /> <code codeSystem="local" code="[facility]&quot ; displayName="MEAN CELL HGB CONCENTRATION" /> < statusCode code="completed" /> <effectiveTime value=& quot;945777063982" /> <value unit="g/dL" xsi:type=& quot;PQ" value="33.3" /><referenceRange> < observationRange> <text>32.0-37.0</text> </observationRange> </referenceRange> </ observation> </component> <component> < observation moodCode="EVN" classCode="OBS"> < templateId root="2.16.840.1.767543.10.20.22.4.2" /> < id nullFlavor="NA" /> <code codeSystem="local&quot ; code="MCV" displayName="MEAN CELL VOLUME" /> & lt;statusCode code="completed" /> <effectiveTime value= "785696582987" /> <value unit="fl" xsi:type=& quot;PQ" value="87.7" /> <referenceRange> <observationRange> <text>80.0-100.0</text&gt ; </observationRange> </referenceRange> </ observation> </component> <component> < observation moodCode="EVN" classCode="OBS"> < templateId root="2.16.840.1.092134.10.20.22.4.2" /> < id nullFlavor="NA" /> <code codeSystem="local&quot ; code="RBC" displayName="RED BLOOD CELL" /> &lt ;statusCode code="completed"/> <effectiveTime value=& quot;325423848145" /> <value unit="m/cumm" xsi: type="PQ" value="3.83" /> < interpretationCode codeSystem="local" code="*" /> <referenceRange> <observationRange> < text>4.00-6.00</text> </observationRange> &lt ;/referenceRange> </observation> </component> & lt;component> <observation moodCode="EVN" classCode=&quot ;OBS"> <templateId root="2.16.840.1.378022.10.20.22.4.2 " /> <id nullFlavor="NA" /> <code codeSystem="local" code="RDW" displayName="RED CELL DISTRIBUTION WIDTH" /> <statusCode code="completed&quot ; /><effectiveTime value="752168011270" /> < value unit="%"xsi:type="PQ" value="15.3" / > <referenceRange> <observationRange> <text>11.0-15.6</text> </observationRange> </referenceRange> </observation> </component > <component> <observation moodCode="EVN" classCode="OBS"> <templateId root=" 2.16.840.1.425853.10.20.22.4.2" /> <id nullFlavor="NA& quot; /> <code codeSystem="local" code="WBC" displayName="WHITE BLOOD CELL" /> <statusCode code=& quot;completed" /> <effectiveTime value="449130496376& quot; /> <value unit="k/cumm" xsi:type="PQ" value="9.0" /> <referenceRange> < observationRange> <text>5.0-10.0</text> & lt;/observationRange></referenceRange> </observation> </component> <component> <observation moodCode=" EVN" classCode="OBS"> <templateId root=" 2.16.840.1.735575.10.20.22.4.2" /> <id nullFlavor="NA& quot; /> <code codeSystem="local" code="HGBT" displayName="HEMOGLOBIN" /> <statusCode code=" completed" /> <effectiveTime value="396971159971" /> <value unit="gm/dL" xsi:type="PQ" value=& quot;11.2" /> <interpretationCode codeSystem="local& quot; code="*" /> <referenceRange> < observationRange> <text>12.0-16.0</text> </observationRange> </referenceRange> </ observation> </component> <component> < observation moodCode="EVN" classCode="OBS"> < templateId root="2.16.840.1.991792.10.20.22.4.2" /> < id nullFlavor="NA" /> <code codeSystem="local&quot ; code="HCTT" displayName="HEMATOCRIT" /> < statusCode code="completed" /> <effectiveTime value=& quot;793726494002" /> <value unit="%" xsi:type ="PQ" value="33.6" /> <interpretationCode codeSystem="local" code="*" /> < referenceRange> <observationRange> <text> 37.0-47.0</text> </observationRange> </ referenceRange> </observation> </component> < component> <observation moodCode="EVN" classCode=" OBS"> <templateId root="2.16.840.1.713554.10.20.22.4.2& quot; /> <id nullFlavor="NA" /> <code codeSystem ="local" code="PLT" displayName="PLATELET COUNT" / > <statusCode code="completed" /> < effectiveTime value="379347634718" /> <value unit=&quot ;k/cumm" xsi:type="PQ" value="228" /> < referenceRange> <observationRange> <text>150 -400</text> </observationRange> </ referenceRange> </observation> </component> </ organizer> </entry> <entry> <organizer moodCode="EVN " classCode="BATTERY"> <templateId root=" 2.16.840.1.266365.10.20.22.4.1" /> <id nullFlavor="NA&quot ; /> <code codeSystem="local" code="GLUMON" displayName="GLUCOSE (POC)" /> <statusCode code=" completed" /> <component> <observation moodCode=& quot;EVN" classCode="OBS"> <templateId root=" 2.16.840.1.122671.10.20.22.4.2" /> <idnullFlavor="NA& quot; /> <code codeSystem="local" code="GLUMON& quot; displayName="GLUCOSE (POC)" /> <statusCode code=& quot;completed" /> <effectiveTime value="452006255488& quot; /> <value unit="mg/dL" xsi:type="PQ" value="95" /> <referenceRange><observationRange& gt; <text>70-99</text> </observationRange > </referenceRange> </observation> </ component> </organizer> </entry> <entry> < organizer moodCode="EVN" classCode="BATTERY"> < templateId root="2.16.840.1.199513.10.20.22.4.1" /> <id nullFlavor="NA" /> <code codeSystem="local" code= "CBC" displayName="CBC" /> <statusCode code=&quot ;completed" /> <component> <observation moodCode=& quot;EVN" classCode="OBS"> <templateId root=" 2.16.840.1.335072.10.20.22.4.2" /> <id nullFlavor="NA& quot; /> <code codeSystem="local" code="MCH" displayName="MEAN CELL HGB" /> <statusCode code=" completed" /> <effectiveTime value="808549333389" /> <value unit="pg" xsi:type="PQ" value=&quot ;28.6" /> <referenceRange> < observationRange> <text>27.0-33.0</text> < /observationRange> </referenceRange> </observation& gt; </component> <component> <observation moodCode="EVN" classCode="OBS"> <templateId root="2.16.840.1.681208.10.20.22.4.2" /> <id nullFlavor ="NA" /> <code codeSystem="local" code=" [facility]" displayName="MEAN CELL HGB CONCENTRATION" /> & lt;statusCode code="completed" /> <effectiveTime value= "166752088599" /> <value unit="g/dL" xsi:type ="PQ"value="32.4" /> <referenceRange> <observationRange> <text>32.0-37.0</text> </observationRange> </referenceRange> </ observation> </component> <component> < observation moodCode="EVN" classCode="OBS"> < templateId root="2.16.840.1.134246.10.20.22.4.2" /> < id nullFlavor="NA" /> <code codeSystem="local&quot ; code="MCV" displayName="MEAN CELL VOLUME" /> & lt;statusCode code="completed" /> <effectiveTime value= "515985394258" /> <value unit="fl" xsi:type=& quot;PQ" value="88.1" /> <referenceRange> <observationRange> <text>80.0-100.0</text&gt ; </observationRange> </referenceRange> &lt ;/observation> </component> <component> < observation moodCode="EVN" classCode="OBS"> < templateId root="2.16.840.1.459906.10.20.22.4.2" /> < id nullFlavor="NA" /> <code codeSystem="local&quot ; code="RBC" displayName="RED BLOOD CELL" /> &lt ;statusCode code="completed" /> <effectiveTime value=& quot;633032522847" /> <value unit="m/cumm" xsi: type="PQ" value="4.13" /> <referenceRange&gt ; <observationRange> <text>4.00-6.00</ text> </observationRange> </referenceRange> </observation> </component> <component> <observation moodCode="EVN" classCode="OBS"> <templateId root="2.16.840.1.590694.10.20.22.4.2" /> <id nullFlavor="NA" /> <code codeSystem=" local" code="RDW" displayName="RED CELL DISTRIBUTION WIDTH& quot; /> <statusCode code="completed" /> & lt;effectiveTime value="286229227241" /> <value unit=& quot;%" xsi:type="PQ" value="15.2" /> <referenceRange> <observationRange> < text>11.0-15.6</text> </observationRange> &lt ;/referenceRange> </observation> </component> & lt;component> <observation moodCode="EVN" classCode=&quot ;OBS"> <templateId root="2.16.840.1.239177.10.20.22.4.2 " /> <id nullFlavor="NA" /> <code codeSystem="local" code="WBC" displayName="WHITE BLOOD CELL" /> <statusCode code="completed" /> <effectiveTime value="820187928551" /> <value unit ="k/cumm" xsi:type="PQ" value="9.5" /> < referenceRange> <observationRange> <text> 5.0-10.0</text> </observationRange> </ referenceRange> </observation> </component> < component> <observation moodCode="EVN" classCode=" OBS"> <templateId root="2.16.840.1.546505.10.20.22.4.2& quot; /> <id nullFlavor="NA" /> <code codeSystem="local" code="HGBT" displayName="HEMOGLOBIN& quot; /> <statusCode code="completed" /> & lt;effectiveTime value="935636966397" /> <valueunit=& quot;gm/dL" xsi:type="PQ" value="11.8" /> & lt;interpretationCode codeSystem="local" code="*" /> <referenceRange> <observationRange> <text&gt ;12.0-16.0</text> </observationRange> </ referenceRange> </observation> </component> < component> <observation moodCode="EVN" classCode=" OBS"> <templateId root="2.16.840.1.354629.10.20.22.4.2&quot ; /> <id nullFlavor="NA" /> <code codeSystem="local" code="HCTT" displayName="HEMATOCRIT& quot; /> <statusCode code="completed" /> & lt;effectiveTime value="324333681791" /> <value unit=& quot;%" xsi:type="PQ" value="36.4" /> <interpretationCode codeSystem="local" code="*" /&gt ; <referenceRange> <observationRange> <text>37.0-47.0</text> </observationRange> </referenceRange> </observation> </component&gt ; <component> <observation moodCode="EVN" classCode="OBS"> <templateId root=" 2..840.1.477242.10.20.22.4.2" /> <id nullFlavor="NA& quot; /> <code codeSystem="local" code="PLT" displayName="PLATELET COUNT" /> <statusCode code=" completed" /> <effectiveTime value="682081430443" /> <value unit="k/cumm" xsi:type="PQ" value=& quot;269" /> <referenceRange> < observationRange> <text>150-400</text> & lt;/observationRange> </referenceRange> </ observation> </component> </organizer> </entry> & lt;entry> <organizer moodCode="EVN" classCode="BATTERY& quot;> <templateIdroot="2.16.840.1.119906.10.20.22.4.1" /& gt; <id nullFlavor="NA" /> <code codeSystem="local " code="METAB" displayName="METABOLIC PANEL, BASIC" /& gt; <statusCode code="completed" /> <component> <observation moodCode="EVN" classCode="OBS"> <templateId root="2.16.840.1.792427.10.20.22.4.2" /> <id nullFlavor="NA" /> <code codeSystem="local& quot; code="K" displayName="POTASSIUM" /> < statusCode code="completed" /> <effectiveTime value=& quot;835572969217" /> <value unit="mmol/L" xsi: type="PQ" value="3.7" /> <referenceRange> <observationRange> <text>3.5-5.3</text& gt; </observationRange> </referenceRange></ observation> </component> <component> < observation moodCode="EVN" classCode="OBS"> < templateId root="2.16.840.1.154898.10.20.22.4.2" /> < id nullFlavor="NA" /> <code codeSystem="local&quot ; code="eGFR" displayName="EST GFR (MDRD)" /> & lt;statusCode code="completed" /> <effectiveTime value= "146862494469" /> <value unit="mL/min" xsi: type="PQ" value="57" /> <interpretationCode codeSystem="local" code="*" /> < referenceRange> <observationRange> <text> > 59</text> </observationRange> </ referenceRange> </observation> </component> < component> <observation moodCode="EVN" classCode=" OBS"> <templateId root="2.16.840.1.184001.10.20.22.4.2& quot; /> <id nullFlavor="NA" /> <code codeSystem="local" code="GAP" displayName="ANION GAP& quot; /> <statusCode code="completed"/> &lt ;effectiveTime value="768464981923" /> <value unit=& quot;mmol/L" xsi:type="PQ" value="9" /> &lt ;referenceRange> <observationRange> <text>5-15&lt ;/text> </observationRange> </referenceRange&gt ; </observation> </component> <component> <observation moodCode="EVN" classCode="OBS"> < templateId root="2.16.840.1.192117.10..22.4.2" /> < id nullFlavor="NA" /> <code codeSystem="local&quot ; code="eCrCl" displayName="EST CrCl (CG)" /> & lt;statusCode code="completed" /> <effectiveTime value= "914273379134" /> <value unit="mL/min" xsi: type="PQ" value="37" /> <interpretationCode codeSystem="local" code="*" /> < referenceRange> <observationRange> <text>& gt; 59</text> </observationRange> </ referenceRange> </observation> </component> < component> <observation moodCode="EVN" classCode=" OBS"> <templateId root="2.16.840.1.775843.10.20.22.4.2& quot; /> <id nullFlavor="NA" /> <code codeSystem="local" code="GLU" displayName="GLUCOSE&quot ; /> <statusCode code="completed" /> < effectiveTime value="011406926151" /> <value unit=&quot ;mg/dL" xsi:type="PQ" value="109" /> < interpretationCode codeSystem="local" code="*" /> < referenceRange> <observationRange> <text> 70-99</text> </observationRange> </ referenceRange> </observation> </component> < component> <observation moodCode="EVN" classCode=" OBS"> <templateId root="2.16.840.1.605407.10.20.22.4.2& quot; /> <id nullFlavor="NA" /> <code codeSystem="local" code="CA" displayName="CALCIUM&quot ; /> <statusCode code="completed" /> < effectiveTime value="592117175762" /> <value unit=&quot ;mg/dL" xsi:type="PQ" value="9.0" /> < referenceRange> <observationRange> <text>8.5 -10.1</text> </observationRange> </ referenceRange> </observation> </component> < component> <observation moodCode="EVN" classCode=" OBS"> <templateId root="2.16.840.1.887026.10.20.22.4.2& quot; /> <id nullFlavor="NA" /> <code codeSystem="local" code="BUN" displayName="BLOOD UREA NITROGEN" /> <statusCode code="completed" /> <effectiveTime value="823143452275" /> <value unit="mg/dL" xsi:type="PQ" value="21" /> <interpretationCode codeSystem="local" code="*" /&gt ; <referenceRange> <observationRange> <text>7-20</text> </observationRange> </referenceRange> </observation> </component> <component><observation moodCode="EVN" classCode="OBS& quot;> <templateId root="2.16.840.1.671068.10.20.22.4.2&quot ; /> <id nullFlavor="NA" /> <code codeSystem=& quot;local" code="CREAT" displayName="CREATININE" /&gt ; <statusCode code="completed" /> < effectiveTime value="813434717806" /> <value unit=&quot ;mg/dL" xsi:type="PQ" value="1.0" /> < referenceRange> <observationRange> <text> 0.6-1.0</text> </observationRange> </ referenceRange> </observation> </component> < component> <observation moodCode="EVN" classCode=" OBS"> <templateId root="2.16.840.1.399327.10.20.22.4.2& quot; /> <id nullFlavor="NA" /> <code codeSystem="local" code="NA" displayName="SODIUM" /> <statusCode code="completed" /> < effectiveTime value="594959205099" /> <value unit=" mmol/L" xsi:type="PQ" value="138" /> < referenceRange> <observationRange> <text> 135-148</text> </observationRange> </ referenceRange> </observation> </component> < component> <observation moodCode="EVN" classCode=" OBS"> <templateId root="2.16.840.1.069260.10.20.22.4.2& quot; /> <id nullFlavor="NA" /> <code codeSystem="local" code="CL" displayName="CHLORIDE&quot ; /> <statusCode code="completed" /> < effectiveTime value="046691748174" /> <value unit=&quot ;mmol/L" xsi:type="PQ" value="100" /> < referenceRange> <observationRange> <text> 98-110</text> </observationRange> </ referenceRange> </observation> </component> < component> <observation moodCode="EVN" classCode=" OBS"> <templateId root="2.16.840.1.375699.10.20.22.4.2& quot; /> <id nullFlavor="NA" /> <code codeSystem="local" code="CO2" displayName="CARBON DIOXIDE" /> <statusCode code="completed" /> <effectiveTime value="184205065055" /> <value unit ="mmol/L" xsi:type="PQ" value="29" /> <referenceRange> <observationRange> <text >21-32</text> </observationRange> </ referenceRange> </observation> </component> </ organizer> </entry> <entry> <organizer moodCode="EVN " classCode="BATTERY"> <templateId root=" 2.16.840.1.965588.10.20.22.4.1" /> <id nullFlavor="NA&quot ; /> <code codeSystem="local" code="CBC" displayName="CBC" /> <statusCode code="completed&quot ; /> <component> <observation moodCode="EVN" classCode="OBS"> <templateId root=" 2.16.840.1.108624.10.20.22.4.2" /> <id nullFlavor="NA& quot; /> <code codeSystem="local" code="MCH" displayName="MEAN CELL HGB" /> <statusCode code=" completed" /> <effectiveTime value="852656932372" /> <value unit="pg" xsi:type="PQ" value=&quot ;28.9" /> <referenceRange> < observationRange> <text>27.0-33.0</text> </ observationRange> </referenceRange> </observation&gt ; </component> <component> <observation moodCode ="EVN" classCode="OBS"> <templateId root=& quot;2.16.840.1.433341.10.20.22.4.2" /> <id nullFlavor=&quot ;NA" /> <code codeSystem="local" code="[facility]& quot; displayName="MEAN CELL HGB CONCENTRATION" /> < statusCode code="completed" /> <effectiveTime value=& quot;851935567690" /> <value unit="g/dL" xsi:type= "PQ" value="32.5" /> <referenceRange> <observationRange> <text>32.0-37.0</text> </observationRange> </referenceRange> </ observation> </component> <component> < observation moodCode="EVN" classCode="OBS"> < templateId root="2.16.840.1.087367.10.20.22.4.2" /> < id nullFlavor="NA" /> <code codeSystem="local&quot ; code="MCV" displayName="MEAN CELL VOLUME" /> < statusCode code="completed" /> <effectiveTime value=& quot;264941978962" /> <value unit="fl" xsi:type=& quot;PQ" value="88.7" /> <referenceRange> <observationRange> <text>80.0-100.0</text&gt ; </observationRange> </referenceRange> </ observation> </component> <component> < observation moodCode="EVN" classCode="OBS"> < templateId root="2.16.840.1.220350.10.20.22.4.2" /> < id nullFlavor="NA" /> <code codeSystem="local&quot ; code="RBC" displayName="RED BLOOD CELL" /> &lt ;statusCode code="completed" /> <effectiveTime value=& quot;718929574882" /> <value unit="m/cumm" xsi: type="PQ" value="3.81" /> <interpretationCode codeSystem="local" code="*" /> < referenceRange> <observationRange> <text> 4.00-6.00</text> </observationRange> </ referenceRange> </observation> </component> < component> <observation moodCode="EVN" classCode=" OBS"> <templateId root="2.16.840.1.160596.10.20.22.4.2& quot; /> <id nullFlavor="NA" /> <code codeSystem="local" code="RDW" displayName="RED CELL DISTRIBUTION WIDTH" /> <statusCode code="completed&quot ; /> <effectiveTime value="459950436667" /> <value unit="%" xsi:type="PQ" value="15.7& quot; /> <interpretationCode codeSystem="local" code=& quot;*" /> <referenceRange> < observationRange> <text>11.0-15.6</text> </observationRange> </referenceRange> </ observation> </component> <component> < observation moodCode="EVN" classCode="OBS"> < templateId root="2.16.840.1.516619.10.20.22.4.2" /> < id nullFlavor="NA" /> <code codeSystem="local&quot ; code="WBC" displayName="WHITE BLOOD CELL" /> & lt;statusCode code="completed" /> <effectiveTime value= "483014495755" /> <value unit="k/cumm" xsi: type="PQ" value="7.8" /> <referenceRange> <observationRange> <text>5.0-10.0</text> </observationRange> </referenceRange> </ observation> </component> <component> < observation moodCode="EVN" classCode="OBS"> < templateId root="2.16.840.1.054865.10.20.22.4.2" /> < id nullFlavor="NA" /> <code codeSystem="local&quot ; code="HGBT" displayName="HEMOGLOBIN" /> < statusCode code="completed" /> <effectiveTime value=& quot;879109707477" /> <value unit="gm/dL" xsi:type ="PQ" value="11.0" /> <interpretationCode codeSystem="local" code="*" /> < referenceRange> <observationRange> <text>12.0- 16.0</text> </observationRange> </ referenceRange> </observation> </component> < component> <observation moodCode="EVN" classCode=" OBS"> <templateId root="2.16.840.1.498994.10.20.22.4.2& quot; /> <id nullFlavor="NA" /> <code codeSystem="local" code="HCTT" displayName="HEMATOCRIT& quot; /> <statusCode code="completed" /> < effectiveTime value="859700363528" /> <value unit=&quot ;%" xsi:type="PQ" value="33.8" /> & lt;interpretationCode codeSystem="local" code="*" /> <referenceRange> <observationRange> < text>37.0-47.0</text> </observationRange> &lt ;/referenceRange> </observation> </component> & lt;component> <observation moodCode="EVN" classCode=&quot ;OBS"> <templateId root="2.16.840.1.095320.10.20.22.4.2 " /> <id nullFlavor="NA" /> <code codeSystem="local" code="PLT" displayName="PLATELET COUNT" /> <statusCode code="completed" /> <effectiveTime value="355663714557" /> <value unit="k/cumm" xsi:type="PQ" value="277" /> <referenceRange> <observationRange> & lt;text>150-400</text> </observationRange> </ referenceRange> </observation> </component> </ organizer> </entry> <entry> <organizer moodCode="EVN " classCode="BATTERY"> <templateId root=" 2.16.840.1.686653.10.20.22.4.1" /> <id nullFlavor="NA&quot ; /> <code codeSystem="local" code="METAB" displayName="METABOLIC PANEL, BASIC" /> <statusCodecode=& quot;completed" /> <component> <observation moodCode="EVN" classCode="OBS"> <templateId root="[id number]" /> <id nullFlavor ="NA" /> <code codeSystem="local" code=" K" displayName="POTASSIUM" /> <statusCode code=& quot;completed" /> <effectiveTime value="[id number]& quot; /> <value unit="mmol/L" xsi:type="PQ" value="3.8" /> <referenceRange> < observationRange> <text>3.5-5.3</text></ observationRange> </referenceRange> </observation&gt ; </component> <component> <observation moodCode ="EVN" classCode="OBS"> <templateId root=& quot;[id number]" /> <id nullFlavor=&quot ;NA" /> <code codeSystem="local" code="eGFR& quot; displayName="EST GFR (MDRD)" /> <statusCode code= "completed" /> <effectiveTime value="[id number]& quot; /> <value unit="mL/min" xsi:type="PQ" value="57" /> <interpretationCode codeSystem=" local" code="*" /> <referenceRange> <observationRange> <text>> 59</text> </observationRange> </referenceRange> </ observation> </component> <component> < observation moodCode="EVN" classCode="OBS"> < templateId root="2.16.840.1.233872.10.20.22.4.2" /> < id nullFlavor="NA" /> <code codeSystem="local&quot ; code="GAP" displayName="ANION GAP" /> < statusCode code="completed" /> <effectiveTime value=& quot;657937079837" /> <value unit="mmol/L" xsi: type="PQ" value="9" /> <referenceRange> <observationRange> <text>5-15</text> </observationRange> </referenceRange> </ observation> </component> <component> < observation moodCode="EVN" classCode="OBS"> < templateId root="2.16.840.1.574213.10..22.4.2" /> < id nullFlavor="NA" /> <codecodeSystem="local&quot ; code="eCrCl" displayName="EST CrCl (CG)" /> < statusCode code="completed" /> <effectiveTime value=& quot;214857384511" /> <value unit="mL/min" xsi: type="PQ" value="37" /> <interpretationCode codeSystem="local" code="*" /> <referenceRange> <observationRange> <text>> 59</text > </observationRange> </referenceRange> </observation> </component> <component> & lt;observation moodCode="EVN" classCode="OBS"> & lt;templateId root="2.16.840.1.018869.10..22.4.2" /> &lt ;id nullFlavor="NA" /> <code codeSystem="local& quot; code="GLU" displayName="GLUCOSE" /> < statusCode code="completed" /> <effectiveTime value=& quot;007737489002" /> <value unit="mg/dL" xsi:type ="PQ" value="91" /> <referenceRange> <observationRange> <text>70-99</text> </observationRange> </referenceRange> </ observation> </component> <component> < observation moodCode="EVN" classCode="OBS"> < templateId root="2.16.840.1.800168.10.20.22.4.2" /> < id nullFlavor="NA" /> <code codeSystem="local&quot ; code="CA" displayName="CALCIUM" /> < statusCode code="completed" /> <effectiveTime value=& quot;719664887506" /> <value unit="mg/dL" xsi:type ="PQ" value="8.8" /> <referenceRange> <observationRange> <text>8.5-10.1</text> </observationRange> </referenceRange> </ observation> </component> <component> < observation moodCode="EVN" classCode="OBS"> < templateId root="2.16.840.1.161434.10..22.4.2" /> < id nullFlavor="NA" /> <code codeSystem="local&quot ; code="BUN" displayName="BLOOD UREA NITROGEN" /> <statusCode code="completed" /> <effectiveTime value="866105822039" /> <value unit="mg/dL" xsi:type="PQ" value="19" /> <referenceRange& gt; <observationRange> <text>7-20</text& gt; </observationRange> </referenceRange> </observation> </component> <component> &lt ;observation moodCode="EVN" classCode="OBS"> &lt ;templateId root="2.16.840.1.442268.10..22.4.2" /> < id nullFlavor="NA" /> <code codeSystem="local&quot ; code="CREAT" displayName="CREATININE" /> < statusCode code="completed" /> <effectiveTime value=& quot;203693643812" /> <value unit="mg/dL" xsi:type ="PQ" value="1.0" /> <referenceRange> <observationRange> <text>0.6-1.0</text> </observationRange> </referenceRange> </ observation> </component> <component> < observation moodCode="EVN" classCode="OBS"> < templateId root="2.16.840.1.046378.10.20.22.4.2" /> < id nullFlavor="NA" /> <code codeSystem="local&quot ; code="NA" displayName="SODIUM" /> < statusCode code="completed" /> <effectiveTime value=& quot;560909986936" /> <value unit="mmol/L" xsi:type=" PQ" value="139" /> <referenceRange> <observationRange> <text>135-148</text> </observationRange> </referenceRange> </ observation> </component> <component> < observation moodCode="EVN" classCode="OBS"> < templateId root="2.16.840.1.074581.10.20.22.4.2" /> <id nullFlavor="NA" /> <code codeSystem="local" code="CL" displayName="CHLORIDE" /> < statusCode code="completed" /> <effectiveTime value=& quot;071717498151" /> <value unit="mmol/L" xsi: type="PQ" value="99" /> <referenceRange> <observationRange> <text>98-110</text> </observationRange> </referenceRange> </ observation> </component> <component> < observation moodCode="EVN" classCode="OBS"> < templateId root="2.16.840.1.471315.10.20.22.4.2" /> < id nullFlavor="NA" /> <code codeSystem="local&quot ; code="CO2" displayName="CARBON DIOXIDE" /> &lt ;statusCode code="completed" /> <effectiveTime value=& quot;887693479378" /> <value unit="mmol/L" xsi: type="PQ" value="31" /> <referenceRange> <observationRange> <text>21-32</text> </observationRange> </referenceRange> </ observation> </component> </organizer></entry> &lt ;entry> <organizer moodCode="EVN" classCode="BATTERY& quot;> <templateId root="2.16.840.1.419313.10.20.22.4.1" /& gt; <id nullFlavor="NA" /> <code codeSystem=" local" code="BNP" displayName="B-TYPE NATRIURETIC PEPTIDE& quot; /> <statusCode code="completed" /> < component> <observation moodCode="EVN" classCode=" OBS"> <templateId root="2.16.840.1.679561.10.20.22.4.2" / > <id nullFlavor="NA" /> <code codeSystem="local" code="BNP" displayName="B-TYPE NATRIURETIC PEPTIDE" /> <statusCode code="completed& quot; /> <effectiveTime value="946512193054" /> <value unit="pg/mL" xsi:type="PQ" value="56&quot ; /> <referenceRange> <observationRange> <text>< 100</text> </observationRange > </referenceRange> </observation> </ component> </organizer> </entry> <entry> < organizer moodCode="EVN" classCode="BATTERY"> < templateId root="2.16.840.1.143937.10.20.22.4.1" /> <id nullFlavor="NA" /> <code codeSystem="local" code= "CBCD" displayName="CBC W/DIFF" /> <statusCode code="completed" /><component> <observation moodCode="EVN" classCode="OBS"> <templateId root=& quot;2.16.840.1.573403.10.20.22.4.2" /> <id nullFlavor=&quot ;NA" /> <code codeSystem="local" code="BA#& quot; displayName="BASOPHIL #" /> <statusCode code=& quot;completed" /> <effectiveTime value="373835631863& quot; /> <value unit="k/cumm" xsi:type="PQ" value="0.1" /> <referenceRange> < observationRange> <text>0.0-0.2</text> & lt;/observationRange></referenceRange> </observation> </component> <component> <observation moodCode=" EVN" classCode="OBS"> <templateId root=" 2.16.840.1.558045.10..22.4.2" /> <id nullFlavor="NA& quot; /> <code codeSystem="local" code="BA% " displayName="BASOPHIL %" /> <statusCode code="completed" /> <effectiveTime value=" 698073654885" /> <value unit="%" xsi:type= "PQ" value="1" /> <referenceRange> <observationRange> <text>0-1</text> </observationRange> </referenceRange> </ observation> </component> <component> < observation moodCode="EVN" classCode="OBS"> < templateId root="2.16.840.1.777711.10.20.22.4.2" /> < id nullFlavor="NA" /> <code codeSystem="local" code=& quot;EO#" displayName="EOSINOPHIL #" /> < statusCode code="completed" /> <effectiveTime value=& quot;020504724745" /> <value unit="k/cumm" xsi: type="PQ" value="0.5" /> <referenceRange> <observationRange> <text>0.1-0.5</text& gt; </observationRange> </referenceRange> & lt;/observation> </component> <component> < observation moodCode="EVN" classCode="OBS"> < templateId root="2.16.840.1.389234.10.20.22.4.2" /> < id nullFlavor="NA" /> <code codeSystem="local&quot ; code="EO%" displayName="EOSINOPHIL %" /&gt ; <statusCode code="completed" /> < effectiveTime value="451668316715" /> <value unit=&quot ;%" xsi:type="PQ" value="7" /> < interpretationCode codeSystem="local" code="*" /> <referenceRange> <observationRange> < text>2-4</text> </observationRange> </ referenceRange> </observation> </component> < component> <observation moodCode="EVN" classCode=" OBS"> <templateId root="2.16.840.1.659662.10..22.4.2& quot; /> <id nullFlavor="NA" /> <code codeSystem="local" code="GR#" displayName="GRANULOCYTE #" /> <statusCode code="completed" /> <effectiveTime value="517963414805" /> <value unit=& quot;k/cumm" xsi:type="PQ" value="4.8" /> & lt;referenceRange> <observationRange> <text& gt;2.0-9.0</text> </observationRange> </ referenceRange> </observation> </component> < component> <observation moodCode="EVN" classCode=" OBS"> <templateId root="2.16.840.1.954378.10.20.22.4.2& quot; /><id nullFlavor="NA" /> <code codeSystem=& quot;local" code="GR%" displayName="GRANULOCYTE &amp ;#37;" /> <statusCode code="completed" /> <effectiveTime value="064196894260" /> <value unit="%" xsi:type="PQ" value="65" /> <referenceRange> <observationRange> <text>50-75</text> </observationRange> </ referenceRange> </observation> </component> < component> <observation moodCode="EVN" classCode=" OBS"> <templateId root="2.16.840.1.055207.10.20.22.4.2& quot; /> <id nullFlavor="NA" /> <code codeSystem="local" code="LY#" displayName="LYMPHOCYTE # " /> <statusCode code="completed" /> & lt;effectiveTime value="903688160292" /> <value unit=& quot;k/cumm" xsi:type="PQ" value="1.5" /> & lt;referenceRange> <observationRange> <text>1.0- 4.0</text> </observationRange> </ referenceRange> </observation> </component>< component> <observation moodCode="EVN" classCode=" OBS"> <templateId root="2.16.840.1.987300.10..22.4.2" /> <id nullFlavor="NA" /> <code codeSystem="local" code="LY%" displayName=" LYMPHOCYTE %" /> <statusCode code="completed& quot; /> <effectiveTime value="963232688810" /> <value unit="%" xsi:type="PQ" value=" 21" /> <referenceRange> <observationRange> <text>20-30</text> </observationRange> </referenceRange> </observation> </component& gt; <component> <observation moodCode="EVN" classCode="OBS"> <templateId root=" 2.16.840.1.043173.10.20.22.4.2" /> <id nullFlavor="NA& quot; /> <code codeSystem="local" code="MCH" displayName="MEAN CELL HGB" /> <statusCode code=" completed" /> <effectiveTime value="766382163500" /> <value unit="pg" xsi:type="PQ" value=&quot ;29.1" /> <referenceRange> < observationRange> <text>27.0-33.0</text> </observationRange></referenceRange> </observation> </component> <component> <observation moodCode=" EVN" classCode="OBS"> <templateId root=" 2.16.840.1.223764.10.20.22.4.2" /> <id nullFlavor="NA& quot; /> <code codeSystem="local" code="MCHC" displayName="MEAN CELL HGBCONCENTRATION" /> < statusCode code="completed" /> <effectiveTime value=& quot;218916516625" /> <value unit="g/dL" xsi:type= "PQ" value="33.2" /> <referenceRange> <observationRange> <text>32.0-37.0</text&gt ; </observationRange> </referenceRange> & lt;/observation> </component> <component> < observation moodCode="EVN" classCode="OBS"> < templateId root="2.16.840.1.126389.10.20.22.4.2" /> < id nullFlavor="NA" /> <code codeSystem="local" code="MCV" displayName="MEAN CELL VOLUME" /> &lt ;statusCode code="completed" /> <effectiveTime value=& quot;723716509923" /> <value unit="fl" xsi:type=& quot;PQ" value="87.9" /> <referenceRange> <observationRange> <text>80.0-100.0</text> </observationRange> </referenceRange> </ observation> </component> <component> < observation moodCode="EVN" classCode="OBS"> < templateId root="2.16.840.1.585281.10.20.22.4.2" /> < id nullFlavor="NA" /> <code codeSystem="local&quot ; code="MO#" displayName="MONOCYTE #" /> <statusCode code="completed" /> <effectiveTime value=" 310105593907" /> <value unit="k/cumm" xsi:type=& quot;PQ" value="0.5" /> <referenceRange> <observationRange> <text>0.1-1.0</text> </observationRange> </referenceRange> </ observation> </component> <component> < observation moodCode="EVN" classCode="OBS"> < templateId root="2.16.840.1.187613.10.20.22.4.2" /> < id nullFlavor="NA" /> <code codeSystem="local&quot ; code="MO%" displayName="MONOCYTE %" /> <statusCode code="completed" /> < effectiveTime value="944362762465" /> <value unit=&quot ;%" xsi:type="PQ" value="7" /> < interpretationCode codeSystem="local" code="*" /> <referenceRange> <observationRange> < text>4-6</text> </observationRange> </ referenceRange> </observation></component> < component> <observation moodCode="EVN" classCode=" OBS"> <templateId root="2.16.840.1.394743.10..22.4.2& quot; /> <id nullFlavor="NA" /> <code codeSystem="local" code="RBC" displayName="RED BLOOD CELL" /> <statusCode code="completed" /> <effectiveTime value="374843678575" /> <value unit="m/cumm" xsi:type="PQ" value="4.46" /> <referenceRange> <observationRange> & lt;text>4.00-6.00</text> </observationRange> </referenceRange> </observation> </component> <component> <observation moodCode="EVN" classCode=& quot;OBS"> <templateId root=" 2.16.840.1.023560.10.20.22.4.2" /> <id nullFlavor="NA& quot; /> <code codeSystem="local" code="RDW" displayName="RED CELL DISTRIBUTION WIDTH" /> < statusCode code="completed" /> <effectiveTime value=& quot;021467525683" /> <value unit="%" xsi: type="PQ" value="14.9" /> <referenceRange&gt ; <observationRange> <text>11.0-15.6</ text> </observationRange> </referenceRange> </observation> </component> <component> <observation moodCode="EVN" classCode="OBS"> <templateId root="2.16.840.1.773835.10.20.22.4.2" /> <id nullFlavor="NA" /> <code codeSystem=" local" code="WBC" displayName="WHITE BLOOD CELL" /> <statusCode code="completed" /> < effectiveTime value="042948383227" /> <value unit=&quot ;k/cumm" xsi:type="PQ" value="7.4" /> < referenceRange> <observationRange> <text>5.0-10.0 </text> </observationRange> </referenceRange& gt; </observation> </component> <component> <observation moodCode="EVN" classCode="OBS"> &lt ;templateId root="2.16.840.1.665262.10.20.22.4.2" /> < id nullFlavor="NA" /> <code codeSystem="local&quot ; code="HGBT" displayName="HEMOGLOBIN" /> < statusCode code="completed" /> <effectiveTime value=& quot;776835107752" /> <value unit="gm/dL" xsi:type ="PQ" value="13.0" /> <referenceRange> <observationRange> <text>12.0-16.0</text&gt ; </observationRange> </referenceRange> </ observation> </component> <component> < observation moodCode="EVN" classCode="OBS"> < templateId root="2.16.840.1.755516.10.20.22.4.2" /> < id nullFlavor="NA" /> <code codeSystem="local&quot ; code="HCTT" displayName="HEMATOCRIT" /> < statusCode code="completed" /> <effectiveTime value=& quot;980508292478" /> <value unit="%" xsi: type="PQ" value="39.2" /> <referenceRange&gt ; <observationRange> <text>37.0-47.0</text& gt; </observationRange> </referenceRange> </observation> </component> <component> &lt ;observation moodCode="EVN" classCode="OBS"> &lt ;templateId root="2.16.840.1.726821.10.20.22.4.2" /> < id nullFlavor="NA" /><code codeSystem="local" code=& quot;PLT" displayName="PLATELET COUNT" /> < statusCode code="completed" /> <effectiveTime value=& quot;822553671313" /> <value unit="k/cumm" xsi: type="PQ" value="178" /> <referenceRange> <observationRange> <text>150-400</text& gt; </observationRange> </referenceRange> & lt;/observation> </component> </organizer> </entry&gt ; <entry> <organizer moodCode="EVN" classCode=" BATTERY"> <templateId root="2.16.840.1.739642.10.20.22.4.1& quot; /> <id nullFlavor="NA" /><code codeSystem=&quot ;local" code="LIVER" displayName="HEPATIC FUNCTION PANEL& quot; /> <statusCode code="completed" /> < component> <observation moodCode="EVN" classCode=" OBS"> <templateId root="2.16.840.1.634691.10.20.22.4.2& quot; /> <id nullFlavor="NA" /> <code codeSystem="local" code="BILUC" displayName="BILI UNCONJUGATED" /> <statusCode code="completed" /&gt ; <effectiveTime value="356912398367" /> < value unit="mg/dL" xsi:type="PQ" value="0.7" /&gt ; <referenceRange> <observationRange><text&gt ;0.0-0.7</text> </observationRange> </ referenceRange> </observation> </component> < component> <observation moodCode="EVN" classCode=" OBS"> <templateId root="2.16.840.1.933369.10.20.22.4.2& quot; /> <id nullFlavor="NA" /> <code codeSystem="local" code="AST" displayName="AST/SGOT& quot; /> <statusCode code="completed" /> & lt;effectiveTime value="" /> <value unit=& quot;Units/L" xsi:type="PQ" value="67" /> < interpretationCode codeSystem="local" code="*" /> <referenceRange> <observationRange> < text>10-37</text> </observationRange> </ referenceRange> </observation> </component> < component> <observation moodCode="EVN" classCode=" OBS"> <templateId root="2.16.840.1.681453.10.20.22.4.2& quot; /> <id nullFlavor="NA" /> <code codeSystem= "local" code="ALT" displayName="ALT/SGPT" /> <statusCode code="completed" /> < effectiveTime value="953263362591" /> <value unit=&quot ;Units/L" xsi:type="PQ" value="85" /> < interpretationCode codeSystem="local" code="*" /> <referenceRange> <observationRange> < text>< 66</text> </observationRange> < /referenceRange> </observation> </component> &lt ;component> <observation moodCode="EVN" classCode=" OBS"> <templateId root="2.16.840.1.049916.10.20.22.4.2& quot; /> <id nullFlavor="NA" /> <code codeSystem="local" code="TP" displayName="TOTAL PROTEIN " /> <statusCode code="completed" /> & lt;effectiveTimevalue="176023868241" /> <value unit=& quot;gm/dL" xsi:type="PQ" value="6.8" /> & lt;referenceRange> <observationRange> <text> 6.4-8.2</text> </observationRange> </ referenceRange> </observation> </component> < component> <observation moodCode="EVN" classCode=" OBS"> <templateId root="2.16.840.1.160709.10.20.22.4.2& quot; /> <id nullFlavor="NA" /> <code codeSystem="local" code="ALB" displayName="ALBUMIN&quot ; /> <statusCode code="completed" /> < effectiveTime value="" /> <value unit=&quot ;gm/dL" xsi:type="PQ" value="3.9"/> < referenceRange> <observationRange> <text> 3.4-5.0</text> </observationRange> </ referenceRange> </observation> </component> < component> <observation moodCode="EVN" classCode=" OBS"> <templateId root="2.16.840.1.762569.10.20.22.4.2& quot; /> <id nullFlavor="NA" /> <code codeSystem="local" code="BILTOT" displayName="BILI TOTAL" /> <statusCode code="completed" /> <effectiveTime value="219086249245" /> <value unit=& quot;mg/dL" xsi:type="PQ" value="0.8" /> & lt;referenceRange> <observationRange> <text& gt;0.0-1.0</text> </observationRange> </ referenceRange> </observation> </component> < component> <observation moodCode="EVN" classCode=" OBS"> <templateId root="2.16.840.1.388240.10.20.22.4.2& quot; /> <id nullFlavor="NA" /> <code codeSystem="local" code="ALKP" displayName="ALKALINE PHOSPHATASE TOTAL" /> <statusCode code="completed&quot ; /> <effectiveTime value="918090794974" />< value unit="IU/L" xsi:type="PQ" value="181" /> <interpretationCode codeSystem="local" code="*&quot ; /> <referenceRange> <observationRange> <text>45-117</text> </observationRange> </referenceRange> </observation> </component& gt; <component> <observation moodCode="EVN" classCode="OBS"> <templateId root=" 2.16.840.1.016572.10.20.22.4.2" /> <id nullFlavor="NA& quot; /> <code codeSystem="local" code="BILC&quot ; displayName="BILI CONJUGATED" /> <statusCode code=& quot;completed" /> <effectiveTime value="005673740871" /> <value unit="mg/dL" xsi:type="PQ" value=& quot;0.1" /> <referenceRange> < observationRange> <text>0.0-0.3</text> & lt;/observationRange> </referenceRange> </ observation> </component> </organizer> </entry> & lt;entry> <organizer moodCode="EVN" classCode="BATTERY& quot;> <templateId root="2.16.840.1.339099.10.20.22.4.1" /& gt; <id nullFlavor="NA" /> <code codeSystem=" local" code="iCHEM8" displayName="CHEM/HEM PROFILE-BEDSIDE& quot; /> <statusCode code="completed" /> < component> <observation moodCode="EVN" classCode=" OBS"> <templateId root="2.16.840.1.650221.10.20.22.4.2& quot; /> <id nullFlavor="NA" /> <code codeSystem="local" code="K" displayName="POTASSIUM&quot ; /> <statusCode code="completed" /> < effectiveTime value="326227617939" /> <value unit=&quot ;mmol/L" xsi:type="PQ" value="4.1" /> < referenceRange> <observationRange> <text> 3.5-5.3</text> </observationRange> </ referenceRange> </observation> </component> < component> <observation moodCode="EVN" classCode=" OBS"> <templateId root="2.16.840.1.777872.10.20.22.4.2& quot; /> <id nullFlavor="NA"/> <code codeSystem="local" code="CMETHOD" displayName="METHOD& quot; /> <statusCode code="completed" /> & lt;effectiveTime value="151386866203" /> <value unit=& quot;" xsi:type="PQ" value="Bedside" /> &lt ;referenceRange> <observationRange> <text /> </observationRange> </referenceRange> </ observation> </component> <component> < observation moodCode="EVN" classCode="OBS"> < templateId root="2.16.840.1.331452.10.20.22.4.2" /> < id nullFlavor="NA" /> <code codeSystem="local&quot ; code="GAP" displayName="ANION GAP" /> < statusCode code="completed" /> <effectiveTime value=& quot;656394786787" /> <value unit="mmol/L" xsi:type=" PQ" value="10" /> <referenceRange> & lt;observationRange> <text>10-20</text> </ observationRange> </referenceRange> </observation&gt ; </component> <component> <observation moodCode ="EVN" classCode="OBS"> <templateId root=& quot;2.16.840.1.338128.10.20.22.4.2" /> <id nullFlavor="NA& quot; /> <code codeSystem="local" code="HMETHOD& quot; displayName="METHOD" /> <statusCode code=" completed" /> <effectiveTime value="675686686620" /> <value unit="" xsi:type="PQ" value=" Bedside" /> <referenceRange> <observationRange&gt ; <text /> </observationRange> </ referenceRange> </observation> </component> < component> <observation moodCode="EVN" classCode=" OBS"> <templateId root="2.16.840.1.535244.10.20.22.4.2& quot; /> <id nullFlavor="NA" /> <code codeSystem="local" code="GLU" displayName="GLUCOSE&quot ; /> <statusCode code="completed" /> < effectiveTime value="046258729725" /> <value unit=&quot ;mg/dL" xsi:type="PQ" value="104" /> < interpretationCode codeSystem="local" code="*"/> <referenceRange> <observationRange> < text>70-99</text> </observationRange> </ referenceRange> </observation> </component> < component> <observation moodCode="EVN" classCode=" OBS"> <templateId root="2.16.840.1.736432.10.20.22.4.2& quot; /> <id nullFlavor="NA" /> <code codeSystem="local" code="BUN" displayName="BLOOD UREA NITROGEN" /> <statusCode code="completed" /> <effectiveTime value="" /> <value unit="mg/dL" xsi:type="PQ" value="25" />< interpretationCode codeSystem="local" code="*" /> <referenceRange> <observationRange> < text>7-20</text> </observationRange> </ referenceRange> </observation> </component> < component> <observation moodCode="EVN" classCode=" OBS"> <templateId root="2.16.840.1.796762.10.20.22.4.2& quot; /> <idnullFlavor="NA" /> <code codeSystem="local" code="CREAT" displayName="CREATININE " /> <statusCode code="completed" /> < effectiveTime value="407513134336" /> <value unit=&quot ;mg/dL" xsi:type="PQ" value="1.0" /> < referenceRange> <observationRange> <text> 0.6-1.0</text> </observationRange> </ referenceRange> </observation> </component> < component> <observation moodCode="EVN" classCode=" OBS"> <templateId root="2.16.840.1.878772.10.20.22.4.2& quot; /> <id nullFlavor="NA" /> <code codeSystem="local" code="HGBT" displayName="HEMOGLOBIN& quot; /> <statusCode code="completed" /> & lt;effectiveTime value="764305633176" /> <value unit=& quot;gm/dL" xsi:type="PQ" value="12.6" /> & lt;referenceRange> <observationRange> <text& gt;12.0-16.0</text> </observationRange> </ referenceRange> </observation> </component> < component> <observation moodCode="EVN" classCode="OBS" > <templateId root="2.16.840.1.954573.10.20.22.4.2" /& gt; <id nullFlavor="NA" /> <code codeSystem=& quot;local" code="HCTT" displayName="HEMATOCRIT" /> <statusCode code="completed" /> < effectiveTime value="312065593337" /> <value unit=&quot ;%" xsi:type="PQ" value="37.0" /> & lt;referenceRange> <observationRange> <text>37.0- 47.0</text> </observationRange> </ referenceRange> </observation> </component> < component> <observation moodCode="EVN" classCode=" OBS"> <templateId root="2.16.840.1.831679.10.20.22.4.2& quot; /> <id nullFlavor="NA" /> <code codeSystem="local" code="NA" displayName="SODIUM" /> <statusCode code="completed" /> < effectiveTime value="878582905565"/> <value unit=" mmol/L" xsi:type="PQ" value="142" /> < referenceRange> <observationRange> <text> 135-148</text> </observationRange> </ referenceRange> </observation> </component> < component> <observation moodCode="EVN" classCode=" OBS"> <templateId root="[id number]& quot; /> <id nullFlavor="NA" /> <code codeSystem="local" code="CL" displayName="CHLORIDE&quot ; /> <statusCode code="completed" /> < effectiveTime value="[id number]" /> <value unit=&quot ;mmol/L" xsi:type="PQ" value="105" /> < referenceRange> <observationRange> <text> 98-110</text></observationRange> </referenceRange> </observation> </component> <component> <observation moodCode="EVN" classCode="OBS"> <templateId root="2.16.840.1.548653.10.20.22.4.2" /> <id nullFlavor="NA" /> <code codeSystem=" local" code="CO2" displayName="CARBON DIOXIDE" /> <statusCode code="completed" /> < effectiveTime value="621502006844" /> <value unit=&quot ;mmol/L" xsi:type="PQ" value="32" /> < referenceRange> <observationRange> <text>21-32</ text> </observationRange> </referenceRange> </observation> </component> <component> <observation moodCode="EVN" classCode="OBS">< templateId root="2.16.840.1.329602.10.20.22.4.2" /> < id nullFlavor="NA" /> <code codeSystem="local&quot ; code="CAION" displayName="CALCIUM IONIZED" /> <statusCode code="completed" /> <effectiveTime value ="054064048082" /> <value unit="mg/dL" xsi: type="PQ" value="4.6" /> <referenceRange> <observationRange> <text>4.5-5.3</text& gt; </observationRange> </referenceRange> </ observation> </component> </organizer></entry> &lt ;entry> <organizer moodCode="EVN" classCode="BATTERY& quot;> <templateId root="2.16.840.1.599537.10.20.22.4.1" /& gt; <id nullFlavor="NA" /> <code codeSystem=" local" code="iTROPI" displayName="TROPONIN I BEDSIDE" / > <statusCode code="completed" /> <component&gt ; <observation moodCode="EVN" classCode="OBS"> <templateId root="2.16.840.1.772909.10.20.22.4.2" /> <id nullFlavor="NA" /> <code codeSystem=& quot;local" code="CMETHOD" displayName="METHOD" /> <statusCode code="completed" /> < effectiveTime value="429092233715" /> <value unit=&quot ;" xsi:type="PQ" value="Bedside" /> < referenceRange> <observationRange> <text /& gt; </observationRange> </referenceRange> & lt;/observation> </component> <component> < observation moodCode="EVN" classCode="OBS"> < templateId root="2.16.840.1.162011.10..22.4.2" /> < id nullFlavor="NA" /> <code codeSystem="local&quot ; code="TROPI" displayName="TROPONIN I" /> < statusCode code="completed" /> <effectiveTime value=& quot;223957346450" /> <value unit="ng/mL" xsi:type ="PQ" value="< 0.04" /> < referenceRange> <observationRange> <text> < 0.11</text> </observationRange> </ referenceRange> </observation> </component> </ organizer> </entry> <entry> <organizer moodCode="EVN& quot; classCode="BATTERY"> <templateId root=" 2.16.840.1.346536.10..22.4.1" /> <id nullFlavor="NA&quot ; /> <code codeSystem="local" code="CBC" displayName="CBC" /> <statusCode code="completed&quot ; /> <component> <observation moodCode="EVN" classCode="OBS"> <templateId root=" 2.16.840.1.812807.10.20.22.4.2" /> <id nullFlavor="NA& quot; /> <code codeSystem="local" code="MCH" displayName="MEAN CELL HGB" /> <statusCodecode=" completed" /> <effectiveTime value="756113906261" /> <value unit="pg" xsi:type="PQ" value="28.7 " /> <referenceRange> <observationRange&gt ; <text>27.0-33.0</text> </ observationRange> </referenceRange> </observation&gt ; </component> <component> <observation moodCode=& quot;EVN" classCode="OBS"> <templateId root=" 2.16.840.1.347749.10.20.22.4.2" /> <id nullFlavor="NA& quot; /> <code codeSystem="local" code="MCHC&quot ; displayName="MEAN CELL HGB CONCENTRATION" /> < statusCode code="completed" /> <effectiveTime value=& quot;119888489818" /> <value unit="g/dL" xsi:type="PQ " value="33.2" /> <referenceRange> & lt;observationRange> <text>32.0-37.0</text> </observationRange> </referenceRange> </ observation> </component> <component> < observation moodCode="EVN" classCode="OBS"> < templateId root="2.16.840.1.174848.10.20.22.4.2" /> <id nullFlavor="NA" /> <code codeSystem="local" code="MCV" displayName="MEAN CELL VOLUME" /> &lt ;statusCode code="completed" /> <effectiveTime value=& quot;689485411293" /> <value unit="fl" xsi:type=& quot;PQ" value="86.7" /> <referenceRange> <observationRange> <text>80.0-100.0</text&gt ; </observationRange> </referenceRange> & lt;/observation> </component> <component> < observation moodCode="EVN" classCode="OBS"> < templateId root="2.16.840.1.523040.10.20.22.4.2" /> < id nullFlavor="NA" /> <code codeSystem="local&quot ; code="RBC"displayName="RED BLOOD CELL" /> < statusCode code="completed" /> <effectiveTime value=& quot;441870700057" /> <value unit="m/cumm" xsi: type="PQ" value="4.42" /> <referenceRange&gt ; <observationRange> <text>4.00-6.00</text> </observationRange> </referenceRange> </ observation> </component><component> <observation moodCode="EVN" classCode="OBS"> <templateId root=& quot;2.16.840.1.243345.10.20.22.4.2" /> <id nullFlavor=&quot ;NA" /> <code codeSystem="local" code="RDW& quot; displayName="RED CELL DISTRIBUTION WIDTH" /> < statusCode code="completed" /> <effectiveTime value=& quot;247209018870" /> <value unit="%" xsi: type="PQ" value="14.9" /> <referenceRange&gt ; <observationRange> <text>11.0-15.6</text> </observationRange> </referenceRange> &lt ;/observation> </component> <component> < observation moodCode="EVN" classCode="OBS"> < templateId root="2.16.840.1.440375.10.20.22.4.2" /> < id nullFlavor="NA" /> <code codeSystem="local&quot ; code="WBC" displayName="WHITE BLOOD CELL" /> & lt;statusCode code="completed" /> <effectiveTime value=" 820146223262" /> <value unit="k/cumm" xsi:type=& quot;PQ" value="5.8" /> <referenceRange> <observationRange> <text>5.0-10.0</text> </observationRange> </referenceRange> < /observation> </component> <component> < observation moodCode="EVN" classCode="OBS"> < templateId root="2.16.840.1.385944.10.20.22.4.2" /> < id nullFlavor="NA" /> <code codeSystem="local&quot ; code="HGBT" displayName="HEMOGLOBIN" /> < statusCode code="completed" /> <effectiveTime value=& quot;662651326223" /> <value unit="gm/dL" xsi:type ="PQ" value="12.7" /> <referenceRange> <observationRange> <text>12.0-16.0</text&gt ; </observationRange> </referenceRange> & lt;/observation> </component> <component> < observation moodCode="EVN" classCode="OBS"> < templateId root="2.16.840.1.427494.10.20.22.4.2" /> < id nullFlavor="NA" /> <code codeSystem="local" code=& quot;HCTT" displayName="HEMATOCRIT" /> < statusCode code="completed" /> <effectiveTime value=& quot;170604709236" /> <value unit="%" xsi: type="PQ" value="38.3" /> <referenceRange&gt ; <observationRange><text>37.0-47.0</text> </observationRange> </referenceRange> </ observation> </component> <component> < observation moodCode="EVN" classCode="OBS"> < templateId root="2.16.840.1.782934.10.20.22.4.2" /> < id nullFlavor="NA" /> <code codeSystem="local&quot ; code="PLT" displayName="PLATELET COUNT" /> < statusCode code="completed" /> <effectiveTime value=& quot;505206638485" /> <value unit="k/cumm" xsi: type="PQ" value="176"/> <referenceRange> <observationRange> <text>150-400</text&gt ; </observationRange> </referenceRange> & lt;/observation> </component> </organizer> </entry&gt ; <entry> <organizer moodCode="EVN" classCode=" BATTERY"> <templateId root="2.16.840.1.950133.10.20.22.4.1& quot; /> <id nullFlavor="NA" /> <code codeSystem ="local" code="METABC" displayName="METABOLIC PANEL, COMPREHN"/> <statusCode code="completed" /> & lt;component> <observation moodCode="EVN" classCode=&quot ;OBS"> <templateId root="2.16.840.1.139089.10.20.22.4.2 " /> <id nullFlavor="NA" /> <code codeSystem="local" code="K" displayName="POTASSIUM&quot ; /> <statusCode code="completed" /> < effectiveTime value="744926231136" /> <value unit=&quot ;mmol/L" xsi:type="PQ" value="4.0" /> < referenceRange> <observationRange> <text> 3.5-5.3</text> </observationRange> </ referenceRange> </observation> </component> < component> <observation moodCode="EVN" classCode=" OBS"> <templateId root="2.16.840.1.601765.10.20.22.4.2& quot; /> <id nullFlavor="NA" /> <code codeSystem="local" code="eGFR" displayName="EST GFR ( MDRD)" /> <statusCode code="completed" /> <effectiveTime value="183249122331" /> <value unit=& quot;mL/min" xsi:type="PQ" value="51" /> & lt;interpretationCode codeSystem="local" code="*" /> <referenceRange> <observationRange> & lt;text>> 59</text> </observationRange> </referenceRange> </observation> </component> <component> <observation moodCode="EVN" classCode ="OBS"> <templateId root=" 2.16.840.1.876079.10.20.22.4.2" /> <id nullFlavor="NA& quot; /> <code codeSystem="local" code="GAP" displayName="ANION GAP" /> <statusCode code=" completed" /> <effectiveTime value="429403346290" /&gt ; <value unit="mmol/L" xsi:type="PQ" value=&quot ;10" /> <referenceRange> <observationRange& gt; <text>5-15</text> </observationRange& gt; </referenceRange> </observation> </ component> <component> <observation moodCode="EVN& quot; classCode="OBS"> <templateId root=" 2.16.840.1.586490.10.20.22.4.2" /> <id nullFlavor="NA& quot; /> <code codeSystem="local" code="eCrCl&quot ; displayName="ESTCrCl (CG)" /> <statusCode code=" completed" /> <effectiveTime value="996176668774" /> <value unit="mL/min" xsi:type="PQ" value=& quot;33" /> <interpretationCode codeSystem="local&quot ; code="*" /> <referenceRange> < observationRange><text>> 59</text> </ observationRange> </referenceRange> </observation&gt ; </component> <component> <observation moodCode ="EVN" classCode="OBS"> <templateId root=& quot;2.16.840.1.515712.10.20.22.4.2" /> <id nullFlavor=&quot ;NA" /> <codecodeSystem="local" code="GLU& quot; displayName="GLUCOSE" /> <statusCode code=" completed" /> <effectiveTime value="699494382742" /> <value unit="mg/dL" xsi:type="PQ" value=& quot;104" /> <interpretationCode codeSystem="local&quot ; code="*" /> <referenceRange> < observationRange> <text>70-99</text> </ observationRange> </referenceRange> </observation&gt ; </component> <component> <observation moodCode ="EVN" classCode="OBS"> <templateId root=& quot;2.16.840.1.042158.10.20.22.4.2" /> <id nullFlavor="NA& quot; /> <code codeSystem="local" code="CA" displayName="CALCIUM" /> <statusCode code=" completed" /> <effectiveTime value="170917143755" /> <value unit="mg/dL" xsi:type="PQ" value=& quot;8.8" /> <referenceRange> <observationRange> <text>8.5-10.1</text> </observationRange& gt; </referenceRange> </observation> </ component> <component> <observation moodCode="EVN& quot; classCode="OBS"> <templateId root=" 2.16.840.1.874718.10.20.22.4.2" /> <id nullFlavor="NA& quot; /> <code codeSystem="local" code="BUN" displayName="BLOOD UREA NITROGEN" /> <statusCode code=& quot;completed" /><effectiveTime value="174760746962" /&gt ; <value unit="mg/dL" xsi:type="PQ" value=" 23" /> <interpretationCode codeSystem="local" code ="*" /> <referenceRange> < observationRange> <text>7-20</text> </ observationRange> </referenceRange> </observation&gt ; </component> <component> <observation moodCode ="EVN" classCode="OBS"> <templateId root=& quot;2.16.840.1.179650.10.20.22.4.2" /> <id nullFlavor=&quot ;NA" /> <code codeSystem="local" code="CREAT& quot; displayName="CREATININE" /> <statusCode code=" completed" /> <effectiveTime value="246719257017" /> <value unit="mg/dL" xsi:type="PQ" value=& quot;1.1" /> <interpretationCode codeSystem="local&quot ; code="*" /> <referenceRange> < observationRange> <text>0.6-1.0</text> & lt;/observationRange> </referenceRange> </ observation> </component> <component> < observation moodCode="EVN" classCode="OBS"> < templateId root="2.16.840.1.806907.10.20.22.4.2"/> <id nullFlavor="NA" /> <code codeSystem="local" code="NA" displayName="SODIUM" /> < statusCode code="completed" /> <effectiveTime value=& quot;027055051980" /> <value unit="mmol/L" xsi: type="PQ" value="143" /> <referenceRange> <observationRange> <text>135-148</text& gt; </observationRange> </referenceRange> </observation> </component> <component> &lt ;observation moodCode="EVN" classCode="OBS"> &lt ;templateId root="2.16.840.1.953431.10..22.4.2" /> < id nullFlavor="NA" /> <code codeSystem="local&quot ; code="CL" displayName="CHLORIDE" /> < statusCode code="completed" /> <effectiveTime value=& quot;721918518068" /> <value unit="mmol/L" xsi: type="PQ" value="106" /> <referenceRange> <observationRange> <text>98-110</text&gt ; </observationRange> </referenceRange> </ observation> </component> <component> < observation moodCode="EVN" classCode="OBS"> < templateId root="2.16.840.1.057501.10.20.22.4.2" /> < id nullFlavor="NA" /> <code codeSystem="local&quot ; code="AST" displayName="AST/SGOT" /> < statusCode code="completed" /> <effectiveTime value=& quot;549359774444" /> <value unit="Units/L" xsi: type="PQ" value="61" /> <interpretationCode codeSystem="local" code="*" /> < referenceRange> <observationRange> <text> 10-37</text> </observationRange> </ referenceRange> </observation> </component> < component> <observation moodCode="EVN" classCode=" OBS"> <templateId root="2.16.840.1.897125.10.20.22.4.2& quot; /> <id nullFlavor="NA" /> <code codeSystem="local" code="ALT" displayName="ALT/SGPT& quot; /> <statusCode code="completed" /> & lt;effectiveTime value="018410146257" /> <value unit="Units /L" xsi:type="PQ" value="92" /> < interpretationCode codeSystem="local" code="*" /> <referenceRange> <observationRange> < text>< 66</text> </observationRange> & lt;/referenceRange> </observation> </component> <component> <observation moodCode="EVN" classCode=& quot;OBS"> <templateId root=" 2.16.840.1.185071.10.20.22.4.2" /> <id nullFlavor="NA& quot; /> <code codeSystem="local" code="CO2" displayName="CARBON DIOXIDE" /> <statusCode code=" completed" /> <effectiveTime value="649788175368" /> <value unit="mmol/L" xsi:type="PQ" value=& quot;27" /> <referenceRange> <observationRange> <text>21-32</text> </observationRange> </referenceRange> </observation> </component > <component> <observation moodCode="EVN" classCode="OBS"> <templateId root=" 2.16.840.1.713806.10.20.22.4.2" /> <id nullFlavor="NA& quot; /> <code codeSystem="local" code="TP" displayName="TOTAL PROTEIN" /> <statusCode code=" completed" /> <effectiveTime value="369555260509" /> <value unit="gm/dL" xsi:type="PQ" value=& quot;6.8" /> <referenceRange> < observationRange> <text>6.4-8.2</text> & lt;/observationRange> </referenceRange> </ observation> </component> <component> <observation moodCode="EVN" classCode="OBS"> <templateId root="2.16.840.1.409393.10.20.22.4.2" /> <id nullFlavor ="NA" /> <code codeSystem="local" code="ALB& quot; displayName="ALBUMIN" /> <statusCode code=" completed" /> <effectiveTime value="055174833410" /> <value unit="gm/dL" xsi:type="PQ" value=& quot;3.8" /> <referenceRange> < observationRange> <text>3.4-5.0</text> & lt;/observationRange> </referenceRange> </observation&gt ; </component> <component> <observation moodCode ="EVN" classCode="OBS"> <templateId root=& quot;2.16.840.1.551259.10.20.22.4.2" /> <id nullFlavor=&quot ;NA" /> <code codeSystem="local" code="BILTOT " displayName="BILI TOTAL" /> <statusCode code=& quot;completed" /> <effectiveTime value="117395275332& quot; /> <value unit="mg/dL" xsi:type="PQ" value="1.1" /> <interpretationCode codeSystem="local& quot; code="*" /> <referenceRange> < observationRange> <text>0.0-1.0</text> </ observationRange> </referenceRange> </observation&gt ; </component> <component> <observation moodCode ="EVN" classCode="OBS"> <templateId root=& quot;2.16.840.1.911363.10.20.22.4.2" /> <id nullFlavor="NA&quot ; /> <code codeSystem="local" code="ALKP" displayName="ALKALINE PHOSPHATASE TOTAL" /> < statusCode code="completed" /> <effectiveTime value=& quot;885014523536" /> <value unit="IU/L" xsi:type= "PQ" value="201" /> <interpretationCode codeSystem="local" code="*" /> < referenceRange> <observationRange> <text>45-117& lt;/text> </observationRange> </referenceRange& gt; </observation> </component> </organizer> & lt;/entry> <entry> <organizer moodCode="EVN" classCode ="BATTERY"> <templateId root=" 2.16.840.1.421221.10.20.22.4.1" /><id nullFlavor="NA" /&gt ; <code codeSystem="local" code="HDLPRO" displayName ="LIPID PANEL" /> <statusCode code="completed" /& gt; <component> <observation moodCode="EVN" classCode="OBS"> <templateId root=" 2.16.840.1.545117.10.20.22.4.2" /> <id nullFlavor="NA& quot; /> <code codeSystem="local" code="CHOL/HDL& quot; displayName="CHOLESTEROL/HDL RATIO" /> < statusCode code="completed" /> <effectiveTime value=& quot;971943801171" /> <value unit="" xsi:type=& quot;PQ" value="2.2" /> <referenceRange> <observationRange> <text> < 5.0</text& gt; </observationRange> </referenceRange> </observation> </component><component> < observation moodCode="EVN" classCode="OBS"> < templateId root="2.16.840.1.134085.10.20.22.4.2" /> < id nullFlavor="NA" /> <code codeSystem="local&quot ; code="LDLX" displayName="LDL CHOLESTEROL" /> & lt;statusCode code="completed" /> <effectiveTime value= "336772306705" /> <value unit="mg/dL" xsi: type="PQ" value="57" /> <referenceRange> <observationRange> <text>< 100</ text> </observationRange> </referenceRange> </observation> </component> <component> <observation moodCode="EVN" classCode="OBS"> <templateId root="2.16.840.1.305102.10..22.4.2" /> <id nullFlavor="NA" /> <code codeSystem=" local" code="VLDL" displayName="VLDLCHOLESTEROL" /> <statusCode code="completed" /> < effectiveTime value="351269854568" /> <value unit=&quot ;mg/dL" xsi:type="PQ" value="17" /> < referenceRange> <observationRange> <text> < 30</text> </observationRange> </ referenceRange> </observation> </component> < component> <observation moodCode="EVN" classCode="OBS& quot;> <templateId root="2.16.840.1.611392.10.20.22.4.2&quot ; /> <id nullFlavor="NA" /> <code codeSystem="local" code="TRIG" displayName=" TRIGLYCERIDES" /> <statusCode code="completed" /& gt; <effectiveTime value="190441535000" /> &lt ;value unit="mg/dL" xsi:type="PQ" value="87" /&gt ; <referenceRange> <observationRange> <text& gt;< 150</text> </observationRange> </ referenceRange> </observation> </component> < component> <observation moodCode="EVN" classCode=" OBS"> <templateId root="2.16.840.1.677717.10.20.22.4.2& quot; /> <id nullFlavor="NA" /> <code codeSystem="local" code="CHOL" displayName="CHOLESTEROL " /> <statusCode code="completed" /> < effectiveTime value="797488794444" /> <value unit=&quot ;mg/dL" xsi:type="PQ" value="134" /> < referenceRange> <observationRange> <text> < 200</text> </observationRange> </ referenceRange> </observation> </component> < component> <observation moodCode="EVN" classCode=" OBS"> <templateId root="2.16.840.1.965427.10..22.4.2& quot; /> <id nullFlavor="NA" /> <code codeSystem="local" code="HDL" displayName="HDL CHOLESTEROL" /> <statusCode code="completed" /&gt ; <effectiveTime value="465045162187" /> < value unit="mg/dL" xsi:type="PQ" value="60" /> <referenceRange> <observationRange> &lt ;text>> 39</text> </observationRange> </referenceRange> </observation> </component> & lt;/organizer> </entry> <entry> <organizer moodCode=&quot ;EVN" classCode="BATTERY"> <templateId root=" 2.16.840.1.358327.10.20.22.4.1" /> <id nullFlavor="NA&quot ; /> <code codeSystem="local" code="MAG" displayName="MAGNESIUM" /> <statusCode code="completed " /> <component> <observation moodCode="EVN& quot; classCode="OBS"> <templateId root=" 2.16.840.1.045676.10.20.22.4.2" /> <id nullFlavor="NA& quot; /> <code codeSystem="local" code="MAG" displayName="MAGNESIUM" /> <statusCode code=" completed" /> <effectiveTime value="644533884450" /> <value unit="mg/dL" xsi:type="PQ" value=& quot;2.5" /> <interpretationCode codeSystem="local&quot ; code="*" /> <referenceRange> < observationRange> <text>1.8-2.4</text> & lt;/observationRange> </referenceRange> </ observation> </component></organizer> </entry> < entry> <organizer moodCode="EVN" classCode="BATTERY&quot ;> <templateId root="2.16.840.1.407791.10.20.22.4.1" /> <id nullFlavor="NA" /> <code codeSystem="local& quot; code="T4" displayName="T4 (THYROXINE)" /> < statusCode code="completed" /> <component> < observation moodCode="EVN" classCode="OBS"> < templateId root="2.16.840.1.646157.10.20.22.4.2" /> < id nullFlavor="NA" /> <code codeSystem="local&quot ; code="S3SBDDFI" displayName="T4 (THYROXINE)" /> <statusCode code="completed" /> <effectiveTime value="373944659747" /> <value unit="mcg/dL" xsi:type="PQ" value="9.4" /> <referenceRange& gt; <observationRange> <text>4.7-13.3</ text> </observationRange> </referenceRange> </observation> </component> </organizer> </ entry> <entry> <organizer moodCode="EVN" classCode=& quot;BATTERY"> <templateId root=" 2.16.840.1.400780.10.20.22.4.1" /> <id nullFlavor="NA&quot ; /> <code codeSystem="local" code="TSH" displayName="THYROID STIM HORMONE (TSH)" /> <statusCode code="completed" /> <component> <observation moodCode="EVN" classCode="OBS"> <templateId root="2.16.840.1.153655.10.20.22.4.2" /> <id nullFlavor ="NA" /> <code codeSystem="local" code=" TSH"displayName="THYROID STIM HORMONE (TSH)" /> < statusCode code="completed" /> <effectiveTime value=& quot;075415703876" /> <value unit="uIU/mL" xsi: type="PQ" value="2.57" /> <referenceRange&gt ; <observationRange> <text>0.34-4.82</ text> </observationRange> </referenceRange> </observation> </component> </organizer> </ entry> <entry> <organizer moodCode="EVN" classCode=& quot;BATTERY"> <templateId root=" 2.16.840.1.580660.10.20.22.4.1" /> <id nullFlavor="NA&quot ; /> <code codeSystem="local" code="BNP" displayName="B-TYPE NATRIURETIC PEPTIDE" /> <statusCode code="completed" /> <component> <observation moodCode="EVN" classCode="OBS"> <templateId root="2.16.840.1.689930.10.20.22.4.2" /> <id nullFlavor ="NA" /> <code codeSystem="local" code=" BNP" displayName="B-TYPE NATRIURETIC PEPTIDE" /> < statusCode code="completed" /> <effectiveTime value=& quot;282227858893" /> <value unit="pg/mL" xsi:type="PQ " value="103" /> <interpretationCode codeSystem=& quot;local" code="*" /> <referenceRange> <observationRange> <text>< 100</text&gt ; </observationRange> </referenceRange> & lt;/observation> </component> </organizer> </entry&gt ; <entry> <organizer moodCode="EVN" classCode=" BATTERY"> <templateId root="2.16.840.1.968929.10.20.22.4.1& quot; /> <id nullFlavor="NA" /> <code codeSystem ="local" code="SED" displayName="SED RATE" /> <statusCode code="completed" /> <component> <observation moodCode="EVN" classCode="OBS"> <templateId root="2.16.840.1.690194.10.20.22.4.2" /> <id nullFlavor="NA" /> <code codeSystem=" local" code="SED"displayName="SED RATE" /> <statusCode code="completed" /> <effectiveTime value=&quot ;851180338693" /> <value unit="mm/hr"xsi:type=& quot;PQ" value="12" /> <referenceRange> <observationRange> <text>0-15</text> </observationRange> </referenceRange> </ observation> </component> </organizer> </entry> & lt;entry> <organizer moodCode="EVN" classCode="BATTERY& quot;> <templateId root="2.16.840.1.068143.10.20.22.4.1" /& gt; <id nullFlavor="NA" /> <code codeSystem=" local" code="iCHEM8" displayName="CHEM/HEM PROFILE-BEDSIDE& quot; /> <statusCode code="completed" /> < component> <observation moodCode="EVN" classCode=" OBS"> <templateId root="2..840.1.157312.10.20.22.4.2& quot; /> <id nullFlavor="NA" /> <code codeSystem="local" code="K" displayName="POTASSIUM&quot ; /> <statusCode code="completed" /> < effectiveTime value="682294490888" /> <value unit=&quot ;mmol/L" xsi:type="PQ" value="4.0" /> < referenceRange> <observationRange> <text> 3.5-5.3</text> </observationRange> </referenceRange&gt ; </observation> </component> <component> <observation moodCode="EVN" classCode="OBS"> <templateIdroot="2.16.840.1.659368.10.20.22.4.2" /> <id nullFlavor="NA" /> <code codeSystem=" local" code="CMETHOD" displayName="METHOD" /> <statusCode code="completed" /> <effectiveTime value="407918298939" /> <value unit="" xsi: type="PQ" value="Bedside" /> <referenceRange& gt; <observationRange> <text /> </ observationRange> </referenceRange> </observation&gt ; </component> <component> <observation moodCode ="EVN" classCode="OBS"> <templateId root=& quot;[id number]" /> <id nullFlavor=&quot ;NA" /> <code codeSystem="local" code="GAP& quot; displayName="ANION GAP" /> <statusCode code=&quot ;completed" /> <effectiveTime value="[id number]&quot ; /> <value unit="mmol/L" xsi:type="PQ" value ="18" /> <referenceRange> < observationRange> <text>10-20</text> </ observationRange> </referenceRange> </observation&gt ; </component> <component> <observation moodCode ="EVN" classCode="OBS"> <templateId root=& quot;[id number]..[id number]" /> <id nullFlavor=&quot ;NA" /> <code codeSystem="local" code=" HMETHOD" displayName="METHOD" /> <statusCode code= "completed" /> <effectiveTime value="[id number]& quot; /> <value unit="" xsi:type="PQ" value=& quot;Bedside" /> <referenceRange><observationRange&gt ; <text /> </observationRange> < /referenceRange> </observation> </component> &lt ;component> <observation moodCode="EVN" classCode="OBS& quot;> <templateId root="2.16.840.1.570278.10.20.22.4.2&quot ; /> <id nullFlavor="NA" /> <code codeSystem="local" code="GLU" displayName="GLUCOSE&quot ; /> <statusCode code="completed" /> < effectiveTime value="800698616084" /> <value unit=&quot ;mg/dL" xsi:type="PQ" value="117" /> < interpretationCode codeSystem="local" code="*" /> <referenceRange> <observationRange> < text>70-99</text> </observationRange> </ referenceRange> </observation> </component> < component> <observation moodCode="EVN" classCode=" OBS"> <templateId root="2.16.840.1.538836.10.20.22.4.2& quot; /> <id nullFlavor="NA" /> <code codeSystem="local" code="BUN" displayName="BLOOD UREA NITROGEN" /> <statusCode code="completed" /> <effectiveTime value="396495361768" /> <value unit= "mg/dL" xsi:type="PQ" value="20" /> & lt;referenceRange> <observationRange> <text& gt;7-20</text> </observationRange> </ referenceRange> </observation> </component> < component> <observation moodCode="EVN" classCode=" OBS"> <templateId root="2.16.840.1.153432.10.20.22.4.2& quot; /> <id nullFlavor="NA" /> <code codeSystem="local" code="CREAT" displayName="CREATININE " /> <statusCode code="completed" /> & lt;effectiveTime value="524183423559" /> <value unit=& quot;mg/dL" xsi:type="PQ" value="0.9" /> & lt;referenceRange> <observationRange> <text> 0.6-1.0</text> </observationRange> </ referenceRange> </observation> </component> < component> <observation moodCode="EVN" classCode=" OBS"> <templateId root="2.16.840.1.006171.10.20.22.4.2& quot; /> <id nullFlavor="NA" /> <code codeSystem="local" code="HGBT" displayName="HEMOGLOBIN& quot; /> <statusCode code="completed" /> & lt;effectiveTime value="846674007089" /> <value unit=& quot;gm/dL" xsi:type="PQ" value="12.9" /> & lt;referenceRange> <observationRange> <text& gt;12.0-16.0</text> </observationRange> </ referenceRange> </observation> </component> < component> <observation moodCode="EVN" classCode=" OBS"> <templateId root="2.16.840.1.124827.10.20.22.4.2& quot; /> <id nullFlavor="NA"/> <code codeSystem="local" code="HCTT" displayName="HEMATOCRIT& quot; /> <statusCode code="completed" /> & lt;effectiveTime value="463731323630" /> <value unit=& quot;%" xsi:type="PQ" value="38.0" /> <referenceRange> <observationRange> < text>37.0-47.0</text> </observationRange> &lt ;/referenceRange> </observation> </component> & lt;component> <observation moodCode="EVN" classCode=&quot ;OBS"> <templateId root="2.16.840.1.426772.10.20.22.4.2 " /> <id nullFlavor="NA" /> <code codeSystem="local" code="NA" displayName="SODIUM" /> <statusCode code="completed" /> < effectiveTime value="985156323340" /> <value unit=&quot ;mmol/L" xsi:type="PQ" value="138" /> < referenceRange> <observationRange> <text> 135-148</text> </observationRange> </ referenceRange> </observation> </component> < component> <observation moodCode="EVN" classCode=" OBS"> <templateId root="2.16.840.1.885165.10.20.22.4.2& quot; /> <id nullFlavor="NA" /> <code codeSystem="local" code="CL" displayName="CHLORIDE&quot ; /> <statusCode code="completed" /> < effectiveTime value="378904404772" /> <value unit="mmol/L& quot; xsi:type="PQ" value="103" /> < referenceRange> <observationRange> <text> 98-110</text> </observationRange> </ referenceRange> </observation> </component> < component> <observation moodCode="EVN" classCode=" OBS"> <templateId root="2.16.840.1.024535.10..22.4.2& quot; /> <id nullFlavor="NA" /> <code codeSystem="local" code="CO2" displayName="CARBON DIOXIDE" /> <statusCode code="completed" /> <effectiveTime value="204648784411" /> < value unit="mmol/L" xsi:type="PQ" value="22" /&gt ; <referenceRange> <observationRange> <text>21-32</text> </observationRange> </referenceRange> </observation> </component> <component> <observation moodCode="EVN" classCode= "OBS"> <templateId root=" 2.16.840.1.051694.10.20.22.4.2" /> <id nullFlavor="NA& quot; /> <code codeSystem="local" code="CAION&quot ; displayName="CALCIUM IONIZED" /> <statusCode code=& quot;completed" /> <effectiveTime value="089989833721&quot ; /> <value unit="mg/dL" xsi:type="PQ" value= "4.5" /> <referenceRange> < observationRange> <text>4.5-5.3</text> & lt;/observationRange> </referenceRange> </ observation> </component> </organizer> </entry> & lt;entry> <organizer moodCode="EVN" classCode="BATTERY& quot;> <templateId root="2.16.840.1.233001.10.20.22.4.1" /& gt; <idnullFlavor="NA" /> <code codeSystem=" local" code="CBCD" displayName="CBC W/DIFF" /> <statusCode code="completed" /> <component> & lt;observation moodCode="EVN" classCode="OBS"> & lt;templateId root="2.16.840.1.930815.10.20.22.4.2" /> &lt ;id nullFlavor="NA" /> <code codeSystem="local& quot; code="BA#" displayName="BASOPHIL #" /> &lt ;statusCode code="completed" /> <effectiveTime value=& quot;018564045364" /> <value unit="k/cumm" xsi: type="PQ" value="0.1" /> <referenceRange> <observationRange> <text>0.0-0.2</text& gt; </observationRange> </referenceRange> </observation> </component> <component> &lt ;observation moodCode="EVN" classCode="OBS"> &lt ;templateId root="2.16.840.1.526062.10.20.22.4.2" /> < id nullFlavor="NA" /> <code codeSystem="local" code= "BA%" displayName="BASOPHIL %" /> <statusCode code="completed" /> <effectiveTime value="208148125270" /> <value unit="%& quot; xsi:type="PQ" value="2" /> < interpretationCode codeSystem="local" code="*" /> <referenceRange> <observationRange> < text>0-1</text> </observationRange> </ referenceRange> </observation> </component> < component> <observation moodCode="EVN" classCode=" OBS"> <templateId root="2.16.840.1.514618.10.20.22.4.2& quot; /> <id nullFlavor="NA" /> <code codeSystem="local" code="EO#" displayName="EOSINOPHIL # " /> <statusCode code="completed" /> & lt;effectiveTime value="494789679162" /> <value unit=& quot;k/cumm" xsi:type="PQ" value="0.2" /> < referenceRange> <observationRange> <text> 0.1-0.5</text> </observationRange> </ referenceRange> </observation> </component> < component> <observation moodCode="EVN"classCode="OBS "> <templateId root="2.16.840.1.198634.10.20.22.4.2& quot; /> <id nullFlavor="NA" /> <code codeSystem="local" code="EO%" displayName=" EOSINOPHIL %" /> <statusCode code="completed& quot; /> <effectiveTime value="130098268060" /> <value unit="%" xsi:type="PQ" value="4& quot; /> <referenceRange> <observationRange> <text>2-4</text> </observationRange> </referenceRange> </observation> </component> <component> <observation moodCode="EVN" classCode="OBS"> <templateId root=" 2.16.840.1.289606.10.20.22.4.2" /> <id nullFlavor="NA& quot; /> <code codeSystem="local" code="GR#" displayName="GRANULOCYTE #" /> <statusCode code=" completed" /> <effectiveTime value="420292055746" /> <value unit="k/cumm" xsi:type="PQ" value=& quot;3.8" /> <referenceRange> < observationRange> <text>2.0-9.0</text> & lt;/observationRange> </referenceRange> </ observation> </component> <component> < observation moodCode="EVN" classCode="OBS"> < templateId root="2.16.840.1.880361.10..22.4.2" /> < id nullFlavor="NA" /> <code codeSystem="local&quot ; code="GR%" displayName="GRANULOCYTE %" /& gt; <statusCode code="completed" /> < effectiveTime value="088281429474" /> <value unit=&quot ;%" xsi:type="PQ" value="66" /> &lt ;referenceRange> <observationRange> <text&gt ;50-75</text> </observationRange> </ referenceRange> </observation> </component> < component> <observation moodCode="EVN" classCode=" OBS"> <templateId root="2.16.840.1.369412.10..22.4.2& quot; /> <idnullFlavor="NA" /> <code codeSystem="local" code="LY#" displayName="LYMPHOCYTE # " /> <statusCode code="completed" /> < effectiveTime value="057181200417" /> <value unit=&quot ;k/cumm" xsi:type="PQ" value="1.1" /> < referenceRange> <observationRange> <text> 1.0-4.0</text> </observationRange> </ referenceRange> </observation> </component> < component> <observation moodCode="EVN" classCode=" OBS"> <templateId root="2.16.840.1.946168.10.20.22.4.2& quot; /> <id nullFlavor="NA" /> <code codeSystem="local" code="LY%" displayName=" LYMPHOCYTE %" /> <statusCode code="completed& quot; /> <effectiveTime value="567178305718" /> <value unit="%" xsi:type="PQ" value="18&quot ; /> <interpretationCode codeSystem="local" code=" *" /> <referenceRange> <observationRange&gt ; <text>20-30</text> </observationRange& gt; </referenceRange> </observation> </ component> <component> <observation moodCode="EVN" classCode="OBS"> <templateId root=" 2.16.840.1.879347.10.20.22.4.2" /> <id nullFlavor="NA& quot; /> <code codeSystem="local" code="MCH" displayName="MEAN CELL HGB" /> <statusCode code=" completed" /> <effectiveTime value="805983276132" /> <value unit="pg" xsi:type="PQ" value=&quot ;29.4" /> <referenceRange> < observationRange> <text>27.0-33.0</text> </observationRange> </referenceRange> </ observation> </component> <component> < observationmoodCode="EVN" classCode="OBS"> < templateId root="2.16.840.1.733854.10.20.22.4.2" /> < id nullFlavor="NA" /> <code codeSystem="local&quot ; code="MCHC" displayName="MEAN CELL HGB CONCENTRATION" /&gt ; <statusCode code="completed" /> < effectiveTime value="460129371024" /> <value unit=&quot ;g/dL" xsi:type="PQ" value="33.1" /> < referenceRange> <observationRange> <text> 32.0-37.0</text> </observationRange> </ referenceRange> </observation> </component> < component> <observation moodCode="EVN" classCode=" OBS"> <templateId root="2.16.840.1.984535.10.20.22.4.2& quot; /> <id nullFlavor="NA" /> <code codeSystem="local" code="MCV" displayName="MEAN CELL VOLUME" /> <statusCode code="completed" /> < effectiveTime value="809322881996" /> <value unit=&quot ;fl" xsi:type="PQ" value="88.8" /> < referenceRange> <observationRange> <text> 80.0-100.0</text> </observationRange> </ referenceRange> </observation> </component> < component> <observation moodCode="EVN" classCode=" OBS"> <templateId root="2.16.840.1.914128.10.20.22.4.2& quot; /> <id nullFlavor="NA" /> <code codeSystem="local" code="MO#" displayName="MONOCYTE #& quot; /> <statusCode code="completed" /> & lt;effectiveTime value="391301557442" /> <value unit="k/ cumm" xsi:type="PQ" value="0.6" /> < referenceRange> <observationRange> <text> 0.1-1.0</text> </observationRange> </ referenceRange> </observation> </component> < component> <observation moodCode="EVN" classCode=" OBS"> <templateId root="2.16.840.1.556454.10.20.22.4.2& quot; /> <id nullFlavor="NA" /> <code codeSystem="local" code="MO%" displayName=" MONOCYTE %" /> <statusCode code="completed&quot ; /> <effectiveTime value="187897988503" /> <value unit="%" xsi:type="PQ" value="10& quot; /> <interpretationCode codeSystem="local" code=& quot;*" /> <referenceRange> < observationRange> <text>4-6</text> </ observationRange> </referenceRange> </observation&gt ; </component> <component> <observation moodCode=& quot;EVN" classCode="OBS"> <templateId root=" 2.16.840.1.158679.10.20.22.4.2" /> <id nullFlavor="NA& quot; /> <code codeSystem="local" code="RBC" displayName="RED BLOOD CELL" /> <statusCode code=" completed" /> <effectiveTime value="603642712505" /> <value unit="m/cumm" xsi:type="PQ" value=" 4.29" /> <referenceRange> <observationRange > <text>4.00-6.00</text> </ observationRange> </referenceRange> </observation&gt ; </component> <component> <observation moodCode ="EVN" classCode="OBS"> <templateId root=& quot;2.16.840.1.562462.10.20.22.4.2" /> <id nullFlavor=&quot ;NA" /> <code codeSystem="local" code="RDW& quot; displayName="REDCELL DISTRIBUTION WIDTH" /> < statusCode code="completed" /> <effectiveTime value=" 326672998505" /> <value unit="%" xsi:type= "PQ" value="13.2" /> <referenceRange> <observationRange> <text>11.0-15.6</text&gt ; </observationRange> </referenceRange> & lt;/observation> </component> <component> < observation moodCode="EVN" classCode="OBS"> < templateId root="2.16.840.1.777604.10.20.22.4.2" /> < id nullFlavor="NA" /> <code codeSystem="local&quot ; code="WBC" displayName="WHITE BLOOD CELL" /> & lt;statusCode code="completed" /> <effectiveTime value= "402693848396" /> <value unit="k/cumm" xsi: type="PQ" value="5.8" /> <referenceRange> <observationRange> <text>5.0-10.0</text& gt; </observationRange> </referenceRange> </ observation> </component> <component> < observation moodCode="EVN" classCode="OBS"> < templateIdroot="2.16.840.1.845529.10.20.22.4.2" /> <id nullFlavor="NA" /> <code codeSystem="local" code="HGBT" displayName="HEMOGLOBIN" /> < statusCode code="completed" /> <effectiveTime value=& quot;564568776647" /> <value unit="gm/dL" xsi:type ="PQ" value="12.6" /> <referenceRange> <observationRange> <text>12.0-16.0</text> </observationRange> </referenceRange> </ observation> </component> <component> < observation moodCode="EVN" classCode="OBS"> < templateId root="2.16.840.1.412741.10.20.22.4.2" /> < id nullFlavor="NA" /> <code codeSystem="local&quot ; code="HCTT" displayName="HEMATOCRIT" /> < statusCode code="completed" /> <effectiveTime value=& quot;634794729976" /> <value unit="%" xsi: type="PQ" value="38.1" /> <referenceRange&gt ; <observationRange> <text>37.0-47.0</ text> </observationRange> </referenceRange> </observation> </component> <component> < observation moodCode="EVN" classCode="OBS"> < templateId root="2.16.840.1.849745.10.20.22.4.2" /> < id nullFlavor="NA" /> <code codeSystem="local&quot ; code="PLT" displayName="PLATELET COUNT" /> &lt ;statusCode code="completed" /> <effectiveTime value=& quot;316808783700" /> <value unit="k/cumm" xsi: type="PQ" value="179" /> <referenceRange> <observationRange> <text>150-400</text> </observationRange> </referenceRange> &lt ;/observation> </component> </organizer> </entry> <entry> <organizermoodCode="EVN" classCode="BATTERY "> <templateId root="2.16.840.1.753587.10.20.22.4.1" / > <id nullFlavor="NA" /> <code codeSystem=" local" code="iTROPI" displayName="TROPONIN I BEDSIDE" / > <statusCode code="completed" /> <component&gt ; <observation moodCode="EVN" classCode="OBS"> <templateId root="2.16.840.1.958134.10.20.22.4.2" /> <id nullFlavor="NA" /> <code codeSystem=& quot;local" code="CMETHOD" displayName="METHOD" /> <statusCode code="completed" /> < effectiveTime value="484896415669" /> <value unit="&quot ; xsi:type="PQ" value="Bedside" /> < referenceRange> <observationRange> <text /& gt; </observationRange> </referenceRange> </observation> </component> <component> &lt ;observation moodCode="EVN" classCode="OBS"> &lt ;templateId root="2.16.840.1.128585.10.20.22.4.2" /> < id nullFlavor="NA" /> <code codeSystem="local&quot ; code="TROPI" displayName="TROPONIN I" /> < statusCode code="completed" /> <effectiveTime value=" 410058156528" /> <value unit="ng/mL" xsi:type=& quot;PQ" value="< 0.04" /> <referenceRange& gt; <observationRange> <text>< 0.11</text& gt; </observationRange> </referenceRange> </observation> </component> </organizer> </entry& gt;</section> Encounters ACCT Visit Discharge Status Pt. Type Provider Facility Loc./Unit Complaint No. Date/Time [id number] 01/14/2016 01/14/2016 DIS Emergency Marlene [facility], Lai LowLC [id number] 11:28:00 13:58:00 [facility] [id number] 04/15/2015 04/15/2015 [id number] 06:[facility]:00 16:23:00 [facility] [id number] 04/07/2015 04/07/2015 DIS Emergency Ekengren Lai LowLC [id number] 14:29:00 16:05:00 , [facility] [id number] 08/21/2014 09/11/2014 DIS Outpatient Jake CHA, Lai LowR [id number] 12:15:00 12:36:00 [facility] [id number] 08/04/2014 08/13/2014 DIS Inpatient Lai Joseph MDN [id number] 16:38:00 15:47:00 [facility] [id number] 08/09/2014 08/09/2014 [facility] Inpatient Jonathon CHA, [id number] 07:30[facility] [id number] 08/02/2014 08/02/2014 [facility] [id number] 06:20:00 18:01:00 [facility]
[2018-01-04] MEDS ORDERED: ALBUTEROL/IPRATROPIUM 2.5mg-0.5mg/3ml NEB AEROSOL PRN (14:33)
[2018-01-04 14:39] VITALS: BMI 24.0
[2018-01-04] MEDS: NS 1,000 ML IV SCH (15:07)
--- NOTE | 2018-01-04 15:44 | Pharmacy Consult- Renal Dosing ---
Jay Consul-Renal Dosing - Consult Information RENAL DOSING: Today's S Cr = 0.8 mg/dl. Calculated Cr Cl = 36 ml/min. I changed the Cefepime 1 g iv every 6 hours to Cefepime 1 g iv every 8 hours due to the renal function per the Pharmacy Renal Monitoring and Adjustment Program. The pharmacy will continue to review the renal function and adjust the medications accordingly. Thanks, Alexei Thompson, Pharmacist.
[2018-01-04] MEDS: ALBUTEROL/IPRATROPIUM 2.5mg-0.5mg/3ml NEB AEROSOL SCH ×2 (16:34→19:06)
[2018-01-04] MEDS: CEFEPIME 1 GM in NS 50 ML IV SCH (17:13)
[2018-01-04] MEDS ORDERED: VANCOMYCIN - PHARMACY CONSULT MC ONE (17:15)
--- NOTE | 2018-01-04 17:50 | Pharmacy Consult-Antibiotics ---
Pharmacy Consult-Vancomycin - Laboratory Information WBC 7.6 T/MM3 (4.5-11.0) 01/04/18 12:08 BUN 20.0 MG/DL (7-17) H 01/04/18 12:08 Creatinine 0.8 MG/DL (0.7-1.2) 01/04/18 12:08 Procalcitonin < 0.05 NG/ML 01/04/18 12:08 - Consult Information Vancomycin Consult: Day 1 SK is an 82 yo female who was admitted with a C/O flu. The lactate was elevated to 6.4. A diagnosis of Sepsis has been added. Lactate = 6.4 (elevated) S Cr = 1.14 mg/dL Estimated Cr Cl = 37 mL/min Will give a bolus of Vancomycin 1,500 mg today, then starting tomorrow Vancomycin 1,250 mg iv every 24 hours. The pharmacy will continue to monitor adjust the vancomycin as needed. Thanks for the Vancomycin Protocol, Alexei Thompson, Pharmacist.
[2018-01-04] MEDS ORDERED: INFLUENZA VAC High Dose 2017-18 (Fluzone HD*) (>=65yo) 0.5ml IM ONE (18:00)
[2018-01-04] MEDS: ONDANSETRON 4 MG/2 ML INJECTION IVP PRN (18:05)
--- NOTE | 2018-01-04 18:53 | Cardiology Consult Note ---
<Nadia Bucio - Last Filed: 01/05/18 10:57> History of Present Illness Consult date: 01/04/18 Requesting physician: Handy Yeboah IV Chief complaint: SVT History of present illness: Marguerite is a 82 year old female who has been suffering from a flu-like illness for a week to 10 days per her son, Dr. Ziegler. Today she presented to the ED for further evaluation of increased shortness of breath and productive cough. She was noted to be tachycardiac (HR 130) and had runs of SVT. She was given Amiodarone 150mg IV bolus x 1 with a Amiodarone drip by ED physician. She does not have a known history of cardiac arrhythmia. She has a history of CAD with CABG and see Dr. Joseph twice yearly, and has had no recent cardiac symptoms. Initial troponin was elevated at 0.161 with repeat troponin at 0.259. Respiratory panel was positive for RSV. Dr. Benedict was contacted for further evaluation while in the ED and felt as though her symptoms were consistent with flu like illness and not heart failure or an arrhythmia of immediate concern. He is pleased to see the patient in consultation at the request of the hospitalist service. Review of Systems - Constitutional Constitutional: Present: chills, fatigue, fever(s), malaise, night sweats, weakness - EENMT Eyes: Absent: change in vision Balance: Absent: vertigo Mouth/Throat: Present: dry mouth. Absent: sore throat - Cardiovascular Cardiovascular: Present: chest pain, dyspnea on exertion Vascular: Absent: pallor of an extermity, pedal edema - Respiratory Respiratory: Present: cough, dyspnea, dyspnea on exertion, pain on inspiration, chest congestion - Gastrointestinal Gastrointestinal: Present: abdominal pain, dyspepsia. Absent: diarrhea, nausea , vomiting - Genitourinary Genitourinary: Absent: dysuria - Musculoskeletal Musculoskeletal: Present: muscle weakness - Integumentary/Breasts Integumentary: Absent: rash - Neurological Neurological: Present: dizziness - Endocrine Endocrine: Absent: palpitations PFSH Patient Stated Medical History Hypertension Yes Osteoarthritis Yes Clinic Medical History Peripheral neuropathy (Chronic Medical) Hypothyroidism (acquired) (Chronic Medical) Hyperlipidemia (Chronic Medical) HTN (hypertension) (Chronic Medical) ASCVD (arteriosclerotic cardiovascular disease) (Chronic Medical) Surgical History: Tonsils. Appendectomy. Bowel Resection following a perforated diverticulum/abscess. Right Knee replacement. Right Hip Replacement. Complete Hysterectomy Family History: Mother - , breast cancer. Father - , asthma. - Social History Smoking status: Former smoker Substance use type: does not use Alcohol intake frequency: does not drink Housing: house Household members: spouse Current occupational status: retired Current residence: Apartment/Private Home Medications Home Medications Medication Instructions Recorded Confirmed Type Lopressor (metoprolol tartrate) 50 25 mg PO BID #90 tab 05/27/17 01/04/18 Rx mg tablet Xanax (alprazolam) 0.25 mg tablet 0.25 mg PO TID PRN #90 tab 08/15/17 01/04/18 Rx Prilosec (Omeprazole) 20 mg 20 mg PO DAILY #90 cap 12/05/17 01/04/18 Rx capsule,delayed release Atorvastatin [Lipitor] 40 mg PO HS 01/04/18 01/04/18 History Levothyroxine Sodium [Tirosint] 50 mcg PO DAILY 01/04/18 01/04/18 History Losartan Potassium [Cozaar] 100 mg PO DAILY 01/04/18 01/04/18 History Trazodone [Desyrel] 100 mg PO HS 01/04/18 01/04/18 History Acetaminophen [Tylenol] 325 mg PO Q5H PRN tab 01/09/18 Rx Albuterol/Ipratropium [Duoneb] 3 ml AEROSOL RTQID each 01/09/18 Rx Aspirin *EC* [Ecotrin] 81 mg PO DAILY tab 01/09/18 Rx Furosemide [Lasix] 40 mg PO DAILY tab 01/09/18 Rx Guaifenesin LA [Mucinex LA] 1,200 mg PO BID tab 01/09/18 Rx Nitroglycerin [Nitrostat] 0.4 mg SL Q5MIN3 PRN tab 01/09/18 Rx Ondansetron Odt [Zofran Odt Tablet] 4 mg PO Q4H PRN tab 01/09/18 Rx PredniSONE [Deltasone 20 mg] 20 mg PO WB tab 01/09/18 Rx Allergies Allergy/AdvReac Type Severity Reaction Status Date / Time No Known Allergies Allergy Verified 01/04/18 12:20 Exam Vital signs: Temperature 98.4 F 01/04/18 16:00 Pulse Rate 104 H 01/04/18 18:30 Respiratory Rate 20 01/04/18 18:30 Blood Pressure 126/63 01/04/18 18:00 Pulse Oximetry 100 01/04/18 18:30 - Constitutional mild distress, cooperative - Routine HEENT Exam Head: Present: normocephalic ENT: Present: mucous membranes dry - Routine Neck Exam Absent: JVD, carotid bruit - Routine Chest/Breast/Axilla Exam Chest wall: Absent: tenderness, pacemaker - Routine Respiratory Exam Present: accessory muscle use, dyspnea, decreased breath sounds, wheezes, diminished air movement - Routine Cardiovascular Exam Present: tachycardia - Routine Abdominal Exam Present: soft, tenderness - Routine Extremities Exam Present: no edema - Routine Skin Exam Present: intact, dry, warm - Routine Neurological Exam Present: alert, oriented X3 - Routine Psychiatric Exam Present: normal affect, normal thought process Results 01/05/18 04:45 01/05/18 04:45 Cardiac Enzymes 01/04/18 Range/Units 16:32 Troponin I 0.259 H D (0-0.12) ng/ml Intake and Output 01/04/18 01/04/18 01/04/18 06:59 14:59 22:59 Intake Total 1025 / 1125 258.333 / 258.333 Output Total 50 / 50 Balance 1025 / 1125 208.333 / 208.333 Intake: IV 1025 / 1025 138.333 / 138.333 Amiodarone 450 mg In NS 250ml 25 / 25 250 ml @ 1 MG/MIN 33.33 mls/hr IV .Q7H31M HUBERT Rx#:[id number] Cefepime 1 gm In Ns 50 ml @ 200 50 / 50 mls/hr IV Q8H HUBERT Rx#: [id number] NS 500ml 500 ml @ 999.9 mls/hr 1000 / 1000 IV .Q30M HUBERT Rx#:[id number] Ns 1,000 ml @ 100 mls/hr IV . 88.333 / 88.333 Q10H HUBERT Rx#:[id number] Oral 120 / 120 Output: Urine 50 / 50 Other: # Voids 1 Weight 131 lb 9.855 oz Patient Weight 01/05/18 06:59 Weight 131 lb 9.855 oz - Imaging and Cardiology Imaging & Cardiology Narrative: Date of Exam: 01/04/18 Ordering Provider: Lavon Ortega MD Type of Exam(s): XR chest 1V Reason for Exam(s): cough shortness of air tachycardia SVT Indication: cough shortness of air tachycardia SVT PROCEDURE: XR chest 1V: Encounter: Initial Comparison: None Findings: Respiratory motion artifact. No gross consolidative pneumonia, pleural effusion or pneumothorax. Heart size and mediastinal contours are within normal limits. Prior CABG. Pulmonary vascularity is not well evaluated due to the motion. Overlying monitoring leads. Impression: No pneumonia. 01/04/18 18:55 EKG interpretations - EKG EKG results cardiology: sinus rhythm EKG shows: tachycardia - Dysrhythmias Sinus rhythms and dysrhythmias: sinus tachycardia Assessment and Plan - Assessment and Plan (1) Non-ST elevation myocardial infarction (NSTEMI), type 2 Status: Acute Likely demand ischemia secondary to respiratory illness Troponin 1) 0.161, 2) 0.259... - Trend serial troponin - EKG with ST, no ischemic changes - Aspirin 1mg daily, continue home BB, ARB (2) Sinus tachycardia Status: Acute Likely illness related - Continue Home metoprolol for rate control. (3) ASCVD (arteriosclerotic cardiovascular disease) Status: Chronic HX CAD with CABG approximately 3 years ago (patient of Dr. Joseph) (4) HTN (hypertension) Status: Chronic Continue home BB, ARB (5) Hyperlipidemia Status: Chronic Continue Atorvastatin - Assessment and Plan NSTEMI, type II: Likely demand ischemia secondary to respiratory illness - Troponin 1) 0.161, 2) 0.259... - Trend serial troponin - EKG with ST, no ischemic changes - Aspirin 1mg daily, continue home BB, ARB Sinus Tachycardia: Likely illness related - Continue Home metoprolol for rate control. CAD: HX CAD with CABG approximately 3 years ago (patient of Dr. Joseph) HTN: Continue home BB, ARB HLD: Continue Atorvastatin Thank you for allowing us to participate in the care of this patient, we will follow along with you. Hospital Course Summary Disclaimer: The visit summary below is not to be considered part of the above Progress Note. <Percy Benedict - Last Filed: 01/12/18 12:52> [facility] Patient Stated Medical History Hypertension Yes Osteoarthritis Yes Clinic Medical History Peripheral neuropathy (Chronic Medical) Hypothyroidism (acquired) (Chronic Medical) Hyperlipidemia (Chronic Medical) HTN (hypertension) (Chronic Medical) ASCVD (arteriosclerotic cardiovascular disease) (Chronic Medical) Exam Vital signs: Temperature 96.9 F 01/09/18 07:00 Pulse Rate 99 01/09/18 07:00 Respiratory Rate 12 01/09/18 11:54 Blood Pressure 131/65 01/09/18 07:00 Pulse Oximetry 97 01/09/18 11:54 Results 01/08/18 05:17 01/09/18 04:30 Assessment and Plan - Attestation Attestation Narrative: 01/12/18 12:52 Recommendation After examining the patient I agree with the above assessment. I am involved in the formulation of the patient's plan of care. - Assessment and Plan (1) ASCVD (arteriosclerotic cardiovascular disease) Status: Chronic (2) HTN (hypertension) Status: Chronic (3) Hyperlipidemia Status: Chronic (4) Non-ST elevation myocardial infarction (NSTEMI), type 2 Status: Acute (5) Sinus tachycardia Status: Acute (6) NSVT (nonsustained ventricular tachycardia) Status: Acute Hospital Course Summary Disclaimer: The visit summary below is not to be considered part of the above Progress Note.
[2018-01-04] MEDS: BUDESONIDE INH.SOLN 0.5mg/2ml NEB AEROSOL SCH (19:05)
--- NOTE | 2018-01-04 19:39 | History & Physical Report ---
History of Present Illness Date: 01/04/18 Chief complaint: RSV, PSVT HPI: Marguerite Ziegler is a very pleasant 82-year-old patient of Dr. Nigel Andrew, whom is also her son. She presented to [facility] emergency room today, 01/04/18 for evaluation of increased shortness of breath and productive cough. She states that about 2 weeks ago she was sick with a viral gastroenteritis which subsequently left her feeling generally weak. She reports that her gastroenteritis resolved but then she started to have increased congestion with productive cough of whitish sputum fpr the past 4 days or so. She has progressively become more short of breath and gradually more weak diffusely. She also reports subjective fevers with sweating as well as decreased appetite. She was seen by Dr. Ziegler on 01/03/18 in clinic and given Rocephin 1g IM as well as Kenalog 60mg for suspected pneumonia. She was unable to have a chest x- ray at that time as it was unavailable. She was discharged home on Levaquin. Throughout the night and into this morning, her shortness of breath worsened and she presented to [facility] ED for further evaluation. Upon arrival to the ED, she was noted to be tachycardiac (HR 130) and rhythm was found to be SVT. Dr. Benedict was consulted from the ED and recommended initiation of amiodarone 150mg IV bolus x 1 with a amiodarone drip. She does not have a known history of cardiac arrhythmia. Labs were obtained and revealed mild anemia (Hgb 11.7), hypernatremia (Na 148), hypocalcemia (Ca 8.2) and hyperglycemia (Glu 154). Initial troponin was elevated at 0.161 with repeat troponin at 0.259. Initial lactate was critically elevated at 5.7 with repeat at 6.4. Procalcitonin was < 0.05 and TSH was 1.39. Respiratory panel was positive for RSV. CXR revealed no pneumonia. While in the ED, she received IV fluids, zofran and cefepime 1g for empiric antimicrobial coverage of suspected pulmonary pathogens. Given her acute respiratory distress secondary to RSV as well as concern for severe sepsis though no known infection has been identified and persistent SVT with possible NSTEMI, Dr. Yeboah was consulted and she was admitted into inpatient status to the ICU for close respiratory and cardiac monitoring, IV hydration, IV antibiotics, IV cardiac rate control and respiratory cares. Her length of stay is expected to exceed more than 2 over nights. On exam, she is seen immediately after arriving to ICU with her family at the bedside. She admits to 3 episodes of left sided chest pain today which she describes as squeezing. She denies any current chest pain and reports that the prior episodes lasted about 3-5 minutes and resolved without treatment. She admits that she has never had chest pain like this before and states that it is different than the pain she has across her chest when she coughs. She denies any dizziness, lightheadedness or syncope. Review of Systems All systems PM: 10-point ROS was reviewed, no additional remarkable complaints except - Constitutional Constitutional: Present: chills, fatigue, fever(s), malaise, night sweats, weakness - EENMT Eyes: Absent: diplopia, loss of vision, photophobia Ears: Absent: ear pain Balance: Absent: vertigo, falling to one side Nose: Absent: nosebleeds Mouth/Throat: Present: dry mouth. Absent: sore throat, changes in swallowing - Cardiovascular Cardiovascular: Present: chest pain, dyspnea on exertion. Absent: palpitations , syncope, orthopnea, edema Rhythm: Present: other (SVT) Vascular: Absent: pallor of an extermity, pedal edema - Respiratory Respiratory: Present: cough, dyspnea, dyspnea on exertion, wheezing, pain on inspiration, chest congestion. Absent: hemoptysis - Gastrointestinal Gastrointestinal: Present: abdominal pain (epigastric), dyspepsia. Absent: melena, nausea, vomiting - Genitourinary Genitourinary: Absent: dysuria, flank pain, hematuria Menstruation: post hysterectomy - Musculoskeletal Musculoskeletal: Present: muscle weakness. Absent: back pain, deformity - Integumentary/Breasts Integumentary: Absent: rash - Neurological Neurological: Present: weakness. Absent: confusion, convulsions, dizziness, focal weakness - Psychiatric Psychiatric: Present: abnormal sleep pattern (insomnia), anxiety - Endocrine Endocrine: Absent: heat intolerance, palpitations - Hematologic/Lymphatic Hematologic/Lymphatic: Absent: easy bruising - Allergic/Immunologic Allergic/Immunologic: Absent: seasonal rhinorrhea Past Medical History Patient Stated Medical History Hypertension. Hypothyroidism. Hyperlipidemia. Peripheral neuropathy. ASCVD. Osteoarthritis. Anxiety. Insomnia. Diastolic dysfunction. Surgical History: CABG - 06/2014. Cholectystectomy. Tonsils. Appendectomy. Bowel Resection following a perforated diverticulum/abscess. Right Knee replacement. Right Hip Replacement. Complete Hysterectomy. Family History Updates: Mother - , breast cancer. Father - , asthma. - Social History Smoking status: Former smoker (smoked briefly in her 20's.) Substance use type: does not use Alcohol intake frequency: does not drink Housing: house Household members: spouse Current occupational status: retired (nurse) Does patient use chewing tobacco?: No Current residence: Apartment/Private Home Social history: PCP - Dr. Ziegler. Cardio - Dr. Joseph. Medications Home Medications Medication Instructions Recorded Confirmed Type Lopressor (metoprolol tartrate) 50 25 mg PO BID #90 tab 05/27/17 01/04/18 Rx mg tablet metoclopramide 10 mg tablet 10 mg PO TID #90 tab 08/09/17 01/04/18 Rx Xanax (alprazolam) 0.25 mg tablet 0.25 mg PO TID PRN #90 tab 08/15/17 01/04/18 Rx Prilosec (Omeprazole) 20 mg 20 mg PO DAILY #90 cap 12/05/17 01/04/18 Rx capsule,delayed release Levaquin (levofloxacin) 500 mg 500 mg PO DAILY #10 tab 01/03/18 01/04/18 Rx tablet Atorvastatin [Lipitor] 40 mg PO HS 01/04/18 01/04/18 History Levothyroxine Sodium [Tirosint] 50 mcg PO DAILY 01/04/18 01/04/18 History Losartan Potassium [Cozaar] 100 mg PO DAILY 01/04/18 01/04/18 History Trazodone [Desyrel] 100 mg PO HS 01/04/18 01/04/18 History Allergies Allergy/AdvReac Type Severity Reaction Status Date / Time No Known Allergies Allergy Verified 01/04/18 12:20 Exam Vital Signs: Temperature 98.4 F 01/04/18 16:00 Pulse Rate 104 H 01/04/18 18:30 Respiratory Rate 18 01/04/18 19:06 Blood Pressure 126/63 01/04/18 18:00 Pulse Oximetry 99 01/04/18 19:06 Telemetry Rhythm: Sinus Tachycardia Height/Weight/BMI: Height 5 ft 2 in Weight 131 lb 9.855 oz Body Mass Index 24.0 Comments: Patient seen immediately upon arrival to ICU with family at the bedside. - Constitutional Present: mild distress, well nourished, well developed, cooperative - Routine HEENT Exam Head: Present: normocephalic, atraumatic Eye: Present: PERRL. Absent: conjunctival icterus ENT: Present: mucous membranes dry, oropharynx clear, dentition normal - Routine Neck Exam Present: supple, full ROM, trachea midline - Routine Chest/Breast/Axilla Exam Chest wall: Absent: tenderness, pacemaker - Routine Respiratory Exam Present: accessory muscle use, dyspnea, decreased breath sounds, respiratory distress (mild), rhonchi, wheezes, diminished air movement. Absent: stridor Comments: productive cough on exam. - Routine Cardiovascular Exam Present: S1, S2, tachycardia - Routine Abdominal Exam Present: soft, normoactive bowel sounds, tenderness (mild epigastric tenderness) , non distended. Absent: rebound, guarding, firm - Routine Extremities Exam Present: no edema, non tender, full ROM, pulses intact. Absent: calf tenderness - Routine Back/Spine/Pelvis Exam Back/Spine: Present: full ROM. Absent: vertebral tenderness - Routine Skin Exam Present: dry, warm. Absent: jaundice Comments: afebrile. - Routine Neurological Exam Present: alert, oriented X3, CN II-XII intact, moving all extremities, hearing grossly intact, normal speech. Absent: facial asymmetry - Routine Psychiatric Exam Present: normal affect, cooperative Results - Labs CBC & Chem 7: 01/04/18 12:08 01/04/18 12:08 Labs: Anemia. Hypernatremia. Hyperglycemia. Hypocalcemia. Elevated lactate. Elevated troponin. - ABG Interpretation ABG results: 01/04/18 17:30 ABG pH 7.398 ABG pCO2 32 L ABG pO2 112 H ABG HCO3 20.0 L ABG Total CO2 21.0 L ABG O2 Saturation 98.0 ABG Base Excess -4.0 L - Imaging and Cardiology Chest x-ray Status: image reviewed by me Additional comments: Date of Exam: 01/04/18 Type of Exam(s): XR chest 1V Reason for Exam(s): cough shortness of air tachycardia SVT Findings: Respiratory motion artifact. No gross consolidative pneumonia, pleural effusion or pneumothorax. Heart size and mediastinal contours are within normal limits. Prior CABG. Pulmonary vascularity is not well evaluated due to the motion. Overlying monitoring leads. Impression: No pneumonia. Assessment and Plan (1) RSV (acute bronchiolitis due to respiratory syncytial virus) Current visit: Yes Status: Acute (2) Non-ST elevation myocardial infarction (NSTEMI), type 2 Current visit: Yes Status: Acute (3) Sinus tachycardia Current visit: Yes Status: Acute Assessment and Plan: 82-year-old female patient of Dr. Ziegler admitted to ICU for mild respiratory distress secondary to RSV requiring supplemental oxygen as well as NSTEMI and dehydration. Assessment: Mild respiratory distress secondary to acute RSV, present on admission. NSTEMI, type 2, likely secondary to demand ischemia and respiratory illness. Elevated troponin, present on admission. SVT, acute, present on admission. Hypernatremia (Na 148), present on admission. Dehydration, present on admission. Anemia (Hgb 11.7), reportedly chronic, present on admission. Hypocalcemia (Ca 8.2), present on admission. Possible severe sepsis/septic shock as indicated by tachycardia, tachypnea and elevated lactate of 5.7. Hypertension. Hypothyroidism. Hyperlipidemia. Peripheral neuropathy. ASCVD. Osteoarthritis. Anxiety. Insomnia. Diastolic dysfunction. Plan - 01/04/18: Admit to ICU inpatient status under the care of Dr. Yeboah. Monitor cardiac and respiratory function closely on telemetry with continuous oximetry. Oxygen as needed to maintain SAO2 >90%, weaning as able. Patient does not use oxygen at home. Patient given Rocephin 1gm IM as outpatient on 01/03/18 and started on Levaquin po. Given Cefepime 1g in ED. Will continue Cefepime and add vancomycin for empiric coverage of suspected pulmonary pathogens given elevated lactate and risk of pneumonia. Pharmacy to manage vancomycin. Blood cultures pending. Will try and obtain sputum culture. DuoNeb treatments QID and Q6H PRN dyspnea. Pulmicort BID. Solu-Medrol 125mg Q6H for pulmonary inflammation. Consider weaning Solu-Medrol in AM if improving. Mucinex for mucolytic effect. SVT present on admission. Dr. Benedict consulted. Amiodarone 450mg IV bolus x 1 given in ED. Amiodarone drip initiate per Dr. Benedict with rate improving. Continue to monitor closely. Echocardiogram obtained - results pending. Blood pressure stable. Continue home medications - patient may take home medications. Recent complaint of chest pain. Nitro PRN chest pain. NS 150cc/hr for hydration. Monitor weight and urinary output closely for signs of fluid overload. Priolsec for GERD and GI protection. Mild epigastric pain on exam. KUB unremarkable. SCDs for DVT prophylaxis. Patient is at significant risk for deterioration. Monitor closely. Upon discharge, patient's care will be returned to her PCP. DVT Prophylaxis: SCD's GI Prophylaxis: other (Prilosec) Resuscitation Status: Full Code - Time spent with patient Time with patient PN: 70 minutes - Physician Narrative Physician: Handy Yeboah MD Narrative: Date: 01/04/18 Time: 2029 I have independently evaluated and examined this patient. I reviewed the chart, the patient's history, and the PUBLIC RELATIONS ACCOUNT EXECUTIVE/PA's documented findings as above. We discussed and formulated the assessment and plan as above with additions as below: 82 yo says she had n/v/d about 21/2 weeks ago that lasted about a week. She then has had a cough and has been getting weaker. She had some left-side chest pain today. She had SVT in the ED. Amiodarone was started, and Dr. Benedict was consulted. She is positive for RSV. Lactate was 5.7 then 6.4 on recheck. She got 2 L of IVF in ED. She says she has not had a stool in 2-3 days and had mid- epigastric pain on palpation. KUB is unremarkable. Mild distress. Decreased breath sounds with some rhonchi. Tachycardic in 120s on tele. Soft, epigastric tenderness. No guarding/rebound. No edema. Admit to CCU. O2 as needed. Breathing treatmentsCefepime and Vanco started for possible pneumonia. Repeat CXR in AM. Also check procalcitonin. Follow blood cx. Dr. Benedict consulted. Monitor troponins. Echo ordered. Nitro prn. Continue home meds. d/w Dr. Ziegler. Sepsis Assessment - Evaluation SIRS Criteria: pulse > 90 beats/minute, RR > 20 Severe Sepsis: lactate > 2.0 mg/dL Septic Shock: Lactate > or equal to 4 mg/dL Hospital Course Summary Disclaimer: The visit summary below is not to be considered part of the above Progress Note. Hospital Course: Plan - 01/04/18: Admit to ICU inpatient status under the care of Dr. Yeboah. Monitor cardiac and respiratory function closely on telemetry with continuous oximetry. Oxygen as needed to maintain SAO2 >90%, weaning as able. Patient does not use oxygen at home. Patient given Rocephin 1gm IM as outpatient on 01/03/18 and started on Levaquin po. Given Cefepime 1g in ED. Will continue Cefepime and add vancomycin for empiric coverage of suspected pulmonary pathogens given elevated lactate and risk of pneumonia. Pharmacy to manage vancomycin. Blood cultures pending. Will try and obtain sputum culture. DuoNeb treatments QID and Q6H PRN dyspnea. Pulmicort BID. Solu-Medrol 125mg Q6H for pulmonary inflammation. Consider weaning Solu-Medrol in AM if improving. Mucinex for mucolytic effect. SVT present on admission. Dr. Benedict consulted. Amiodarone 450mg IV bolus x 1 given in ED. Amiodarone drip initiate per Dr. Benedict with rate improving. Continue to monitor closely. Echocardiogram obtained - results pending. Blood pressure stable. Continue home medications - patient may take home medications. Recent complaint of chest pain. Nitro PRN chest pain. NS 150cc/hr for hydration. Monitor weight and urinary output closely for signs of fluid overload. Priolsec for GERD and GI protection. Mild epigastric pain on exam. KUB unremarkable. SCDs for DVT prophylaxis. Upon discharge, patient's care will be returned to her PCP.
[2018-01-04] MEDS ORDERED: NITROGLYCERIN 0.4 MG SUBLINGUAL TABLET SL PRN (19:45)
[2018-01-04] MEDS: ZOLPIDEM 5 MG TABLET PO SCH (20:04)
[2018-01-04] MEDS: ATORVASTATIN 40 MG TABLET PO SCH (20:04)
[2018-01-04] MEDS: GUAIFENESIN LA 600 MG TABLET PO SCH (20:04)
[2018-01-04] MEDS: METHYLPREDNISOLONE SOD SUCC 125mg/2ml INJECTION IVP SCH (20:04)
[2018-01-05] MEDS: NS 1,000 ML IV SCH ×2 (01:02→08:00)
[2018-01-05] MEDS: CEFEPIME 1 GM in NS 50 ML IV SCH ×3 (01:03→18:26)
[2018-01-05] MEDS: METHYLPREDNISOLONE SOD SUCC 125mg/2ml INJECTION IVP SCH ×2 (03:00→08:01)
[2018-01-05] MEDS: ACETAMINOPHEN 325 MG TABLET PO PRN ×2 (04:46→20:18)
[2018-01-05] MEDS: ONDANSETRON 4 MG/2 ML INJECTION IVP PRN (04:47)
[2018-01-05] MEDS: LEVOTHYROXINE 50 MCG TABLET PO SCH (06:00)
[2018-01-05] MEDS: OMEPRAZOLE 20 MG CAPSULE PO SCH (06:01)
[2018-01-05] MEDS: ALBUTEROL/IPRATROPIUM 2.5mg-0.5mg/3ml NEB AEROSOL SCH ×4 (07:03→21:52)
[2018-01-05] MEDS: BUDESONIDE INH.SOLN 0.5mg/2ml NEB AEROSOL SCH ×2 (07:03→21:52)
[2018-01-05] MEDS: ASPIRIN *EC* 81 MG TABLET PO SCH (08:01)
[2018-01-05] MEDS: GUAIFENESIN LA 600 MG TABLET PO SCH ×2 (08:01→20:18)
--- NOTE | 2018-01-05 08:02 | XRay Report ---
Indication: abdominal pain PROCEDURE: XR abdomen 1V: Encounter: Initial Comparison: None Findings: The visualized lung bases are clear. There is no free air on the upright view. The bowel gas pattern is nonobstructive and nonspecific. Gas is seen in nondilated small and large bowel to the level of the rectum. Right hip replacement. Impression: Nonobstructive nonspecific bowel gas pattern. There is a preliminary report by [facility]. .
[2018-01-05] MEDS: LOSARTAN 100 MG TABLET PO SCH (08:07)
--- NOTE | 2018-01-05 09:09 | XRay Report ---
Indication: dyspnea PROCEDURE: XR chest 1V: Encounter: Initial Comparison: January 04, 2018 Findings: The lungs are stable in appearance without new focal airspace consolidation. There is no pleural effusion or pneumothorax. The heart size, pulmonary vascularity and mediastinal contours are unchanged. Prior CABG. Cholecystectomy clips. Overlying monitoring leads. IMPRESSION: Stable appearance of the chest without acute cardiopulmonary disease. .
--- NOTE | 2018-01-05 09:56 | Progress Note ---
- Date 01/05/18 Subjective: Says she does not feel good. c/o nausea. She thinks nausea is worse with cough. She has eaten very little. She has had 2 loose stools. She denies soa and is on RA. She has been up to the commode and thinks she was steady on her feet. Objective Vital signs: Temperature 98.4 F 01/05/18 00:00 Pulse Rate 113 H 01/05/18 08:00 Respiratory Rate 12 01/05/18 07:04 Blood Pressure 163/93 H 01/05/18 07:00 Pulse Oximetry 92 01/05/18 07:12 Height/Weight/BMI: Height 5 ft 2 in Weight 61.1 kg Body Mass Index 24.0 - Constitutional Present: mild distress - Routine HEENT Exam Head: Present: normocephalic, atraumatic Eye: Present: EOMI, PERRL - Routine Respiratory Exam Present: wheezes - Routine Cardiovascular Exam Present: RRR - Routine Abdominal Exam Present: soft, non distended, non tender - Routine Extremities Exam Present: no edema - Routine Neurological Exam Present: alert - Routine Psychiatric Exam Present: cooperative Results - Labs CBC & Chem 7: 01/05/18 04:45 01/05/18 04:45 - ABG Interpretation ABG results: 01/04/18 17:30 ABG pH 7.398 ABG pCO2 32 L ABG pO2 112 H ABG HCO3 20.0 L ABG Total CO2 21.0 L ABG O2 Saturation 98.0 ABG Base Excess -4.0 L Assessment and Plan (1) RSV (acute bronchiolitis due to respiratory syncytial virus) Current visit: Yes Status: Acute (2) Non-ST elevation myocardial infarction (NSTEMI), type 2 Current visit: Yes Status: Acute (3) Sinus tachycardia Current visit: Yes Status: Acute Assessment and Plan: Assessment: acute RSV, present on admission. NSTEMI, type 2, likely secondary to demand ischemia and respiratory illness. SVT, acute, present on admission. Possible severe sepsis/septic shock as indicated by tachycardia, tachypnea and elevated lactate of 5.7. Hypertension. Hypothyroidism. Hyperlipidemia. Peripheral neuropathy. ASCVD. Osteoarthritis. Anxiety. Insomnia. Diastolic dysfunction. Nausea. Hypernatremia (Na 148), present on admission. Dehydration, present on admission. Anemia (Hgb 11.7), reportedly chronic, present on admission. Hypocalcemia (Ca 8.2), present on admission. Plan: Monitor cardiac and respiratory function closely on telemetry with continuous oximetry. Oxygen as needed to maintain SAO2 >90%, weaning as able. Patient does not use oxygen at home. On RA now. Questioning sepsis - no bacterial source ID'd. Lactate now wnl. Continue empiric Cefepime and Vanco for now. Blood cx obtained. Troponin has trended up. Repeat. Will keep in CCU but could transfer if next troponin decreased. d/w Dr. Benedict. DuoNeb treatments QID and Q6H PRN dyspnea. Pulmicort BID. Change from Solu- Medrol to prednisone. Wheezing on exam. DC IVF and give Lasix. BNP Mucinex for mucolytic effect. SVT present on admission. Dr. Benedict consulted. Continue to monitor closely. Echocardiogram obtained - results pending. Continued home medications. Recent complaint of chest pain. Nitro PRN chest pain. Priolsec for GERD and GI protection. Mild epigastric pain on exam. KUB unremarkable. SCDs for DVT prophylaxis. Replace potassium. Na, Hgb improved - Physician Narrative Narrative: Date: 01/05/18 Time: 0952 Hospital Course Summary Disclaimer: The visit summary below is not to be considered part of the above Progress Note. Hospital Course: Plan - 01/04/18: Admit to ICU inpatient status under the care of Dr. Yeboah. Monitor cardiac and respiratory function closely on telemetry with continuous oximetry. Oxygen as needed to maintain SAO2 >90%, weaning as able. Patient does not use oxygen at home. Patient given Rocephin 1gm IM as outpatient on 01/03/18 and started on Levaquin po. Given Cefepime 1g in ED. Will continue Cefepime and add vancomycin for empiric coverage of suspected pulmonary pathogens given elevated lactate and risk of pneumonia. Pharmacy to manage vancomycin. Blood cultures pending. Will try and obtain sputum culture. DuoNeb treatments QID and Q6H PRN dyspnea. Pulmicort BID. Solu-Medrol 125mg Q6H for pulmonary inflammation. Consider weaning Solu-Medrol in AM if improving. Mucinex for mucolytic effect. SVT present on admission. Dr. Benedict consulted. Amiodarone 450mg IV bolus x 1 given in ED. Amiodarone drip initiate per Dr. Benedict with rate improving. Continue to monitor closely. Echocardiogram obtained - results pending. Blood pressure stable. Continue home medications - patient may take home medications. Recent complaint of chest pain. Nitro PRN chest pain. NS 150cc/hr for hydration. Monitor weight and urinary output closely for signs of fluid overload. Priolsec for GERD and GI protection. Mild epigastric pain on exam. KUB unremarkable. SCDs for DVT prophylaxis. Upon discharge, patient's care will be returned to her PCP. 01/05 Monitor cardiac and respiratory function closely on telemetry with continuous oximetry. Oxygen as needed to maintain SAO2 >90%, weaning as able. Patient does not use oxygen at home. On RA now. Questioning sepsis - no bacterial source ID'd. Lactate now wnl. Continue empiric Cefepime and Vanco for now. Blood cx obtained. Troponin has trended up. Repeat. Will keep in CCU but could transfer if next troponin decreased. d/w Dr. Benedict. DuoNeb treatments QID and Q6H PRN dyspnea. Pulmicort BID. Change from Solu- Medrol to prednisone. Wheezing on exam. DC IVF and give Lasix. BNP Mucinex for mucolytic effect. SVT present on admission. Dr. Benedict consulted. Continue to monitor closely. Echocardiogram obtained - results pending. Continued home medications. Recent complaint of chest pain. Nitro PRN chest pain. Priolsec for GERD and GI protection. Mild epigastric pain on exam. KUB unremarkable. SCDs for DVT prophylaxis.
[2018-01-05] MEDS ORDERED: FUROSEMIDE 40 MG/4 ML INJECTION IVP ONE (09:59)
--- NOTE | 2018-01-05 11:26 | Cardiology Progress Note ---
<Nadia Bucio M - Last Filed: 01/06/18 17:48> Exam Vital signs: Temperature 98.4 F 01/05/18 00:00 Pulse Rate 113 H 01/05/18 08:00 Respiratory Rate 12 01/05/18 07:04 Blood Pressure 163/93 H 01/05/18 07:00 Pulse Oximetry 92 01/05/18 07:12 Inpatient Medications: Generic Name Dose Route Start Last Admin Trade Name Freq PRN Reason Stop Dose Admin Acetaminophen 325 mg 01/04/18 17:58 01/05/18 04:46 Tylenol PO 325 mg Q5H PRN Administration Discomfort Albuterol/Ipratropium 3 ml 01/04/18 15:00 01/05/18 07:03 Duoneb AEROSOL 3 ml RTQID HUBERT Administration Albuterol/Ipratropium 3 ml 01/04/18 14:33 Duoneb AEROSOL RTQID PRN Aspirin 81 mg 01/05/18 09:00 01/05/18 08:01 Ecotrin PO 81 mg DAILY HUBERT Administration Atorvastatin Calcium 40 mg 01/04/18 21:00 01/04/18 20:04 Lipitor PO 40 mg HS HUBERT Administration Budesonide 0.5 mg 01/04/18 19:00 01/05/18 07:03 Pulmicort Inhalation AEROSOL 0.5 mg RTBID HUBERT Administration Guaifenesin 1,200 mg 01/04/18 21:00 01/05/18 08:01 Mucinex La PO 1,200 mg BID HUBERT Administration Cefepime HCl 1 gm/ Sodium 50 mls @ 200 mls/hr 01/04/18 17:30 01/05/18 09:50 Chloride IV Infused Q8H HUBERT Infusion Vancomycin HCl 1,250 mg/ 250 mls @ 200 mls/hr 01/05/18 18:00 Sodium Chloride IV Q24H HUBERT Levothyroxine Sodium 50 mcg 01/05/18 06:30 01/05/18 06:00 Synthroid PO 50 mcg ACB HUBERT Administration Lorazepam 0.5 mg 01/04/18 15:17 01/05/18 03:01 Ativan Inj IVP 0.5 mg Q4H PRN Administration Losartan Potassium 100 mg 01/05/18 09:00 01/05/18 08:07 Cozaar PO 100 mg DAILY HUBERT Administration Metoprolol Tartrate 25 mg 01/04/18 17:30 01/05/18 08:01 Lopressor PO 25 mg BIDWM HUBERT Administration Nitroglycerin 0.4 mg 01/04/18 19:45 Nitrostat SL Q5MIN3 PRN Chest pain Omeprazole 20 mg 01/05/18 06:30 01/05/18 06:01 Prilosec PO 20 mg ACB HUBERT Administration Ondansetron HCl 4 mg 01/04/18 14:30 01/05/18 04:47 Zofran IVP 4 mg Q6H PRN Administration Nausea Prednisone 40 mg 01/06/18 08:00 Deltasone 20 Mg PO WB HUBERT Sodium Chloride 10 - 80 ml 01/04/18 11:40 01/04/18 12:04 Iv Flush IVF 10 ml PRN PRN Administration Flushing Zolpidem Tartrate 5 mg 01/04/18 21:00 01/04/18 20:04 Ambien PO 5 mg HS HUBERT Administration Discontinued Medications Generic Name Dose Route Start Last Admin Trade Name Freq PRN Reason Stop Dose Admin Amiodarone HCl 150 mg 01/04/18 12:01 01/04/18 12:05 Amiodarone IV 01/04/18 12:02 150 mg O ONE Administration Furosemide 40 mg 01/05/18 09:59 01/05/18 10:23 Lasix IVP 01/05/18 10:00 40 mg ONCE ONE Administration Cefepime HCl 1 gm/ Sodium 100 mls @ 200 mls/hr 01/04/18 11:40 01/04/18 12:45 Chloride IV 01/04/18 12:09 Infused O ONE Infusion Amiodarone HCl 900 mg/ Sodium 500 mls @ 16.66 mls/hr 01/04/18 12:15 Chloride IV .Q24H HUBERT 0.5 MG/MIN Amiodarone HCl 450 mg/ Sodium 250 mls @ 33.33 mls/hr 01/04/18 12:15 01/04/18 13:11 Chloride IV 01/04/18 18:15 Infused .Q7H31M HUBERT Infusion 1 MG/MIN Sodium Chloride 1,000 mls @ 999.9 mls/hr 01/04/18 12:15 Normal Saline IV 01/04/18 13:14 .Q1H ONE Sodium Chloride 500 mls @ 999.9 mls/hr 01/04/18 13:30 01/04/18 14:11 Normal Saline IV Infused .Q30M HUBERT Infusion Sodium Chloride 500 mls @ 999.9 mls/hr 01/04/18 13:30 01/04/18 13:20 Normal Saline IV Infused .Q30M HUBERT Infusion Sodium Chloride 1,000 mls @ 150 mls/hr 01/04/18 14:30 01/05/18 08:00 Normal Saline IV 150 mls/hr .Q6H40M HUBERT Administration Vancomycin HCl 1,500 mg/ 500 mls @ 250 mls/hr 01/04/18 18:00 01/04/18 20:00 Sodium Chloride IV 01/04/18 18:01 Infused O ONE Infusion Influenza Virus Vaccine 0.5 ml 01/04/18 18:00 01/04/18 20:04 Fluzone Hd Vac IM 01/04/18 18:01 Not Given .ONCE ONE Methylprednisolone Sodium Succinate 125 mg 01/04/18 21:00 01/05/18 08:01 Solu-Medrol IVP 125 mg Q6HR HUBERT Administration Ondansetron HCl 4 mg 01/04/18 11:51 01/04/18 11:55 Zofran IVP 01/04/18 11:52 4 mg O ONE Administration Potassium Chloride 40 meq 01/05/18 09:58 01/05/18 10:23 K-Dur 20 Meq Tablet PO 01/05/18 09:59 40 meq O ONE Administration - Constitutional mild distress, well nourished, cooperative - Routine HEENT Exam Head: Present: normocephalic ENT: Present: mucous membranes moist - Routine Neck Exam Absent: JVD, carotid bruit - Routine Chest/Breast/Axilla Exam Chest wall: Absent: tenderness - Routine Respiratory Exam Present: decreased breath sounds, diminished air movement - Routine Cardiovascular Exam Present: no murmur, tachycardia - Routine Abdominal Exam Present: soft, normoactive bowel sounds - Routine Extremities Exam Present: no edema - Routine Skin Exam Present: intact, dry, warm - Routine Neurological Exam Present: alert - Routine Psychiatric Exam Present: normal affect - Additional findings Additional findings: Acetaminophen (Tylenol) 325 mg PO Q5H PRN PRN Reason: Discomfort Last Admin: 01/05/18 04:46 Dose: 325 mg Albuterol/Ipratropium (Duoneb) 3 ml AEROSOL RTQID [facility] Last Admin: 01/05/18 07:03 Dose: 3 ml Albuterol/Ipratropium (Duoneb) 3 ml AEROSOL RTQID PRN Aspirin (Ecotrin) 81 mg PO DAILY [facility] Last Admin: 01/05/18 08:01 Dose: 81 mg Atorvastatin Calcium (Lipitor) 40 mg PO HS [facility] Last Admin: 01/04/18 20:04 Dose: 40 mg Budesonide (Pulmicort Inhalation) 0.5 mg AEROSOL RTBID [facility] Last Admin: 01/05/18 07:03 Dose: 0.5 mg Guaifenesin (Mucinex La) 1,200 mg PO BID [facility] Last Admin: 01/05/18 08:01 Dose: 1,200 mg Cefepime HCl 1 gm/ Sodium (Chloride) 50 mls @ 200 mls/hr IV Q8H [facility] Last Infusion: 01/05/18 09:50 Dose: Infused Vancomycin HCl 1,250 mg/ (Sodium Chloride) 250 mls @ 200 mls/hr IV Q24H [facility] Levothyroxine Sodium (Synthroid) 50 mcg PO ACB [facility] Last Admin: 01/05/18 06:00 Dose: 50 mcg Lorazepam (Ativan Inj) 0.5 mg IVP Q4H PRN Last Admin: 01/05/18 03:01 Dose: 0.5 mg Losartan Potassium (Cozaar) 100 mg PO DAILY [facility] Last Admin: 01/05/18 08:07 Dose: 100 mg Metoprolol Tartrate (Lopressor) 25 mg PO BIDWM [facility] Last Admin: 01/05/18 08:01 Dose: 25 mg Nitroglycerin (Nitrostat) 0.4 mg SL Q5MIN3 PRN PRN Reason: Chest pain Omeprazole (Prilosec) 20 mg PO ACB [facility] Last Admin: 01/05/18 06:01 Dose: 20 mg Ondansetron HCl (Zofran) 4 mg IVP Q6H PRN PRN Reason: Nausea Last Admin: 01/05/18 04:47 Dose: 4 mg Prednisone (Deltasone 20 Mg) 40 mg PO WB [facility] Sodium Chloride (Iv Flush) 10 - 80 ml IVF PRN PRN PRN Reason: Flushing Last Admin: 01/04/18 12:04 Dose: 10 ml Zolpidem Tartrate (Ambien) 5 mg PO HS [facility] Last Admin: 01/04/18 20:04 Dose: 5 mg Results 01/05/18 04:45 01/05/18 04:45 Cardiac Enzymes 01/04/18 01/04/18 01/05/18 Range/Units 16:32 22:35 04:45 Troponin I 0.259 H D 1.250 H D (0-0.12) ng/ml B-Natriuretic Peptide 4240 H (0-175) pg/mL 01/05/18 Range/Units 04:45 Troponin I 1.060 H (0-0.12) ng/ml B-Natriuretic Peptide (0-175) pg/mL Coagulation 01/05/18 Range/Units 04:45 B-Natriuretic Peptide 4240 H (0-175) pg/mL CBC 01/05/18 Range/Units 04:45 WBC 5.7 (4.5-11.0) T/MM3 RBC 4.26 (4.00-5.20) M/MM3 Hgb 12.1 (12-16) GM/DL Hct 37.7 (36-46) % Plt Count 193 (130-400) T/MM3 Neut # (Auto) Not performed Lymph # (Auto) Not performed Harmon # (Auto) Not performed Eos # (Auto) Not performed Baso # (Auto) Not performed Comprehensive Metabolic Panel 01/05/18 Range/Units 04:45 Sodium 145 H (134-144) MEQ/L Potassium 3.4 L (3.6-5) MEQ/L Chloride 112 H (98-107) MEQ/L Carbon Dioxide 21 L (22-30) MEQ/L BUN 13.0 (7-17) MG/DL Creatinine 0.6 L D (0.7-1.2) MG/DL Glucose 179 H (65-110) MG/DL Calcium 7.7 L (8.4-10.2) MG/DL Intake and Output 01/04/18 01/05/18 01/05/18 22:59 06:59 14:59 Intake Total 1458.333 / 1458.333 914.167 / 914.167 350.0 / 350.0 Output Total 250 / 250 500 / 500 400 / 400 Balance 1208.333 / 1208.333 414.167 / 414.167 -50.0 / -50.0 Intake: IV 1338.333 / 1338.333 914.167 / 914.167 350.0 / 350.0 Cefepime 1 gm In Ns 50 ml @ 200 50 / 50 50 / 50 50 / 50 mls/hr IV Q8H [facility] Rx#: [id number] Ns 1,000 ml @ 150 mls/hr IV . 788.333 / 788.333 864.167 / 864.167 300.0 / 300.0 Q6H40M [facility] Rx#:[id number] Vancomycin 1,500 mg In NS 500ml 500.000 / 500.000 500 ml @ 250 mls/hr IV O ONE Rx#:[id number] Oral 120 / 120 Output: Urine 250 / 250 500 / 500 400 / 400 Other: Urine Appearance Clear Clear Urine Color Yellow Stool Color Brown Brown Stool Consistency Loose Loose Loose Size of Bowel Movement Large Moderate Moderate # Voids 1 # Bowel Movements 1 Weight 134 lb 11.239 oz Patient Weight 01/06/18 06:59 Weight 134 lb 11.239 oz - Imaging and Cardiology Imaging & Cardiology Narrative: Date of Exam: 01/05/18 Ordering Provider: Radha Low Type of Exam(s): XR chest 1V Reason for Exam(s): dyspnea Indication: dyspnea PROCEDURE: XR chest 1V: Encounter: Initial Comparison: January 04, 2018 Findings: The lungs are stable in appearance without new focal airspace consolidation. There is no pleural effusion or pneumothorax. The heart size, pulmonary vascularity and mediastinal contours are unchanged. Prior CABG. Cholecystectomy clips. Overlying monitoring leads. IMPRESSION: Stable appearance of the chest without acute cardiopulmonary disease. 01/05/18 11:27 Assessment and Plan - Assessment and Plan (1) Non-ST elevation myocardial infarction (NSTEMI), type 2 Status: Acute (2) Sinus tachycardia Status: Acute (3) ASCVD (arteriosclerotic cardiovascular disease) Status: Chronic (4) HTN (hypertension) Status: Chronic (5) Hyperlipidemia Status: Chronic - Assessment and Plan 01/04/18 NSTEMI, type II: Likely demand ischemia secondary to respiratory illness - Troponin 1) 0.161, 2) 0.259... - Trend serial troponin - EKG with ST, no ischemic changes - Aspirin 1mg daily, continue home BB, ARB Sinus Tachycardia: Likely illness related - Continue Home metoprolol for rate control. CAD: HX CAD with CABG approximately 3 years ago (patient of Dr. Joseph) HTN: Continue home BB, ARB HLD: Continue Atorvastatin Thank you for allowing us to participate in the care of this patient, we will follow along with you. 01/05/18 Increase Metoprolol to 50mg BID for better rate control Hospital Course Summary Disclaimer: The visit summary below is not to be considered part of the above Progress Note. Hospital Course: Plan - 01/04/18: Admit to ICU inpatient status under the care of Dr. Yeboah. Monitor cardiac and respiratory function closely on telemetry with continuous oximetry. Oxygen as needed to maintain SAO2 >90%, weaning as able. Patient does not use oxygen at home. Patient given Rocephin 1gm IM as outpatient on 01/03/18 and started on Levaquin po. Given Cefepime 1g in ED. Will continue Cefepime and add vancomycin for empiric coverage of suspected pulmonary pathogens given elevated lactate and risk of pneumonia. Pharmacy to manage vancomycin. Blood cultures pending. Will try and obtain sputum culture. DuoNeb treatments QID and Q6H PRN dyspnea. Pulmicort BID. Solu-Medrol 125mg Q6H for pulmonary inflammation. Consider weaning Solu-Medrol in AM if improving. Mucinex for mucolytic effect. SVT present on admission. Dr. Benedict consulted. Amiodarone 450mg IV bolus x 1 given in ED. Amiodarone drip initiate per Dr. Benedict with rate improving. Continue to monitor closely. Echocardiogram obtained - results pending. Blood pressure stable. Continue home medications - patient may take home medications. Recent complaint of chest pain. Nitro PRN chest pain. NS 150cc/hr for hydration. Monitor weight and urinary output closely for signs of fluid overload. Priolsec for GERD and GI protection. Mild epigastric pain on exam. KUB unremarkable. SCDs for DVT prophylaxis. Upon discharge, patient's care will be returned to her PCP. 01/05 Monitor cardiac and respiratory function closely on telemetry with continuous oximetry. Oxygen as needed to maintain SAO2 >90%, weaning as able. Patient does not use oxygen at home. On RA now. Questioning sepsis - no bacterial source ID'd. Lactate now wnl. Continue empiric Cefepime and Vanco for now. Blood cx obtained. Troponin has trended up. Repeat. Will keep in CCU but could transfer if next troponin decreased. d/w Dr. Benedict. DuoNeb treatments QID and Q6H PRN dyspnea. Pulmicort BID. Change from Solu- Medrol to prednisone. Wheezing on exam. DC IVF and give Lasix. BNP Mucinex for mucolytic effect. SVT present on admission. Dr. Benedict consulted. Continue to monitor closely. Echocardiogram obtained - results pending. Continued home medications. Recent complaint of chest pain. Nitro PRN chest pain. Priolsec for GERD and GI protection. Mild epigastric pain on exam. KUB unremarkable. SCDs for DVT prophylaxis. <Percy Benedict - Last Filed: 01/12/18 13:00> Exam Vital signs: Temperature 96.9 F 01/09/18 07:00 Pulse Rate 99 01/09/18 07:00 Respiratory Rate 12 01/09/18 11:54 Blood Pressure 131/65 01/09/18 07:00 Pulse Oximetry 97 01/09/18 11:54 Inpatient Medications: Discontinued Medications Generic Name Dose Route Start Last Admin Trade Name Freq PRN Reason Stop Dose Admin Acetaminophen 325 mg 01/04/18 17:58 01/05/18 20:18 Tylenol PO 325 mg Q5H PRN Administration Discomfort Albuterol/Ipratropium 3 ml 01/04/18 15:00 01/09/18 11:53 Duoneb AEROSOL 3 ml RTQID HUBERT Administration Albuterol/Ipratropium 3 ml 01/04/18 14:33 Duoneb AEROSOL RTQID PRN Alprazolam 0.25 mg 01/07/18 09:50 01/09/18 10:05 Xanax 0.25 Mg PO 0.25 mg TID PRN Administration anxiety Amiodarone HCl 150 mg 01/04/18 12:01 01/04/18 12:05 Amiodarone IV 01/04/18 12:02 150 mg O ONE Administration Aspirin 81 mg 01/05/18 09:00 01/09/18 10:07 Ecotrin PO 81 mg DAILY HUBERT Administration Atorvastatin Calcium 40 mg 01/04/18 21:00 01/08/18 21:32 Lipitor PO 40 mg HS HUBERT Administration Budesonide 0.5 mg 01/04/18 19:00 01/09/18 08:26 Pulmicort Inhalation AEROSOL 0.5 mg RTBID HUBERT Administration Furosemide 40 mg 01/05/18 09:59 01/05/18 10:23 Lasix IVP 01/05/18 10:00 40 mg ONCE ONE Administration Furosemide 40 mg 01/06/18 18:00 01/08/18 10:23 Lasix IVP 40 mg DAILY HUBERT Administration Furosemide 40 mg 01/09/18 09:00 01/09/18 10:06 Lasix PO 40 mg DAILY HUBERT Administration Guaifenesin 1,200 mg 01/04/18 21:00 01/09/18 10:06 Mucinex La PO 1,200 mg BID HUBERT Administration Cefepime HCl 1 gm/ Sodium 100 mls @ 200 mls/hr 01/04/18 11:40 01/04/18 12:45 Chloride IV 01/04/18 12:09 Infused O ONE Infusion Amiodarone HCl 900 mg/ Sodium 500 mls @ 16.66 mls/hr 01/04/18 12:15 Chloride IV .Q24H HUBERT 0.5 MG/MIN Amiodarone HCl 450 mg/ Sodium 250 mls @ 33.33 mls/hr 01/04/18 12:15 01/04/18 13:11 Chloride IV 01/04/18 18:15 Infused .Q7H31M HUBERT Infusion 1 MG/MIN Sodium Chloride 1,000 mls @ 999.9 mls/hr 01/04/18 12:15 Normal Saline IV 01/04/18 13:14 .Q1H ONE Sodium Chloride 500 mls @ 999.9 mls/hr 01/04/18 13:30 01/04/18 14:11 Normal Saline IV Infused .Q30M HUBERT Infusion Sodium Chloride 500 mls @ 999.9 mls/hr 01/04/18 13:30 01/04/18 13:20 Normal Saline IV Infused .Q30M HUBERT Infusion Sodium Chloride 1,000 mls @ 150 mls/hr 01/04/18 14:30 01/05/18 10:30 Normal Saline IV Infused .Q6H40M HUBERT Infusion Cefepime HCl 1 gm/ Sodium 50 mls @ 200 mls/hr 01/04/18 17:30 01/06/18 11:09 Chloride IV Infused Q8H [facility]ERT Infusion Vancomycin HCl 1,250 mg/ 250 mls @ 200 mls/hr 01/05/18 18:00 01/05/18 23:30 Sodium Chloride IV Infused Q24H [facility]ERT Infusion Vancomycin HCl 1,500 mg/ 500 mls @ 250 mls/hr 01/04/18 18:00 01/04/18 20:00 Sodium Chloride IV 01/04/18 18:01 Infused O ONE Infusion Famotidine/Sodium Chloride 20 mg in 50 mls @ 100 mls/hr 01/07/18 09:45 11:15 Pepcid Premix IV 01/07/18 10:14 Infused O ONE Infusion Influenza Virus Vaccine 0.5 ml 01/04/18 18:00 01/04/18 20:04 Fluzone Hd Vac IM 01/04/18 18:01 Not Given .ONCE ONE Levothyroxine Sodium 50 mcg 01/05/18 06:30 01/09/18 06:38 Synthroid PO 50 mcg ACB HUBERT Administration Lorazepam 0.5 mg 01/04/18 15:17 01/05/18 18:42 Ativan Inj IVP 0.5 mg Q4H PRN Administration Losartan Potassium 100 mg 01/05/18 09:00 01/09/18 10:07 Cozaar PO 100 mg DAILY HUBERT Administration Methylprednisolone Sodium Succinate 125 mg 01/04/18 21:00 01/05/18 08:01 Solu-Medrol IVP 125 mg Q6HR HUBERT Administration Metoprolol Tartrate 25 mg 01/04/18 17:30 01/05/18 17:59 Lopressor PO Not Given BIDWM HUBERT Metoprolol Tartrate 50 mg 01/05/18 17:39 01/08/18 17:32 Lopressor PO 50 mg BIDWM HUBRET Administration Metoprolol Tartrate 100 mg 01/09/18 08:57 Lopressor PO BIDWM HUBERT Nitroglycerin 0.4 mg 01/04/18 19:45 01/07/18 09:16 Nitrostat SL 0.4 mg Q5MIN3 PRN Administration Chest pain Omeprazole 20 mg 01/05/18 06:30 01/07/18 05:42 Prilosec PO 20 mg ACB HUBERT Administration Omeprazole 20 mg 01/07/18 17:00 01/09/18 06:38 Prilosec PO 20 mg ACBID HUBERT Administration Ondansetron HCl 4 mg 01/04/18 11:51 01/04/18 11:55 Zofran IVP 01/04/18 11:52 4 mg O ONE Administration Ondansetron HCl 4 mg 01/04/18 14:30 01/06/18 20:38 Zofran IVP 4 mg Q6H PRN Administration Nausea Ondansetron HCl 4 mg 01/07/18 04:37 01/07/18 04:53 Zofran Odt Tablet PO 4 mg Q6H PRN Administration Nausea &/or vomiting Ondansetron HCl 4 mg 01/07/18 09:17 01/07/18 09:24 Zofran Odt Tablet PO 01/07/18 09:18 4 mg O ONE Administration Ondansetron HCl 4 mg 01/07/18 09:53 01/08/18 08:22 Zofran IVP 4 mg Q4H PRN Administration Nausea Ondansetron HCl 4 mg 01/07/18 09:53 01/09/18 08:50 Zofran Odt Tablet PO 4 mg Q4H PRN Administration Nausea &/or vomiting Pharmacy Consult each 01/06/18 00:21 Pharmacy Consult - Fall Risk 01/06/18 00:22 ONE TIME ONE Pharmacy Profile Note 30 ml 01/07/18 09:52 01/07/18 10:27 Maalox Plus/Lidocaine Susp PO 01/07/18 09:53 30 ml O ONE Administration Potassium Chloride 40 meq 01/05/18 09:58 01/05/18 10:23 K-Dur 20 Meq Tablet PO 01/05/18 09:59 40 meq O ONE Administration Potassium Chloride 40 meq 01/06/18 17:47 01/06/18 18:11 K-Dur 20 Meq Tablet PO 01/06/18 17:48 40 meq O ONE Administration Potassium Chloride 20 meq 01/08/18 16:00 01/08/18 17:32 K-Dur 20 Meq Tablet PO 01/08/18 16:01 20 meq O ONE Administration Prednisone 40 mg 01/06/18 08:00 01/06/18 09:00 Deltasone 20 Mg PO 40 mg WB HUBERT Administration Prednisone 20 mg 01/06/18 17:07 01/09/18 10:07 Deltasone 20 Mg PO 20 mg WB HUBERT Administration Promethazine HCl 12.5 - 25 mg 01/07/18 08:30 01/07/18 08:43 Phenergan Tab PO 12.5 mg Q6H PRN Administration Sodium Chloride 10 - 80 ml 01/04/18 11:40 01/07/18 10:28 Iv Flush IVF 10 ml PRN PRN Administration Flushing Trazodone HCl 100 mg 01/07/18 21:00 01/08/18 21:32 Desyrel PO 100 mg HS HUBERT Administration Zolpidem Tartrate 5 mg 01/04/18 21:00 01/08/18 21:32 Ambien PO 5 mg HS HUBERT Administration Results 01/08/18 05:17 01/09/18 04:30 Assessment and Plan - Assessment and Plan (1) ASCVD (arteriosclerotic cardiovascular disease) Status: Chronic (2) HTN (hypertension) Status: Chronic (3) Hyperlipidemia Status: Chronic (4) Non-ST elevation myocardial infarction (NSTEMI), type 2 Status: Acute (5) Sinus tachycardia Status: Acute (6) NSVT (nonsustained ventricular tachycardia) Status: Acute - Attestation Attestation Narrative: 01/12/18 13:00 Recommendation After examining the patient I agree with the above assessment. I am involved in the formulation of the patient's plan of care. Hospital Course Summary Disclaimer: The visit summary below is not to be considered part of the above Progress Note.
[2018-01-05] MEDS: ATORVASTATIN 40 MG TABLET PO SCH (20:18)
[2018-01-05] MEDS: ZOLPIDEM 5 MG TABLET PO SCH (20:18)
[2018-01-06] MEDS ORDERED: FALL RISK - PHARMACY CONSULT MC ONE (00:21)
[2018-01-06] MEDS: CEFEPIME 1 GM in NS 50 ML IV SCH ×2 (01:41→10:54)
[2018-01-06] MEDS: SALINE FLUSH 10ml SYRINGE IVF PRN ×3 (01:42→20:38)
[2018-01-06] MEDS: ONDANSETRON 4 MG/2 ML INJECTION IVP PRN ×3 (05:39→20:38)
[2018-01-06] MEDS: LEVOTHYROXINE 50 MCG TABLET PO SCH (06:00)
[2018-01-06] MEDS: OMEPRAZOLE 20 MG CAPSULE PO SCH (06:00)
[2018-01-06] MEDS ORDERED: PredniSONE 20 MG TABLET PO SCH (08:00)
--- NOTE | 2018-01-06 08:13 | Echocardiogram ---
DATE OF PROCEDURE January 04, [address] Handy Yeboah This is a two-dimensional echo with spectral Doppler, color-flow and M-mode. It was obtained in a patient with tachycardia and sepsis. Left atrial dimension is normal. Left ventricular end-diastolic dimension is normal. Left ventricle wall thickness is normal. Septum is akinetic and ejection fraction is about 50%. Right atrium is normal. Right ventricle is normal. Aortic root dimension is normal. Mitral valve is morphologically normal with moderate mitral regurgitation. Aortic valve shows mild aortic insufficiency with no stenosis. Tricuspid valve shows mild tricuspid regurgitation with moderate pulmonary hypertension with estimated pulmonary artery systolic pressure of 47. Pulmonary valve shows mild pulmonary insufficiency. There is no pericardial effusion. Inferior vena cava is dilated and poor response to respiration suggestive of elevated central venous pressure. IMPRESSION 1. Septal akinesia with ejection fraction of about 50%. 2. Abnormal IVC suggestive of elevated central venous pressure. 3. Moderate mitral regurgitation. 4. Mild aortic insufficiency. 5. Mild tricuspid regurgitation with moderate pulmonary hypertension with estimated pulmonary artery systolic pressure of 47. 6. Mild pulmonary insufficiency. MTDD
[2018-01-06] MEDS: ALBUTEROL/IPRATROPIUM 2.5mg-0.5mg/3ml NEB AEROSOL SCH ×4 (08:58→20:07)
[2018-01-06] MEDS: BUDESONIDE INH.SOLN 0.5mg/2ml NEB AEROSOL SCH ×2 (08:58→20:07)
[2018-01-06] MEDS: GUAIFENESIN LA 600 MG TABLET PO SCH ×2 (09:00→20:49)
[2018-01-06] MEDS: ASPIRIN *EC* 81 MG TABLET PO SCH (09:25)
[2018-01-06] MEDS: LOSARTAN 100 MG TABLET PO SCH (09:26)
--- NOTE | 2018-01-06 15:36 | Progress Note ---
- Date 01/06/18 Subjective: c/o nausea. Says she vomitted earlier. Not eating much. Very hard of hearing. Says breathing is OK. Continues to have cough. Thinks nausea might be worse with cough. Tele has shows frequent PVCs and NSVT. Objective Vital signs: Temperature 98.5 F 01/06/18 13:00 Pulse Rate 100 01/06/18 13:00 Respiratory Rate 20 01/06/18 13:00 Blood Pressure 157/71 H 01/06/18 13:00 Pulse Oximetry 100 01/06/18 13:00 Height/Weight/BMI: Height 5 ft 2 in Weight 59.8 kg Body Mass Index 24.0 - Constitutional Present: no acute distress - Routine HEENT Exam Head: Present: normocephalic, atraumatic Eye: Present: EOMI, PERRL - Routine Respiratory Exam Present: CTA bilaterally - Routine Cardiovascular Exam Present: RRR, S1, S2 - Routine Abdominal Exam Present: soft, normoactive bowel sounds, non distended, non tender - Routine Extremities Exam Present: no edema - Routine Neurological Exam Present: alert, moving all extremities Results - Labs CBC & Chem 7: 01/05/18 04:45 01/05/18 04:45 - ABG Interpretation ABG results: 01/04/18 17:30 ABG pH 7.398 ABG pCO2 32 L ABG pO2 112 H ABG HCO3 20.0 L ABG Total CO2 21.0 L ABG O2 Saturation 98.0 ABG Base Excess -4.0 L Assessment and Plan (1) RSV (acute bronchiolitis due to respiratory syncytial virus) Current visit: Yes Status: Acute (2) Non-ST elevation myocardial infarction (NSTEMI), type 2 Current visit: Yes Status: Acute (3) Sinus tachycardia Current visit: Yes Status: Acute Assessment and Plan: Assessment: acute RSV, present on admission. NSTEMI, type 2, likely secondary to demand ischemia and respiratory illness. SVT, acute, present on admission. Possible severe sepsis/septic shock as indicated by tachycardia, tachypnea and elevated lactate of 5.7. Hypertension. Hypothyroidism. Hyperlipidemia. Peripheral neuropathy. ASCVD. Osteoarthritis. Anxiety. Insomnia. Diastolic dysfunction. Nausea. Hypernatremia (Na 148), present on admission. Dehydration, present on admission. Anemia (Hgb 11.7), reportedly chronic, present on admission. Hypocalcemia (Ca 8.2), present on admission. Plan: DuoNeb treatments QID and Q6H PRN dyspnea. Pulmicort BID. Decrease prednisone. Mucinex for mucolytic effect. SVT episodes present on admission. Dr. Benedict consulted. Continue to monitor closely. Metoprolol will be increased. Continued home medications. Questioning sepsis - no bacterial source ID'd. Lactate wnl. DC Cefepime and Vanco and observe. Blood cx obtained and no growth Recent complaint of chest pain. Nitro PRN chest pain. Priolsec for GERD and GI protection. Check KUB given nausea complaints. SCDs for DVT prophylaxis. Replace potassium. Recheck Na, Hgb improved - Physician Narrative Narrative: Date: 01/06/18 Time: 1530 Hospital Course Summary Disclaimer: The visit summary below is not to be considered part of the above Progress Note. Hospital Course: Plan - 01/04/18: Admit to ICU inpatient status under the care of Dr. Yeboah. Monitor cardiac and respiratory function closely on telemetry with continuous oximetry. Oxygen as needed to maintain SAO2 >90%, weaning as able. Patient does not use oxygen at home. Patient given Rocephin 1gm IM as outpatient on 01/03/18 and started on Levaquin po. Given Cefepime 1g in ED. Will continue Cefepime and add vancomycin for empiric coverage of suspected pulmonary pathogens given elevated lactate and risk of pneumonia. Pharmacy to manage vancomycin. Blood cultures pending. Will try and obtain sputum culture. DuoNeb treatments QID and Q6H PRN dyspnea. Pulmicort BID. Solu-Medrol 125mg Q6H for pulmonary inflammation. Consider weaning Solu-Medrol in AM if improving. Mucinex for mucolytic effect. SVT present on admission. Dr. Benedict consulted. Amiodarone 450mg IV bolus x 1 given in ED. Amiodarone drip initiate per Dr. Benedict with rate improving. Continue to monitor closely. Echocardiogram obtained - results pending. Blood pressure stable. Continue home medications - patient may take home medications. Recent complaint of chest pain. Nitro PRN chest pain. NS 150cc/hr for hydration. Monitor weight and urinary output closely for signs of fluid overload. Priolsec for GERD and GI protection. Mild epigastric pain on exam. KUB unremarkable. SCDs for DVT prophylaxis. Upon discharge, patient's care will be returned to her PCP. 01/05 Monitor cardiac and respiratory function closely on telemetry with continuous oximetry. Oxygen as needed to maintain SAO2 >90%, weaning as able. Patient does not use oxygen at home. On RA now. Questioning sepsis - no bacterial source ID'd. Lactate now wnl. Continue empiric Cefepime and Vanco for now. Blood cx obtained. Troponin has trended up. Repeat. Will keep in CCU but could transfer if next troponin decreased. d/w Dr. Benedict. DuoNeb treatments QID and Q6H PRN dyspnea. Pulmicort BID. Change from Solu- Medrol to prednisone. Wheezing on exam. DC IVF and give Lasix. BNP Mucinex for mucolytic effect. SVT present on admission. Dr. Benedict consulted. Continue to monitor closely. Echocardiogram obtained - results pending. Continued home medications. Recent complaint of chest pain. Nitro PRN chest pain. Priolsec for GERD and GI protection. Mild epigastric pain on exam. KUB unremarkable. SCDs for DVT prophylaxis. 01/06 DuoNeb treatments QID and Q6H PRN dyspnea. Pulmicort BID. Decrease prednisone. Mucinex for mucolytic effect. SVT episodes present on admission. Dr. Benedict consulted. Continue to monitor closely. Metoprolol will be increased. Continued home medications. Questioning sepsis - no bacterial source ID'd. Lactate wnl. DC Cefepime and Vanco and observe. Blood cx obtained and no growth Recent complaint of chest pain. Nitro PRN chest pain. Priolsec for GERD and GI protection. Check KUB given nausea complaints. SCDs for DVT prophylaxis. Replace potassium. Recheck Na, Hgb improved
--- NOTE | 2018-01-06 17:50 | Cardiology Progress Note ---
<Nadia Bucio M - Last Filed: 01/09/18 08:54> Subjective Principal diagnosis: NSTEMI Interval history: Marguerite is seen in follow up for type II NSTEMI and Tachycardia. She is in bed in her room on Medical. She states she is struggling with some nausea today. She denies chest pain or pressure, palpitations, dyspnea, dizziness or lightheadedness. She is no distress on Room air. Exam Vital signs: Temperature 98.2 F 01/06/18 15:45 Pulse Rate 86 01/06/18 15:45 Respiratory Rate 16 01/06/18 15:46 Blood Pressure 141/91 H 01/06/18 15:45 Pulse Oximetry 96 01/06/18 15:46 Inpatient Medications: Generic Name Dose Route Start Last Admin Trade Name Freq PRN Reason Stop Dose Admin Acetaminophen 325 mg 01/04/18 17:58 01/05/18 20:18 Tylenol PO 325 mg Q5H PRN Administration Discomfort Albuterol/Ipratropium 3 ml 01/04/18 15:00 01/06/18 15:46 Duoneb AEROSOL 3 ml RTQID HUBERT Administration Albuterol/Ipratropium 3 ml 01/04/18 14:33 Duoneb AEROSOL RTQID PRN Aspirin 81 mg 01/05/18 09:00 01/06/18 09:25 Ecotrin PO 81 mg DAILY HUBERT Administration Atorvastatin Calcium 40 mg 01/04/18 21:00 01/05/18 20:18 Lipitor PO 40 mg HS HUBERT Administration Budesonide 0.5 mg 01/04/18 19:00 01/06/18 08:58 Pulmicort Inhalation AEROSOL 0.5 mg RTBID HUBERT Administration Furosemide 40 mg 01/06/18 18:00 Lasix IVP DAILY H[facility]ERT Guaifenesin 1,200 mg 01/04/18 21:00 01/06/18 09:00 Mucinex La PO 1,200 mg BID H[facility]ERT Administration Levothyroxine Sodium 50 mcg 01/05/18 06:30 01/06/18 06:00 Synthroid PO 50 mcg ACB HUBERT Administration Lorazepam 0.5 mg 01/04/18 15:17 01/05/18 18:42 Ativan Inj IVP 0.5 mg Q4H PRN Administration Losartan Potassium 100 mg 01/05/18 09:00 01/06/18 09:26 Cozaar PO 100 mg DAILY H[facility]ERT Administration Metoprolol Tartrate 50 mg 01/05/18 17:39 01/06/18 09:26 Lopressor PO 50 mg BIDWM HUBERT Administration Nitroglycerin 0.4 mg 01/04/18 19:45 Nitrostat SL Q5MIN3 PRN Chest pain Omeprazole 20 mg 01/05/18 06:30 01/06/18 06:00 Prilosec PO 20 mg ACB HUBERT Administration Ondansetron HCl 4 mg 01/04/18 14:30 01/06/18 09:04 Zofran IVP 4 mg Q6H PRN Administration Nausea Potassium Chloride 40 meq 01/06/18 17:47 K-Dur 20 Meq Tablet PO 01/06/18 17:48 O ONE Prednisone 20 mg 01/06/18 17:07 Deltasone 20 Mg PO WB HUBERT Sodium Chloride 10 - 80 ml 01/04/18 11:40 01/06/18 05:40 Iv Flush IVF 10 ml PRN PRN Administration Flushing Zolpidem Tartrate 5 mg 01/04/18 21:00 01/05/18 20:18 Ambien PO 5 mg HS HUBRET Administration Discontinued Medications Generic Name Dose Route Start Last Admin Trade Name Freq PRN Reason Stop Dose Admin Amiodarone HCl 150 mg 01/04/18 12:01 01/04/18 12:05 Amiodarone IV 01/04/18 12:02 150 mg O ONE Administration Furosemide 40 mg 01/05/18 09:59 01/05/18 10:23 Lasix IVP 01/05/18 10:00 40 mg ONCE ONE Administration Cefepime HCl 1 gm/ Sodium 100 mls @ 200 mls/hr 01/04/18 11:40 01/04/18 12:45 Chloride IV 01/04/18 12:09 Infused O ONE Infusion Amiodarone HCl 900 mg/ Sodium 500 mls @ 16.66 mls/hr 01/04/18 12:15 Chloride IV .Q24H HUBERT 0.5 MG/MIN Amiodarone HCl 450 mg/ Sodium 250 mls @ 33.33 mls/hr 01/04/18 12:15 01/04/18 13:11 Chloride IV 01/04/18 18:15 Infused .Q7H31M HUBERT Infusion 1 MG/MIN Sodium Chloride 1,000 mls @ 999.9 mls/hr 01/04/18 12:15 Normal Saline IV 01/04/18 13:14 .Q1H ONE Sodium Chloride 500 mls @ 999.9 mls/hr 01/04/18 13:30 01/04/18 14:11 Normal Saline IV Infused .Q30M HUBERT Infusion Sodium Chloride 500 mls @ 999.9 mls/hr 01/04/18 13:30 01/04/18 13:20 Normal Saline IV Infused .Q30M HUBERT Infusion Sodium Chloride 1,000 mls @ 150 mls/hr 01/04/18 14:30 01/05/18 10:30 Normal Saline IV Infused .Q6H40M HUBERT Infusion Cefepime HCl 1 gm/ Sodium 50 mls @ 200 mls/hr 01/04/18 17:30 01/06/18 11:09 Chloride IV Infused Q8H [facility] Infusion Vancomycin HCl 1,250 mg/ 250 mls @ 200 mls/hr 01/05/18 18:00 01/05/18 23:30 Sodium Chloride IV Infused Q24H [facility] Infusion Vancomycin HCl 1,500 mg/ 500 mls @ 250 mls/hr 01/04/18 18:00 01/04/18 20:00 Sodium Chloride IV 01/04/18 18:01 Infused O ONE Infusion Influenza Virus Vaccine 0.5 ml 01/04/18 18:00 01/04/18 20:04 Fluzone Hd Vac IM 01/04/18 18:01 Not Given .ONCE ONE Methylprednisolone Sodium Succinate 125 mg 01/04/18 21:00 01/05/18 08:01 Solu-Medrol IVP 125 mg Q6HR HUBERT Administration Metoprolol Tartrate 25 mg 01/04/18 17:30 01/05/18 17:59 Lopressor PO Not Given BIDWM HUBERT Ondansetron HCl 4 mg 01/04/18 11:51 01/04/18 11:55 Zofran IVP 01/04/18 11:52 4 mg O ONE Administration Pharmacy Consult each 01/06/18 00:21 Pharmacy Consult - Fall Risk 01/06/18 00:22 ONE TIME ONE Potassium Chloride 40 meq 01/05/18 09:58 01/05/18 10:23 K-Dur 20 Meq Tablet PO 01/05/18 09:59 40 meq O ONE Administration Prednisone 40 mg 01/06/18 08:00 01/06/18 09:00 Deltasone 20 Mg PO 40 mg WB [facility] Administration - Constitutional no acute distress, well nourished, cooperative - Routine HEENT Exam Head: Present: normocephalic ENT: Present: mucous membranes moist - Routine Neck Exam Absent: JVD, carotid bruit - Routine Chest/Breast/Axilla Exam Chest wall: Absent: tenderness Breast: Absent: tenderness - Routine Respiratory Exam Present: CTA bilaterally. Absent: rales, wheezes, crackles - Routine Cardiovascular Exam Present: RRR, no murmur - Routine Abdominal Exam Present: soft - Routine Extremities Exam Present: no edema - Routine Skin Exam Present: intact, dry, warm - Routine Neurological Exam Present: alert, oriented X3. Absent: hearing grossly intact - Routine Psychiatric Exam Present: normal affect, normal thought process - Additional findings Additional findings: Acetaminophen (Tylenol) 325 mg PO Q5H PRN PRN Reason: Discomfort Last Admin: 01/05/18 20:18 Dose: 325 mg Albuterol/Ipratropium (Duoneb) 3 ml AEROSOL RTQID [facility] Last Admin: 01/06/18 15:46 Dose: 3 ml Albuterol/Ipratropium (Duoneb) 3 ml AEROSOL RTQID PRN Aspirin (Ecotrin) 81 mg PO DAILY [facility] Last Admin: 01/06/18 09:25 Dose: 81 mg Atorvastatin Calcium (Lipitor) 40 mg PO HS [facility] Last Admin: 01/05/18 20:18 Dose: 40 mg Budesonide (Pulmicort Inhalation) 0.5 mg AEROSOL RTBID [facility] Last Admin: 01/06/18 08:58 Dose: 0.5 mg Furosemide (Lasix) 40 mg IVP DAILY [facility] Guaifenesin (Mucinex La) 1,200 mg PO BID [facility] Last Admin: 01/06/18 09:00 Dose: 1,200 mg Levothyroxine Sodium (Synthroid) 50 mcg PO ACB [facility] Last Admin: 01/06/18 06:00 Dose: 50 mcg Lorazepam (Ativan Inj) 0.5 mg IVP Q4H PRN Last Admin: 01/05/18 18:42 Dose: 0.5 mg Losartan Potassium (Cozaar) 100 mg PO DAILY [facility] Last Admin: 01/06/18 09:26 Dose: 100 mg Metoprolol Tartrate (Lopressor) 50 mg PO BIDWM [facility] Last Admin: 01/06/18 09:26 Dose: 50 mg Nitroglycerin (Nitrostat) 0.4 mg SL Q5MIN3 PRN PRN Reason: Chest pain Omeprazole (Prilosec) 20 mg PO ACB [facility] Last Admin: 01/06/18 06:00 Dose: 20 mg Ondansetron HCl (Zofran) 4 mg IVP Q6H PRN PRN Reason: Nausea Last Admin: 01/06/18 09:04 Dose: 4 mg Potassium Chloride (K-Dur 20 Meq Tablet) 40 meq PO O ONE Stop: 01/06/18 17:48 Prednisone (Deltasone 20 Mg) 20 mg PO WB [facility] Sodium Chloride (Iv Flush) 10 - 80 ml IVF PRN PRN PRN Reason: Flushing Last Admin: 01/06/18 05:40 Dose: 10 ml Zolpidem Tartrate (Ambien) 5 mg PO HS [facility] Last Admin: 01/05/18 20:18 Dose: 5 mg Results 01/08/18 05:17 01/09/18 04:30 Intake and Output 01/06/18 01/06/18 01/06/18 06:59 14:59 22:59 Intake Total 280 / 280 50 / 50 400 / 400 Output Total 100 / 100 Balance 180 / 180 50 / 50 400 / 400 Intake: IV 280 / 280 50 / 50 Cefepime 1 gm In Ns 50 ml @ 200 50 / 50 50 / 50 mls/hr IV Q8H [facility] Rx#: [id number] Vancomycin 1,250 mg In NS 250ml 230 / 230 250 ml @ 200 mls/hr IV Q24H [facility] Rx#:[id number] Oral 400 / 400 Output: Urine 100 / 100 Other: Urine Appearance Clear Urine Color Light Katie Stool Characteristics Mucoid Stool Color Brown Wili Colored Stool Consistency Loose Size of Bowel Movement Small # Voids 1 # Bowel Movements 1 Weight 131 lb 13.383 oz Patient Weight 01/07/18 06:59 Weight 131 lb 13.383 oz - Imaging and Cardiology Imaging & Cardiology Narrative: Date of Exam: 01/06/18 Ordering Provider: Handy Yeboah Type of Exam(s): XR abdomen 1V Reason for Exam(s): nausea Indication: nausea PROCEDURE: XR abdomen 1V: Encounter: Initial Comparison: January 04, 2018 Findings: The visualized lung bases are clear. The bowel gas pattern is nonobstructive and nonspecific. Gas is seen in nondilated small and large bowel to the level of the rectum. Overlying monitoring leads. Impression: Nonobstructive nonspecific bowel gas pattern. 01/09/18 08:59 Assessment and Plan - Assessment and Plan (1) Non-ST elevation myocardial infarction (NSTEMI), type 2 Status: Acute (2) Sinus tachycardia Status: Acute (3) ASCVD (arteriosclerotic cardiovascular disease) Status: Chronic (4) HTN (hypertension) Status: Chronic (5) Hyperlipidemia Status: Chronic (6) NSVT (nonsustained ventricular tachycardia) Status: Acute NSVT: Continue to monitor telemetry - Asymptomatic - May consider increase in BB - Assessment and Plan 01/04/18 NSTEMI, type II: Likely demand ischemia secondary to respiratory illness - Troponin 1) 0.161, 2) 0.259... - Trend serial troponin - EKG with ST, no ischemic changes - Aspirin 1mg daily, continue home BB, ARB Sinus Tachycardia: Likely illness related - Continue Home metoprolol for rate control. CAD: HX CAD with CABG approximately 3 years ago (patient of Dr. Joseph) HTN: Continue home BB, ARB HLD: Continue Atorvastatin Thank you for allowing us to participate in the care of this patient, we will follow along with you. 01/05/18 Increase Metoprolol to 50mg BID for better rate control 01/06/18 NSVT: Continue to monitor telemetry - Asymptomatic - May consider increase in BB - Lasix 40mg IV daily for diuresis - replace potassium 40meq today please Hospital Course Summary Disclaimer: The visit summary below is not to be considered part of the above Progress Note. Hospital Course: Plan - 01/04/18: Admit to ICU inpatient status under the care of Dr. Yeboah. Monitor cardiac and respiratory function closely on telemetry with continuous oximetry. Oxygen as needed to maintain SAO2 >90%, weaning as able. Patient does not use oxygen at home. Patient given Rocephin 1gm IM as outpatient on 01/03/18 and started on Levaquin po. Given Cefepime 1g in ED. Will continue Cefepime and add vancomycin for empiric coverage of suspected pulmonary pathogens given elevated lactate and risk of pneumonia. Pharmacy to manage vancomycin. Blood cultures pending. Will try and obtain sputum culture. DuoNeb treatments QID and Q6H PRN dyspnea. Pulmicort BID. Solu-Medrol 125mg Q6H for pulmonary inflammation. Consider weaning Solu-Medrol in AM if improving. Mucinex for mucolytic effect. SVT present on admission. Dr. Benedict consulted. Amiodarone 450mg IV bolus x 1 given in ED. Amiodarone drip initiate per Dr. Benedict with rate improving. Continue to monitor closely. Echocardiogram obtained - results pending. Blood pressure stable. Continue home medications - patient may take home medications. Recent complaint of chest pain. Nitro PRN chest pain. NS 150cc/hr for hydration. Monitor weight and urinary output closely for signs of fluid overload. Priolsec for GERD and GI protection. Mild epigastric pain on exam. KUB unremarkable. SCDs for DVT prophylaxis. Upon discharge, patient's care will be returned to her PCP. 01/05 Monitor cardiac and respiratory function closely on telemetry with continuous oximetry. Oxygen as needed to maintain SAO2 >90%, weaning as able. Patient does not use oxygen at home. On RA now. Questioning sepsis - no bacterial source ID'd. Lactate now wnl. Continue empiric Cefepime and Vanco for now. Blood cx obtained. Troponin has trended up. Repeat. Will keep in CCU but could transfer if next troponin decreased. d/w Dr. Benedict. DuoNeb treatments QID and Q6H PRN dyspnea. Pulmicort BID. Change from Solu- Medrol to prednisone. Wheezing on exam. DC IVF and give Lasix. BNP Mucinex for mucolytic effect. SVT present on admission. Dr. Benedict consulted. Continue to monitor closely. Echocardiogram obtained - results pending. Continued home medications. Recent complaint of chest pain. Nitro PRN chest pain. Priolsec for GERD and GI protection. Mild epigastric pain on exam. KUB unremarkable. SCDs for DVT prophylaxis. <Percy Benedict - Last Filed: 01/16/18 16:38> Exam Vital signs: Temperature 96.9 F 01/09/18 07:00 Pulse Rate 99 01/09/18 07:00 Respiratory Rate 12 01/09/18 11:54 Blood Pressure 131/65 01/09/18 07:00 Pulse Oximetry 97 01/09/18 11:54 Inpatient Medications: Discontinued Medications Generic Name Dose Route Start Last Admin Trade Name Waldo PRN Reason Stop Dose Admin Acetaminophen 325 mg 01/04/18 17:58 01/05/18 20:18 Tylenol PO 325 mg Q5H PRN Administration Discomfort Albuterol/Ipratropium 3 ml 01/04/18 15:00 01/09/18 11:53 Duoneb AEROSOL 3 ml RTQID HUBERT Administration Albuterol/Ipratropium 3 ml 01/04/18 14:33 Duoneb AEROSOL RTQID PRN Alprazolam 0.25 mg 01/07/18 09:50 01/09/18 10:05 Xanax 0.25 Mg PO 0.25 mg TID PRN Administration anxiety Amiodarone HCl 150 mg 01/04/18 12:01 01/04/18 12:05 Amiodarone IV 01/04/18 12:02 150 mg O ONE Administration Aspirin 81 mg 01/05/18 09:00 01/09/18 10:07 Ecotrin PO 81 mg DAILY [facility] Administration Atorvastatin Calcium 40 mg 01/04/18 21:00 01/08/18 21:32 Lipitor PO 40 mg HS [facility]ERT Administration Budesonide 0.5 mg 01/04/18 19:00 01/09/18 08:26 Pulmicort Inhalation AEROSOL 0.5 mg RTBID [facility]ERT Administration Furosemide 40 mg 01/05/18 09:59 01/05/18 10:23 Lasix IVP 01/05/18 10:00 40 mg ONCE ONE Administration Furosemide 40 mg 01/06/18 18:00 01/08/18 10:23 Lasix IVP 40 mg DAILY [facility] Administration Furosemide 40 mg 01/09/18 09:00 01/09/18 10:06 Lasix PO 40 mg DAILY [facility] Administration Guaifenesin 1,200 mg 01/04/18 21:00 01/09/18 10:06 Mucinex La PO 1,200 mg BID [facility]ERT Administration Cefepime HCl 1 gm/ Sodium 100 mls @ 200 mls/hr 01/04/18 11:40 01/04/18 12:45 Chloride IV 01/04/18 12:09 Infused O ONE Infusion Amiodarone HCl 900 mg/ Sodium 500 mls @ 16.66 mls/hr 01/04/18 12:15 Chloride IV .Q24H HUBERT 0.5 MG/MIN Amiodarone HCl 450 mg/ Sodium 250 mls @ 33.33 mls/hr 01/04/18 12:15 01/04/18 13:11 Chloride IV 01/04/18 18:15 Infused .Q7H31M [facility]ERT Infusion 1 MG/MIN Sodium Chloride 1,000 mls @ 999.9 mls/hr 01/04/18 12:15 Normal Saline IV 01/04/18 13:14 .Q1H ONE Sodium Chloride 500 mls @ 999.9 mls/hr 01/04/18 13:30 01/04/18 14:11 Normal Saline IV Infused .Q30M [facility]ERT Infusion Sodium Chloride 500 mls @ 999.9 mls/hr 01/04/18 13:30 01/04/18 13:20 Normal Saline IV Infused .Q30M [facility] Infusion Sodium Chloride 1,000 mls @ 150 mls/hr 01/04/18 14:30 01/05/18 10:30 Normal Saline IV Infused .Q6H40M [facility] Infusion Cefepime HCl 1 gm/ Sodium 50 mls @ 200 mls/hr 01/04/18 17:30 01/06/18 11:09 Chloride IV Infused Q8H [facility] Infusion Vancomycin HCl 1,250 mg/ 250 mls @ 200 mls/hr 01/05/18 18:00 01/05/18 23:30 Sodium Chloride IV Infused Q24H [facility] Infusion Vancomycin HCl 1,500 mg/ 500 mls @ 250 mls/hr 01/04/18 18:00 01/04/18 20:00 Sodium Chloride IV 01/04/18 18:01 Infused O ONE Infusion Famotidine/Sodium Chloride 20 mg in 50 mls @ 100 mls/hr 01/07/18 09:45 11:15 Pepcid Premix IV 01/07/18 10:14 Infused O ONE Infusion Influenza Virus Vaccine 0.5 ml 01/04/18 18:00 01/04/18 20:04 Fluzone Hd Vac IM 01/04/18 18:01 Not Given .ONCE ONE Levothyroxine Sodium 50 mcg 01/05/18 06:30 01/09/18 06:38 Synthroid PO 50 mcg ACB [facility]UBERT Administration Lorazepam 0.5 mg 01/04/18 15:17 01/05/18 18:42 Ativan Inj IVP 0.5 mg Q4H PRN Administration Losartan Potassium 100 mg 01/05/18 09:00 01/09/18 10:07 Cozaar PO 100 mg DAILY [facility] Administration Methylprednisolone Sodium Succinate 125 mg 01/04/18 21:00 01/05/18 08:01 Solu-Medrol IVP 125 mg Q6HR [facility]UBERT Administration Metoprolol Tartrate 25 mg 01/04/18 17:30 01/05/18 17:59 Lopressor PO Not Given BIDWM [facility] Metoprolol Tartrate 50 mg 01/05/18 17:39 01/08/18 17:32 Lopressor PO 50 mg BIDWM [facility] Administration Metoprolol Tartrate 100 mg 01/09/18 08:57 Lopressor PO BIDWM [facility] Nitroglycerin 0.4 mg 01/04/18 19:45 01/07/18 09:16 Nitrostat SL 0.4 mg Q5MIN3 PRN Administration Chest pain Omeprazole 20 mg 01/05/18 06:30 01/07/18 05:42 Prilosec PO 20 mg ACB [facility]UBERT Administration Omeprazole 20 mg 01/07/18 17:00 01/09/18 06:38 Prilosec PO 20 mg ACBID [facility]ERT Administration Ondansetron HCl 4 mg 01/04/18 11:51 01/04/18 11:55 Zofran IVP 01/04/18 11:52 4 mg O ONE Administration Ondansetron HCl 4 mg 01/04/18 14:30 01/06/18 20:38 Zofran IVP 4 mg Q6H PRN Administration Nausea Ondansetron HCl 4 mg 01/07/18 04:37 01/07/18 04:53 Zofran Odt Tablet PO 4 mg Q6H PRN Administration Nausea &/or vomiting Ondansetron HCl 4 mg 01/07/18 09:17 01/07/18 09:24 Zofran Odt Tablet PO 01/07/18 09:18 4 mg O ONE Administration Ondansetron HCl 4 mg 01/07/18 09:53 01/08/18 08:22 Zofran IVP 4 mg Q4H PRN Administration Nausea Ondansetron HCl 4 mg 01/07/18 09:53 01/09/18 08:50 Zofran Odt Tablet PO 4 mg Q4H PRN Administration Nausea &/or vomiting Pharmacy Consult each 01/06/18 00:21 Pharmacy Consult - Fall Risk [facility] 01/06/18 00:22 ONE TIME ONE Pharmacy Profile Note 30 ml 01/07/18 09:52 01/07/18 10:27 Maalox Plus/Lidocaine Susp PO 01/07/18 09:53 30 ml O ONE Administration Potassium Chloride 40 meq 01/05/18 09:58 01/05/18 10:23 K-Dur 20 Meq Tablet PO 01/05/18 09:59 40 meq O ONE Administration Potassium Chloride 40 meq 01/06/18 17:47 01/06/18 18:11 K-Dur 20 Meq Tablet PO 01/06/18 17:48 40 meq O ONE Administration Potassium Chloride 20 meq 01/08/18 16:00 01/08/18 17:32 K-Dur 20 Meq Tablet PO 01/08/18 16:01 20 meq O ONE Administration Prednisone 40 mg 01/06/18 08:00 01/06/18 09:00 Deltasone 20 Mg PO 40 mg WB [facility] Administration Prednisone 20 mg 01/06/18 17:07 01/09/18 10:07 Deltasone 20 Mg PO 20 mg WB [facility] Administration Promethazine HCl 12.5 - 25 mg 01/07/18 08:30 01/07/18 08:43 Phenergan Tab PO 12.5 mg Q6H PRN Administration Sodium Chloride 10 - 80 ml 01/04/18 11:40 01/07/18 10:28 Iv Flush IVF 10 ml PRN PRN Administration Flushing Trazodone HCl 100 mg 01/07/18 21:00 01/08/18 21:32 Desyrel PO 100 mg HS [facility] Administration Zolpidem Tartrate 5 mg 01/04/18 21:00 01/08/18 21:32 Ambien PO 5 mg HS [facility] Administration Results 01/08/18 05:17 01/09/18 04:30 Assessment and Plan - Assessment and Plan (1) ASCVD (arteriosclerotic cardiovascular disease) Status: Chronic (2) HTN (hypertension) Status: Chronic (3) Hyperlipidemia Status: Chronic (4) Non-ST elevation myocardial infarction (NSTEMI), type 2 Status: Acute (5) Sinus tachycardia Status: Acute (6) NSVT (nonsustained ventricular tachycardia) Status: Acute - Attestation Attestation Narrative: 01/16/18 16:38 Recommendation After examining the patient I agree with the above assessment. I am involved in the formulation of the patient's plan of care. Hospital Course Summary Disclaimer: The visit summary below is not to be considered part of the above Progress Note.
[2018-01-06] MEDS: FUROSEMIDE 40 MG/4 ML INJECTION IVP SCH (18:10)
[2018-01-06] MEDS: ZOLPIDEM 5 MG TABLET PO SCH (20:38)
[2018-01-06] MEDS: ATORVASTATIN 40 MG TABLET PO SCH (20:38)
[2018-01-07] MEDS ORDERED: ONDANSETRON ODT 4 MG TABLET PO PRN ×3 (04:37→09:53)
[2018-01-07] MEDS: OMEPRAZOLE 20 MG CAPSULE PO SCH ×2 (05:42→17:39)
[2018-01-07] MEDS: LEVOTHYROXINE 50 MCG TABLET PO SCH (05:42)
[2018-01-07] MEDS: ALBUTEROL/IPRATROPIUM 2.5mg-0.5mg/3ml NEB AEROSOL SCH ×5 (07:18→21:07)
[2018-01-07] MEDS ORDERED: PROMETHAZINE 25 MG TABLET PO PRN (08:30)
[2018-01-07] MEDS: PredniSONE 20 MG TABLET PO SCH (08:42)
[2018-01-07] MEDS: ASPIRIN *EC* 81 MG TABLET PO SCH (08:42)
[2018-01-07] MEDS: GUAIFENESIN LA 600 MG TABLET PO SCH ×2 (08:42→20:55)
[2018-01-07] MEDS: LOSARTAN 100 MG TABLET PO SCH (08:47)
[2018-01-07] MEDS ORDERED: ONDANSETRON ODT 4 MG TABLET PO ONE (09:17)
--- NOTE | 2018-01-07 09:37 | Progress Note ---
- Date 01/07/18 Subjective: Marguerite is a pleasant 82 yo female who is seen urgently in follow up today. RN reports that patient is c/o severe persistent nausea, and she is very anxious and restless. She does c/o some non-specific chest pain. She is quite anxious. Yells out when she experiences a wave of nausea "please give me something to help this!". I did see her right away. Her main c/o is persistent severe nausea. She has received Zofran ODT about 5am, and a subsequent dose of Phenergan orally as well. She continues to have severe nausea. She does not have an IV site in place currently, which is why she has been getting the oral medication. She reports some chest pain, which she attributes to persistent cough. She denies radiation down arm, into back, into jaw, etc. She is not diaphoretic. She does not have abdominal pain or discomfort. Hx of CABG in 2013, follows with Dr. Joseph. She did have some loose stool yesterday, which has resolved. C.Diff study was ordered, but stools have resolved, so that has not been done. Objective Vital signs: Temperature 97.6 F 01/07/18 08:41 Pulse Rate 105 H 01/07/18 08:54 Respiratory Rate 16 01/07/18 08:54 Blood Pressure 176/68 H 01/07/18 08:54 Pulse Oximetry 95 01/07/18 08:54 Rhythm: Sinus Tachycardia Height/Weight/BMI: Height 1.57 m Weight 63.1 kg Body Mass Index 24.0 - Constitutional Present: moderate distress, average body habitus, cooperative. Absent: diaphoretic - Routine HEENT Exam Head: Present: normocephalic, atraumatic Eye: Present: EOMI, PERRL - Routine Respiratory Exam Present: wheezes, crackles (Left lung casiano wheezy. ). Absent: accessory muscle use, dyspnea, respiratory distress Comments: She does have a harsh, hacky cough - Routine Cardiovascular Exam Present: RRR, S1, S2, no murmur, tachycardia Comments: Occasional pause, but otherwise regular - Routine Abdominal Exam Present: soft, normoactive bowel sounds, non distended, non tender - Routine Extremities Exam Present: no edema, pulses intact. Absent: cyanosis, clubbing - Routine Musculoskeletal Exam Musculoskeletal: Present: no clubbing or cyanosis, moving extremities well - Routine Skin Exam Present: intact, dry, warm. Absent: cyanosis, pallor - Routine Neurological Exam Present: alert, moving all extremities - Routine Psychiatric Exam Present: cooperative (anxious), agitated Comments: She is very anxious, restless. Worse when nauseated. Results - Labs CBC & Chem 7: 01/07/18 04:11 01/07/18 04:11 - Echocardiogram History of Echocardiogram: IMPRESSION. 1. Septal akinesia with ejection fraction of about 50%. 2. Abnormal IVC suggestive of elevated central venous pressure. 3. Moderate mitral regurgitation. 4. Mild aortic insufficiency. 5. Mild tricuspid regurgitation with moderate pulmonary hypertension with estimated pulmonary artery systolic pressure of 47. 6. Mild pulmonary insufficiency. Assessment and Plan (1) Non-ST elevation myocardial infarction (NSTEMI), type 2 Current visit: Yes Status: Acute (2) Sinus tachycardia Current visit: Yes Status: Acute (3) RSV (acute bronchiolitis due to respiratory syncytial virus) Current visit: Yes Status: Acute Assessment and Plan: Assessment: acute RSV, present on admission. NSTEMI, type 2, likely secondary to demand ischemia and respiratory illness. SVT, acute, present on admission. Possible severe sepsis/septic shock as indicated by tachycardia, tachypnea and elevated lactate of 5.7. Hypertension. Hypothyroidism. Hyperlipidemia. Peripheral neuropathy. ASCVD. Osteoarthritis. Anxiety. Insomnia. Diastolic dysfunction. Nausea. Hypernatremia (Na 148), present on admission. Dehydration, present on admission. Anemia (Hgb 11.7), reportedly chronic, present on admission. Hypocalcemia (Ca 8.2), present on admission. Plan: 01/07/18 DuoNeb treatments QID and Q6H PRN dyspnea. Pulmicort BID. PO prednisone taper. She remains a bit wheezy, but not acutely SOA. Mucinex for mucolytic effect. SVT (POA)- Dr. Benedict covering (Outpatient- [facility]). Continue metoprolol/ Telemetry. Repeat EKG now. Continued home medications as appropriate. Possible sepsis, resolved. Antibiotics (cefepime/Vanco) DC'd- observe. Loose stool has stopped, so unlikely C.Diff. Monitor. Recurrent Chest pain, atypical- she remains restless/nauseated. Will get Troponin, EKG now. Assess D-Dimer- if elevated, get CTA of chest. D/W Gerard Lyons APRN with cardiology- she will see pt today. Provide Zofran ODT again now. Cardiac vs. anxiety- unclear etiology, but will err on the side of caution. D/W Dr. Wheeler. GERD- PPI orally. Will give Pepcid x 1 now, continue antiemetics. Replace IV site as well. SCDs for DVT prophylaxis. She is quite anxious. Add oral antianxiety medications as well. Continue to monitor closely. DC planning will be to SNU at [facility]. D/W son today several times and update on POC given. Addendum:Seen and examined patient on same day as the above note. Agree with history, physical, assessment and plan. Comprehensive physical findings correlate to the above note. Subjective: patient complains of nausea and freely admits to anxiety. She reports that she is still not eating well. Had significant discussion with Dr. Ziegler, her son. He remained well appraised of her condition throughout the course of this and was able to fill in a great deal of detail. Objective: no apparent distress. Lung casiano clear bilaterally. Cardiovascular S1 S2 with occasional ectopics. Assessment and plan: after discussion with Dr. Ziegler, I would be inclined to follow his recommendation of maintaining adequate hydration for this is reportedly connected with some of her episodes of nausea. Patient is to shift over to assisted living is a long-term goal but is likely to required [facility] facility in the interim until she has improved independent mobility. Documented on [place] speech to text. Efforts to correct speech recognition errors performed, but variation may exist DVT Prophylaxis: SCD's GI Prophylaxis: other (PPI) Resuscitation Status: Full Code - Physician Narrative Narrative: Date: 01/07/18 Time: 929 Hospital Course Summary Disclaimer: The visit summary below is not to be considered part of the above Progress Note. Hospital Course: Plan - 01/04/18: Admit to ICU inpatient status under the care of Dr. Yeboah. Monitor cardiac and respiratory function closely on telemetry with continuous oximetry. Oxygen as needed to maintain SAO2 >90%, weaning as able. Patient does not use oxygen at home. Patient given Rocephin 1gm IM as outpatient on 01/03/18 and started on Levaquin po. Given Cefepime 1g in ED. Will continue Cefepime and add vancomycin for empiric coverage of suspected pulmonary pathogens given elevated lactate and risk of pneumonia. Pharmacy to manage vancomycin. Blood cultures pending. Will try and obtain sputum culture. DuoNeb treatments QID and Q6H PRN dyspnea. Pulmicort BID. Solu-Medrol 125mg Q6H for pulmonary inflammation. Consider weaning Solu-Medrol in AM if improving. Mucinex for mucolytic effect. SVT present on admission. Dr. Benedict consulted. Amiodarone 450mg IV bolus x 1 given in ED. Amiodarone drip initiate per Dr. Benedict with rate improving. Continue to monitor closely. Echocardiogram obtained - results pending. Blood pressure stable. Continue home medications - patient may take home medications. Recent complaint of chest pain. Nitro PRN chest pain. NS 150cc/hr for hydration. Monitor weight and urinary output closely for signs of fluid overload. Priolsec for GERD and GI protection. Mild epigastric pain on exam. KUB unremarkable. SCDs for DVT prophylaxis. Upon discharge, patient's care will be returned to her PCP. 01/05 Monitor cardiac and respiratory function closely on telemetry with continuous oximetry. Oxygen as needed to maintain SAO2 >90%, weaning as able. Patient does not use oxygen at home. On RA now. Questioning sepsis - no bacterial source ID'd. Lactate now wnl. Continue empiric Cefepime and Vanco for now. Blood cx obtained. Troponin has trended up. Repeat. Will keep in CCU but could transfer if next troponin decreased. d/w Dr. Benedict. DuoNeb treatments QID and Q6H PRN dyspnea. Pulmicort BID. Change from Solu- Medrol to prednisone. Wheezing on exam. DC IVF and give Lasix. BNP Mucinex for mucolytic effect. SVT present on admission. Dr. Benedict consulted. Continue to monitor closely. Echocardiogram obtained - results pending. Continued home medications. Recent complaint of chest pain. Nitro PRN chest pain. Priolsec for GERD and GI protection. Mild epigastric pain on exam. KUB unremarkable. SCDs for DVT prophylaxis. 01/07/18 DuoNeb treatments QID and Q6H PRN dyspnea. Pulmicort BID. PO prednisone taper. She remains a bit wheezy, but not acutely SOA. Mucinex for mucolytic effect. SVT (POA)- Dr. Benedict covering (Outpatient- [facility]). Continue metoprolol/ Telemetry. Repeat EKG now. Continued home medications as appropriate. Possible sepsis, resolved. Antibiotics (cefepime/Vanco) DC'd- observe. Loose stool has stopped, so unlikely C.Diff. Monitor. Recurrent Chest pain, atypical- she remains restless/nauseated. Will get Troponin, EKG now. Assess D-Dimer- if elevated, get CTA of chest. D/W Gerard Lyons APRN with cardiology- she will see pt today. Provide Zofran ODT again now. Cardiac vs. anxiety- unclear etiology, but will err on the side of caution. D/W Dr. Wheeler. GERD- PPI orally. Will give Pepcid x 1 now, continue antiemetics. Replace IV site as well. SCDs for DVT prophylaxis. She is quite anxious. Add oral antianxiety medications as well. Continue to monitor closely. DC planning will be to SNU at [facility]. D/W son today several times and update on POC given. Addendum entered and electronically signed by Elena Cooper APRN 01/07/18 10:27 : Troponin trending down. DDimer is elevated, > 500. Wells criteria for PE is 6, moderate-high probability. SCr ok. Obtain CTA.
[2018-01-07] MEDS ORDERED: FAMOTIDINE PB 20 MG/50 ML BAG IV ONE (09:45)
[2018-01-07] MEDS ORDERED: GI COCKTAIL 30 ML PO ONE (09:52)
[2018-01-07] MEDS: FUROSEMIDE 40 MG/4 ML INJECTION IVP SCH (10:28)
[2018-01-07] MEDS: SALINE FLUSH 10ml SYRINGE IVF PRN (10:28)
[2018-01-07] MEDS ORDERED: SALINE FLUSH 10ml SYRINGE ONE (10:34)
[2018-01-07] MEDS ORDERED: IOHEXOL 350mg/ml 75ml INJECTION ONE ×2 (10:34→10:39)
[2018-01-07] MEDS: BUDESONIDE INH.SOLN 0.5mg/2ml NEB AEROSOL SCH ×2 (11:14→21:07)
--- NOTE | 2018-01-07 16:56 | Cardiology Progress Note ---
<Katie Lyons R - Last Filed: 01/08/18 22:32> Subjective Principal diagnosis: NSTEMI Interval history: CC: Tachycardia, Type II PA Ms. Ziegler is seen at 0945, laying in bed, states not feeling well this AM. States she has had significant nausea over night and this AM, but controlled now. States she woke this AM and was diaphoretic. States she had been coughing a lot, denies any CP/pressure. BP when reviewed at time of exam and asked RN to retake. Notified by Elena Cooper APRN with primary team of pt's current condition prior to assessment and EKG, troponin and D-dimer have been ordered. Pt denies any SOA, AMAYA, lightheadedness, vision changes. Apparent increased anxiety this AM when pt having issues with nausea. Exam Vital signs: Temperature 98.2 F 01/07/18 11:39 Pulse Rate 80 01/07/18 14:54 Respiratory Rate 20 01/07/18 15:18 Blood Pressure 126/65 01/07/18 15:28 Pulse Oximetry 95 01/07/18 15:18 Inpatient Medications: Generic Name Dose Route Start Last Admin Trade Name Freq PRN Reason Stop Dose Admin Acetaminophen 325 mg 01/04/18 17:58 01/05/18 20:18 Tylenol PO 325 mg Q5H PRN Administration Discomfort Albuterol/Ipratropium 3 ml 01/04/18 15:00 01/07/18 15:17 Duoneb AEROSOL 3 ml RTQID HUBERT Administration Albuterol/Ipratropium 3 ml 01/04/18 14:33 Duoneb AEROSOL RTQID PRN Alprazolam 0.25 mg 01/07/18 09:50 Xanax 0.25 Mg PO TID PRN anxiety Aspirin 81 mg 01/05/18 09:00 01/07/18 08:42 Ecotrin PO 81 mg DAILY HUBERT Administration Atorvastatin Calcium 40 mg 01/04/18 21:00 01/06/18 20:38 Lipitor PO 40 mg HS HUBERT Administration Budesonide 0.5 mg 01/04/18 19:00 01/07/18 11:14 Pulmicort Inhalation AEROSOL Not Given RTBID HUBERT Furosemide 40 mg 01/06/18 18:00 01/07/18 10:28 Lasix IVP 40 mg DAILY HUBERT Administration Guaifenesin 1,200 mg 01/04/18 21:00 01/07/18 08:42 Mucinex La PO 1,200 mg BID HUBERT Administration Levothyroxine Sodium 50 mcg 01/05/18 06:30 01/07/18 05:42 Synthroid PO 50 mcg ACB HUBERT Administration Losartan Potassium 100 mg 01/05/18 09:00 01/07/18 08:47 Cozaar PO 100 mg DAILY HUBERT Administration Metoprolol Tartrate 50 mg 01/05/18 17:39 01/07/18 08:42 Lopressor PO 50 mg BIDWM HUBERT Administration Nitroglycerin 0.4 mg 01/04/18 19:45 01/07/18 09:16 Nitrostat SL 0.4 mg Q5MIN3 PRN Administration Chest pain Omeprazole 20 mg 01/07/18 17:00 Prilosec PO ACBID HUBERT Ondansetron HCl 4 mg 01/07/18 09:53 Zofran IVP Q4H PRN Nausea Ondansetron HCl 4 mg 01/07/18 09:53 Zofran Odt Tablet PO Q4H PRN Nausea &/or vomiting Prednisone 20 mg 01/06/18 17:07 01/07/18 08:42 Deltasone 20 Mg PO 20 mg WB HUBERT Administration Promethazine HCl 12.5 - 25 mg 01/07/18 08:30 01/07/18 08:43 Phenergan Tab PO 12.5 mg Q6H PRN Administration Sodium Chloride 10 - 80 ml 01/04/18 11:40 01/07/18 10:28 Iv Flush IVF 10 ml PRN PRN Administration Flushing Trazodone HCl 100 mg 01/07/18 21:00 Desyrel PO HS HUBERT Zolpidem Tartrate 5 mg 01/04/18 21:00 01/06/18 20:38 Ambien PO 5 mg HS HUBERT Administration Discontinued Medications Generic Name Dose Route Start Last Admin Trade Name Freq PRN Reason Stop Dose Admin Amiodarone HCl 150 mg 01/04/18 12:01 01/04/18 12:05 Amiodarone IV 01/04/18 12:02 150 mg O ONE Administration Furosemide 40 mg 01/05/18 09:59 01/05/18 10:23 Lasix IVP 01/05/18 10:00 40 mg ONCE ONE Administration Cefepime HCl 1 gm/ Sodium 100 mls @ 200 mls/hr 01/04/18 11:40 01/04/18 12:45 Chloride IV 01/04/18 12:09 Infused O ONE Infusion Amiodarone HCl 900 mg/ Sodium 500 mls @ 16.66 mls/hr 01/04/18 12:15 Chloride IV .Q24H HUBERT 0.5 MG/MIN Amiodarone HCl 450 mg/ Sodium 250 mls @ 33.33 mls/hr 01/04/18 12:15 01/04/18 13:11 Chloride IV 01/04/18 18:15 Infused .Q7H31M HUBERT Infusion 1 MG/MIN Sodium Chloride 1,000 mls @ 999.9 mls/hr 01/04/18 12:15 Normal Saline IV 01/04/18 13:14 .Q1H ONE Sodium Chloride 500 mls @ 999.9 mls/hr 01/04/18 13:30 01/04/18 14:11 Normal Saline IV Infused .Q30M HUBERT Infusion Sodium Chloride 500 mls @ 999.9 mls/hr 01/04/18 13:30 01/04/18 13:20 Normal Saline IV Infused .Q30M HUBERT Infusion Sodium Chloride 1,000 mls @ 150 mls/hr 01/04/18 14:30 01/05/18 10:30 Normal Saline IV Infused .Q6H40M HUBERT Infusion Cefepime HCl 1 gm/ Sodium 50 mls @ 200 mls/hr 01/04/18 17:30 01/06/18 11:09 Chloride IV Infused Q8H HUBERT Infusion Vancomycin HCl 1,250 mg/ 250 mls @ 200 mls/hr 01/05/18 18:00 01/05/18 23:30 Sodium Chloride IV Infused Q24H HUBERT Infusion Vancomycin HCl 1,500 mg/ 500 mls @ 250 mls/hr 01/04/18 18:00 01/04/18 20:00 Sodium Chloride IV 01/04/18 18:01 Infused O ONE Infusion Famotidine/Sodium Chloride 20 mg in 50 mls @ 100 mls/hr 01/07/18 09:45 11:15 Pepcid Premix IV 01/07/18 10:14 Infused O ONE Infusion Influenza Virus Vaccine 0.5 ml 01/04/18 18:00 01/04/18 20:04 Fluzone Hd Vac IM 01/04/18 18:01 Not Given .ONCE ONE Lorazepam 0.5 mg 01/04/18 15:17 01/05/18 18:42 Ativan Inj IVP 0.5 mg Q4H PRN Administration Methylprednisolone Sodium Succinate 125 mg 01/04/18 21:00 01/05/18 08:01 Solu-Medrol IVP 125 mg Q6HR HUBERT Administration Metoprolol Tartrate 25 mg 01/04/18 17:30 01/05/18 17:59 Lopressor PO Not Given BIDWM HUBERT Omeprazole 20 mg 01/05/18 06:30 01/07/18 05:42 Prilosec PO 20 mg ACB HUBERT Administration Ondansetron HCl 4 mg 01/04/18 11:51 01/04/18 11:55 Zofran IVP 01/04/18 11:52 4 mg O ONE Administration Ondansetron HCl 4 mg 01/04/18 14:30 01/06/18 20:38 Zofran IVP 4 mg Q6H PRN Administration Nausea Ondansetron HCl 4 mg 01/07/18 04:37 01/07/18 04:53 Zofran Odt Tablet PO 4 mg Q6H PRN Administration Nausea &/or vomiting Ondansetron HCl 4 mg 01/07/18 09:17 01/07/18 09:24 Zofran Odt Tablet PO 01/07/18 09:18 4 mg O ONE Administration Pharmacy Consult each 01/06/18 00:21 Pharmacy Consult - Fall Risk 01/06/18 00:22 ONE TIME ONE Pharmacy Profile Note 30 ml 01/07/18 09:52 01/07/18 10:27 Maalox Plus/Lidocaine Susp PO 01/07/18 09:53 30 ml O ONE Administration Potassium Chloride 40 meq 01/05/18 09:58 01/05/18 10:23 K-Dur 20 Meq Tablet PO 01/05/18 09:59 40 meq O ONE Administration Potassium Chloride 40 meq 01/06/18 17:47 01/06/18 18:11 K-Dur 20 Meq Tablet PO 01/06/18 17:48 40 meq O ONE Administration Prednisone 40 mg 01/06/18 08:00 01/06/18 09:00 Deltasone 20 Mg PO 40 mg WB HUBERT Administration - Constitutional mild distress, thin, cooperative - Routine HEENT Exam Eye: Present: EOMI - Routine Neck Exam Absent: JVD - Routine Respiratory Exam Present: crackles Comments: Bibasilar - Routine Cardiovascular Exam Present: RRR. Absent: JVD - Routine Abdominal Exam Present: soft, non distended, non tender - Routine Extremities Exam Present: no edema, pulses intact. Absent: cyanosis - Routine Skin Exam Present: intact, dry, warm. Absent: cyanosis, erythema, rash - Routine Neurological Exam Present: alert, oriented X3 - Routine Psychiatric Exam Present: normal affect, cooperative. Absent: anxious, agitated Results 01/07/18 04:11 01/07/18 04:11 Cardiac Enzymes 01/07/18 01/07/18 Range/Units 09:30 15:33 Troponin I 0.533 H 0.439 H (0-0.12) ng/ml CBC 01/07/18 Range/Units 04:11 WBC 10.6 D (4.5-11.0) T/MM3 RBC 4.43 (4.00-5.20) M/MM3 Hgb 12.6 (12-16) GM/DL Hct 37.8 (36-46) % Plt Count 241 (130-400) T/MM3 Neut # (Auto) 9.0 H (1.8-7.7) T/MM3 Lymph # (Auto) 0.9 L (1-4.8) T/MM3 [place] # (Auto) 0.6 (0-0.8) T/MM3 Eos # (Auto) 0.0 (0-0.5) T/MM3 Baso # (Auto) 0.0 (0-0.2) T/MM3 Comprehensive Metabolic Panel 01/07/18 Range/Units 04:11 Sodium 145 H (134-144) MEQ/L Potassium 3.8 (3.6-5) MEQ/L Chloride 108 H (98-107) MEQ/L Carbon Dioxide 25 (22-30) MEQ/L BUN 26.0 H D (7-17) MG/DL Creatinine 0.9 D (0.7-1.2) mg/dL Glucose 134 H (65-110) MG/DL Calcium 8.5 D (8.4-10.2) MG/DL Intake and Output 01/07/18 01/07/18 01/07/18 06:59 14:59 22:59 Intake Total 0 / 0 110 / 110 500 / 500 Output Total 250 / 250 1250 / 1250 150 / 150 Balance -250 / -250 -1140 / -1140 350 / 350 Intake: IV 50 / 50 Famotidine Pb 20 mg In 50 ml @ 50 / 50 100 mls/hr IV O ONE Rx#: [id number] Oral 0 / 0 60 / 60 500 / 500 Output: Urine 250 / 250 1250 / 1250 150 / 150 Other: Urine Appearance Clear Clear Clear Urine Color Yellow Pale Yellow Yellow Urine Odor Normal Normal Normal # Voids 1 Weight 63.1 kg Patient Weight 01/08/18 06:59 Weight 63.1 kg Assessment and Plan - Assessment and Plan (1) Non-ST elevation myocardial infarction (NSTEMI), type 2 Status: Acute EKG today SR 91 with incomplete LBBB, no ischemic changes. Repeat troponin 0.533, still trending down. Con't to monitor on tele. (2) Sinus tachycardia Status: Acute HR improved, mostly 80-90's with occasional low 100's. Con't Metoprolol 50mg PO BID. Monitor on tele. (3) Elevated d-dimer Status: Acute D-dimer 553. Primary team ordering CTA. Monitor. (4) HTN (hypertension) Status: Chronic BP 176/68 at time of inital exam, likely d/t recent anxiety. Repeat BP was 144/72. Con't Losartan 100mg PO Daily and Metoprolol 50mg PO BID. Con't to monitor. (5) ASCVD (arteriosclerotic cardiovascular disease) Status: Chronic Hx of CABG in 2013. Con't ASA and statin. (6) Hyperlipidemia Status: Chronic Con't ASA and statin. Hospital Course Summary Disclaimer: The visit summary below is not to be considered part of the above Progress Note. Hospital Course: Plan - 01/04/18: Admit to ICU inpatient status under the care of Dr. Yeboah. Monitor cardiac and respiratory function closely on telemetry with continuous oximetry. Oxygen as needed to maintain SAO2 >90%, weaning as able. Patient does not use oxygen at home. Patient given Rocephin 1gm IM as outpatient on 01/03/18 and started on Levaquin po. Given Cefepime 1g in ED. Will continue Cefepime and add vancomycin for empiric coverage of suspected pulmonary pathogens given elevated lactate and risk of pneumonia. Pharmacy to manage vancomycin. Blood cultures pending. Will try and obtain sputum culture. DuoNeb treatments QID and Q6H PRN dyspnea. Pulmicort BID. Solu-Medrol 125mg Q6H for pulmonary inflammation. Consider weaning Solu-Medrol in AM if improving. Mucinex for mucolytic effect. SVT present on admission. Dr. Benedict consulted. Amiodarone 450mg IV bolus x 1 given in ED. Amiodarone drip initiate per Dr. Benedict with rate improving. Continue to monitor closely. Echocardiogram obtained - results pending. Blood pressure stable. Continue home medications - patient may take home medications. Recent complaint of chest pain. Nitro PRN chest pain. NS 150cc/hr for hydration. Monitor weight and urinary output closely for signs of fluid overload. Priolsec for GERD and GI protection. Mild epigastric pain on exam. KUB unremarkable. SCDs for DVT prophylaxis. Upon discharge, patient's care will be returned to her PCP. 01/05 Monitor cardiac and respiratory function closely on telemetry with continuous oximetry. Oxygen as needed to maintain SAO2 >90%, weaning as able. Patient does not use oxygen at home. On RA now. Questioning sepsis - no bacterial source ID'd. Lactate now wnl. Continue empiric Cefepime and Vanco for now. Blood cx obtained. Troponin has trended up. Repeat. Will keep in CCU but could transfer if next troponin decreased. d/w Dr. Benedict. DuoNeb treatments QID and Q6H PRN dyspnea. Pulmicort BID. Change from Solu- Medrol to prednisone. Wheezing on exam. DC IVF and give Lasix. BNP Mucinex for mucolytic effect. SVT present on admission. Dr. Benedict consulted. Continue to monitor closely. Echocardiogram obtained - results pending. Continued home medications. Recent complaint of chest pain. Nitro PRN chest pain. Priolsec for GERD and GI protection. Mild epigastric pain on exam. KUB unremarkable. SCDs for DVT prophylaxis. 01/07/18 DuoNeb treatments QID and Q6H PRN dyspnea. Pulmicort BID. PO prednisone taper. She remains a bit wheezy, but not acutely SOA. Mucinex for mucolytic effect. SVT (POA)- Dr. Benedict covering (Outpatient- [facility]). Continue metoprolol/ Telemetry. Repeat EKG now. Continued home medications as appropriate. Possible sepsis, resolved. Antibiotics (cefepime/Vanco) DC'd- observe. Loose stool has stopped, so unlikely C.Diff. Monitor. Recurrent Chest pain, atypical- she remains restless/nauseated. Will get Troponin, EKG now. Assess D-Dimer- if elevated, get CTA of chest. D/W Gerard Lyons APRN with cardiology- she will see pt today. Provide Zofran ODT again now. Cardiac vs. anxiety- unclear etiology, but will err on the side of caution. D/W Dr. Wheeler. GERD- PPI orally. Will give Pepcid x 1 now, continue antiemetics. Replace IV site as well. SCDs for DVT prophylaxis. She is quite anxious. Add oral antianxiety medications as well. Continue to monitor closely. DC planning will be to SNU [facility]. D/W son today several times and update on POC given. <Percy Benedict - Last Filed: 01/12/18 13:06> Exam Vital signs: Temperature 96.9 F 01/09/18 07:00 Pulse Rate 99 01/09/18 07:00 Respiratory Rate 12 01/09/18 11:54 Blood Pressure 131/65 01/09/18 07:00 Pulse Oximetry 97 01/09/18 11:54 Inpatient Medications: Discontinued Medications Generic Name Dose Route Start Last Admin Trade Name Freq PRN Reason Stop Dose Admin Acetaminophen 325 mg 01/04/18 17:58 01/05/18 20:18 Tylenol PO 325 mg Q5H PRN Administration Discomfort Albuterol/Ipratropium 3 ml 01/04/18 15:00 01/09/18 11:53 Duoneb AEROSOL 3 ml RTQID HUBERT Administration Albuterol/Ipratropium 3 ml 01/04/18 14:33 Duoneb AEROSOL RTQID PRN Alprazolam 0.25 mg 01/07/18 09:50 01/09/18 10:05 Xanax 0.25 Mg PO 0.25 mg TID PRN Administration anxiety Amiodarone HCl 150 mg 01/04/18 12:01 01/04/18 12:05 Amiodarone IV 01/04/18 12:02 150 mg O ONE Administration Aspirin 81 mg 01/05/18 09:00 01/09/18 10:07 Ecotrin PO 81 mg DAILY HUBERT Administration Atorvastatin Calcium 40 mg 01/04/18 21:00 01/08/18 21:32 Lipitor PO 40 mg HS HUBERT Administration Budesonide 0.5 mg 01/04/18 19:00 01/09/18 08:26 Pulmicort Inhalation AEROSOL 0.5 mg RTBID HUBERT Administration Furosemide 40 mg 01/05/18 09:59 01/05/18 10:23 Lasix IVP 01/05/18 10:00 40 mg ONCE ONE Administration Furosemide 40 mg 01/06/18 18:00 01/08/18 10:23 Lasix IVP 40 mg DAILY HUBERT Administration Furosemide 40 mg 01/09/18 09:00 01/09/18 10:06 Lasix PO 40 mg DAILY HUBERT Administration Guaifenesin 1,200 mg 01/04/18 21:00 01/09/18 10:06 Mucinex La PO 1,200 mg BID HUBERT Administration Cefepime HCl 1 gm/ Sodium 100 mls @ 200 mls/hr 01/04/18 11:40 01/04/18 12:45 Chloride IV 01/04/18 12:09 Infused O ONE Infusion Amiodarone HCl 900 mg/ Sodium 500 mls @ 16.66 mls/hr 01/04/18 12:15 Chloride IV .Q24H HUBERT 0.5 MG/MIN Amiodarone HCl 450 mg/ Sodium 250 mls @ 33.33 mls/hr 01/04/18 12:15 01/04/18 13:11 Chloride IV 01/04/18 18:15 Infused .Q7H31M HUBERT Infusion 1 MG/MIN Sodium Chloride 1,000 mls @ 999.9 mls/hr 01/04/18 12:15 Normal Saline IV 01/04/18 13:14 .Q1H ONE Sodium Chloride 500 mls @ 999.9 mls/hr 01/04/18 13:30 01/04/18 14:11 Normal Saline IV Infused .Q30M HUBERT Infusion Sodium Chloride 500 mls @ 999.9 mls/hr 01/04/18 13:30 01/04/18 13:20 Normal Saline IV Infused .Q30M HUBERT Infusion Sodium Chloride 1,000 mls @ 150 mls/hr 01/04/18 14:30 01/05/18 10:30 Normal Saline IV Infused .Q6H40M HUBERT Infusion Cefepime HCl 1 gm/ Sodium 50 mls @ 200 mls/hr 01/04/18 17:30 01/06/18 11:09 Chloride IV Infused Q8H HUBERT Infusion Vancomycin HCl 1,250 mg/ 250 mls @ 200 mls/hr 01/05/18 18:00 01/05/18 23:30 Sodium Chloride IV Infused Q24H HUBERT Infusion Vancomycin HCl 1,500 mg/ 500 mls @ 250 mls/hr 01/04/18 18:00 01/04/18 20:00 Sodium Chloride IV 01/04/18 18:01 Infused O ONE Infusion Famotidine/Sodium Chloride 20 mg in 50 mls @ 100 mls/hr 01/07/18 09:45 11:15 Pepcid Premix IV 01/07/18 10:14 Infused O ONE Infusion Influenza Virus Vaccine 0.5 ml 01/04/18 18:00 01/04/18 20:04 Fluzone Hd Vac IM 01/04/18 18:01 Not Given .ONCE ONE Levothyroxine Sodium 50 mcg 01/05/18 06:30 01/09/18 06:38 Synthroid PO 50 mcg ACB HUBERT Administration Lorazepam 0.5 mg 01/04/18 15:17 01/05/18 18:42 Ativan Inj IVP 0.5 mg Q4H PRN Administration Losartan Potassium 100 mg 01/05/18 09:00 01/09/18 10:07 Cozaar PO 100 mg DAILY HUBERT Administration Methylprednisolone Sodium Succinate 125 mg 01/04/18 21:00 01/05/18 08:01 Solu-Medrol IVP 125 mg Q6HR HUBERT Administration Metoprolol Tartrate 25 mg 01/04/18 17:30 01/05/18 17:59 Lopressor PO Not Given BIDWM HUBERT Metoprolol Tartrate 50 mg 01/05/18 17:39 01/08/18 17:32 Lopressor PO 50 mg BIDWM HUBERT Administration Metoprolol Tartrate 100 mg 01/09/18 08:57 Lopressor PO BIDWM HUBERT Nitroglycerin 0.4 mg 01/04/18 19:45 01/07/18 09:16 Nitrostat SL 0.4 mg Q5MIN3 PRN Administration Chest pain Omeprazole 20 mg 01/05/18 06:30 01/07/18 05:42 Prilosec PO 20 mg ACB HUBERT Administration Omeprazole 20 mg 01/07/18 17:00 01/09/18 06:38 Prilosec PO 20 mg ACBID HUBERT Administration Ondansetron HCl 4 mg 01/04/18 11:51 01/04/18 11:55 Zofran IVP 01/04/18 11:52 4 mg O ONE Administration Ondansetron HCl 4 mg 01/04/18 14:30 01/06/18 20:38 Zofran IVP 4 mg Q6H PRN Administration Nausea Ondansetron HCl 4 mg 01/07/18 04:37 01/07/18 04:53 Zofran Odt Tablet PO 4 mg Q6H PRN Administration Nausea &/or vomiting Ondansetron HCl 4 mg 01/07/18 09:17 01/07/18 09:24 Zofran Odt Tablet PO 01/07/18 09:18 4 mg O ONE Administration Ondansetron HCl 4 mg 01/07/18 09:53 01/08/18 08:22 Zofran IVP 4 mg Q4H PRN Administration Nausea Ondansetron HCl 4 mg 01/07/18 09:53 01/09/18 08:50 Zofran Odt Tablet PO 4 mg Q4H PRN Administration Nausea &/or vomiting Pharmacy Consult each 01/06/18 00:21 Pharmacy Consult - Fall Risk 01/06/18 00:22 ONE TIME ONE Pharmacy Profile Note 30 ml 01/07/18 09:52 01/07/18 10:27 Maalox Plus/Lidocaine Susp PO 01/07/18 09:53 30 ml O ONE Administration Potassium Chloride 40 meq 01/05/18 09:58 01/05/18 10:23 K-Dur 20 Meq Tablet PO 01/05/18 09:59 40 meq O ONE Administration Potassium Chloride 40 meq 01/06/18 17:47 01/06/18 18:11 K-Dur 20 Meq Tablet PO 01/06/18 17:48 40 meq O ONE Administration Potassium Chloride 20 meq 01/08/18 16:00 01/08/18 17:32 K-Dur 20 Meq Tablet PO 01/08/18 16:01 20 meq O ONE Administration Prednisone 40 mg 01/06/18 08:00 01/06/18 09:00 Deltasone 20 Mg PO 40 mg WB HUBERT Administration Prednisone 20 mg 01/06/18 17:07 01/09/18 10:07 Deltasone 20 Mg PO 20 mg WB HUBERT Administration Promethazine HCl 12.5 - 25 mg 01/07/18 08:30 01/07/18 08:43 Phenergan Tab PO 12.5 mg Q6H PRN Administration Sodium Chloride 10 - 80 ml 01/04/18 11:40 01/07/18 10:28 Iv Flush IVF 10 ml PRN PRN Administration Flushing Trazodone HCl 100 mg 01/07/18 21:00 01/08/18 21:32 Desyrel PO 100 mg HS HUBERT Administration Zolpidem Tartrate 5 mg 01/04/18 21:00 01/08/18 21:32 Ambien PO 5 mg HS HUBERT Administration Results 01/08/18 05:17 01/09/18 04:30 Assessment and Plan - Assessment and Plan (1) ASCVD (arteriosclerotic cardiovascular disease) Status: Chronic (2) HTN (hypertension) Status: Chronic (3) Hyperlipidemia Status: Chronic (4) Non-ST elevation myocardial infarction (NSTEMI), type 2 Status: Acute (5) Sinus tachycardia Status: Acute (6) NSVT (nonsustained ventricular tachycardia) Status: Acute - Attestation Attestation Narrative: 01/12/18 13:06 Recommendation After examining the patient I agree with the above assessment. I am involved in the formulation of the patient's plan of care. Hospital Course Summary Disclaimer: The visit summary below is not to be considered part of the above Progress Note.
[2018-01-07] MEDS: ATORVASTATIN 40 MG TABLET PO SCH (20:55)
[2018-01-07] MEDS: TRAZODONE 100 MG TABLET PO SCH (20:56)
[2018-01-07] MEDS: ZOLPIDEM 5 MG TABLET PO SCH (20:59)
[2018-01-07] MEDS: ONDANSETRON 4 MG/2 ML INJECTION IVP PRN (20:59)
[2018-01-08] MEDS: ONDANSETRON 4 MG/2 ML INJECTION IVP PRN ×2 (03:17→08:22)
[2018-01-08] MEDS: OMEPRAZOLE 20 MG CAPSULE PO SCH ×2 (05:45→17:32)
[2018-01-08] MEDS: LEVOTHYROXINE 50 MCG TABLET PO SCH (05:45)
--- NOTE | 2018-01-08 07:23 | Cardiology Progress Note ---
<EctKatie renee R - Last Filed: 01/08/18 22:38> Subjective Principal diagnosis: NSTEMI Interval history: CC: Tachycardia, Type II NM Ms. Ziegler is seen laying in bed this AM, c/o nausea and RN at beside administering nausea meds. Pt having increased anxiety, denies any CP, SOA, diaphoresis. States only con't nausea that again went on overnight. Increased anxiety will any movement and/or conversation as well. RN plan to give ordered Xanax. Exam Vital signs: Temperature 97.2 F 01/08/18 04:00 Pulse Rate 78 01/08/18 04:00 Respiratory Rate 18 01/08/18 04:00 Blood Pressure 140/73 H 01/08/18 04:00 Pulse Oximetry 96 01/08/18 04:00 Inpatient Medications: Generic Name Dose Route Start Last Admin Trade Name Freq PRN Reason Stop Dose Admin Acetaminophen 325 mg 01/04/18 17:58 01/05/18 20:18 Tylenol PO 325 mg Q5H PRN Administration Discomfort Albuterol/Ipratropium 3 ml 01/04/18 15:00 01/07/18 21:07 Duoneb AEROSOL 3 ml RTQID HUBERT Administration Albuterol/Ipratropium 3 ml 01/04/18 14:33 Duoneb AEROSOL RTQID PRN Alprazolam 0.25 mg 01/07/18 09:50 Xanax 0.25 Mg PO TID PRN anxiety Aspirin 81 mg 01/05/18 09:00 01/07/18 08:42 Ecotrin PO 81 mg DAILY HUBERT Administration Atorvastatin Calcium 40 mg 01/04/18 21:00 01/07/18 20:55 Lipitor PO 40 mg HS HUBERT Administration Budesonide 0.5 mg 01/04/18 19:00 01/07/18 21:07 Pulmicort Inhalation AEROSOL 0.5 mg RTBID HUBERT Administration Furosemide 40 mg 01/06/18 18:00 01/07/18 10:28 Lasix IVP 40 mg DAILY HUBERT Administration Guaifenesin 1,200 mg 01/04/18 21:00 01/07/18 20:55 Mucinex La PO 1,200 mg BID HUBERT Administration Levothyroxine Sodium 50 mcg 01/05/18 06:30 01/08/18 05:45 Synthroid PO 50 mcg ACB HUBRET Administration Losartan Potassium 100 mg 01/05/18 09:00 01/07/18 08:47 Cozaar PO 100 mg DAILY HUBERT Administration Metoprolol Tartrate 50 mg 01/05/18 17:39 01/07/18 17:39 Lopressor PO 50 mg BIDWM HUBERT Administration Nitroglycerin 0.4 mg 01/04/18 19:45 01/07/18 09:16 Nitrostat SL 0.4 mg Q5MIN3 PRN Administration Chest pain Omeprazole 20 mg 01/07/18 17:00 01/08/18 05:45 Prilosec PO 20 mg ACBID HUBERT Administration Ondansetron HCl 4 mg 01/07/18 09:53 01/08/18 03:17 Zofran IVP 4 mg Q4H PRN Administration Nausea Ondansetron HCl 4 mg 01/07/18 09:53 Zofran Odt Tablet PO Q4H PRN Nausea &/or vomiting Prednisone 20 mg 01/06/18 17:07 01/07/18 08:42 Deltasone 20 Mg PO 20 mg WB HUBERT Administration Promethazine HCl 12.5 - 25 mg 01/07/18 08:30 01/07/18 08:43 Phenergan Tab PO 12.5 mg Q6H PRN Administration Sodium Chloride 10 - 80 ml 01/04/18 11:40 01/07/18 10:28 Iv Flush IVF 10 ml PRN PRN Administration Flushing Trazodone HCl 100 mg 01/07/18 21:00 01/07/18 20:56 Desyrel PO 100 mg HS HUBERT Administration Zolpidem Tartrate 5 mg 01/04/18 21:00 01/07/18 20:59 Ambien PO 5 mg HS HUBERT Administration Discontinued Medications Generic Name Dose Route Start Last Admin Trade Name Freq PRN Reason Stop Dose Admin Amiodarone HCl 150 mg 01/04/18 12:01 01/04/18 12:05 Amiodarone IV 01/04/18 12:02 150 mg O ONE Administration Furosemide 40 mg 01/05/18 09:59 01/05/18 10:23 Lasix IVP 01/05/18 10:00 40 mg ONCE ONE Administration Cefepime HCl 1 gm/ Sodium 100 mls @ 200 mls/hr 01/04/18 11:40 01/04/18 12:45 Chloride IV 01/04/18 12:09 Infused O ONE Infusion Amiodarone HCl 900 mg/ Sodium 500 mls @ 16.66 mls/hr 01/04/18 12:15 Chloride IV .Q24H HUBERT 0.5 MG/MIN Amiodarone HCl 450 mg/ Sodium 250 mls @ 33.33 mls/hr 01/04/18 12:15 01/04/18 13:11 Chloride IV 01/04/18 18:15 Infused .Q7H31M HUBERT Infusion 1 MG/MIN Sodium Chloride 1,000 mls @ 999.9 mls/hr 01/04/18 12:15 Normal Saline IV 01/04/18 13:14 .Q1H ONE Sodium Chloride 500 mls @ 999.9 mls/hr 01/04/18 13:30 01/04/18 14:11 Normal Saline IV Infused .Q30M HUBERT Infusion Sodium Chloride 500 mls @ 999.9 mls/hr 01/04/18 13:30 01/04/18 13:20 Normal Saline IV Infused .Q30M HUBERT Infusion Sodium Chloride 1,000 mls @ 150 mls/hr 01/04/18 14:30 01/05/18 10:30 Normal Saline IV Infused .Q6H40M HUBERT Infusion Cefepime HCl 1 gm/ Sodium 50 mls @ 200 mls/hr 01/04/18 17:30 01/06/18 11:09 Chloride IV Infused Q8H HUBERT Infusion Vancomycin HCl 1,250 mg/ 250 mls @ 200 mls/hr 01/05/18 18:00 01/05/18 23:30 Sodium Chloride IV Infused Q24H HUBERT Infusion Vancomycin HCl 1,500 mg/ 500 mls @ 250 mls/hr 01/04/18 18:00 01/04/18 20:00 Sodium Chloride IV 01/04/18 18:01 Infused O ONE Infusion Famotidine/Sodium Chloride 20 mg in 50 mls @ 100 mls/hr 01/07/18 09:45 11:15 Pepcid Premix IV 01/07/18 10:14 Infused O ONE Infusion Influenza Virus Vaccine 0.5 ml 01/04/18 18:00 01/04/18 20:04 Fluzone Hd Vac IM 01/04/18 18:01 Not Given .ONCE ONE Lorazepam 0.5 mg 01/04/18 15:17 01/05/18 18:42 Ativan Inj IVP 0.5 mg Q4H PRN Administration Methylprednisolone Sodium Succinate 125 mg 01/04/18 21:00 01/05/18 08:01 Solu-Medrol IVP 125 mg Q6HR HUBERT Administration Metoprolol Tartrate 25 mg 01/04/18 17:30 01/05/18 17:59 Lopressor PO Not Given BIDWM HUBERT Omeprazole 20 mg 01/05/18 06:30 01/07/18 05:42 Prilosec PO 20 mg ACB HUBERT Administration Ondansetron HCl 4 mg 01/04/18 11:51 01/04/18 11:55 Zofran IVP 01/04/18 11:52 4 mg O ONE Administration Ondansetron HCl 4 mg 01/04/18 14:30 01/06/18 20:38 Zofran IVP 4 mg Q6H PRN Administration Nausea Ondansetron HCl 4 mg 01/07/18 04:37 01/07/18 04:53 Zofran Odt Tablet PO 4 mg Q6H PRN Administration Nausea &/or vomiting Ondansetron HCl 4 mg 01/07/18 09:17 01/07/18 09:24 Zofran Odt Tablet PO 01/07/18 09:18 4 mg O ONE Administration Pharmacy Consult each 01/06/18 00:21 Pharmacy Consult - Fall Risk 01/06/18 00:22 ONE TIME ONE Pharmacy Profile Note 30 ml 01/07/18 09:52 01/07/18 10:27 Maalox Plus/Lidocaine Susp PO 01/07/18 09:53 30 ml O ONE Administration Potassium Chloride 40 meq 01/05/18 09:58 01/05/18 10:23 K-Dur 20 Meq Tablet PO 01/05/18 09:59 40 meq O ONE Administration Potassium Chloride 40 meq 01/06/18 17:47 01/06/18 18:11 K-Dur 20 Meq Tablet PO 01/06/18 17:48 40 meq O ONE Administration Prednisone 40 mg 01/06/18 08:00 01/06/18 09:00 Deltasone 20 Mg PO 40 mg WB HUBERT Administration - Constitutional mild distress, cooperative - Routine HEENT Exam Head: Present: normocephalic Eye: Present: EOMI ENT: Present: mucous membranes moist - Routine Neck Exam Absent: thyromegaly - Routine Respiratory Exam Absent: dyspnea, CTA bilaterally, respiratory distress, wheezes, crackles - Routine Cardiovascular Exam Present: RRR. Absent: gallop, rubs, JVD - Routine Abdominal Exam Present: soft, non distended - Routine Extremities Exam Present: edema, pulses intact. Absent: cyanosis - Routine Skin Exam Present: intact, warm. Absent: cyanosis, rash - Routine Neurological Exam Present: alert, oriented X3 - Routine Psychiatric Exam Present: cooperative, anxious Results 01/08/18 05:17 01/08/18 05:17 Cardiac Enzymes 01/07/18 01/07/18 01/07/18 Range/Units 09:30 15:33 22:07 Troponin I 0.533 H 0.439 H 0.401 H (0-0.12) ng/ml CBC 01/08/18 Range/Units 05:17 WBC 8.9 (4.5-11.0) T/MM3 RBC 4.55 (4.00-5.20) M/MM3 Hgb 12.9 (12-16) GM/DL Hct 39.1 (36-46) % Plt Count 206 (130-400) T/MM3 Comprehensive Metabolic Panel 01/08/18 Range/Units 05:17 Sodium 143 (134-144) MEQ/L Potassium 3.4 L (3.6-5) MEQ/L Chloride 102 (98-107) MEQ/L Carbon Dioxide 29 (22-30) MEQ/L BUN 31.0 H (7-17) MG/DL Creatinine 1.0 (0.7-1.2) mg/dL Glucose 114 H (65-110) MG/DL Calcium 8.9 (8.4-10.2) MG/DL Albumin 4.0 (3.5-5.0) g/dL Intake and Output 01/07/18 01/08/18 01/08/18 22:59 06:59 14:59 Intake Total 500 / 500 0 / 0 Output Total 300 / 300 Balance 200 / 200 0 / 0 Intake: Oral 500 / 500 0 / 0 Output: Urine 300 / 300 Other: Urine Appearance Clear Urine Color Yellow Urine Odor Normal Stool Color Brown Stool Consistency Soft Size of Bowel Movement Small # Voids 2 Assessment and Plan - Assessment and Plan (1) Non-ST elevation myocardial infarction (NSTEMI), type 2 Status: Acute EKG today SR 91 with incomplete LBBB, no ischemic changes. Repeat troponin yesterday was 0.533 which was still trending down from peak of 1.250. Stress test outpt once pt improved. Con't to monitor on tele. (2) Sinus tachycardia Status: Acute HR remains improved, mostly 80-90's with very occasional low 100's. Con't Metoprolol 50mg PO BID. Monitor on tele. (3) Elevated d-dimer Status: Acute D-dimer 553 01/07/2018.. CTA 01/07/2018:No pulmonary embolus or acute intrathoracic disease process seen. Monitor. (4) HTN (hypertension) Status: Chronic BP improved, remains stable. Any elevated BP appears to be r/t to anxiety. Con' t with PRN Xanax per primary. Con't Losartan 100mg PO Daily and Metoprolol 50mg PO BID. Con't to monitor. (5) ASCVD (arteriosclerotic cardiovascular disease) Status: Chronic Hx of CABG in 2013. Con't ASA, statin, BB and ARB. Will plan on MPI as outpt once pt health improved. (6) Hyperlipidemia Status: Chronic Con't ASA and statin. Hospital Course Summary Disclaimer: The visit summary below is not to be considered part of the above Progress Note. Hospital Course: Plan - 01/04/18: Admit to ICU inpatient status under the care of Dr. Yeboah. Monitor cardiac and respiratory function closely on telemetry with continuous oximetry. Oxygen as needed to maintain SAO2 >90%, weaning as able. Patient does not use oxygen at home. Patient given Rocephin 1gm IM as outpatient on 01/03/18 and started on Levaquin po. Given Cefepime 1g in ED. Will continue Cefepime and add vancomycin for empiric coverage of suspected pulmonary pathogens given elevated lactate and risk of pneumonia. Pharmacy to manage vancomycin. Blood cultures pending. Will try and obtain sputum culture. DuoNeb treatments QID and Q6H PRN dyspnea. Pulmicort BID. Solu-Medrol 125mg Q6H for pulmonary inflammation. Consider weaning Solu-Medrol in AM if improving. Mucinex for mucolytic effect. SVT present on admission. Dr. Benedict consulted. Amiodarone 450mg IV bolus x 1 given in ED. Amiodarone drip initiate per Dr. Benedict with rate improving. Continue to monitor closely. Echocardiogram obtained - results pending. Blood pressure stable. Continue home medications - patient may take home medications. Recent complaint of chest pain. Nitro PRN chest pain. NS 150cc/hr for hydration. Monitor weight and urinary output closely for signs of fluid overload. Priolsec for GERD and GI protection. Mild epigastric pain on exam. KUB unremarkable. SCDs for DVT prophylaxis. Upon discharge, patient's care will be returned to her PCP. 01/05 Monitor cardiac and respiratory function closely on telemetry with continuous oximetry. Oxygen as needed to maintain SAO2 >90%, weaning as able. Patient does not use oxygen at home. On RA now. Questioning sepsis - no bacterial source ID'd. Lactate now wnl. Continue empiric Cefepime and Vanco for now. Blood cx obtained. Troponin has trended up. Repeat. Will keep in CCU but could transfer if next troponin decreased. d/w Dr. Benedict. DuoNeb treatments QID and Q6H PRN dyspnea. Pulmicort BID. Change from Solu- Medrol to prednisone. Wheezing on exam. DC IVF and give Lasix. BNP Mucinex for mucolytic effect. SVT present on admission. Dr. Benedict consulted. Continue to monitor closely. Echocardiogram obtained - results pending. Continued home medications. Recent complaint of chest pain. Nitro PRN chest pain. Priolsec for GERD and GI protection. Mild epigastric pain on exam. KUB unremarkable. SCDs for DVT prophylaxis. 01/07/18 DuoNeb treatments QID and Q6H PRN dyspnea. Pulmicort BID. PO prednisone taper. She remains a bit wheezy, but not acutely SOA. Mucinex for mucolytic effect. SVT (POA)- Dr. Benedict covering (Outpatient- [facility]). Continue metoprolol/ Telemetry. Repeat EKG now. Continued home medications as appropriate. Possible sepsis, resolved. Antibiotics (cefepime/Vanco) DC'd- observe. Loose stool has stopped, so unlikely C.Diff. Monitor. Recurrent Chest pain, atypical- she remains restless/nauseated. Will get Troponin, EKG now. Assess D-Dimer- if elevated, get CTA of chest. D/W Gerard Lyons APRN with cardiology- she will see pt today. Provide Zofran ODT again now. Cardiac vs. anxiety- unclear etiology, but will err on the side of caution. D/W Dr. Wheeler. GERD- PPI orally. Will give Pepcid x 1 now, continue antiemetics. Replace IV site as well. SCDs for DVT prophylaxis. She is quite anxious. Add oral antianxiety medications as well. Continue to monitor closely. DC planning will be to SNU at [facility]. D/W son today several times and update on POC given. <Percy Benedict - Last Filed: 01/12/18 13:09> Exam Vital signs: Temperature 96.9 F 01/09/18 07:00 Pulse Rate 99 01/09/18 07:00 Respiratory Rate 12 01/09/18 11:54 Blood Pressure 131/65 01/09/18 07:00 Pulse Oximetry 97 01/09/18 11:54 Inpatient Medications: Discontinued Medications Generic Name Dose Route Start Last Admin Trade Name Freq PRN Reason Stop Dose Admin Acetaminophen 325 mg 01/04/18 17:58 01/05/18 20:18 Tylenol PO 325 mg Q5H PRN Administration Discomfort Albuterol/Ipratropium 3 ml 01/04/18 15:00 01/09/18 11:53 Duoneb AEROSOL 3 ml RTQID HUBERT Administration Albuterol/Ipratropium 3 ml 01/04/18 14:33 Duoneb AEROSOL RTQID PRN Alprazolam 0.25 mg 01/07/18 09:50 01/09/18 10:05 Xanax 0.25 Mg PO 0.25 mg TID PRN Administration anxiety Amiodarone HCl 150 mg 01/04/18 12:01 01/04/18 12:05 Amiodarone IV 01/04/18 12:02 150 mg O ONE Administration Aspirin 81 mg 01/05/18 09:00 01/09/18 10:07 Ecotrin PO 81 mg DAILY HUBERT Administration Atorvastatin Calcium 40 mg 01/04/18 21:00 01/08/18 21:32 Lipitor PO 40 mg HS HUBERT Administration Budesonide 0.5 mg 01/04/18 19:00 01/09/18 08:26 Pulmicort Inhalation AEROSOL 0.5 mg RTBID HUBERT Administration Furosemide 40 mg 01/05/18 09:59 01/05/18 10:23 Lasix IVP 01/05/18 10:00 40 mg ONCE ONE Administration Furosemide 40 mg 01/06/18 18:00 01/08/18 10:23 Lasix IVP 40 mg DAILY HUBERT Administration Furosemide 40 mg 01/09/18 09:00 01/09/18 10:06 Lasix PO 40 mg DAILY HUBERT Administration Guaifenesin 1,200 mg 01/04/18 21:00 01/09/18 10:06 Mucinex La PO 1,200 mg BID HUBERT Administration Cefepime HCl 1 gm/ Sodium 100 mls @ 200 mls/hr 01/04/18 11:40 01/04/18 12:45 Chloride IV 01/04/18 12:09 Infused O ONE Infusion Amiodarone HCl 900 mg/ Sodium 500 mls @ 16.66 mls/hr 01/04/18 12:15 Chloride IV .Q24H HUBERT 0.5 MG/MIN Amiodarone HCl 450 mg/ Sodium 250 mls @ 33.33 mls/hr 01/04/18 12:15 01/04/18 13:11 Chloride IV 01/04/18 18:15 Infused .Q7H31M HUBERT Infusion 1 MG/MIN Sodium Chloride 1,000 mls @ 999.9 mls/hr 01/04/18 12:15 Normal Saline IV 01/04/18 13:14 .Q1H ONE Sodium Chloride 500 mls @ 999.9 mls/hr 01/04/18 13:30 01/04/18 14:11 Normal Saline IV Infused .Q30M HUBERT Infusion Sodium Chloride 500 mls @ 999.9 mls/hr 01/04/18 13:30 01/04/18 13:20 Normal Saline IV Infused .Q30M HUBERT Infusion Sodium Chloride 1,000 mls @ 150 mls/hr 01/04/18 14:30 01/05/18 10:30 Normal Saline IV Infused .Q6H40M HUBERT Infusion Cefepime HCl 1 gm/ Sodium 50 mls @ 200 mls/hr 01/04/18 17:30 01/06/18 11:09 Chloride IV Infused Q8H HUBERT Infusion Vancomycin HCl 1,250 mg/ 250 mls @ 200 mls/hr 01/05/18 18:00 01/05/18 23:30 Sodium Chloride IV Infused Q24H HUBERT Infusion Vancomycin HCl 1,500 mg/ 500 mls @ 250 mls/hr 01/04/18 18:00 01/04/18 20:00 Sodium Chloride IV 01/04/18 18:01 Infused O ONE Infusion Famotidine/Sodium Chloride 20 mg in 50 mls @ 100 mls/hr 01/07/18 09:45 11:15 Pepcid Premix IV 01/07/18 10:14 Infused O ONE Infusion Influenza Virus Vaccine 0.5 ml 01/04/18 18:00 01/04/18 20:04 Fluzone Hd Vac IM 01/04/18 18:01 Not Given .ONCE ONE Levothyroxine Sodium 50 mcg 01/05/18 06:30 01/09/18 06:38 Synthroid PO 50 mcg ACB HUBERT Administration Lorazepam 0.5 mg 01/04/18 15:17 01/05/18 18:42 Ativan Inj IVP 0.5 mg Q4H PRN Administration Losartan Potassium 100 mg 01/05/18 09:00 01/09/18 10:07 Cozaar PO 100 mg DAILY HUBERT Administration Methylprednisolone Sodium Succinate 125 mg 01/04/18 21:00 01/05/18 08:01 Solu-Medrol IVP 125 mg Q6HR HUBERT Administration Metoprolol Tartrate 25 mg 01/04/18 17:30 01/05/18 17:59 Lopressor PO Not Given BIDWM HUBERT Metoprolol Tartrate 50 mg 01/05/18 17:39 01/08/18 17:32 Lopressor PO 50 mg BIDWM HUBERT Administration Metoprolol Tartrate 100 mg 01/09/18 08:57 Lopressor PO BIDWM HUBERT Nitroglycerin 0.4 mg 01/04/18 19:45 01/07/18 09:16 Nitrostat SL 0.4 mg Q5MIN3 PRN Administration Chest pain Omeprazole 20 mg 01/05/18 06:30 01/07/18 05:42 Prilosec PO 20 mg ACB HUBERT Administration Omeprazole 20 mg 01/07/18 17:00 01/09/18 06:38 Prilosec PO 20 mg ACBID HUBERT Administration Ondansetron HCl 4 mg 01/04/18 11:51 01/04/18 11:55 Zofran IVP 01/04/18 11:52 4 mg O ONE Administration Ondansetron HCl 4 mg 01/04/18 14:30 01/06/18 20:38 Zofran IVP 4 mg Q6H PRN Administration Nausea Ondansetron HCl 4 mg 01/07/18 04:37 01/07/18 04:53 Zofran Odt Tablet PO 4 mg Q6H PRN Administration Nausea &/or vomiting Ondansetron HCl 4 mg 01/07/18 09:17 01/07/18 09:24 Zofran Odt Tablet PO 01/07/18 09:18 4 mg O ONE Administration Ondansetron HCl 4 mg 01/07/18 09:53 01/08/18 08:22 Zofran IVP 4 mg Q4H PRN Administration Nausea Ondansetron HCl 4 mg 01/07/18 09:53 01/09/18 08:50 Zofran Odt Tablet PO 4 mg Q4H PRN Administration Nausea &/or vomiting Pharmacy Consult each 01/06/18 00:21 Pharmacy Consult - Fall Risk 01/06/18 00:22 ONE TIME ONE Pharmacy Profile Note 30 ml 01/07/18 09:52 01/07/18 10:27 Maalox Plus/Lidocaine Susp PO 01/07/18 09:53 30 ml O ONE Administration Potassium Chloride 40 meq 01/05/18 09:58 01/05/18 10:23 K-Dur 20 Meq Tablet PO 01/05/18 09:59 40 meq O ONE Administration Potassium Chloride 40 meq 01/06/18 17:47 01/06/18 18:11 K-Dur 20 Meq Tablet PO 01/06/18 17:48 40 meq O ONE Administration Potassium Chloride 20 meq 01/08/18 16:00 01/08/18 17:32 K-Dur 20 Meq Tablet PO 01/08/18 16:01 20 meq O ONE Administration Prednisone 40 mg 01/06/18 08:00 01/06/18 09:00 Deltasone 20 Mg PO 40 mg WB HUBERT Administration Prednisone 20 mg 01/06/18 17:07 01/09/18 10:07 Deltasone 20 Mg PO 20 mg WB HUBERT Administration Promethazine HCl 12.5 - 25 mg 01/07/18 08:30 01/07/18 08:43 Phenergan Tab PO 12.5 mg Q6H PRN Administration Sodium Chloride 10 - 80 ml 01/04/18 11:40 01/07/18 10:28 Iv Flush IVF 10 ml PRN PRN Administration Flushing Trazodone HCl 100 mg 01/07/18 21:00 01/08/18 21:32 Desyrel PO 100 mg HS HUBERT Administration Zolpidem Tartrate 5 mg 01/04/18 21:00 01/08/18 21:32 Ambien PO 5 mg HS HUBERT Administration Results 01/08/18 05:17 01/09/18 04:30 Assessment and Plan - Assessment and Plan (1) ASCVD (arteriosclerotic cardiovascular disease) Status: Chronic (2) HTN (hypertension) Status: Chronic (3) Hyperlipidemia Status: Chronic (4) Non-ST elevation myocardial infarction (NSTEMI), type 2 Status: Acute (5) Sinus tachycardia Status: Acute (6) NSVT (nonsustained ventricular tachycardia) Status: Acute - Attestation Attestation Narrative: 01/12/18 13:09 Recommendation After examining the patient I agree with the above assessment. I am involved in the formulation of the patient's plan of care. Hospital Course Summary Disclaimer: The visit summary below is not to be considered part of the above Progress Note.
[2018-01-08] MEDS: ALBUTEROL/IPRATROPIUM 2.5mg-0.5mg/3ml NEB AEROSOL SCH ×4 (09:04→21:54)
[2018-01-08] MEDS: BUDESONIDE INH.SOLN 0.5mg/2ml NEB AEROSOL SCH ×2 (09:05→21:54)
[2018-01-08] MEDS: ALPRAZolam 0.25 MG TABLET PO PRN ×2 (09:18→16:13)
--- NOTE | 2018-01-08 10:09 | CT Scan Report ---
Indication: SOA, chest pain PROCEDURE: CT angio pulm emboli: Encounter: Initial Comparison: Chest x-ray dated January 05, 2018 Technique: Axial CT pulmonary angiographic phase images were performed through the chest after the administration of intravenous contrast. Coronal and Sagittal MIP reconstructed images were created and reviewed. Automated Exposure Control and Iterative Reconstruction dose reducing techniques were utilized. Contrast: Omnipaque 350 60 mL Findings: Pulmonary arteries: Exam is diagnostic to the subsegmental pulmonary arterial level. There are no filling defects identified to suggest a pulmonary embolus. Other findings: No consolidative pneumonia, pleural effusion or pneumothorax. Minimal dependent atelectasis. The central airways are patent. No axillary or mediastinal adenopathy. Heart is mildly enlarged. Prior CABG. The upper abdomen shows a large superior pole left renal cyst but no acute findings. Impression: No pulmonary embolus or acute intrathoracic disease process seen. There is a preliminary report by virtual radi[employer]. .
[2018-01-08] MEDS: FUROSEMIDE 40 MG/4 ML INJECTION IVP SCH (10:23)
--- NOTE | 2018-01-08 10:23 | XRay Report ---
Indication: nausea PROCEDURE: XR abdomen 1V: Encounter: Initial Comparison: January 04, 2018 Findings: The visualized lung bases are clear. The bowel gas pattern is nonobstructive and nonspecific. Gas is seen in nondilated small and large bowel to the level of the rectum. Overlying monitoring leads. Impression: Nonobstructive nonspecific bowel gas pattern. .
[2018-01-08] MEDS: PredniSONE 20 MG TABLET PO SCH (10:24)
[2018-01-08] MEDS: GUAIFENESIN LA 600 MG TABLET PO SCH ×2 (10:24→21:32)
[2018-01-08] MEDS: LOSARTAN 100 MG TABLET PO SCH (10:24)
[2018-01-08] MEDS: ASPIRIN *EC* 81 MG TABLET PO SCH (10:24)
--- NOTE | 2018-01-08 15:48 | Progress Note ---
- Date 01/08/18 Subjective: Patient seen sitting in her bed this afternoon. She feels much better. No further nausea. No CP or SOA. She is planning on going to [facility] for rehab and then hopefully going back home. (Plans to put house on the market and move to the [facility] in independent living.) Objective Vital signs: Temperature 97.6 F 01/08/18 14:45 Pulse Rate 102 H 01/08/18 14:45 Respiratory Rate 18 01/08/18 14:45 Blood Pressure 111/62 01/08/18 14:45 Pulse Oximetry 96 01/08/18 14:45 Rhythm: Sinus Tachycardia Height/Weight/BMI: Height 1.57 m Weight 57.1 kg Body Mass Index 24.0 - Constitutional Present: no acute distress, well nourished, well developed - Routine HEENT Exam Head: Present: normocephalic, atraumatic - Routine Respiratory Exam Present: CTA bilaterally. Absent: wheezes - Routine Cardiovascular Exam Present: RRR, no murmur - Routine Abdominal Exam Present: soft, non distended, non tender - Routine Extremities Exam Present: no edema, normal capillary refill - Routine Skin Exam Present: dry, warm - Routine Neurological Exam Present: alert, oriented X3 - Routine Lymphatic Exam Lymphatic: Absent: adenopathy - Routine Psychiatric Exam Present: normal affect, cooperative Results - Labs CBC & Chem 7: 01/08/18 05:17 01/08/18 05:17 Assessment and Plan (1) Non-ST elevation myocardial infarction (NSTEMI), type 2 Current visit: Yes Status: Acute (2) Sinus tachycardia Current visit: Yes Status: Acute (3) RSV (acute bronchiolitis due to respiratory syncytial virus) Current visit: Yes Status: Acute Assessment and Plan: Assessment: acute RSV, present on admission. NSTEMI, type 2, likely secondary to demand ischemia and respiratory illness. SVT, acute, present on admission. - resolved Possible severe sepsis/septic shock as indicated by tachycardia, tachypnea and elevated lactate of 5.7. - resolved Hypertension. Hypothyroidism. Hyperlipidemia. Peripheral neuropathy. ASCVD. Osteoarthritis. Anxiety. Insomnia. Diastolic dysfunction. Nausea. - resolved Hypernatremia (Na 148), present on admission. - resolved Dehydration, present on admission. - resolved Anemia (Hgb 11.7), reportedly chronic, present on admission. - resolved Hypocalcemia (Ca 8.2), present on admission. - resolved Plan: Continue DuoNeb treatments, Pulmicort BID, PO prednisone IV Lasix switched to po. Potassium 3.4 - replaced w/ 20cEq po. Check BMP in am DC planning will be to SNU at [facility]. Plan to DC tomorrow if this can be arranged with [facility] and patient continues to do well. Await cardiology recommendations. Addendum by hospitalist: Seen and examined patient on same day as the above note by Alem Reyes nurse practitioner. Agree with history, physical, assessment and plan. Comprehensive physical findings correlate to the above note. Subjective: patient currently having no complaints, eating well and not having any nausea that she had yesterday Objective: no apparent distress. Lung sounds are clear bilaterally. Assessment and plan. Less symptomatic with RSV. Out of shock and no longer tachypnea. Chronic conditions are stable and patient could transfer to interim care, definitely benefiting from rehab Documented on [employer] speech to text. Efforts to correct speech recognition errors performed, but variation may exist - Physician Narrative Narrative: Date: 01/08/18 Time: 1538 Hospital Course Summary Disclaimer: The visit summary below is not to be considered part of the above Progress Note. Hospital Course: Plan - 01/04/18: Admit to ICU inpatient status under the care of Dr. Yeboah. Monitor cardiac and respiratory function closely on telemetry with continuous oximetry. Oxygen as needed to maintain SAO2 >90%, weaning as able. Patient does not use oxygen at home. Patient given Rocephin 1gm IM as outpatient on 01/03/18 and started on Levaquin po. Given Cefepime 1g in ED. Will continue Cefepime and add vancomycin for empiric coverage of suspected pulmonary pathogens given elevated lactate and risk of pneumonia. Pharmacy to manage vancomycin. Blood cultures pending. Will try and obtain sputum culture. DuoNeb treatments QID and Q6H PRN dyspnea. Pulmicort BID. Solu-Medrol 125mg Q6H for pulmonary inflammation. Consider weaning Solu-Medrol in AM if improving. Mucinex for mucolytic effect. SVT present on admission. Dr. Benedict consulted. Amiodarone 450mg IV bolus x 1 given in ED. Amiodarone drip initiate per Dr. Benedict with rate improving. Continue to monitor closely. Echocardiogram obtained - results pending. Blood pressure stable. Continue home medications - patient may take home medications. Recent complaint of chest pain. Nitro PRN chest pain. NS 150cc/hr for hydration. Monitor weight and urinary output closely for signs of fluid overload. Priolsec for GERD and GI protection. Mild epigastric pain on exam. KUB unremarkable. SCDs for DVT prophylaxis. Upon discharge, patient's care will be returned to her PCP. 01/05 Monitor cardiac and respiratory function closely on telemetry with continuous oximetry. Oxygen as needed to maintain SAO2 >90%, weaning as able. Patient does not use oxygen at home. On RA now. Questioning sepsis - no bacterial source ID'd. Lactate now wnl. Continue empiric Cefepime and Vanco for now. Blood cx obtained. Troponin has trended up. Repeat. Will keep in CCU but could transfer if next troponin decreased. d/w Dr. Benedict. DuoNeb treatments QID and Q6H PRN dyspnea. Pulmicort BID. Change from Solu- Medrol to prednisone. Wheezing on exam. DC IVF and give Lasix. BNP Mucinex for mucolytic effect. SVT present on admission. Dr. Benedict consulted. Continue to monitor closely. Echocardiogram obtained - results pending. Continued home medications. Recent complaint of chest pain. Nitro PRN chest pain. Priolsec for GERD and GI protection. Mild epigastric pain on exam. KUB unremarkable. SCDs for DVT prophylaxis. 01/07/18 DuoNeb treatments QID and Q6H PRN dyspnea. Pulmicort BID. PO prednisone taper. She remains a bit wheezy, but not acutely SOA. Mucinex for mucolytic effect. SVT (POA)- Dr. Benedict covering (Outpatient- [facility]). Continue metoprolol/ Telemetry. Repeat EKG now. Continued home medications as appropriate. Possible sepsis, resolved. Antibiotics (cefepime/Vanco) DC'd- observe. Loose stool has stopped, so unlikely C.Diff. Monitor. Recurrent Chest pain, atypical- she remains restless/nauseated. Will get Troponin, EKG now. Assess D-Dimer- if elevated, get CTA of chest. D/W Gerard Lyons APRN with cardiology- she will see pt today. Provide Zofran ODT again now. Cardiac vs. anxiety- unclear etiology, but will err on the side of caution. D/W Dr. Wheeler. GERD- PPI orally. Will give Pepcid x 1 now, continue antiemetics. Replace IV site as well. SCDs for DVT prophylaxis. She is quite anxious. Add oral antianxiety medications as well. Continue to monitor closely. DC planning will be to SNU at [facility]. D/W son today several times and update on POC given. 01/08/18 Continue DuoNeb treatments, Pulmicort BID, PO prednisone IV Lasix switched to po. Potassium 3.4 - replaced w/ cEq po. Check BMP in am DC planning will be to SNU at [facility]. Plan to DC tomorrow if this can be arranged with [facility] and patient continues to do well. Await cardiology recs.
[2018-01-08] MEDS: TRAZODONE 100 MG TABLET PO SCH (21:32)
[2018-01-08] MEDS: ZOLPIDEM 5 MG TABLET PO SCH (21:32)
[2018-01-08] MEDS: ATORVASTATIN 40 MG TABLET PO SCH (21:32)
[2018-01-09] MEDS: OMEPRAZOLE 20 MG CAPSULE PO SCH (06:38)
[2018-01-09] MEDS: LEVOTHYROXINE 50 MCG TABLET PO SCH (06:38)
[2018-01-09] MEDS: ALBUTEROL/IPRATROPIUM 2.5mg-0.5mg/3ml NEB AEROSOL SCH ×2 (08:26→11:53)
[2018-01-09] MEDS: BUDESONIDE INH.SOLN 0.5mg/2ml NEB AEROSOL SCH (08:26)
[2018-01-09 08:47] VITALS: BP 131/65; PULSE 99; TEMP 96.9
[2018-01-09] MEDS ORDERED: FUROSEMIDE 40 MG TABLET PO SCH (09:00)
[2018-01-09] MEDS: ALPRAZolam 0.25 MG TABLET PO PRN (10:05)
[2018-01-09] MEDS: GUAIFENESIN LA 600 MG TABLET PO SCH (10:06)
[2018-01-09] MEDS: LOSARTAN 100 MG TABLET PO SCH (10:07)
[2018-01-09] MEDS: ASPIRIN *EC* 81 MG TABLET PO SCH (10:07)
[2018-01-09] MEDS: PredniSONE 20 MG TABLET PO SCH (10:07)
[2018-01-09 11:59] VITALS: RESP 12; O2SAT 97
--- NOTE | 2018-01-09 13:25 | Extended Care Facility Orders ---
Admission Orders Admit to:: Detention Allergies/Adverse Reactions: Allergies No Known Allergies Allergy (Verified 01/04/18 12:20) Admitting Diagnosis: SVT sepsis Admitting Physician: Viraj Wheeler MD Attending Physician: Viraj Wheeler MD Code Status: Full Code Anticiapted Length of Stay: 30 days or less Rehab Potential: fair Rehab Prognosis: fair Diet: 01/06/18 Lunch Regular Diet [DIET] Diet Modifications: May use Facility Protocol or Standing Orders: Yes Evaluations/Treatment: PT, OT, RT Detention Certification: I certify that SNF services are required to be given on an Inpatient basis because of the patients need for senior living care on a continuing basis for the condition(s) for which he/she received inpatient hospital services prior to his/her transfer to the SNF. SNF inpatient care is necessary for the following reasons Indication for Detention: Med Admininistration, Other (PT, OT, RT) - Additional Information In Event of Arrest: Start CPR,call 911,send patient to the ER Resident is Aware of Diagnosis: Yes Laboratory/Radiology: BMP in 1 wk Referrals: Ovidio Ziegler MD [Family Provider] - 1 Week () Additional Orders: Stop Prednisone after dose given on Jan 11. DC breathing treatments when patient is no longer coughing
--- NOTE | 2018-01-09 13:46 | Discharge Summary ---
Discharge Information Date of admission: 01/04/18 13:07 Anticipated date of discharge: 01/09/18 Attending Physician: Viraj Wheeler MD Primary care physician: Fady Ziegler MD Consults: Consulting Provider: Percy Benedict - Discharge Diagnosis (1) Non-ST elevation myocardial infarction (NSTEMI), type 2 Status: Acute (2) Sinus tachycardia Status: Acute (3) RSV (acute bronchiolitis due to respiratory syncytial virus) Status: Acute acute RSV, present on admission. NSTEMI, type 2, likely secondary to demand ischemia and respiratory illness. SVT, acute, present on admission. - resolved Possible severe sepsis/septic shock as indicated by tachycardia, tachypnea and elevated lactate of 5.7. - resolved Hypertension. Hypothyroidism. Hyperlipidemia. Peripheral neuropathy. ASCVD. Osteoarthritis. Anxiety. Insomnia. Diastolic dysfunction. Nausea. - resolved Hypernatremia (Na 148), present on admission. - resolved Dehydration, present on admission. - resolved Anemia (Hgb 11.7), reportedly chronic, present on admission. - resolved Hypocalcemia (Ca 8.2), present on admission. - resolved - Procedures Procedures: Date of Exam: 01/04/18 Type of Exam(s): US echo doppler complete DATE OF PROCEDURE January 04, 2018 This is a two-dimensional echo with spectral Doppler, color-flow and M-mode. It was obtained in a patient with tachycardia and sepsis. Left atrial dimension is normal. Left ventricular end-diastolic dimension is normal. Left ventricle wall thickness is normal. Septum is akinetic and ejection fraction is about 50%. Right atrium is normal. Right ventricle is normal. Aortic root dimension is normal. Mitral valve is morphologically normal with moderate mitral regurgitation. Aortic valve shows mild aortic insufficiency with no stenosis. Tricuspid valve shows mild tricuspid regurgitation with moderate pulmonary hypertension with estimated pulmonary artery systolic pressure of 47. Pulmonary valve shows mild pulmonary insufficiency. There is no pericardial effusion. Inferior vena cava is dilated and poor response to respiration suggestive of elevated central venous pressure. IMPRESSION 1. Septal akinesia with ejection fraction of about 50%. 2. Abnormal IVC suggestive of elevated central venous pressure. 3. Moderate mitral regurgitation. 4. Mild aortic insufficiency. 5. Mild tricuspid regurgitation with moderate pulmonary hypertension with estimated pulmonary artery systolic pressure of 47. 6. Mild pulmonary insufficiency. - Laboratory Labs: 01/08/18 05:17 01/09/18 04:30 Laboratory Tests 01/04/18 01/04/18 01/04/18 12:08 16:32 22:35 Troponin I 0.161 H 0.259 H D 1.250 H D 01/05/18 01/07/18 01/07/18 04:45 09:30 15:33 Troponin I 1.060 H 0.533 H 0.439 H 01/07/18 22:07 Troponin I 0.401 H Laboratory Tests 01/04/18 01/05/18 16:32 04:45 B-Natriuretic Peptide 4240 H TSH 1.39 - Radiology Radiology: Date of Exam: 01/04/18 Indication: abdominal pain PROCEDURE: XR abdomen 1V: Findings: The visualized lung bases are clear. There is no free air on the upright view. The bowel gas pattern is nonobstructive and nonspecific. Gas is seen in nondilated small and large bowel to the level of the rectum. Right hip replacement. Impression: Nonobstructive nonspecific bowel gas pattern. There is a preliminary report by virtual radiologic. = = = = = = = = = = = = = = = = = = = = = = = = = = = = = = = = = = = = = = = = = = = = = = = = = = = = = = = = = = = Date of Exam: 01/06/18 Indication: nausea PROCEDURE: XR abdomen 1V: Findings: The visualized lung bases are clear. The bowel gas pattern is nonobstructive and nonspecific. Gas is seen in nondilated small and large bowel to the level of the rectum. Overlying monitoring leads. Impression: Nonobstructive nonspecific bowel gas pattern. = = = = = = = = = = = = = = = = = = = = = = = = = = = = = = = = = = = = = = = = = = = = = = = = = = = = = = = = = = = Date of Exam: 01/05/18 Indication: dyspnea PROCEDURE: XR chest 1V: Findings: The lungs are stable in appearance without new focal airspace consolidation. There is no pleural effusion or pneumothorax. The heart size, pulmonary vascularity and mediastinal contours are unchanged. Prior CABG. Cholecystectomy clips. Overlying monitoring leads. IMPRESSION: Stable appearance of the chest without acute cardiopulmonary disease. Date of Exam: 01/07/18 Indication: SOA, chest pain PROCEDURE: CT angio pulm emboli: Findings: Pulmonary arteries: Exam is diagnostic to the subsegmental pulmonary arterial level. There are no filling defects identified to suggest a pulmonary embolus. Other findings: No consolidative pneumonia, pleural effusion or pneumothorax. Minimal dependent atelectasis. The central airways are patent. No axillary or mediastinal adenopathy. Heart is mildly enlarged. Prior CABG. The upper abdomen shows a large superior pole left renal cyst but no acute findings. Impression: No pulmonary embolus or acute intrathoracic disease process seen. History of Present Illness HPI: Marguerite Ziegler is a very pleasant 82-year-old patient of Dr. Nigel Andrew, whom is also her son. She presented to [facility] emergency room today, 01/04/18 for evaluation of increased shortness of breath and productive cough. She states that about 2 weeks ago she was sick with a viral gastroenteritis which subsequently left her feeling generally weak. She reports that her gastroenteritis resolved but then she started to have increased congestion with productive cough of whitish sputum fpr the past 4 days or so. She has progressively become more short of breath and gradually more weak diffusely. She also reports subjective fevers with sweating as well as decreased appetite. She was seen by Dr. Ziegler on 01/03/18 in clinic and given Rocephin 1g IM as well as Kenalog 60mg for suspected pneumonia. She was unable to have a chest x- ray at that time as it was unavailable. She was discharged home on Levaquin. Throughout the night and into this morning, her shortness of breath worsened and she presented to [facility] ED for further evaluation. Upon arrival to the ED, she was noted to be tachycardiac (HR 130) and rhythm was found to be SVT. Dr. Benedict was consulted from the ED and recommended initiation of amiodarone 150mg IV bolus x 1 with a amiodarone drip. She does not have a known history of cardiac arrhythmia. Labs were obtained and revealed mild anemia (Hgb 11.7), hypernatremia (Na 148), hypocalcemia (Ca 8.2) and hyperglycemia (Glu 154). Initial troponin was elevated at 0.161 with repeat troponin at 0.259. Initial lactate was critically elevated at 5.7 with repeat at 6.4. Procalcitonin was < 0.05 and TSH was 1.39. Respiratory panel was positive for RSV. CXR revealed no pneumonia. While in the ED, she received IV fluids, zofran and cefepime 1g for empiric antimicrobial coverage of suspected pulmonary pathogens. Given her acute respiratory distress secondary to RSV as well as concern for severe sepsis though no known infection has been identified and persistent SVT with possible NSTEMI, Dr. Yeboah was consulted and she was admitted into inpatient status to the ICU for close respiratory and cardiac monitoring, IV hydration, IV antibiotics, IV cardiac rate control and respiratory cares. Her length of stay is expected to exceed more than 2 over nights. On exam, she is seen immediately after arriving to ICU with her family at the bedside. She admits to 3 episodes of left sided chest pain today which she describes as squeezing. She denies any current chest pain and reports that the prior episodes lasted about 3-5 minutes and resolved without treatment. She admits that she has never had chest pain like this before and states that it is different than the pain she has across her chest when she coughs. She denies any dizziness, lightheadedness or syncope. Objective Vital signs: Temperature 96.9 F 01/09/18 07:00 Pulse Rate 99 01/09/18 07:00 Respiratory Rate 12 01/09/18 11:54 Blood Pressure 131/65 01/09/18 07:00 Pulse Oximetry 97 01/09/18 11:54 Rhythm: Sinus Tachycardia Height/Weight/BMI: Height 1.57 m Weight 59.2 kg Body Mass Index 24.0 - Constitutional Present: no acute distress, well nourished, well developed - Routine HEENT Exam Head: Present: normocephalic, atraumatic - Routine Respiratory Exam Present: CTA bilaterally. Absent: wheezes - Routine Cardiovascular Exam Present: RRR, no murmur - Routine Abdominal Exam Present: soft, non distended, non tender - Routine Extremities Exam Present: no edema, normal capillary refill - Routine Skin Exam Present: dry, warm - Routine Neurological Exam Present: alert, oriented X3 - Routine Lymphatic Exam Lymphatic: Absent: adenopathy - Routine Psychiatric Exam Present: normal affect, cooperative Hospital Course This is a general summary of the patient's hospital course. For more details refer to the complete medical record. Hospital course: Plan - 01/04/18: Admit to ICU inpatient status under the care of Dr. Yeboah. Monitor cardiac and respiratory function closely on telemetry with continuous oximetry. Oxygen as needed to maintain SAO2 >90%, weaning as able. Patient does not use oxygen at home. Patient given Rocephin 1gm IM as outpatient on 01/03/18 and started on Levaquin po. Given Cefepime 1g in ED. Will continue Cefepime and add vancomycin for empiric coverage of suspected pulmonary pathogens given elevated lactate and risk of pneumonia. Pharmacy to manage vancomycin. Blood cultures pending. Will try and obtain sputum culture. DuoNeb treatments QID and Q6H PRN dyspnea. Pulmicort BID. Solu-Medrol 125mg Q6H for pulmonary inflammation. Consider weaning Solu-Medrol in AM if improving. Mucinex for mucolytic effect. SVT present on admission. Dr. Benedict consulted. Amiodarone 450mg IV bolus x 1 given in ED. Amiodarone drip initiate per Dr. Benedict with rate improving. Continue to monitor closely. Echocardiogram obtained - results pending. Blood pressure stable. Continue home medications - patient may take home medications. Recent complaint of chest pain. Nitro PRN chest pain. NS 150cc/hr for hydration. Monitor weight and urinary output closely for signs of fluid overload. Priolsec for GERD and GI protection. Mild epigastric pain on exam. KUB unremarkable. SCDs for DVT prophylaxis. Upon discharge, patient's care will be returned to her PCP. 01/05 Monitor cardiac and respiratory function closely on telemetry with continuous oximetry. Oxygen as needed to maintain SAO2 >90%, weaning as able. Patient does not use oxygen at home. On RA now. Questioning sepsis - no bacterial source ID'd. Lactate now wnl. Continue empiric Cefepime and Vanco for now. Blood cx obtained. Troponin has trended up. Repeat. Will keep in CCU but could transfer if next troponin decreased. d/w Dr. Benedict. DuoNeb treatments QID and Q6H PRN dyspnea. Pulmicort BID. Change from Solu- Medrol to prednisone. Wheezing on exam. DC IVF and give Lasix. BNP Mucinex for mucolytic effect. SVT present on admission. Dr. Benedict consulted. Continue to monitor closely. Echocardiogram obtained - results pending. Recent complaint of chest pain. Nitro PRN chest pain. Priolsec for GERD and GI protection. Mild epigastric pain on exam. KUB unremarkable. 3/2 DuoNeb treatments QID and Q6H PRN dyspnea. Pulmicort BID. Decrease prednisone. Mucinex for mucolytic effect. SVT episodes present on admission. Dr. Benedict consulted. Continue to monitor closely. Metoprolol will be increased. Questioning sepsis - no bacterial source ID'd. Lactate wnl. DC Cefepime and Vanco and observe. Blood cx obtained and no growth Recent complaint of chest pain. Nitro PRN chest pain. Priolsec for GERD and GI protection. Check KUB given nausea complaints. Replace potassium. Recheck Na, Hgb improved 3/3 DuoNeb treatments QID and Q6H PRN dyspnea. Pulmicort BID. PO prednisone taper. She remains a bit wheezy, but not acutely SOA. Mucinex for mucolytic effect. SVT (POA)- Dr. Benedict covering (Outpatient- [facility]). Continue metoprolol/ Telemetry. Repeat EKG now. Possible sepsis, resolved. Antibiotics (cefepime/Vanco) DC'd- observe. Loose stool has stopped, so unlikely C.Diff. Monitor. Recurrent Chest pain, atypical- she remains restless/nauseated. Will get Troponin, EKG now. Assess D-Dimer- if elevated, get CTA of chest. D/W Gerard Lyons APRN with cardiology- she will see pt today. Provide Zofran ODT again now. Cardiac vs. anxiety- unclear etiology, but will err on the side of caution. D/W Dr. Wheeler. GERD- PPI orally. Will give Pepcid x 1 now, continue antiemetics. Replace IV site as well. She is quite anxious. Add oral antianxiety medications as well. Continue to monitor closely. DC planning will be to SNU at [facility]. D/W son today several times and update on POC given. 3/4 Continue DuoNeb treatments, Pulmicort BID, PO prednisone IV Lasix switched to po. Potassium 3.4 - replaced w/ 20cEq po. Check BMP in am DC planning will be to SNU at [facility]. Plan to DC tomorrow if this can be arranged with [facility] and patient continues to do well. 01/09 Patient doing well. DC to [facility] today. Overall pt feels better. VSS. Labs reviewed. DC Prednisone after dose is given on the . F-u with PCP within a week. F-u with cardiology. Addendum cosignature: Seen and examined patient on same day as the above note. Agree with history, physical, assessment and plan. Comprehensive physical findings correlate to the above note. Subjective: denies any symptoms problems at this time. Objective: no apparent distress. On room air. Clear to auscultation bilaterally. S1 S2 with occasional ectopic Assessment and plan: RSV and respiratory failure resolved. Patient is comfortable on room air again. All cardiac issues been stable for several days. She is now transferring over to [facility] for rehabilitation strengthening and short-term assistance with her activities daily living. Documented on [employer] speech to text. Efforts to correct speech recognition errors performed, but variation may exist Time spent with patient: discharge greater than 30 minutes Resuscitation Status: Full Code Discharge Plan - Discharge Disposition Discharge Date: 01/09/18 Disposition: 03 To SNU Not [facility] (SNF) *Condition: Stable Reason For Visit (Visit label in EMR): SVT sepsis - Discharge Medications *Discharge Medications: New Ondansetron Odt [Zofran Odt Tablet] 4 mg PO Q4H PRN tab PRN Reason: Nausea &/Or Vomiting PredniSONE [Deltasone 20 mg] 20 mg PO WB tab Furosemide [Lasix] 40 mg PO DAILY tab Aspirin *EC* [Ecotrin] 81 mg PO DAILY tab Albuterol/Ipratropium [Duoneb] 3 ml AEROSOL RTQID each Nitroglycerin [Nitrostat] 0.4 mg SL Q5MIN3 PRN tab PRN Reason: Chest Pain Guaifenesin LA [Mucinex LA] 1,200 mg PO BID tab Acetaminophen [Tylenol] 325 mg PO Q5H PRN tab PRN Reason: Discomfort Continue Trazodone [Desyrel] 100 mg PO HS Atorvastatin [Lipitor] 40 mg PO HS Losartan Potassium [Cozaar] 100 mg PO DAILY Levothyroxine Sodium [Tirosint] 50 mcg PO DAILY Xanax (alprazolam) 0.25 mg tablet 0.25 mg PO TID PRN #90 tab PRN Reason: anxiety Prilosec (Omeprazole) 20 mg capsule,delayed release 20 mg PO DAILY #90 cap Lopressor (metoprolol tartrate) 50 mg tablet 25 mg PO BID #90 tab Discontinued metoclopramide 10 mg tablet 10 mg PO TID #90 tab Levaquin (levofloxacin) 500 mg tablet 500 mg PO DAILY #10 tab - Discharge Packet/Instructions *Diet: regular *Activity: as tolerated *Pain Management/Treatment: n/a *Wound Care: n/a *Expected Signs/Symptoms: continued improvement in strength. *Notify Physician if: You develop chest pain, shortness of breath, or fever. *During Business Hours Contact: Your nurse at [facility] *After Business Hours Contact: Your nurse at [facility] *Pending Lab/Results: No Pending Lab - Referrals/Follow Up *Referrals/Follow Up: Ovidio Ziegler MD [Family Provider] - 1 Week () Robby Joseph MD [Physician] - 1 Month - Patient Handouts Patient Handouts: Sepsis (GEN) - Dismissal Complete Discharge Instructions are:: Complete Physician Narrative - Narrative Attestation Narrative: Date: 01/09/18 Time: [id number]
== END 2018-01-09 15:05 | DRG 202 ==
LOC: ED 11:38 → CCU 13:07 → SUATTDRO 13:07 → CCU 14:20 → MED 01-05 11:15
PROVIDERS: ADMIT Hospitalist; ATTEND Family Medicine